=== PATIENT | male | born 1945 | race Caucasian/White ===

== ENCOUNTER 2016-04-01 17:05 | Emergency (ER) | payer OTHER ==
[~2016-04-01] VITALS: Ht 162.6 cm; Wt 109.0 kg
[~2016-04-01 17:05] MED LIST: ALBUAER2 INH; AMIO200T4 PO; CEPH500C2 PO; FRRS300 PO; FURO20TA PO; GLIP10TA9 PO; LPR25 PO; LSN25 PO; PRT40 PO; TAMS0.4C38 PO; WARF3TAB PO
[2016-04-01 17:25] VITALS: TEMP 36.8; Ht 162.6 cm; Wt 109.0 kg
--- NOTE | 2016-04-01 17:29 | EMERGENCY ROOM VISIT NOTE ---
History Report prepared by Suzanne: Chelsea Hackett Under the Supervision of: Dr. Prasanth Montenegro D.O. First contact with patient: 17:19 Stated Complaint: SOB/LOWER HALF OF BODY -EDEMA /FR SCI ULICES History of Present Illness The patient is a 70 year old male who presents to the Emergency Room with complaints of worsening shortness of breath starting [employer]. The patient states that he has also had an occasional cough along with occasional chest pain. The patient states that he has COPD, heart failure, atrial fibrillation, and diabetes.The patient state states that he has not been regularly taking his medication. The patient also states he does not urinate very often but states he also suffers from prostate enlargement. The patient states he had a pacemaker placed 1 year ago. 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 A total of 10 systems reviewed and were otherwise negative. Past Medical & Surgical Medical Problems: (1) Heart disease Surgical Problems: (1) Aortic valve replaced Family History Patient reports no known family medical history. Social History Smoking Status: Unknown if Ever Smoked Marital Status: single Housing Status: other Occupation Status: unemployed Current/Historical Medications Scheduled Aspirin (Aspirin Chewable), 81 MG PO DAILY Ferrous Sulfate (Ferrous Sulfate), 325 MG PO BID Furosemide (Lasix), 80 MG PO BID Glipizide (Glucotrol), 10 MG PO DAILY Lisinopril (Prinivil), 5 MG PO DAILY Metformin Hcl (Glucophage), 1,000 MG PO BID Metoprolol Tartrate (Lopressor), 12.5 MG PO BID Pantoprazole (Protonix), 40 MG PO QAM Pravastatin (Pravachol ), 20 MG PO HS Tamsulosin Hcl (Flomax), 0.4 MG PO DAILY Warfarin Sod (Jantoven), 2 MG PO HS Scheduled PRN Albuterol (Ventolin), 2 PUFFS INH QID PRN for Shortness of Breath Allergies Coded Allergies: No Known Allergies (Unverified , 04/01/16) Physical Exam Vital Signs Date Time Temp Pulse Resp B/P Pulse Ox O2 Delivery O2 Flow Rate FiO2 04/01/16 20:29 74 28 130/83 98 Room Air 04/01/16 19:00 90 20 114/84 98 Room Air 04/01/16 17:34 98 Room Air 04/01/16 17:25 36.8 98 12 120/87 97 Room Air 04/01/16 17:24 108 Physical Exam GENERAL: Patient is awake, alert, and in no acute distress. Patient is resting comfortably and showing no signs of anxiety EYES: The conjunctivae are clear. The pupils are round and reactive. EARS, NOSE, MOUTH AND THROAT: The nose is without any evidence of any deformity. Mucous membranes are moist tongue is midline NECK: The neck is nontender and supple. RESPIRATORY: Lung sounds diminished throughout with rales at both bases. CARDIOVASCULAR: Distant sounds and difficult to auscultate. Regular rate and rhythm. No definite murmur was noted. GASTROINTESTINAL: The abdomen is soft. Bowel sounds are present in all quadrants. Abdomen is nontender MUSCULOSKELETAL/EXTREMITIES: There is no evidence of gross deformity full range of motion is noted in the hips and shoulders SKIN: There is no obvious evidence of any rash. There are no petechiae, pallor or cyanosis noted. Pedal edema was noted in both lower extremities extending into the abdominal wall. NEUROLOGIC: Patient is awake alert and oriented x3 strength is symmetric patellar reflexes are 2+ bilaterally Medical Decision & Procedures ER Provider Diagnostic Interpretation: X-ray results as stated below per interpretation by me and the radiologist. SINGLE VIEW CHEST CLINICAL HISTORY: Dyspnea. FINDINGS: An AP, portable, upright chest radiograph is compared to study dated 10/10/2014. The examination is degraded by portable technique, apical lordotic positioning, large body habitus, and patient rotation. A cardiac AICD partially obscures the left upper chest. The patient is status post midline sternotomy. The heart is enlarged and there is atherosclerotic calcification of the thoracic aorta. There is mild congestion of the pulmonary vasculature. There are low lung volumes and bibasilar atelectasis. No focal airspace consolidation or large pleural effusion is identified. No pneumothorax is seen. The skeletal structures are osteopenic. The bony thorax is grossly intact. IMPRESSION: 1. Cardiomegaly and AICD. There is mild pulmonary vascular congestion. 2. Low lung volumes. No focal airspace consolidation or large pleural effusion is identified. Electronically signed by: Dom Morgan M.D. 04/01/2016 6:03 PM Dictated Date/Time: 04/01/2016 6:01 PM Laboratory Results 04/01/16 17:40 Red Blood Count 3.79, Mean Corpuscular Volume 82.8, Mean Corpuscular Hemoglobin 30.9, Mean Corpuscular Hemoglobin Concent 37.3, Mean Platelet Volume 11.6, Neutrophils (%) (Auto) 70.3, Lymphocytes (%) (Auto) 13.4, Monocytes (%) (Auto) 7.8, Eosinophils (%) (Auto) 7.6, Basophils (%) (Auto) 0.9, Neutrophils # (Auto) 3.26, Lymphocytes # (Auto) 0.62, Monocytes # (Auto) 0.36, Eosinophils # (Auto) 0.35, Basophils # (Auto) 0.04 04/01/16 17:40 Test 04/01/16 17:40 04/01/16 18:06 White Blood Count 4.63 K/uL (4.8-10.8) Red Blood Count 3.79 M/uL (4.7-6.1) Hemoglobin 11.7 g/dL (14.0-18.0) Hematocrit 31.4 % (42-52) Mean Corpuscular Volume 82.8 fL (80-100) Mean Corpuscular Hemoglobin 30.9 pg (25-34) Mean Corpuscular Hemoglobin Concent 37.3 g/dl (32-36) Platelet Count 119 K/uL (130-400) Mean Platelet Volume 11.6 fL (7.4-10.4) Neutrophils (%) (Auto) 70.3 % Lymphocytes (%) (Auto) 13.4 % Monocytes (%) (Auto) 7.8 % Eosinophils (%) (Auto) 7.6 % Basophils (%) (Auto) 0.9 % Neutrophils # (Auto) 3.26 K/uL (1.4-6.5) Lymphocytes # (Auto) 0.62 K/uL (1.2-3.4) Monocytes # (Auto) 0.36 K/uL (0.11-0.59) Eosinophils # (Auto) 0.35 K/uL (0-0.5) Basophils # (Auto) 0.04 K/uL (0-0.2) RDW Standard Deviation 49.7 fL (36.4-46.3) RDW Coefficient of Variation 16.4 % (11.5-14.5) Immature Granulocyte % (Auto) 0.0 % Immature Granulocyte # (Auto) 0.00 K/uL (0.00-0.02) Target Cells 1+ Prothrombin Time 14.0 SECONDS (9.0-12.0) Prothromb Time International Ratio 1.3 (0.9-1.1) Activated Partial Thromboplast Time 26.7 SECONDS (21.0-31.0) Partial Thromboplastin Ratio 1.0 Anion Gap 10.0 mmol/L (3-11) Est Creatinine Clear Calc Drug Dose 57.5 ml/min Estimated GFR () 63.2 Estimated GFR (Non- 54.5 BUN/Creatinine Ratio 18.2 (10-20) Calcium Level 9.4 mg/dl (8.5-10.1) Total Bilirubin 1.3 mg/dl (0.2-1) Aspartate Amino Transf (AST/SGOT) 36 U/L (15-37) Alanine Aminotransferase (ALT/SGPT) 19 U/L (12-78) Alkaline Phosphatase 130 U/L (45-117) Total Creatine Kinase 130 U/L (39-308) Creatine Kinase MB 2.9 ng/ml (0.5-3.6) Creatine Kinase MB Ratio 2.2 (0-3.0) Troponin I 0.045 ng/ml (0-0.045) Pro-B-Type Natriuretic Peptide 9007 pg/ml (0-900) Total Protein 8.8 gm/dl (6.4-8.2) Albumin 3.4 gm/dl (3.4-5.0) Globulin 5.4 gm/dl (2.5-4.0) Albumin/Globulin Ratio 0.6 (0.9-2) Thyroid Stimulating Hormone (TSH) 1.440 uIu/ml (0.300-4.500) Free Thyroxine 1.60 ng/dl (0.80-1.60) Urine Color YELLOW Urine Appearance CLEAR (CLEAR) Urine pH 5.0 (4.5-7.5) Urine Specific Sledge 1.003 (1.000-1.030) Urine Protein TRACE (NEG) Urine Glucose (UA) NEG (NEG) Urine Ketones NEG (NEG) Urine Occult Blood NEG (NEG) Urine Nitrite NEG (NEG) Urine Bilirubin NEG (NEG) Urine Urobilinogen NEG (NEG) Urine Leukocyte Esterase MODERATE (NEG) Urine WBC (Auto) 5-10 /hpf (0-5) Urine RBC (Auto) 0-4 /hpf (0-4) Urine Hyaline Casts (Auto) 0 /lpf (0-5) Urine Epithelial Cells (Auto) 0-5 /lpf (0-5) Urine Bacteria (Auto) NEG (NEG) Laboratory results per my review. Medications Administered Medications (Trade) Dose Ordered Sig/Jenny Route Start Time Stop Time Status Last Admin Dose Admin Furosemide (Lasix Inj) 80 mg NOW STAT IV 04/01/16 18:56 04/01/16 18:57 DC 04/01/16 19:41 80 MG ECG Indication: SOB/dyspnea Rate (beats per minute): 96 Rhythm: atrial fibrillation Findings: PVC, other (Low voltage noted, Poor R wave progression. ) Comparison ECG Date: October 10, 2014 Change: Atrial Fibrillation has replaced ventricular paced rhythm. ED Course 1718: The patient was evaluated in room B8. A complete history and physical examination were performed. 1855: Ordered Lasix Inj 80 mg IV. 2014: I called [facility] and discussed the patient returning and returning to receive his normal medications. 2020: Upon reevaluation, the patient is hemodynamically stable. I discussed the results and treatment plan with him. he verbalized agreement of the treatment plan. The patient was discharged to be released back to the [facility]. Medical Decision Differential diagnosis: Etiologies such as infections, reactive airway disease, pneumonia, pneumothorax , COPD, CHF, cardiac ischemia, pulmonary embolism, musculoskeletal, gastrointestinal, as well as others were entertained. Nursing notes reviewed. The patient is a 70-year-old male who presented to the emergency department for evaluation of shortness of breath. The patient has a history of coronary artery disease and has had CHF in the past. He's been noncompliant with his medications and in fact has not taken many of his cardiac medications since the beginning of the year. The patient was treated with Lasix in the emergency department. He does have very significant edema all the way to the abdominal wall but he does not appear to be hypoxic at this time. He was encouraged to continue all medications as prescribed. He was also encouraged to follow-up with the [facility] physician and discuss possible referral to a finance lead if symptoms do not improve on his outpatient medications. His also encouraged return the emergency Department immediately symptoms change worsen or need arises. Impression Primary Impression: CHF (congestive heart failure) Additional Impression: Noncompliance with medications Scribe Attestation The scribe's documentation has been prepared under my direction and personally reviewed by me in its entirety. I confirm that the note above accurately reflects all work, treatment, procedures, and medical decision making performed by me. Departure Information Dispostion Other (Release back to Jail) Referrals Ulices ARREDONDO (PCP) Forms HOME CARE DOCUMENTATION FORM, IMPORTANT VISIT INFORMATION, WORK / SCHOOL INSTRUCTIONS Patient Instructions My [facility] Additional Instructions continue all medications as prescribed. Have a follow up with a finance lead and possible echocardiogram to evaluate your cardiac output. Problem Qualifiers
[2016-04-01 17:34] VITALS: O2SAT 98
[2016-04-01] MEDS ORDERED: WARF2TAB8 PO (17:59)
[2016-04-01] MEDS ORDERED: METF-384 PO (17:59)
[2016-04-01] MEDS ORDERED: FRS/40 PO (17:59)
--- NOTE | 2016-04-01 18:04 | DIAGNOSTIC IMAGING REPORT ---
SINGLE VIEW CHEST CLINICAL HISTORY: Dyspnea. FINDINGS: An AP, portable, upright chest radiograph is compared to study dated 10/10/2014. The examination is degraded by portable technique, apical lordotic positioning, large body habitus, and patient rotation. A cardiac AICD partially obscures the left upper chest. The patient is status post midline sternotomy. The heart is enlarged and there is atherosclerotic calcification of the thoracic aorta. There is mild congestion of the pulmonary vasculature. There are low lung volumes and bibasilar atelectasis. No focal airspace consolidation or large pleural effusion is identified. No pneumothorax is seen. The skeletal structures are osteopenic. The bony thorax is grossly intact. IMPRESSION: 1. Cardiomegaly and AICD. There is mild pulmonary vascular congestion. 2. Low lung volumes. No focal airspace consolidation or large pleural effusion is identified. Electronically signed by: Dom Morgan M.D. 04/01/2016 6:03 PM Dictated Date/Time: 04/01/2016 6:01 PM
[2016-04-01 18:11] LABS: INR 1.3 (0.9-1.1)
[2016-04-01 18:17] LABS: BUN/CREATININE RATIO 18.2 (10-20); CALCIUM 9.4 mg/dl (8.5-10.1); CREATININE 1.3 mg/dl (0.60-1.40); POTASSIUM 4.8 mmol/L (3.5-5.1)
[2016-04-01 18:28] LABS: ALB/GLOB RATIO 0.6 (0.9-2); CKMB/CK RATIO 2.2 (0-3.0); THYROID STIMULATING HORMONE 1.44 uIu/ml (0.300-4.500)
[2016-04-01 18:49] LABS: URINE APPEARANCE CLEAR (CLEAR); URINE BILIRUBIN NEG (NEG); URINE COLOR YELLOW; URINE EPITHELIAL CELL AUTO 0-5 /lpf (0-5); URINE NITRITE NEG (NEG); URINE SPECIFIC GRAVITY 1.003 (1.000-1.030); UROBILINOGEN NEG (NEG)
[2016-04-01 18:51] LABS: MANUAL MICROSCOPIC REQUIRED? NO; REVIEW REQ? NO
[2016-04-01] MEDS ORDERED: FUROSEMIDE 40 MG/4 ML VIAL IV STA (18:56)
[2016-04-01 19:35] LABS: HEMATOCRIT 31.4 % (42-52); MEAN CELL VOLUME 82.8 fL (80-100); MEAN CORPUSCULAR HEMOGLOBIN 30.9 pg (25-34); MEAN CORPUSCULAR HGB CONC 37.3 g/dl (32-36); MEAN PLATELET VOLUME 11.6 fL (7.4-10.4); PLATELET COUNT 119 K/uL (130-400); RED BLOOD COUNT 3.79 M/uL (4.7-6.1); WHITE BLOOD COUNT 4.63 K/uL (4.8-10.8)
[2016-04-01 19:43] LABS: BASO % 0.9 %; BASO ABS # 0.04 K/uL (0-0.2); COMPLETE YES; EOS % 7.6 %; LYMPH % 13.4 %; LYMPH ABS # 0.62 K/uL (1.2-3.4); MONO % 7.8 %; NEUT % 70.3 %; TARGET CELLS 1+
[2016-04-01 20:29] VITALS: BP 130/83; PULSE 74; O2SAT 98
[2016-04-06] MEDS ORDERED: ASPCH81X PO (13:47)
[2016-04-06] MEDS ORDERED: PRAV20TA PO (13:47)
[2016-04-19] MEDS ORDERED: DLCS PR (10:24)
[2016-04-19] MEDS ORDERED: PRS5 PO (10:24)
[2016-04-19] MEDS ORDERED: CRG3125 PO (10:24)
[2016-04-19] MEDS ORDERED: SPRN100 PO (10:24)
[2016-04-19] MEDS ORDERED: NUTRMIS PO (10:24)
[2016-04-19] MEDS ORDERED: LSX40 PO (10:24)
[2016-04-19] MEDS ORDERED: AMR2 PO (10:24)
== END 2016-04-01 20:47 ==
LOC: EDBD 17:05 → C.EDB 17:07
DX: I50.9 Heart failure, unspecified (principal); Z91.14 Patient's other noncompliance with medication regimen; Z79.82 Long term (current) use of aspirin; Z79.899 Other long term (current) drug therapy; Z79.01 Long term (current) use of anticoagulants

== ENCOUNTER → 2016-04-02 | Outpatient (CLI) | payer OTHER ==
[~2016-04-02] MED LIST changes: +ACET-749 PO; +ACET325T30 PO; -AMIO200T4 PO; +AMR2 PO; +ASPCH81X PO; +CAPS0.022 TOP; -CEPH500C2 PO; +CRG3125 PO; +DLCS PR; +EMOL-31 TOP; +FERR325T PO; +FRS/40 PO; -FURO20TA PO; +LISI-729 PO; -LSN25 PO; +LSX40 PO; +METF-384 PO; +NUTRMIS PO; +ONDA4TAB46 PO; +PANT40TA PO; +POTA10CA28 PO; +PRAV20TA PO; +PRS5 PO; -PRT40 PO; +PRVHFAIN INH; +SPRN100 PO; +WARF2TAB8 PO; -WARF3TAB PO; +WARF4TAB43 PO; +[UNRECOGNIZED DRUG - CODE] IV
[2016-04-02 10:31] LABS: BLOOD UREA NITROGEN 23 mg/dl (7-18); BUN/CREATININE RATIO 17.8 (10-20); CALCIUM 9.1 mg/dl (8.5-10.1); CARBON DIOXIDE 25 mmol/L (21-32); CHLORIDE 105 mmol/L (98-107); GLUCOSE 128 mg/dl (70-99); POTASSIUM 4.2 mmol/L (3.5-5.1); SODIUM 141 mmol/L (136-145)
== END ==
LOC: C.LABSPEC 10:25
PROVIDERS: ATTEND Family Medicine
DX: I50.9 Heart failure, unspecified (principal)

== ENCOUNTER → 2016-04-05 | Outpatient (CLI) | payer OTHER ==
[2016-04-05 13:14] LABS: BLOOD UREA NITROGEN 29 mg/dl (7-18); BUN/CREATININE RATIO 18.2 (10-20); CALCIUM 9.1 mg/dl (8.5-10.1); CARBON DIOXIDE 26 mmol/L (21-32); CHLORIDE 105 mmol/L (98-107); GLUCOSE 56 mg/dl (70-99); POTASSIUM 4.4 mmol/L (3.5-5.1); SODIUM 142 mmol/L (136-145)
== END ==
LOC: C.LABSPEC 12:37
DX: I50.9 Heart failure, unspecified (principal)

== ENCOUNTER 2016-04-06 15:38 | Inpatient (IN) | payer OTHER ==
[~2016-04-06] VITALS: Ht 162.6 cm; Wt 84.1 kg
[~2016-04-06 15:38] MED LIST changes: -ACET-749 PO; -ACET325T30 PO; -AMR2 PO; -CAPS0.022 TOP; -CRG3125 PO; -DLCS PR; -EMOL-31 TOP; -FERR325T PO; -LISI-729 PO; -LSX40 PO; -NUTRMIS PO; -ONDA4TAB46 PO; -PANT40TA PO; -POTA10CA28 PO; -PRS5 PO; -PRVHFAIN INH; -SPRN100 PO; -WARF4TAB43 PO; -[UNRECOGNIZED DRUG - CODE] IV
[2016-04-06] MEDS ORDERED: FERR325T PO (15:55)
[2016-04-06] MEDS ORDERED: [UNRECOGNIZED DRUG - CODE] IV (15:59)
[2016-04-06] MEDS ORDERED: WARF4TAB43 PO (16:03)
[2016-04-06] MEDS ORDERED: CAPS0.022 TOP (16:03)
[2016-04-06] MEDS ORDERED: EMOL-31 TOP (16:03)
[2016-04-06] MEDS ORDERED: DEXTROSE 50% 50 ML SYR ONE (16:08)
--- NOTE | 2016-04-06 16:09 | EMERGENCY ROOM VISIT NOTE ---
History Report prepared by Suzanne: Rocio Amato Under the Supervision of: Dr. Ryan Crouch M.D. First contact with patient: 15:44 Chief Complaint: HYPOGLYCEMIA Stated Complaint: HYPOGLYCEMIA History of Present Illness The patient is a 70 year old male prisoner who presents to the Emergency Room via ambulance with complaints of persistent hypoglycemia throughout the afternoon. The patient has a history of diabetes and his blood sugar was 36 at the correction earlier today. He was given apple juice which brought his sugar up to 57, but it has declined since then. En route, his blood sugar was 35. He was not been given any D10 or oral glucose en route. Currently, he states that he feels "like a piece of junk." His current abdominal and leg swelling as well as leg pain is at baseline. Past medical history includes CHF, heart disease, and COPD. He was in the hospital last week for CHF due to medical noncompliance. Over the past few days, he has been given additional doses of Lasix due to failure. He receives 80 mg IV Lasix BID. The patient is on 3L oxygen at all times. He denies any bleeding or blood in the stool. The patient is in Glipizide and Metformin for diabetes but stopped both medications today due to hypoglycemia. Source of History: patient Onset: today Position: other (Global) Symptom Intensity: BSG as low as 35 Quality: other (hypoglycemia) Timing: other (persistent) Review of Systems See HPI for pertinent positives & negatives. A total of 10 systems reviewed and were otherwise negative. Past Medical & Surgical Medical Problems: (1) Heart disease (2) Hypoglycemia Surgical Problems: (1) Aortic valve replaced Family History Patient reports no known family medical history. Social History Smoking Status: Never Smoker Marital Status: single Housing Status: other Occupation Status: unemployed Current/Historical Medications Scheduled Aspirin (Aspirin Chewable), 81 MG PO QAM Capsaicin (Capsaicin), 1 APPLN TOP BID Emollient (Lubriskin), 1 APPLN TOP BID Ferrous Sulfate (Ferrous Sulfate), 325 MG PO BID Furosemide (Furosemide), 80 MG IV BID Lisinopril (Prinivil), 5 MG PO DAILY Metoprolol Tartrate (Lopressor), 12.5 MG PO BID Pantoprazole (Protonix), 40 MG PO QAM Potassium Chloride (Micro-K Ext Rel), 20 MEQ PO BID Pravastatin (Pravachol ), 20 MG PO HS Tamsulosin Hcl (Flomax), 0.4 MG PO QAM Warfarin Sodium (Warfarin Sodium), 2 MG PO HS Scheduled PRN Acetaminophen (Acetaminophen), 325 MG PO TID PRN for Pain Acetaminophen/Codeine (Tylenol W/Codeine #3), 2 TABS PO QID PRN for Pain Albuterol (Ventolin Hfa), 2 PUFFS INH QID PRN for Shortness of Breath Ondansetron Hcl (Zofran), 4 MG PO QID PRN for Nausea Allergies Coded Allergies: No Known Allergies (Unverified , 04/01/16) Physical Exam Vital Signs Date Time Temp Pulse Resp B/P Pulse Ox O2 Delivery O2 Flow Rate FiO2 04/06/16 17:43 63 20 104/71 96 Nasal Cannula 3.0 04/06/16 16:39 63 22 125/79 Nasal Cannula 3.0 04/06/16 16:04 63 04/06/16 15:43 36.5 72 20 127/92 97 Nasal Cannula Physical Exam GENERAL: Patient is chronically unwell appearing and in mild distress. HEENT: No acute trauma, normocephalic atraumatic, mucous membranes moist, no nasal congestion, no scleral icterus. NECK: No stridor, no adenopathy, no meningismus, trachea is midline. LUNGS: Mildly dyspneic. Diffuse crackles to auscultation to auscultation and equal bilaterally. No wheeze, no rhonchi. HEART: Regular rate and rhythm. Mild systolic murmur. No rubs, gallops appreciated. CHEST: Defibrillator in left upper chest. ABDOMEN: Soft, nontender, bowel sounds positive, no masses appreciated, no peritonitis. BACK: No midline tenderness, no CVA tenderness EXTREMITIES: Normal motion all extremities, no cyanosis, 4+ edema in the legs extending to low back and mid-abdomen. NEUROLOGIC: Alert and oriented, no acute motor or sensory deficits, no focal weakness, cranial nerves grossly intact. SKIN: No rash, no jaundice, no diaphoresis. Medical Decision & Procedures ER Provider Diagnostic Interpretation: X ray results are stated below per my interpretation and the radiologist's interpretation. SINGLE VIEW CHEST CLINICAL HISTORY: Hypoglycemia. FINDINGS: An AP, portable, upright chest radiograph is compared to study dated 04/01/2016. The examination is degraded by portable technique, apical lordotic positioning, large body habitus, and motion artifact. A cardiac AICD is unchanged in position. The patient is status post midline sternotomy. The heart is enlarged and there is atherosclerotic calcification of the thoracic aorta. There is mild congestion of the pulmonary vasculature. There are low lung volumes and bibasilar atelectasis. No focal airspace consolidation or large pleural effusion is identified. No pneumothorax is seen. The skeletal structures are osteopenic. The bony thorax is grossly intact. IMPRESSION: 1. Cardiomegaly and AICD. There is mild pulmonary vascular congestion. This is similar in appearance to the 04/01/2016 examination. 2. Low lung volumes. No focal airspace consolidation or large pleural effusion is identified. Electronically signed by: Dom Morgan M.D. 04/06/2016 4:43 PM Dictated Date/Time: 04/06/2016 4:42 PM Laboratory Results 04/06/16 16:00 Red Blood Count 3.73, Mean Corpuscular Volume 83.9, Mean Corpuscular Hemoglobin 31.4, Mean Corpuscular Hemoglobin Concent 37.4, Mean Platelet Volume 11.6, Neutrophils (%) (Auto) 67.5, Lymphocytes (%) (Auto) 7.5, Monocytes (%) (Auto) 11.4, Eosinophils (%) (Auto) 13.2, Basophils (%) (Auto) 0.4, Neutrophils # (Auto ) 3.77, Lymphocytes # (Auto) 0.42, Monocytes # (Auto) 0.64, Eosinophils # (Auto ) 0.74, Basophils # (Auto) 0.02 04/06/16 16:00 Test 04/06/16 16:00 White Blood Count 5.59 K/uL (4.8-10.8) Red Blood Count 3.73 M/uL (4.7-6.1) Hemoglobin 11.7 g/dL (14.0-18.0) Hematocrit 31.3 % (42-52) Mean Corpuscular Volume 83.9 fL (80-100) Mean Corpuscular Hemoglobin 31.4 pg (25-34) Mean Corpuscular Hemoglobin Concent 37.4 g/dl (32-36) Platelet Count 130 K/uL (130-400) Mean Platelet Volume 11.6 fL (7.4-10.4) Neutrophils (%) (Auto) 67.5 % Lymphocytes (%) (Auto) 7.5 % Monocytes (%) (Auto) 11.4 % Eosinophils (%) (Auto) 13.2 % Basophils (%) (Auto) 0.4 % Neutrophils # (Auto) 3.77 K/uL (1.4-6.5) Lymphocytes # (Auto) 0.42 K/uL (1.2-3.4) Monocytes # (Auto) 0.64 K/uL (0.11-0.59) Eosinophils # (Auto) 0.74 K/uL (0-0.5) Basophils # (Auto) 0.02 K/uL (0-0.2) RDW Standard Deviation 50.6 fL (36.4-46.3) RDW Coefficient of Variation 16.6 % (11.5-14.5) Immature Granulocyte % (Auto) 0.0 % Immature Granulocyte # (Auto) 0.00 K/uL (0.00-0.02) Prothrombin Time 14.5 SECONDS (9.0-12.0) Prothromb Time International Ratio 1.3 (0.9-1.1) Activated Partial Thromboplast Time 33.6 SECONDS (21.0-31.0) Partial Thromboplastin Ratio 1.3 Anion Gap 8.0 mmol/L (3-11) Est Creatinine Clear Calc Drug Dose 46.8 ml/min Estimated GFR () 49.2 Estimated GFR (Non- 42.4 BUN/Creatinine Ratio 20.0 (10-20) Calcium Level 8.9 mg/dl (8.5-10.1) Total Bilirubin 1.1 mg/dl (0.2-1) Direct Bilirubin 0.7 mg/dl (0-0.2) Aspartate Amino Transf (AST/SGOT) 30 U/L (15-37) Alanine Aminotransferase (ALT/SGPT) 18 U/L (12-78) Alkaline Phosphatase 130 U/L (45-117) Total Creatine Kinase 77 U/L (39-308) Troponin I 0.024 ng/ml (0-0.045) Pro-B-Type Natriuretic Peptide 6126 pg/ml (0-900) Total Protein 8.7 gm/dl (6.4-8.2) Albumin 3.2 gm/dl (3.4-5.0) Lipase 122 U/L (73-393) Laboratory results as reviewed by me. Medications Administered Medications (Trade) Dose Ordered Sig/Jenny Route Start Time Stop Time Status Last Admin Dose Admin Dextrose (Dextrose 50% 50ML Syringe) 50 ml STK-MED ONCE .ROUTE 04/06/16 16:08 04/06/16 16:09 DC 04/06/16 16:17 50 ML Albuterol/ Ipratropium (Duoneb) 3 ml STK-MED ONCE .ROUTE 04/06/16 16:32 04/06/16 16:33 DC 04/06/16 16:37 3 ML Dextrose (Dextrose 50% 50ML Syringe) 50 ml NOW STAT IV 04/06/16 17:22 04/06/16 17:23 DC 04/06/16 17:41 50 ML ECG Indication: other (hypoglycemia) Rate (beats per minute): 82 Rhythm: sinus rhythm Findings: 1st degree AV block, no acute ischemic change, no ectopy ED Course 1558: The patient was evaluated in room A9. A complete history and physical exam was performed. 1710: Upon reevaluation, the patient is feeling slightly better following the breathing treatment. Discussed results and treatment plan with the patient. He verbalized understanding and agreement with the treatment plan. The patient will be evaluated for further management. 1732: I discussed the case with Dr. Carol BLANCO Hospitalist. The patient will be evaluated for further management. Medical Decision Differential: Sepsis, Infectious (UTI/Pneumonia/Meningitis/etc), Metabolic/ Electrolyte Abnormality, Cardiac, Hepatic, Endocrine, Toxicologic, Neurologic, amongst other pathologies entertained. 70 yr old medically non-compliant prisoner arrives for evaluation of hypoglycemia. He has been on high dose lasix over the last week for CHF exacerbation (80mg BID IV) without much improvement in his UOP nor CHF. By exam he is clearly fluid overloaded. I suspect his minor renal insufficiency lead to Glipizide becoming a bit more intense. Given multiple round glucose prior to arrival apparently with glucose continuing to drop. Given D50 here with just minimal improvement thus given second dose D50. Doesn't seem to be significantly confused. He has clearly failed extensive attempt as outpatient in correction to get CHF under control. Stable throughout ED stay. Consults Time Called: 1720 Consulting Physician: Dr. Carol BLANCO Hospitalist Returned Call: 1732 I discussed the case with him. The patient will be evaluated for further management. Impression Primary Impression: Failure of outpatient treatment Additional Impressions: CHF (congestive heart failure) Hypoglycemia Scribe Attestation The scribe's documentation has been prepared under my direction and personally reviewed by me in its entirety. I confirm that the note above accurately reflects all work, treatment, procedures, and medical decision making performed by me. Departure Information Dispostion Being Evaluated By Hospitalist Referrals Lorena ARREDONDO (PCP) Patient Instructions My [facility] Problem Qualifiers Additional Impressions: CHF (congestive heart failure) Congestive heart failure type: combined Congestive heart failure chronicity: acute on chronic Qualified Codes: I50.43 - Acute on chronic combined systolic (congestive) and diastolic (congestive) heart failure
[2016-04-06] MEDS ORDERED: PRVHFAIN INH (16:10)
[2016-04-06] MEDS ORDERED: LPR25 PO (16:10)
[2016-04-06] MEDS ORDERED: POTA10CA28 PO (16:12)
[2016-04-06] MEDS ORDERED: TAMS0.4C38 PO (16:14)
[2016-04-06] MEDS ORDERED: ONDA4TAB46 PO (16:16)
[2016-04-06] MEDS ORDERED: ACET325T30 PO (16:17)
[2016-04-06] MEDS ORDERED: ACET-749 PO (16:17)
[2016-04-06 16:21] LABS: BASO % 0.4 %; BASO ABS # 0.02 K/uL (0-0.2); COMPLETE YES; EOS % 13.2 %; HEMATOCRIT 31.3 % (42-52); LYMPH % 7.5 %; LYMPH ABS # 0.42 K/uL (1.2-3.4); MEAN CELL VOLUME 83.9 fL (80-100); MEAN CORPUSCULAR HEMOGLOBIN 31.4 pg (25-34); MEAN CORPUSCULAR HGB CONC 37.4 g/dl (32-36); MEAN PLATELET VOLUME 11.6 fL (7.4-10.4); MONO % 11.4 %; NEUT % 67.5 %; PLATELET COUNT 130 K/uL (130-400); RED BLOOD COUNT 3.73 M/uL (4.7-6.1); WHITE BLOOD COUNT 5.59 K/uL (4.8-10.8)
[2016-04-06] MEDS ORDERED: ALBUT/IPRATROP 3MG/0.5MG NEB 3 ML VIAL ONE (16:32)
--- NOTE | 2016-04-06 16:45 | DIAGNOSTIC IMAGING REPORT ---
SINGLE VIEW CHEST CLINICAL HISTORY: Hypoglycemia. FINDINGS: An AP, portable, upright chest radiograph is compared to study dated 04/01/2016. The examination is degraded by portable technique, apical lordotic positioning, large body habitus, and motion artifact. A cardiac AICD is unchanged in position. The patient is status post midline sternotomy. The heart is enlarged and there is atherosclerotic calcification of the thoracic aorta. There is mild congestion of the pulmonary vasculature. There are low lung volumes and bibasilar atelectasis. No focal airspace consolidation or large pleural effusion is identified. No pneumothorax is seen. The skeletal structures are osteopenic. The bony thorax is grossly intact. IMPRESSION: 1. Cardiomegaly and AICD. There is mild pulmonary vascular congestion. This is similar in appearance to the 04/01/2016 examination. 2. Low lung volumes. No focal airspace consolidation or large pleural effusion is identified. Electronically signed by: Dom Morgan M.D. 04/06/2016 4:43 PM Dictated Date/Time: 04/06/2016 4:42 PM
[2016-04-06 16:55] LABS: CALCIUM 8.9 mg/dl (8.5-10.1); CREATININE 1.6 mg/dl (0.60-1.40); POTASSIUM 4.9 mmol/L (3.5-5.1)
[2016-04-06 17:16] LABS: INR 1.3 (0.9-1.1); PARTIAL THROMBOPLASTIN RATIO 1.3; PROTHROMBIN TIME (PATIENT) 14.5 SECONDS (9.0-12.0)
[2016-04-06] MEDS ORDERED: DEXTROSE 50% 50 ML SYR IV STA (17:22)
[2016-04-06] MEDS ORDERED: LISI-729 PO (17:59)
[2016-04-06] MEDS ORDERED: PANT40TA PO (18:01)
[2016-04-06] MEDS ORDERED: ALUMINUM/MAGNESIUM/SIMETH (MAALOX MAX) 30 ML UDC PO PRN (18:15)
[2016-04-06] MEDS ORDERED: ACETAMINOPHEN 325 MG TAB PO PRN (18:15)
[2016-04-06] MEDS ORDERED: ALBUMIN 5% 250 ML with FUROSEMIDE INJ 40 MG IV SCH ×2 (18:15)
[2016-04-06] MEDS ORDERED: ONDANSETRON INJ 2 MG/ML 2 ML VIAL IV PRN (18:15)
[2016-04-06] MEDS ORDERED: POLYETHYLENE (MIRALAX) 17 GM PACK PO PRN (18:15)
--- NOTE | 2016-04-06 19:04 | History and Physical ---
History & Physical Date & Time of Service: Apr 06, 2016 at 18:47 Chief Complaint: Hypoglycemia Primary Care Physician: Lorena ARREDONDO History of Present Illness Source: patient, clinic records, hospital records This patient is a 70-year-old inmate at [facility] that was transferred to the emergency department today with reported hypoglycemia and fluid retention. Patient has a history of type 2 diabetes. He was found to have a blood sugar in the 30s. He was given orange juice. The ambulance was called. His blood sugar sal to the 50s. The patient takes glipizide 10 mg daily and metformin 1000 mg BID. The patient currently is complaining of some mild lightheadedness. He denies any chest pain or difficulty breathing. He does require 3 L of oxygen at all times for history of chronic COPD. He denies any recent changes in his medications. The patient is complaining of some scrotal pain and possible swelling. The patient has a history of coronary artery disease, A. fib and diastolic heart failure. He is reportedly on Lasix 80 mg IV BID at [facility]. Upon arrival in the ED, the patient's IV site was infiltrated. Past Medical/Surgical History Medical Problems: COPD Type 2 diabetes mellitus Coronary artery disease status post CABG and AVR (bioprosthetic) in 2007 Status post AICD placement Anemia Status post GI bleed On chronic anticoagulation Family History Patient reports no known family medical history. Social History Smoking Status: Never Smoker Marital Status: single Housing status: other (incarcerated at [facility]) Occupational Status: unemployed Allergies Coded Allergies: No Known Allergies (Unverified , 04/01/16) Home Medications Scheduled Aspirin (Aspirin Chewable), 81 MG PO QAM Capsaicin (Capsaicin), 1 APPLN TOP BID Emollient (Lubriskin), 1 APPLN TOP BID Ferrous Sulfate (Ferrous Sulfate), 325 MG PO BID Furosemide (Furosemide), 80 MG IV BID Lisinopril (Prinivil), 5 MG PO DAILY Metoprolol Tartrate (Lopressor), 12.5 MG PO BID Pantoprazole (Protonix), 40 MG PO QAM Potassium Chloride (Micro-K Ext Rel), 20 MEQ PO BID Pravastatin (Pravachol ), 20 MG PO HS Tamsulosin Hcl (Flomax), 0.4 MG PO QAM Warfarin Sodium (Warfarin Sodium), 2 MG PO HS Scheduled PRN Acetaminophen (Acetaminophen), 325 MG PO TID PRN for Pain Acetaminophen/Codeine (Tylenol W/Codeine #3), 2 TABS PO QID PRN for Pain Albuterol (Ventolin Hfa), 2 PUFFS INH QID PRN for Shortness of Breath Ondansetron Hcl (Zofran), 4 MG PO QID PRN for Nausea Review of Systems 10 system review performed and negative unless noted in HPI or below Physical Exam Vital Signs Date Time Temp Pulse Resp B/P Pulse Ox O2 Delivery O2 Flow Rate FiO2 04/06/16 17:43 63 20 104/71 96 Nasal Cannula 3.0 04/06/16 16:39 63 22 125/79 Nasal Cannula 3.0 04/06/16 16:04 63 04/06/16 15:43 36.5 72 20 127/92 97 Nasal Cannula General Appearance: + mild distress Head: normocephalic Eyes: EOMI Neck: + JVD (mild jvd noted) Respiratory/Chest: + pertinent finding (few crackles at the left base) Cardiovascular: regular rate, rhythm Abdomen/GI: + pertinent finding (fairly firm. nontender. distended. + Tympanitic ) Genitourinary - Male: + pertinent finding (scrotal edema) Extremities/Musculoskelatal: + pertinent finding (+ 1 pitting edema in BLE) Neurologic/Psych: no motor/sensory deficits, alert Skin: warm/dry Diagnostics Laboratory Results Results Past 24 Hours Test 04/06/16 16:00 Range/Units White Blood Count 5.59 4.8-10.8 K/uL Red Blood Count 3.73 4.7-6.1 M/uL Hemoglobin 11.7 14.0-18.0 g/dL Hematocrit 31.3 42-52 % Mean Corpuscular Volume 83.9 80-100 fL Mean Corpuscular Hemoglobin 31.4 25-34 pg Mean Corpuscular Hemoglobin Concent 37.4 32-36 g/dl Platelet Count 130 130-400 K/uL Mean Platelet Volume 11.6 7.4-10.4 fL Neutrophils (%) (Auto) 67.5 % Lymphocytes (%) (Auto) 7.5 % Monocytes (%) (Auto) 11.4 % Eosinophils (%) (Auto) 13.2 % Basophils (%) (Auto) 0.4 % Neutrophils # (Auto) 3.77 1.4-6.5 K/uL Lymphocytes # (Auto) 0.42 1.2-3.4 K/uL Monocytes # (Auto) 0.64 0.11-0.59 K/uL Eosinophils # (Auto) 0.74 0-0.5 K/uL Basophils # (Auto) 0.02 0-0.2 K/uL RDW Standard Deviation 50.6 36.4-46.3 fL RDW Coefficient of Variation 16.6 11.5-14.5 % Immature Granulocyte % (Auto) 0.0 % Immature Granulocyte # (Auto) 0.00 0.00-0.02 K/uL Prothrombin Time 14.5 9.0-12.0 SECONDS Prothromb Time International Ratio 1.3 0.9-1.1 Activated Partial Thromboplast Time 33.6 21.0-31.0 SECONDS Partial Thromboplastin Ratio 1.3 Sodium Level 138 136-145 mmol/L Potassium Level 4.9 3.5-5.1 mmol/L Chloride Level 103 98-107 mmol/L Carbon Dioxide Level 27 21-32 mmol/L Anion Gap 8.0 3-11 mmol/L Blood Urea Nitrogen 32 7-18 mg/dl Creatinine 1.60 0.60-1.40 mg/dl Est Creatinine Clear Calc Drug Dose 46.8 ml/min Estimated GFR () 49.2 Estimated GFR (Non- 42.4 BUN/Creatinine Ratio 20.0 10-20 Random Glucose 32 70-99 mg/dl Calcium Level 8.9 8.5-10.1 mg/dl Total Bilirubin 1.1 0.2-1 mg/dl Direct Bilirubin 0.7 0-0.2 mg/dl Aspartate Amino Transf (AST/SGOT) 30 15-37 U/L Alanine Aminotransferase (ALT/SGPT) 18 12-78 U/L Alkaline Phosphatase 130 45-117 U/L Total Creatine Kinase 77 39-308 U/L Troponin I 0.024 0-0.045 ng/ml Pro-B-Type Natriuretic Peptide 6126 0-900 pg/ml Total Protein 8.7 6.4-8.2 gm/dl Albumin 3.2 3.4-5.0 gm/dl Lipase 122 73-393 U/L Diagnostic Radiology CLINICAL HISTORY: Fever. Nausea. FINDINGS: An AP, portable, upright chest radiograph is compared to study dated 01/20/2016 and correlated with chest CT dated 12/01/2008. The examination is degraded by portable technique and patient rotation. The heart is top normal for projection. The mitral annulus is densely calcified. There is atherosclerotic calcification with uncoiling of the thoracic aorta. Chronic interstitial thickening is similar to previous. No airspace consolidation or large pleural effusion is identified. No pneumothorax is seen. The skeletal structures are osteopenic. Degenerative change and scoliosis is noted in the thoracic spine. Arthritic change is seen in the shoulders. IMPRESSION: No acute cardiopulmonary abnormality. Chronic changes as above. EKG Normal sinus rhythm First-degree AV block Q waves noted in V1 through V3 Impression Assessment and Plan 70-year-old male with a history of type 2 diabetes and chronic diastolic heart failure and transferred to the ED with an episode of persistent hypoglycemia Currently BSG's stable in the 70s Hypoglycemia -Admit to telemetry -Accu-Cheks every 2 hours for the first 12 hours -Hold metformin 1000 mg BID -Hold glipizide 10 mg daily -ISS Chronic diastolic heart failure -Patient was reportedly getting Lasix 80 mg IV BID-->IV was infiltrated upon arrival. He also did not get any Lasix today -Lasix/albumin x 1 -Restart Lasix 40 mg po BID tomorrow -Strict I's and O's -Adjust Lasix prn History of coronary artery disease status post CABG-asymptomatic -Continue medical management with Lopressor 12.5 mg BID, pravastatin 20 mg HS -Hold Hiren secondary to renal function (lisinopril 5 mg daily) COPD with chronic respiratory failure-Baseline -Duo nebs every 6 hours we'll be available History of bioprosthetic AVR -Continue warfarin 2 mg HS-this may need to be adjusted as the INR was subtherapeutic at 1.3 Acute on chronic renal insufficiency-creatinine is slightly elevated from 1.6 to baseline at approximately 1.3. ? secondary to diuresis -Hold Hiren as noted above -Follow PRP History of GI bleed-stable. No signs of active bleeding DVT prophylaxis -Coumadin -TEDS, SCDs CODE STATUS -LEVEL I FULL CODE Level of Care Telemetry Resuscitation Status FULL RESUSCITATION VTE Prophylaxis VTE Risk Assessment Done? Y/N: Yes Risk Level: Low Given or contraindicated: Warfarin (Coumadin), T.E.D. Stockings, SCD's Assessment and Plan Attending addendum: I have seen and examined this patient, have directed their medical care, and agree with the H&P as noted above.
[2016-04-06] MEDS ORDERED: GLUCAGON FOR INJ 1 MG VIAL SQ PRN (19:45)
[2016-04-06] MEDS ORDERED: GLUCOSE 40% GEL 15 GM TUBE PO PRN (19:45)
[2016-04-06 20:00] VITALS: BP 114/73; PULSE 67; TEMP 36.7; O2SAT 99; BMI 40.1
[2016-04-06] MEDS ORDERED: ALBUMIN 25% 50 ML with FUROSEMIDE INJ 40 MG IV ONE ×2 (20:00)
[2016-04-06] MEDS: INSULIN ASPART 100 UNITS/ML 3 ML PEN SC SCH (20:31)
[2016-04-06] MEDS: DEXTROSE 5% 1000ML 1,000 ML IV SCH (20:56)
[2016-04-06] MEDS: METOPROLOL TARTRATE 25 MG TAB PO SCH (21:22)
[2016-04-06] MEDS: FERROUS SULFATE 325 MG TAB PO SCH (21:22)
[2016-04-06] MEDS: WARFARIN SOD 2 MG TAB PO SCH (21:22)
[2016-04-06] MEDS: ENOXAPARIN 30 MG/0.3 ML SYR SC SCH (21:23)
[2016-04-06] MEDS: PRAVASTATIN SOD 20 MG TAB PO SCH (21:23)
[2016-04-06] MEDS: GLUCOSE 10 TABS/TUBE PO PRN (22:42)
[2016-04-06 23:21] VITALS: BP 100/66; PULSE 89; TEMP 36.8; O2SAT 99
[2016-04-07] MEDS: GLUCOSE 10 TABS/TUBE PO PRN (00:15)
[2016-04-07 01:46] LABS: BUN/CREATININE RATIO 18.3 (10-20); CALCIUM 8.8 mg/dl (8.5-10.1); CREATININE 1.8 mg/dl (0.60-1.40)
[2016-04-07] MEDS: DEXTROSE 50% 50 ML SYR IV PRN (02:24)
[2016-04-07 03:06] VITALS: BP 110/72; PULSE 60; TEMP 36.4; O2SAT 98
[2016-04-07] MEDS: DEXTROSE 5% 1000ML 1,000 ML IV SCH ×2 (06:15→18:30)
[2016-04-07 06:49] LABS: ESTIMATED AVERAGE GLUCOSE 148 mg/dl
[2016-04-07] MEDS: INSULIN ASPART 100 UNITS/ML 3 ML PEN SC SCH ×4 (07:00→20:28)
[2016-04-07 07:01] LABS: INR 1.4 (0.9-1.1); PROTHROMBIN TIME (PATIENT) 14.7 SECONDS (9.0-12.0)
[2016-04-07 07:04] LABS: HA1C FLAG Peak Unknown (Normal)
[2016-04-07 07:30] LABS: BUN/CREATININE RATIO 16.2 (10-20); CALCIUM 8.9 mg/dl (8.5-10.1); MAGNESIUM 1.5 mg/dl (1.8-2.4); POTASSIUM 5.3 mmol/L (3.5-5.1)
[2016-04-07 07:31] VITALS: BP 103/70; PULSE 60; TEMP 36.6; O2SAT 97
[2016-04-07 07:38] LABS: HEMATOCRIT 30.7 % (42-52); MEAN CELL VOLUME 83.7 fL (80-100); MEAN CORPUSCULAR HEMOGLOBIN 30.8 pg (25-34); MEAN CORPUSCULAR HGB CONC 36.8 g/dl (32-36); MEAN PLATELET VOLUME 11.1 fL (7.4-10.4); PLATELET COUNT 123 K/uL (130-400); RED BLOOD COUNT 3.67 M/uL (4.7-6.1); WHITE BLOOD COUNT 4.79 K/uL (4.8-10.8)
[2016-04-07 07:39] LABS: BASO % 0.2 %; BASO ABS # 0.01 K/uL (0-0.2); COMPLETE YES; EOS % 11.3 %; IG% 0.2 %; LARGE PLATELETS 1+; LYMPH % 11.3 %; LYMPH ABS # 0.54 K/uL (1.2-3.4); MONO % 10.2 %; NEUT % 66.8 %; PLT ESTIMATE DECREASED; TARGET CELLS 2+
[2016-04-07] MEDS: TAMSULOSIN HCL 0.4 MG CAP PO SCH (08:39)
[2016-04-07] MEDS: ACETAMINOPHEN 325 MG TAB PO PRN (08:39)
[2016-04-07] MEDS: PANTOprazole SOD 40 MG TAB PO SCH (08:39)
[2016-04-07] MEDS: FERROUS SULFATE 325 MG TAB PO SCH ×2 (08:40→21:14)
[2016-04-07] MEDS: METOPROLOL TARTRATE 25 MG TAB PO SCH ×2 (08:40→20:26)
[2016-04-07] MEDS: ASPIRIN 81 MG ECTAB PO SCH (08:41)
--- NOTE | 2016-04-07 09:55 | Hospitalist Progress Note ---
Hospitalist Progress Note Date of Service Apr 07, 2016. Subjective Pt evaluation today including: conversation w/ patient, physical exam, chart review, lab review, review of studies, review of inpatient medication list Pain: Scrotal pain PO Intake: Poor Voiding: chowdary catheter in place Pt was seen and examined this morning. He is complaining of severe scrotal pain and swelling. Pt has difficulty moving around in the bed due to swelling. He also complains of shortness of breath which is chronic, wears 2L O2 at baseline. During my exam o2 is not on. Overnight glucose has stayed in high 40s-50s even while on D5W at 100 cc/hr, and after recieving a half amp of dextrose, and glucose tabs. He denies lightheadedness, dizziness overnight. He reports a very poor appetite, nausea, denies vomiting. He denies abdominal pain but reports pressure. Constitutional: No chills, No fever, No sweats Eyes: No worsening of vision ENT: No nasal symptoms, No sore throat, No tinnitus Respiratory: + dyspnea on exertion, + shortness of breath, No cough, No dyspnea at rest, No sputum Cardiovascular: + orthopnea, No chest pain, No palpitations Abdomen: + nausea, No constipation, No diarrhea, No pain, No vomiting Musculoskeletal: + swelling, No calf pain, No muscle pain Male : + problem reported (scrotal edema, + about the size of a cantalope. ) Neurologic: + problem reported (wheelchair bound), + weakness, No numbness/ tingling Endo: No fatigue Skin: No itch, No rash Objective Vital Signs Date Time Temp Pulse Resp B/P Pulse Ox O2 Delivery O2 Flow Rate FiO2 04/07/16 04:00 Nasal Cannula 3.0 04/07/16 03:06 36.4 60 19 110/72 98 Nasal Cannula 2.0 04/07/16 00:00 Nasal Cannula 3.0 04/06/16 23:21 36.8 89 20 100/66 99 Nasal Cannula 2.0 04/06/16 20:00 36.7 67 20 114/73 99 Nasal Cannula 3.0 04/06/16 19:37 63 20 117/80 96 Nasal Cannula 3.0 04/06/16 17:43 63 20 104/71 96 Nasal Cannula 3.0 04/06/16 16:39 63 22 125/79 Nasal Cannula 3.0 04/06/16 16:04 63 04/06/16 15:43 36.5 72 20 127/92 97 Nasal Cannula Physical Exam General Appearance: WD/WN, + mild distress, + pertinent finding ( male , obese) Eyes: PERRL, EOMI ENT: hearing grossly normal, pharynx normal Neck: no JVD Respiratory/Chest: no respiratory distress, no accessory muscle use, + pertinent finding (diminished breath sounds at bases bilaterally.) Cardiovascular: regular rate, rhythm, no JVD, no murmur Abdomen: + pertinent finding (+ ascites, + dullness to percussion. + tenderness to palpation in the epigastric region. + guarding. No rebound. ) Extremities: non-tender, no calf tenderness, + pedal edema (1+ pitting up to mid tibial region) Neurologic/Psychiatric: alert, oriented x 3 Skin: normal color, warm/dry Laboratory Results Last 24 Hours Test 04/06/16 16:00 04/07/16 01:15 04/07/16 06:39 White Blood Count 5.59 K/uL Red Blood Count 3.73 M/uL Hemoglobin 11.7 g/dL Hematocrit 31.3 % Mean Corpuscular Volume 83.9 fL Mean Corpuscular Hemoglobin 31.4 pg Mean Corpuscular Hemoglobin Concent 37.4 g/dl Platelet Count 130 K/uL Mean Platelet Volume 11.6 fL Neutrophils (%) (Auto) 67.5 % Lymphocytes (%) (Auto) 7.5 % Monocytes (%) (Auto) 11.4 % Eosinophils (%) (Auto) 13.2 % Basophils (%) (Auto) 0.4 % Neutrophils # (Auto) 3.77 K/uL Lymphocytes # (Auto) 0.42 K/uL Monocytes # (Auto) 0.64 K/uL Eosinophils # (Auto) 0.74 K/uL Basophils # (Auto) 0.02 K/uL RDW Standard Deviation 50.6 fL RDW Coefficient of Variation 16.6 % Immature Granulocyte % (Auto) 0.0 % Immature Granulocyte # (Auto) 0.00 K/uL Prothrombin Time 14.5 SECONDS 14.7 SECONDS Prothromb Time International Ratio 1.3 1.4 Activated Partial Thromboplast Time 33.6 SECONDS Partial Thromboplastin Ratio 1.3 Sodium Level 138 mmol/L 139 mmol/L Potassium Level 4.9 mmol/L 5.0 mmol/L Chloride Level 103 mmol/L 103 mmol/L Carbon Dioxide Level 27 mmol/L 28 mmol/L Anion Gap 8.0 mmol/L 8.0 mmol/L Blood Urea Nitrogen 32 mg/dl 33 mg/dl Creatinine 1.60 mg/dl 1.80 mg/dl Est Creatinine Clear Calc Drug Dose 46.8 ml/min 40.3 ml/min Estimated GFR () 49.2 42.3 Estimated GFR (Non- 42.4 36.5 BUN/Creatinine Ratio 20.0 18.3 Random Glucose 32 mg/dl 49 mg/dl Estimated Average Glucose 148 mg/dl Hemoglobin A1c 6.8 % Calcium Level 8.9 mg/dl 8.8 mg/dl Total Bilirubin 1.1 mg/dl Direct Bilirubin 0.7 mg/dl Aspartate Amino Transf (AST/SGOT) 30 U/L Alanine Aminotransferase (ALT/SGPT) 18 U/L Alkaline Phosphatase 130 U/L Total Creatine Kinase 77 U/L Troponin I 0.024 ng/ml Pro-B-Type Natriuretic Peptide 6126 pg/ml Total Protein 8.7 gm/dl Albumin 3.2 gm/dl Lipase 122 U/L Assessment and Plan 70-year-old male with a history of type 2 diabetes and chronic diastolic heart failure and transferred to the ED with an episode of persistent hypoglycemia Currently BSG's stable in the 70s Hypoglycemia - Overnight glucose checks are running very low in 40s and 50s- pt required 1/2 amp of dextrose and multiple glucose chews. - D5W @ 100mL/hr - Will order U/S RUQ to evaluate the pancrease with consistent hypoglycemia. Pt does have large ascites, if unable to obtain adequate imaging from ultrasound due to fluid will order a CT with IV contrast. Ideally would like to have oral contrast but pt remains nauseated so it's unlikely that this will be tolerated. - Accu-Cheks achs - Hold metformin 1000 mg BID - Hold glipizide 10 mg daily - ISS Chronic diastolic heart failure -Patient was reportedly getting Lasix 80 mg IV BID however IV was infiltrated upon arrival. He also did not get any Lasix yesterday -Lasix/albumin x 1 -Restart Lasix 40 mg po BID tomorrow -Strict I/Os: was out 550mL overnight -Adjust Lasix prn - Scrotal edema present - towel placed underneath ligament to alleviate pressure , improve swelling. - Albumin 3.2. Hypomagnesemia - Mag is 1.5 - will order 2grams now and ask nursing to hold D5W infusion while this runs in not to fluid overload him. History of coronary artery disease status post CABG-asymptomatic -Continue medical management with Lopressor 12.5 mg BID, pravastatin 20 mg HS -Hold Hiren secondary to renal function (lisinopril 5 mg daily) COPD with chronic respiratory failure-Baseline -Duo nebs every 6 hours we'll be available - Continue chronic O2= 2 L History of bioprosthetic AVR -Continue warfarin 2 mg HS-this may need to be adjusted as the INR was subtherapeutic at 1.3 Acute on chronic renal insufficiency-creatinine is slightly elevated from 1.6 to baseline at approximately 1.3. ? secondary to diuresis -Hold Hiren as noted above -Follow PRP History of GI bleed-stable. No signs of active bleeding DVT prophylaxis -Coumadin -TEDS, SCDs CODE STATUS- FULL CODE Disposition: From [facility], return when medically stable. Release date from [facility] = 05/17
[2016-04-07] MEDS: MAGNESIUM SULFATE 1GM / D5W 1 GM in PREMIXED IN D5W 100 ML IV SCH ×2 (10:30→12:20)
--- NOTE | 2016-04-07 11:08 | DIAGNOSTIC IMAGING REPORT ---
ULTRASOUND RIGHT UPPER QUADRANT ABDOMEN CLINICAL HISTORY: Right upper quadrant and epigastric abdominal pain. COMPARISON STUDY: No priors. TECHNIQUE: Real-time, grayscale, and color flow sonography of the right upper quadrant of the abdomen was performed. Images are reviewed in the transverse and longitudinal planes. FINDINGS: Liver: The liver appears cirrhotic in morphology and is heterogeneous in echotexture. There is nodularity of the hepatic surface contour. There is no intrahepatic biliary ductal dilatation. The main portal vein is patent. Gallbladder: The gallbladder appears contracted. There are shadowing calcified gallstones identified. There is no gallbladder wall thickening or pericholecystic fluid. A sonographic Hua's sign is reportedly absent. The common bile duct measures up to 0.5 cm in diameter. Pancreas: Visualized portions of the pancreatic head and body are normal in appearance. The splenic vein is patent. Right kidney: Survey images of the right kidney demonstrate normal size and echotexture. There is no hydronephrosis. Ascites: There is a small volume of free fluid in the right upper quadrant. IMPRESSION: 1. Cholelithiasis without sonographic evidence of acute cholecystitis. 2. The liver appears cirrhotic in morphology. A small volume of ascites is seen in the right upper quadrant. Electronically signed by: Dom Morgan M.D. 04/07/2016 11:06 AM Dictated Date/Time: 04/07/2016 11:04 AM
[2016-04-07 11:58] VITALS: PULSE 58; TEMP 36.7; O2SAT 98
[2016-04-07 14:41] VITALS: Ht 162.6 cm; Wt 84.1 kg
[2016-04-07 15:46] VITALS: BP 93/58; PULSE 59; TEMP 36.3; O2SAT 97
[2016-04-07] MEDS: WARFARIN SOD 2 MG TAB PO SCH (16:06)
[2016-04-07 16:15] VITALS: PULSE 60
[2016-04-07 19:16] VITALS: BP 98/53; PULSE 63; TEMP 36.8; O2SAT 98
--- NOTE | 2016-04-07 19:27 | ECHOCARDIOGRAM REPORT ---
*NOTICE TO RECEIVING REPUBLICAN AGENCY This information is strictly Confidential and protected under [place] law. [place] law prohibits you from making any further disclosure of this information unless further disclosure is expressly permitted by the written consent of the person to whom it pertains or is authorized by law. A general authorization for the release of medical or other information is not sufficient for this purpose. Hospital accepts no responsibility if the information is made available to any other person, INCLUDING THE PATIENT. Interpretation Summary * Name: YADIRA MILLER [id number] Study Date: 04/07/2016 03:22 PM BP: 103/70 mmHg * Patient Location: .2T\S\E219\S\1 HR: 79 * : 1945 (M/d/yyyy) Gender: Male Height: 64 in * Age: 71 yrs Ethnicity: [place] Weight: 233 lb * Ordering Physician: Cristina Earl * Referring Physician: Lorena ARREDONDO * Performed By: Aury Alonso RCS * * Reason For Study: ANASARCA / DECREASED BLOOD PRESSURE * BSA: 2.1 m2 * -- Conclusions -- * 1. Mildly dilated LV with mild concentric LVH. * 2. Moderate global LV dysfunction. EF 35-40%. Paradoxical septal motion consistent with post-operative state. * 3. Dilated RV with moderate to severe RV dysfunction. * 4. Severe biatrial enlargement. * 5. Bioprosthetic aortic valve well seated with normal expected transvalvular gradients. * 6. Grade II diastolic dysfunction. * 7. Mild-moderate mitral regurgitation * 8. Moderate tricuspid regurgitation. * 9. Dilated IVC suggestive of elevated RA pressure (15 mmHg). Mild pulmonary hypertension (PASP 35-40 mmHg.) * 10. Compared with prior study on 10/11/2014: LV dysfunction is now moderate. Procedure Details * A complete two-dimensional transthoracic echocardiogram was performed (2D, M-mode, Doppler and color flow Doppler). Left Ventricle * The left ventricle is mildly dilated. * There is mild concentric left ventricular hypertrophy. * Ejection Fraction = 35-40%. * Flattened septum is consistent with RV volume overload. * Septal motion is consistent with post-operative state. * There is moderate global hypokinesis of the left ventricle. Right Ventricle * There is a pacemaker lead in the right ventricle. * The right ventricular systolic function is moderately reduced. Atria * The left atrium is severely dilated. * The right atrium is severely dilated. * No ASD detected; PFO is not assessed. Mitral Valve * There is moderate mitral annular calcification. * There is no mitral valve stenosis. * There is mild to moderate mitral regurgitation. Tricuspid Valve * The tricuspid valve is not well visualized, but is grossly normal. * There is no tricuspid stenosis. * There is moderate tricuspid regurgitation. Aortic Valve * There is no significant aortic regurgitation. * The prosthetic aortic valve is well-seated. * Bioprosthetic leaflets are not well visualized. * There is a bioprosthetic aortic valve. * Normal expected transvalvular gradients Pulmonic Valve * The pulmonic valve is not well seen, but is grossly normal. * There is no pulmonic valvular stenosis. * Mild pulmonic valvular regurgitation. Great Vessels * The aortic root and proximal ascending aorta are normal sized. Pericardium/Pleural * There is no pericardial effusion. * Moderate size left pleural effusion. Great Vessels * Dilated inferior vena cava with reduced collapsability with sniff indicates an elevated right atrial pressure of 15 mmHg Left Ventricular Diastolic Function * Diastolic dysfunction, Grade II, consistent with elevated left atrial pressure. MMode 2D Measurements and Calculations IVSd 1.2 cm IVSs 1.4 cm LVIDd 5.5 cm LVIDs 4.2 cm LVPWd 1.3 cm LVPWs 1.6 cm IVS/LVPW 0.92 FS 23.5 % EDV(Teich) 150.0 ml ESV(Teich) 80.4 ml EF(Teich) 46.4 % EDV(cubed) 170.2 ml ESV(cubed) 76.3 ml EF(cubed) 55.2 % % IVS thick 12.0 % % LVPW thick 22.2 % LV mass(C)d 301.2 grams LV mass(C)dI 144.3 grams/m\S\2 LV mass(C)s 253.3 grams LV mass(C)sI 121.4 grams/m\S\2 SV(Teich) 69.6 ml SI(Teich) 33.3 ml/m\S\2 SV(cubed) 93.9 ml SI(cubed) 45.0 ml/m\S\2 Ao root diam 3.0 cm Ao root area 7.0 cm\S\2 LVOT diam 1.9 cm LVOT area 2.8 cm\S\2 LVAd ap2 40.2 cm\S\2 LVLd ap2 9.1 cm EDV(MOD-sp2) 145.2 ml EDV(sp2-el) 150.5 ml LVAs ap2 29.9 cm\S\2 LVLs ap2 8.7 cm ESV(MOD-sp2) 80.9 ml ESV(sp2-el) 86.9 ml EF(MOD-sp2) 44.3 % EF(sp2-el) 42.2 % SV(MOD-sp2) 64.3 ml SI(MOD-sp2) 30.8 ml/m\S\2 SV(sp2-el) 63.5 ml SI(sp2-el) 30.4 ml/m\S\2 Doppler Measurements and Calculations MV E max hoang 126.7 cm/sec MV P1/2t max hoang 135.4 cm/sec MV P1/2t 66.2 msec MVA(P1/2t) 3.3 cm\S\2 MV dec slope 598.5 cm/sec\S\2 MV dec time 0.25 sec Ao V2 max 218.9 cm/sec Ao max PG 19.2 mmHg Ao max PG (full) 18.0 mmHg Ao V2 mean 152.4 cm/sec Ao mean PG 10.5 mmHg Ao mean PG (full) 9.8 mmHg Ao V2 VTI 45.1 cm TREVA(I,A) 0.72 cm\S\2 TREVA(I,D) 0.72 cm\S\2 TREVA(V,A) 0.69 cm\S\2 TREVA(V,D) 0.69 cm\S\2 LV V1 max PG 1.1 mmHg LV V1 mean PG 0.71 mmHg LV V1 max 53.3 cm/sec LV V1 mean 40.4 cm/sec LV V1 VTI 11.4 cm MR max hoang 368.4 cm/sec MR max PG 54.3 mmHg SV(Ao) 314.2 ml SI(Ao) 150.5 ml/m\S\2 SV(LVOT) 32.4 ml SI(LVOT) 15.5 ml/m\S\2 PA V2 max 71.8 cm/sec PA max PG 2.1 mmHg PI max hoang 191.9 cm/sec PI max PG 14.7 mmHg PI dec slope 279.9 cm/sec\S\2 PI P1/2t 200.8 msec TR max hoang 234.2 cm/sec
[2016-04-07] MEDS: PRAVASTATIN SOD 20 MG TAB PO SCH (21:14)
[2016-04-07] MEDS: ENOXAPARIN 30 MG/0.3 ML SYR SC SCH (21:15)
[2016-04-08] VITALS (9 sets, daily range): BP systolic 92–114; BP diastolic 54–70; PULSE 60–104; TEMP 36.5–36.8; O2SAT 91–98
[2016-04-08] MEDS: DEXTROSE 5% 1000ML 1,000 ML IV SCH (04:41)
[2016-04-08 08:00] LABS: BASO % 0.8 %; BASO ABS # 0.04 K/uL (0-0.2); COMPLETE YES; EOS % 8.3 %; IG% 0.2 %; LYMPH ABS # 0.74 K/uL (1.2-3.4); MEAN CELL VOLUME 84.1 fL (80-100); MEAN CORPUSCULAR HEMOGLOBIN 30.4 pg (25-34); MEAN CORPUSCULAR HGB CONC 36.2 g/dl (32-36); MEAN PLATELET VOLUME 11.9 fL (7.4-10.4); MONO % 9.5 %; NEUT % 66.2 %; PLATELET COUNT 126 K/uL (130-400); RED BLOOD COUNT 3.45 M/uL (4.7-6.1); WHITE BLOOD COUNT 4.93 K/uL (4.8-10.8)
[2016-04-08 08:25] LABS: BUN/CREATININE RATIO 13.3 (10-20); CALCIUM 8.7 mg/dl (8.5-10.1); CREATININE 2.9 mg/dl (0.60-1.40)
[2016-04-08] MEDS: FERROUS SULFATE 325 MG TAB PO SCH ×2 (08:33→20:59)
[2016-04-08] MEDS: ASPIRIN 81 MG ECTAB PO SCH (08:33)
[2016-04-08] MEDS: PANTOprazole SOD 40 MG TAB PO SCH (08:34)
[2016-04-08] MEDS: METOPROLOL TARTRATE 25 MG TAB PO SCH ×2 (08:34→22:04)
[2016-04-08] MEDS: INSULIN ASPART 100 UNITS/ML 3 ML PEN SC SCH ×4 (08:37→22:05)
[2016-04-08] MEDS: TAMSULOSIN HCL 0.4 MG CAP PO SCH (08:38)
[2016-04-08 08:39] LABS: INR 1.3 (0.9-1.1)
[2016-04-08] MEDS ORDERED: FUROSEMIDE INJ 40 MG in SYRINGE 0 ML IV ONE (10:00)
--- NOTE | 2016-04-08 10:10 | Hospitalist Progress Note ---
Hospitalist Progress Note Date of Service Apr 08, 2016. Subjective Pt evaluation today including: conversation w/ patient, physical exam, chart review, lab review, review of studies, review of inpatient medication list Pain: None PO Intake: Minimal, fair Voiding: chowdary catheter in place The patient was seen and examined this morning. Pt reports his nausea, discomfort and scrotal pain is somewhat better. He denies that his pressure in the abdomen is any different. Pt denies lightheadedness, dizziness or feeling of low blood sugar. Overnight glucose dropped as low 61 and he was administered a half amp of dextrose, and had multiple glucose tablets. His sugars overall are a little better. He denies difficulty breathing or shortness of breath. He reports being able to walk but that has not for some time now due to scrotal edema, at [facility] primarily uses a wheelchair for this reason. Pt was educated on walking to help alleviate the pain and swelling. All Other Systems: Reviewed and Negative Objective Vital Signs Date Time Temp Pulse Resp B/P Pulse Ox O2 Delivery O2 Flow Rate FiO2 04/08/16 04:20 36.5 60 18 113/70 97 Nasal Cannula 2.0 04/08/16 04:00 Nasal Cannula 2.0 04/08/16 00:09 36.7 60 18 114/59 95 Nasal Cannula 2.0 04/08/16 00:00 Nasal Cannula 2.0 04/07/16 20:00 Nasal Cannula 2.0 04/07/16 19:16 36.8 63 18 98/53 98 Nasal Cannula 2.0 04/07/16 16:15 Nasal Cannula 2.0 04/07/16 16:15 60 18 04/07/16 15:46 36.3 59 18 93/58 97 Room Air 04/07/16 12:00 Room Air 04/07/16 11:58 36.7 58 16 98 04/07/16 08:00 Room Air 04/07/16 07:31 36.6 60 18 103/70 97 Nasal Cannula 2.0 Physical Exam General Appearance: + obese, + pertinent finding ( male, appears fatigued, falls asleep easily during exam. ) Eyes: PERRL, EOMI ENT: hearing grossly normal, pharynx normal Neck: supple, + JVD (mild) Respiratory/Chest: no respiratory distress, no accessory muscle use, + pertinent finding (wearing 2L O2 via nc, + crackles at bases bilaterally) Cardiovascular: regular rate, rhythm Abdomen: normal bowel sounds, soft, + distended, + tenderness (mild. No rebound or guarding. ), + pertinent finding (chronic indwelling chowdary in place. + scrotal edema- ~ the size of a small cantalope.) Extremities: no calf tenderness, + pedal edema (2+ pitting) Neurologic/Psychiatric: alert, oriented x 3 Skin: normal color, warm/dry Laboratory Results Last 24 Hours Test 04/07/16 07:45 04/07/16 11:07 04/07/16 12:20 04/07/16 13:41 Bedside Glucose 78 mg/dl 72 mg/dl 81 mg/dl Test 04/07/16 15:22 04/07/16 16:10 04/07/16 19:51 04/08/16 04:44 Pro-B-Type Natriuretic Peptide 9069 pg/ml Bedside Glucose 80 mg/dl 92 mg/dl Test 04/08/16 06:59 Bedside Glucose 103 mg/dl Assessment and Plan 70-year-old male with a history of type 2 diabetes and chronic diastolic heart failure and transferred to the ED with an episode of persistent hypoglycemia Currently BSG's stable in the 70s Hypoglycemia - likely the long half life of glipizide and combination with liver cirrhosis and age of the patient are causing hypoglycemia. Will make sure the patient does resume this medication once discharged back o [facility] - will need explicit discharge instructions! - Overnight glucose checks slightly improved with readings around 80s-90s, lowest was = 61 - pt required 1/2 amp of dextrose and multiple glucose chews around midnight again. - D5W @ 100mL/hr, continue for now. - Accu-Cheks achs - Hold metformin 1000 mg BID - STOP glipizide 10 mg daily- do not resume at time of discharge - ISS - U/S RUQ: - pancreas was unremarkable, evidence of cholelithiasis without evidence of acute cholecystitis. The liver appears cirrhotic in morphology. A small volume of ascites is seen in the right upper quadrant. Chronic diastolic heart failure -Patient was reportedly getting Lasix 80 mg IV BID however IV was infiltrated upon arrival. He also did not get any Lasix yesterday - Echo completed: * -- Conclusions -- * 1. Mildly dilated LV with mild concentric LVH. * 2. Moderate global LV dysfunction. EF 35-40%. Paradoxical septal motion consistent with post-operative state. * 3. Dilated RV with moderate to severe RV dysfunction. * 4. Severe biatrial enlargement. * 5. Bioprosthetic aortic valve well seated with normal expected transvalvular gradients. * 6. Grade II diastolic dysfunction. * 7. Mild-moderate mitral regurgitation * 8. Moderate tricuspid regurgitation. * 9. Dilated IVC suggestive of elevated RA pressure (15 mmHg). Mild pulmonary hypertension (PASP 35-40 mmHg.) * 10. Compared with prior study on 10/11/2014: LV dysfunction is now moderate. - Pulmonary hypertension is likely contributing to ascities and peripheral edema - Pro-BNP elevated >9000 - will order Lasix 60 mg IV now; pt did not receive lasix yesterday amongst borderline BPs - Urine outs were minimal overnight- 50mL. Reassess outs today and will likely need another IV dose this evening. - Cont Lasix 40 mg po BID tomorrow - Strict I/Os: was out 550mL overnight - Adjust Lasix prn - Scrotal edema present - towel placed underneath ligament to alleviate pressure , improve swelling- appears to be reducing the amount of swelling - Albumin 3.2. - PT/OT Hypomagnesemia - Mag was 1.5 - received 2grams yesterday - recheck am labs History of coronary artery disease status post CABG-asymptomatic -Continue medical management with Lopressor 12.5 mg BID, pravastatin 20 mg HS -Hold Hiren secondary to renal function (lisinopril 5 mg daily) COPD with chronic respiratory failure-Baseline -Duo nebs every 6 hours we'll be available - Continue chronic O2= 2 L History of bioprosthetic AVR -Continue warfarin 2 mg HS Acute on chronic renal insufficiency-creatinine is slightly elevated from 1.6 to baseline at approximately 1.3. ? secondary to diuresis -Hold Hiren as noted above -Follow PRP History of GI bleed-stable. No signs of active bleeding DVT prophylaxis -Coumadin -TEDS, SCDs CODE STATUS- FULL CODE Disposition: From [facility], return when medically stable. Release date from [facility] = 05/17
--- NOTE | 2016-04-08 10:11 | Medical Student: [facility] ---
Med Student Progress Note Date of Service Apr 08, 2016. Subjective Pt evaluation today including: conversation w/ patient, physical exam, chart review, lab review, review of studies This patient is a 70-year-old male with a history of Type 2 DM on glipizide 10 mg daily and metformin 1000 mg bid, CHF on Lasix 80 mg bid at [facility] , COPD on 3 L O2 24/7, CAD s/p CABG and AVR on warfarin, s/p AICD placement, and cirrhosis that is admitted for hypoglycemia and fluid retention. His only complaint today is pain secondary to scrotal swelling. In addition, he has abdominal swelling and leg swelling. He has been somnolent. He denies chest pain or dyspnea. No abdominal pain, nausea, vomiting, diarrhea, or constipation. Review of Systems Constitutional: No fever Respiratory: No shortness of breath Cardiac: + edema, No chest pain, No palpitations Abdomen: No constipation, No diarrhea, No nausea, No pain, No vomiting Musculoskeletal: + swelling, No calf pain Neurologic: + numbness/tingling (chronic decreased sensation in both feet) All Other Systems: Reviewed and Negative Objective Vital Signs Date Time Temp Pulse Resp B/P Pulse Ox O2 Delivery O2 Flow Rate FiO2 04/08/16 08:00 Room Air 04/08/16 07:24 36.5 60 20 92/54 98 Room Air 04/08/16 04:20 36.5 60 18 113/70 97 Nasal Cannula 2.0 04/08/16 04:00 Nasal Cannula 2.0 04/08/16 00:09 36.7 60 18 114/59 95 Nasal Cannula 2.0 04/08/16 00:00 Nasal Cannula 2.0 04/07/16 20:00 Nasal Cannula 2.0 04/07/16 19:16 36.8 63 18 98/53 98 Nasal Cannula 2.0 04/07/16 16:15 Nasal Cannula 2.0 04/07/16 16:15 60 18 04/07/16 15:46 36.3 59 18 93/58 97 Room Air 04/07/16 12:00 Room Air 04/07/16 11:58 36.7 58 16 98 Physical Exam General Appearance: + pertinent finding (Pt is somnolent, but arouses easily to voice. ) Eyes: bilateral eyes EOMI, bilateral eyes normal inspection ENT: hearing grossly normal, + pertinent finding (NC in place on 2 L ) Neck: + pertinent finding (Mild JVD) Respiratory/Chest: no respiratory distress, no accessory muscle use, + pertinent finding (Crackles in bilateral lower and middle lung jauregui. ) Cardiovascular: regular rate, rhythm, no gallop, no murmur, + pertinent finding (Distant heart sounds. ) Abdomen: normal bowel sounds, non tender, + distended (Fluid wave present), + pertinent finding (Marked scrotal edema, scrotum is roughly the size of a small cantoloupe. Hines catheter in place. ) Extremities: no calf tenderness, + pertinent finding (2+ pitting edema bilaterally. 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, alert Laboratory Results Last 24 Hours Test 04/07/16 11:07 04/07/16 12:20 04/07/16 13:41 04/07/16 15:22 Bedside Glucose 72 mg/dl 81 mg/dl Pro-B-Type Natriuretic Peptide 9069 pg/ml Test 04/07/16 16:10 04/07/16 19:51 04/08/16 06:59 04/08/16 07:45 Bedside Glucose 80 mg/dl 92 mg/dl 103 mg/dl White Blood Count 4.93 K/uL Red Blood Count 3.45 M/uL Hemoglobin 10.5 g/dL Hematocrit 29.0 % Mean Corpuscular Volume 84.1 fL Mean Corpuscular Hemoglobin 30.4 pg Mean Corpuscular Hemoglobin Concent 36.2 g/dl Platelet Count 126 K/uL Mean Platelet Volume 11.9 fL Neutrophils (%) (Auto) 66.2 % Lymphocytes (%) (Auto) 15.0 % Monocytes (%) (Auto) 9.5 % Eosinophils (%) (Auto) 8.3 % Basophils (%) (Auto) 0.8 % Neutrophils # (Auto) 3.26 K/uL Lymphocytes # (Auto) 0.74 K/uL Monocytes # (Auto) 0.47 K/uL Eosinophils # (Auto) 0.41 K/uL Basophils # (Auto) 0.04 K/uL RDW Standard Deviation 50.1 fL RDW Coefficient of Variation 16.3 % Immature Granulocyte % (Auto) 0.2 % Immature Granulocyte # (Auto) 0.01 K/uL Prothrombin Time 14.0 SECONDS Prothromb Time International Ratio 1.3 Sodium Level 131 mmol/L Potassium Level 6.0 mmol/L Chloride Level 97 mmol/L Carbon Dioxide Level 25 mmol/L Anion Gap 9.0 mmol/L Blood Urea Nitrogen 39 mg/dl Creatinine 2.90 mg/dl Est Creatinine Clear Calc Drug Dose 25.4 ml/min Estimated GFR () 23.8 Estimated GFR (Non- 20.5 BUN/Creatinine Ratio 13.3 Random Glucose 95 mg/dl Calcium Level 8.7 mg/dl CXR from 04/06 showed: 1. Cardiomegaly and AICD. There is mild pulmonary vascular congestion. This is similar in appearance to the 04/01/2016 examination. 2. Low lung volumes. No focal airspace consolidation or large pleural effusion is identified. Abdominal US from 04/07 showed: IMPRESSION: 1. Cholelithiasis without sonographic evidence of acute cholecystitis. 2. The liver appears cirrhotic in morphology. A small volume of ascites is seen in the right upper quadrant. Echocardiogram from 04/07 showed: -- Conclusions -- * 1. Mildly dilated LV with mild concentric LVH. * 2. Moderate global LV dysfunction. EF 35-40%. Paradoxical septal motion consistent with post-operative state. * 3. Dilated RV with moderate to severe RV dysfunction. * 4. Severe biatrial enlargement. * 5. Bioprosthetic aortic valve well seated with normal expected transvalvular gradients. * 6. Grade II diastolic dysfunction. * 7. Mild-moderate mitral regurgitation * 8. Moderate tricuspid regurgitation. * 9. Dilated IVC suggestive of elevated RA pressure (15 mmHg). Mild pulmonary hypertension (PASP 35-40 mmHg.) * 10. Compared with prior study on 10/11/2014: LV dysfunction is now moderate. EKG from 04/07 at 1502 showed: Ventricular paced rhythm at 60 bpm. Medications Medications Administered Medications (Trade) Dose Ordered Sig/Jenny Route Start Time Stop Time Status Last Admin Dose Admin Dextrose (Dextrose 50% 50ML Syringe) 50 ml STK-MED ONCE .ROUTE 04/06/16 16:08 04/06/16 16:09 DC 04/06/16 16:17 50 ML Albuterol/ Ipratropium (Duoneb) 3 ml STK-MED ONCE .ROUTE 04/06/16 16:32 04/06/16 16:33 DC 04/06/16 16:37 3 ML Dextrose 50 ml 50 ml NOW STAT IV 04/06/16 17:22 04/06/16 17:23 DC 04/06/16 17:41 50 ML Dextrose (D5W 1000ml) 1,000 ml @ 100 mls/hr Q10H IV 04/06/16 18:15 04/08/16 07:14 DC 04/08/16 04:41 100 MLS/HR Enoxaparin Sodium (Lovenox Inj) 30 mg QPM SC 04/06/16 21:00 05/06/16 20:59 04/07/16 21:15 30 MG Acetaminophen (Tylenol Tab) 650 mg Q4H PRN PO 04/06/16 18:15 05/06/16 18:14 04/07/16 08:39 650 MG Ondansetron HCl (Zofran Inj) 4 mg Q6H PRN IV 04/06/16 18:15 05/06/16 18:14 04/07/16 11:16 4 MG Aspirin (Ecotrin Tab) 81 mg QAM PO 04/07/16 09:00 05/07/16 08:59 04/08/16 08:33 81 MG Metoprolol Tartrate (Lopressor Tab) 12.5 mg BID PO 04/06/16 21:00 05/06/16 20:59 04/07/16 08:40 12.5 MG Pantoprazole Sodium (Protonix Tab) 40 mg QAM PO 04/07/16 09:00 05/07/16 08:59 04/08/16 08:34 40 MG Pravastatin Sodium (Pravachol Tab) 20 mg HS PO 04/06/16 21:00 05/06/16 20:59 04/07/16 21:14 20 MG Tamsulosin HCl (Flomax Cap) 0.4 mg QAM PO 04/07/16 09:00 05/07/16 08:59 04/08/16 08:38 0.4 MG Warfarin Sodium (Coumadin Tab) 2 mg DAILY@1600 PO 04/06/16 21:00 05/06/16 20:59 04/07/16 16:06 2 MG Ferrous Sulfate 325 mg 325 mg BID PO 04/06/16 21:00 05/06/16 20:59 04/08/16 08:33 325 MG Furosemide/ Albumin Human (Lasix Inj/ Albumin 25%) 54 ml @ 54 mls/hr ONE ONCE IV 04/06/16 20:00 04/06/16 20:59 DC 04/06/16 20:55 54 MLS/HR Glucose (Glucose Chew Tab) 4-8 Tablets 4 Tabl... UD PRN PO 04/06/16 19:45 05/06/16 19:44 04/07/16 00:15 4 TABS Dextrose 25-50ML OF 50% DW IV FOR... UD PRN IV 04/06/16 19:45 05/06/16 19:44 04/07/16 02:24 25 ML Magnesium Sulfate/ Prmx (Magnesium Sulfate/Premixed D5W) 100 ml @ 100 mls/hr Q1H IV 04/07/16 10:00 04/07/16 11:59 DC 04/07/16 12:20 100 MLS/HR Assessment and Plan Assessment and Plan: Pt is a 71 year old male with a history of Type 2 DM on glipizide and metformin , COPD, CHF, and cirrhosis who is admitted for hypoglycemia and fluid retention. Hypoglycemia - Blood sugar has improved to the 70-100s, and D5 was stopped last night. Hypoglycemia is most likely a result of decreased hepatic metabolism of glipizide resulting in prolonged half life. - Will hold glipizide at this time. Given cirrhosis, glipizide will need to be discontinued. - Will continue with Diabetic diet. - Monitor blood sugar q3-4 hours as well as before meals. CHF exacerbation - Physical exam with lung crackles, pedal edema, as well as the marked scrotal edema. I/O was net +[phone] yesterday and +[phone] so far today. He did not receive Lasix yesterday due to borderline hypotension. Pro BNP is elevated at 9069. Echocardiogram from yesterday shows worsening heart failure with reduced EF of 35-40%, severe RV dysfunction, biatrial enlargement, Grade II diastolic dysfunction, mild-moderate MR and moderate tricuspid regurgitation, dilated IVC suggestive of elevated RA pressure, and mild pulmonary HTN. - Will start Lasix 40 mg and reassess with plan for possible additional IV dose. - Will restart Lasix 40 mg PO bid that he was on previously. ERA - Creatinine today is 2.90 with BUN of 39, BUN/Creat ratio of 13.3, suggesting renal azotemia. This is likely reflects renal congestion given the marked hypervolemia. - Will give Lasix as above and continue to monitor daily BMP. - Continue to hold his CHEMA inhibitor. Hyperkalemia with K of 6.0 - Secondary to ERA. - Will obtain stat EKG. If EKG changes of peaked T waves, will treat with calcium gluconate. - Pt is being treated with Lasix. - Will obtain ABG to assess for acidosis and need for bicarbonate. - Consider adding albuterol and Kayexalate. - Will not give insulin due to hypoglycemia. Hyponatremia with Na of 130 - This reflects hypervolemic hyponatremia in the setting of CHF, cirrhosis, and ERA. - Obtain urine sodium, FeNa, plasma osmolarity, and urine osmolarity for further evaluation. Cirrhosis - US showed cirrhosis with a small volume of ascites in the RUQ. CHF and pulmonary HTN are also likely contributing to the ascites. Albumin is slightly low at 3.2, further contributing to edema. Hypomagnesemia - improved with Mg of 1.7 after replacement compared to 1.5 prior. - Will plan to give additional replacement of 1 g IV. History of CAD s/p CABG - Pt has had no chest pain. - Continue usual Lopressor 12.5 mg bid and pravastatin 20 mg daily. - Hold CHEMA inhibitor as above. COPD - At baseline. Continue usual O2 NC of 2-3 L. History of bioprosthetic aortic valve replacement - Last INR was 1.3, subtherapeutic. Continue warafin 2 mg daily and monitor INR. DVT prophylaxis - Continue warfarin and TEDS/SCDs.
[2016-04-08 10:15] LABS: MAGNESIUM 1.7 mg/dl (1.8-2.4)
[2016-04-08] MEDS ORDERED: FUROSEMIDE INJ 20 MG in SYRINGE 0 ML IV ONE (10:30)
[2016-04-08 13:23] LABS: BUN/CREATININE RATIO 13.5 (10-20)
[2016-04-08 13:24] LABS: CALCIUM 8.2 mg/dl (8.5-10.1)
[2016-04-08 15:54] LABS: URINE APPEARANCE TURBID (CLEAR); URINE BILIRUBIN NEG (NEG); URINE COLOR ORANGE; URINE EPITHELIAL CELL AUTO >30 /lpf (0-5); URINE NITRITE POS (NEG); URINE SPECIFIC GRAVITY 1.012 (1.000-1.030); UROBILINOGEN NEG (NEG); ZZURINE CULT IF INDIC CATH YES
[2016-04-08 15:57] LABS: MANUAL MICROSCOPIC REQUIRED? NO; REVIEW REQ? YES
[2016-04-08] MEDS: WARFARIN SOD 2 MG TAB PO SCH (15:59)
[2016-04-08] MEDS: ENOXAPARIN 30 MG/0.3 ML SYR SC SCH (21:02)
[2016-04-08] MEDS: ALBUMIN 25% 50 ML with FUROSEMIDE INJ 40 MG IV SCH ×2 (22:01)
[2016-04-08] MEDS: PRAVASTATIN SOD 20 MG TAB PO SCH (22:11)
--- NOTE | 2016-04-08 23:15 | DIAGNOSTIC IMAGING REPORT ---
[facility] CLINICAL HISTORY: Generalized abdominal pain. Clinical concern for bowel obstruction. FINDINGS: 5 AP, portable, supine abdominal radiographs are obtained. Correlation is made with abdominal ultrasound dated 04/07/2016. The examination is degraded by large body habitus. There is gaseous distention of the stomach. There are numerous mildly distended and gas-filled loops of small bowel which measure up to 3.6 cm diameter. This could represent a low-grade bowel obstruction as clinically queried. There is no evidence of complete obstruction as gas and stool are noted in the right colon. No evidence of intraperitoneal free air is seen on these supine views. Cholelithiasis is seen in the right upper quadrant. Numerous vascular and prostatic calcifications are present in the pelvis. The skeletal structures are osteopenic. There is lumbosacral spondylosis. Postoperative change is seen in the left hip. Atherosclerotic calcification is noted in the femoral arteries. The heart is enlarged and pacemaker leads are identified. Midline sternotomy wires are present. IMPRESSION: 1. There is gaseous distention of the stomach and several small bowel loops. This could represent a mild ileus or possibly a low-grade small bowel obstruction. Clinical correlation will be required. 2. Cholelithiasis. Electronically signed by: Dom Morgan M.D. 04/08/2016 11:13 PM Dictated Date/Time: 04/08/2016 11:10 PM
[2016-04-09] VITALS (13 sets, daily range): BP systolic 87–129; BP diastolic 46–77; PULSE 78–109; TEMP 36.4–36.9; O2SAT 94–100
[2016-04-09] MEDS ORDERED: LEVOFLOXACIN / D5W 750 MG in PREMIXED IN D5W 150 ML IV SCH
[2016-04-09] MEDS ORDERED: LEVOFLOXACIN CONSULT ACTIVE PRN (00:15)
[2016-04-09] MEDS: DEXTROSE 50% 50 ML SYR IV PRN (06:44)
[2016-04-09] MEDS: INSULIN ASPART 100 UNITS/ML 3 ML PEN SC SCH ×4 (07:00→20:22)
[2016-04-09 07:07] LABS: BASO % 0.2 %; BASO ABS # 0.01 K/uL (0-0.2); COMPLETE YES; HEMATOCRIT 29.2 % (42-52); IG% 0.2 %; LYMPH % 13.2 %; LYMPH ABS # 0.64 K/uL (1.2-3.4); MEAN CELL VOLUME 83.2 fL (80-100); MEAN CORPUSCULAR HEMOGLOBIN 30.5 pg (25-34); MEAN CORPUSCULAR HGB CONC 36.6 g/dl (32-36); MEAN PLATELET VOLUME 11.6 fL (7.4-10.4); MONO % 7.9 %; NEUT % 71.5 %; PLATELET COUNT 122 K/uL (130-400); RED BLOOD COUNT 3.51 M/uL (4.7-6.1); WHITE BLOOD COUNT 4.84 K/uL (4.8-10.8)
[2016-04-09 07:14] LABS: INR 1.4 (0.9-1.1); PROTHROMBIN TIME (PATIENT) 15.4 SECONDS (9.0-12.0)
[2016-04-09 07:35] LABS: BUN/CREATININE RATIO 17.6 (10-20); CALCIUM 8.6 mg/dl (8.5-10.1); CREATININE 2.6 mg/dl (0.60-1.40); MAGNESIUM 1.6 mg/dl (1.8-2.4); POTASSIUM 5.9 mmol/L (3.5-5.1)
[2016-04-09] MEDS ORDERED: FUROSEMIDE 40 MG TAB PO SCH (09:00)
[2016-04-09] MEDS: ALBUMIN 25% 50 ML with FUROSEMIDE INJ 40 MG IV SCH ×4 (09:22→21:17)
--- NOTE | 2016-04-09 09:24 | DIAGNOSTIC IMAGING REPORT ---
CT SCAN OF THE ABDOMEN AND PELVIS WITHOUT IV CONTRAST CLINICAL HISTORY: Generalized abdominal pain. Nausea. COMPARISON STUDY: Abdominal radiograph dated 04/08/2016. TECHNIQUE: CT scan of the abdomen and pelvis is performed from the lung bases to the proximal femora. Images are reviewed in the axial, sagittal, and coronal planes. IV contrast was not administered for this examination as per the referring clinician. Note that the examination was performed in significantly suboptimal fashion without IV contrast. Automated dose control exposure was utilized. CT DOSE: 2194.40 mGy.cm FINDINGS: Lung bases: The patient is status post midline sternotomy. The heart is enlarged and without pericardial effusion. Pacemaker leads are noted. The coronary arteries are calcified. Findings suggest previous aortic valve surgery. The mitral annulus is densely calcified. There is diminished attenuation of the cardiac blood pool as compared to myocardium suggesting anemia. There are small pleural effusions, left larger than right with associated bibasilar atelectasis. Liver: The unenhanced liver is cirrhotic in morphology and heterogeneous in attenuation. There is nodularity of the hepatic surface contour. There is no intrahepatic biliary ductal dilatation. Gallbladder: There are calcified gallstones. The gallbladder is otherwise normal as visualized. Spleen: Normal in size and attenuation. Pancreas: Atrophic and grossly unremarkable. Adrenal glands: Unremarkable. Kidneys: The unenhanced kidneys are atrophic. There is mild bilateral hydroureteronephrosis. The ureters are dilated to the level of the bladder. There is a nonobstructing left calculus seen on image #244. No right renal calculi are identified. There is no evidence of contour deforming renal mass. Abdominal vasculature: The abdominal aorta is normal in course and caliber noting moderate to advanced atherosclerotic calcification. Bowel: The small bowel and colon are normal in course and caliber. There is moderate diverticulosis of the left colon without CT evidence of acute diverticulitis. There is mild to moderate colonic fecal retention. The appendix is not visualized. Peritoneum: There is a small to moderate volume of abdominopelvic ascites. No intraperitoneal free air is seen. Lymphadenopathy: None. Pelvic viscera: The bladder is partially decompressed around a Hines catheter. The bladder wall appears thickened and irregular. The prostate gland is diminutive and contains coarse calcifications. There is marked scrotal edema. Hydroceles are not excluded. Skeletal structures: The skeletal structures are osteopenic. There is mild lumbosacral spondylosis and scoliosis. No lytic or blastic lesions are seen. Postoperative change and posttraumatic deformity are identified in the left hip. A 2 cm bone island is noted in the right proximal femur. Soft tissue: There is anasarca of the body wall. IMPRESSION: 1. Significantly suboptimal examination without IV contrast. 2. Cirrhotic liver morphology. 3. There is a small to moderate volume of abdominopelvic ascites. 4. Small pleural effusions with bibasilar atelectasis. 5. There is diffuse anasarca of the body wall. There is marked scrotal edema with possible hydroceles. 6. There is no bowel obstruction. 7. Moderate diverticulosis of the left colon without CT evidence of acute diverticulitis. 8. Although decompressed around a Hines catheter, the bladder wall appears significantly thickened. Correlation with clinical findings and urinalysis will be required. 9. There is mild bilateral hydroureteronephrosis, possibly related to bladder wall edema. The ureters are dilated to the level of the bladder. 10. There is a small nonobstructing left calculus. 11. Marked cardiomegaly. 12. Cholelithiasis. 13. Additional changes as above. Electronically signed by: Dom Morgan M.D. 04/09/2016 9:22 AM Dictated Date/Time: 04/09/2016 9:11 AM
[2016-04-09] MEDS: PANTOprazole SOD 40 MG TAB PO SCH (09:26)
[2016-04-09] MEDS: MAGNESIUM SULFATE 1GM / D5W 1 GM in PREMIXED IN D5W 100 ML IV SCH ×2 (09:26→10:37)
[2016-04-09] MEDS: METOPROLOL TARTRATE 25 MG TAB PO SCH ×2 (09:26→21:15)
[2016-04-09] MEDS: ASPIRIN 81 MG ECTAB PO SCH (09:26)
[2016-04-09] MEDS: TAMSULOSIN HCL 0.4 MG CAP PO SCH (09:27)
[2016-04-09] MEDS ORDERED: BISACODYL 10 MG SUPP PR STA (12:22)
--- NOTE | 2016-04-09 12:27 | Progress Note ---
Subjective Date of Service: Apr 09, 2016. Subjective Pt evaluation today including: conversation w/ patient, physical exam, chart review, lab review, review of studies, review of inpatient medication list Feeling much better in generally, no difficulty breathing, however report has for 5 days no bowel movement, was checked for bowel blockages by K[facility], abdominal CT was done, there was no bowel obstruction Problem List Medical Problems: (1) Cellulitis of leg, right Status: Acute (2) CHF (congestive heart failure) Status: Acute (3) CHF (congestive heart failure) Status: Acute (4) Failure of outpatient treatment Status: Acute (5) Noncompliance with medications Status: Acute Review of Systems Constitutional: + fatigue, + weakness, No chills, No fever, No problem reported , No sweats, No weight loss Eyes: No diplopia, No discharge, No eye pain, No redness, No worsening of vision ENT: No dental problems, No hearing loss, No nasal symptoms, No sore throat, No tinnitus, No trouble swallowing, No unusual epistaxis Respiratory: No cough, No dyspnea at rest, No dyspnea on exertion, No hemoptysis, No shortness of breath, No sputum, No wheezing Cardiac: No PND, No chest pain, No claudication, No edema, No orthopnea, No palpitations Abdomen: + constipation, No diarrhea, No nausea, No pain, No vomiting Musculoskeletal: No calf pain, No joint pain, No muscle pain, No swelling Male : No dysuria, No hematuria, No incontinence, No nocturia more than once/ night, No slowing stream, No urinary frequency Neurologic: No balance problems, No memory loss, No numbness/tingling, No paralysis, No vertigo, No weakness Psychiatric: No anhedonism, No anxiety, No depression symptoms, No insomnia, No substance abuse Heme: No abnormal bleeding/bruising, No clotting problems, No night sweats, No swollen lymph nodes Endo: No excessive thirst, No excessive urination, No fatigue Skin: No bleeding, No color change, No itch, No new/changing skin lesions, No rash Objective Vital Signs Date Time Temp Pulse Resp B/P Pulse Ox O2 Delivery O2 Flow Rate FiO2 04/09/16 12:00 95 Nasal Cannula 3.0 04/09/16 11:15 36.7 82 20 87/46 95 Room Air 87/55 04/09/16 08:00 99 Nasal Cannula 3.0 04/09/16 07:31 36.4 78 20 111/74 99 Nasal Cannula 3.0 04/09/16 04:00 97 Nasal Cannula 3.0 04/09/16 03:33 36.9 78 19 98/77 97 Nasal Cannula 4.0 04/09/16 00:04 36.9 109 19 100/65 94 Nasal Cannula 4.0 04/08/16 23:59 96 Nasal Cannula 3.0 04/08/16 21:56 102 102/69 96 Nasal Cannula 3.0 04/08/16 20:19 36.8 82 18 103/68 93 Room Air 04/08/16 20:00 Nasal Cannula 2.0 04/08/16 16:00 91 Nasal Cannula 04/08/16 15:13 36.6 104 20 110/70 91 Nasal Cannula 2.0 Physical Exam General Appearance: WD/WN, no apparent distress, + obese Eyes: normal inspection, PERRL, EOMI, sclerae normal ENT: normal ENT inspection, hearing grossly normal, pharynx normal Neck: supple, no adenopathy, thyroid normal, no JVD, no carotid bruits, trachea midline Respiratory/Chest: chest non-tender, no respiratory distress, no accessory muscle use, + decreased breath sounds, + crackles Cardiovascular: regular rate, rhythm, no gallop, no JVD, no murmur Abdomen: normal bowel sounds, non tender, soft, no organomegaly, no pulsatile mass Extremities: normal range of motion, non-tender, normal inspection, no pedal edema, no calf tenderness, normal capillary refill, pelvis stable, + swelling (2 +) Neurologic/Psychiatric: 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, no motor/sensory deficits, alert, normal mood/affect, oriented x 3 Skin: normal color, warm/dry, no rash Lymphatic: no adenopathy Laboratory Results Last 24 Hours Test 04/08/16 15:40 04/08/16 16:22 04/08/16 20:13 04/09/16 06:25 Urine Color ORANGE Urine Appearance TURBID Urine pH 6.0 Urine Specific [place] 1.012 Urine Protein 2+ Urine Glucose (UA) NEG Urine Ketones NEG Urine Occult Blood 3+ Urine Nitrite POS Urine Bilirubin NEG Urine Urobilinogen NEG Urine Leukocyte Esterase LARGE Urine WBC (Auto) >30 /hpf Urine RBC (Auto) >30 /hpf Urine Hyaline Casts (Auto) 5-10 /lpf Urine Epithelial Cells (Auto) >30 /lpf Urine Bacteria (Auto) 4+ Urine Pathogenic Casts /lpf Urine Yeast (Auto) PRESENT Bedside Glucose 127 mg/dl 118 mg/dl White Blood Count 4.84 K/uL Red Blood Count 3.51 M/uL Hemoglobin 10.7 g/dL Hematocrit 29.2 % Mean Corpuscular Volume 83.2 fL Mean Corpuscular Hemoglobin 30.5 pg Mean Corpuscular Hemoglobin Concent 36.6 g/dl Platelet Count 122 K/uL Mean Platelet Volume 11.6 fL Neutrophils (%) (Auto) 71.5 % Lymphocytes (%) (Auto) 13.2 % Monocytes (%) (Auto) 7.9 % Eosinophils (%) (Auto) 7.0 % Basophils (%) (Auto) 0.2 % Neutrophils # (Auto) 3.46 K/uL Lymphocytes # (Auto) 0.64 K/uL Monocytes # (Auto) 0.38 K/uL Eosinophils # (Auto) 0.34 K/uL Basophils # (Auto) 0.01 K/uL RDW Standard Deviation 49.0 fL RDW Coefficient of Variation 16.1 % Immature Granulocyte % (Auto) 0.2 % Immature Granulocyte # (Auto) 0.01 K/uL Prothrombin Time 15.4 SECONDS Prothromb Time International Ratio 1.4 Sodium Level 132 mmol/L Potassium Level 5.9 mmol/L Chloride Level 99 mmol/L Carbon Dioxide Level 23 mmol/L Anion Gap 10.0 mmol/L Blood Urea Nitrogen 46 mg/dl Creatinine 2.60 mg/dl Est Creatinine Clear Calc Drug Dose 28.4 ml/min Estimated GFR () 27.1 Estimated GFR (Non- 23.4 BUN/Creatinine Ratio 17.6 Random Glucose 59 mg/dl Calcium Level 8.6 mg/dl Magnesium Level 1.6 mg/dl Prostate Specific Antigen 0.160 ng/ml Test 04/09/16 07:05 04/09/16 11:16 Bedside Glucose 86 mg/dl 80 mg/dl Assessment and Plan 70-year-old male with a history of type 2 diabetes and chronic diastolic heart failure and transferred to the ED with an episode of persistent hypoglycemia Currently BSG's stable in the 70s Hypoglycemia - likely the long half life of glipizide and combination with liver cirrhosis and age of the patient are causing hypoglycemia. Will make sure the patient does resume this medication once discharged back o prision will need explicit discharge instructions! - Anemia to Hold metformin 1000 mg BID, continue to STOP glipizide 10 mg daily- do not resume at time of discharge Possible acute on Chronic systolic and diastolic heart failure which is evident by severe edema was, is on IV Lasix and albumin - Echo completed: * -- Conclusions -- * 1. Mildly dilated LV with mild concentric LVH. * 2. Moderate global LV dysfunction. EF 35-40%. Paradoxical septal motion consistent with post-operative state. * 3. Dilated RV with moderate to severe RV dysfunction. * 4. Severe biatrial enlargement. * 5. Bioprosthetic aortic valve well seated with normal expected transvalvular gradients. * 6. Grade II diastolic dysfunction. * 7. Mild-moderate mitral regurgitation * 8. Moderate tricuspid regurgitation. * 9. Dilated IVC suggestive of elevated RA pressure (15 mmHg). Mild pulmonary hypertension (PASP 35-40 mmHg.) * 10. Compared with prior study on 10/11/2014: LV dysfunction is now moderate. - Pulmonary hypertension is likely contributing to ascities and peripheral edema - Liver cirrhosis and ascites and hyponatremia and scrotal Combined the above CHF exacerbation and liver cirrhosis conditions with ascites , patient is hypervol hyponatremia, Will continue current care, with fluid restrictions 1.5 L a day, check in and out, 2 g sodium diet, and continue Lasix, consider add Aldactone Hypomagnesemia History of coronary artery disease status post CABG-asymptomatic -Continue medical management with Lopressor 12.5 mg BID, pravastatin 20 mg HS COPD with chronic respiratory failure-Baseline -Duo nebs every 6 hours we'll be available - Continue chronic O2= 2 L History of bioprosthetic AVR -Continue warfarin 2 mg HS, continue current dose and will follow-up PT/INR Acute on chronic renal insufficiency, likely from CHF exacerbation and kidney congestion, which is evident from renal function improved after diuretic History of GI bleed-stable. No signs of active bleeding Constipation, we'll give Dulcolax oral, and suppository, as needed DVT prophylaxis -Coumadin -TEDS, SCDs CODE STATUS- FULL CODE Disposition: From [facility], return when medically stable. Release date from [facility] = 05/17 Continued [place] stay due to: multiple IV medications needed Discharge planning: home
[2016-04-09] MEDS ORDERED: SOD PHOSPHATE/SOD BIPHOSPHATE ENEMA 132 ML BTL PR PRN (12:30)
[2016-04-09] MEDS ORDERED: BISACODYL 5 MG TABEC PO PRN (12:30)
[2016-04-09] MEDS ORDERED: BISACODYL 5 MG TABEC PO ONE (12:30)
[2016-04-09] MEDS ORDERED: BISACODYL 10 MG SUPP PR PRN (12:30)
[2016-04-09] MEDS ORDERED: CEPHALEXIN MONOHYDRATE 250 MG CAP PO ONE (12:45)
[2016-04-09] MEDS: CEPHALEXIN MONOHYDRATE 250 MG CAP PO SCH ×3 (14:53→21:15)
[2016-04-09] MEDS: WARFARIN SOD 2 MG TAB PO SCH (16:59)
[2016-04-09] MEDS: ENOXAPARIN 30 MG/0.3 ML SYR SC SCH (21:13)
[2016-04-09] MEDS: PRAVASTATIN SOD 20 MG TAB PO SCH (21:15)
[2016-04-10] VITALS (8 sets, daily range): BP systolic 86–135; BP diastolic 54–88; PULSE 85–98; TEMP 36.4–36.9; O2SAT 91–96
[2016-04-10 06:52] LABS: BASO % 0.6 %; BASO ABS # 0.03 K/uL (0-0.2); COMPLETE YES; EOS % 7.5 %; HEMATOCRIT 28.3 % (42-52); LYMPH % 7.9 %; LYMPH ABS # 0.38 K/uL (1.2-3.4); MEAN CELL VOLUME 80.9 fL (80-100); MEAN CORPUSCULAR HGB CONC 37.1 g/dl (32-36); MEAN PLATELET VOLUME 11.3 fL (7.4-10.4); MONO % 18.1 %; NEUT % 65.9 %; PLATELET COUNT 136 K/uL (130-400); WHITE BLOOD COUNT 4.81 K/uL (4.8-10.8)
[2016-04-10 07:17] LABS: BUN/CREATININE RATIO 20.4 (10-20); CALCIUM 8.5 mg/dl (8.5-10.1); CREATININE 2.4 mg/dl (0.60-1.40); POTASSIUM 5.8 mmol/L (3.5-5.1)
[2016-04-10] MEDS: INSULIN ASPART 100 UNITS/ML 3 ML PEN SC SCH ×4 (09:15→20:40)
[2016-04-10] MEDS: ASPIRIN 81 MG ECTAB PO SCH (09:20)
[2016-04-10] MEDS: TAMSULOSIN HCL 0.4 MG CAP PO SCH (09:20)
[2016-04-10] MEDS: CEPHALEXIN MONOHYDRATE 250 MG CAP PO SCH ×4 (09:20→19:43)
[2016-04-10] MEDS: METOPROLOL TARTRATE 25 MG TAB PO SCH ×2 (09:21→19:42)
[2016-04-10] MEDS: PANTOprazole SOD 40 MG TAB PO SCH (09:22)
[2016-04-10] MEDS: ALBUMIN 25% 50 ML with FUROSEMIDE INJ 40 MG IV SCH ×2 (09:27)
--- NOTE | 2016-04-10 11:44 | Progress Note ---
Subjective Date of Service: Apr 10, 2016. Subjective Pt evaluation today including: conversation w/ patient, physical exam, chart review, lab review, review of studies, conversation w/ individual pension consultant, review of inpatient medication list Report feeling a little better, but still has significant scrotal edema, difficult breathing on oxygen , blood pressure in the borderline low 80s, asymptomatic, no dizziness, eating poorly, reported no appetite, blood glucose at 60s Problem List Medical Problems: (1) Cellulitis of leg, right Status: Acute (2) CHF (congestive heart failure) Status: Acute (3) CHF (congestive heart failure) Status: Acute (4) Failure of outpatient treatment Status: Acute (5) Noncompliance with medications Status: Acute Review of Systems Constitutional: + fatigue, + weakness, No chills, No fever, No problem reported , No sweats, No weight loss Eyes: No diplopia, No discharge, No eye pain, No redness, No worsening of vision ENT: No dental problems, No hearing loss, No nasal symptoms, No sore throat, No tinnitus, No trouble swallowing, No unusual epistaxis Respiratory: + dyspnea on exertion, + shortness of breath, No cough, No dyspnea at rest, No hemoptysis, No sputum, No wheezing Cardiac: + edema, No PND, No chest pain, No claudication, No orthopnea, No palpitations Abdomen: No constipation, No diarrhea, No nausea, No pain, No vomiting Musculoskeletal: No calf pain, No joint pain, No muscle pain, No swelling Male : No dysuria, No hematuria, No incontinence, No nocturia more than once/ night, No slowing stream, No urinary frequency Neurologic: No balance problems, No memory loss, No numbness/tingling, No paralysis, No vertigo, No weakness Psychiatric: No anhedonism, No anxiety, No depression symptoms, No insomnia, No substance abuse Heme: No abnormal bleeding/bruising, No clotting problems, No night sweats, No swollen lymph nodes Endo: No excessive thirst, No excessive urination, No fatigue Skin: No bleeding, No color change, No itch, No new/changing skin lesions, No rash Objective Vital Signs Date Time Temp Pulse Resp B/P Pulse Ox O2 Delivery O2 Flow Rate FiO2 04/10/16 09:08 89 117/73 04/10/16 08:00 Nasal Cannula 3.0 04/10/16 07:32 36.4 87 16 86/62 91 Room Air 04/10/16 04:00 Nasal Cannula 3.0 04/10/16 03:33 36.4 85 20 93/65 93 Room Air 04/10/16 00:00 Nasal Cannula 2.0 04/09/16 23:16 36.6 83 18 101/55 96 Nasal Cannula 2.0 04/09/16 21:12 84 129/73 04/09/16 19:31 36.7 83 18 96/65 100 Nasal Cannula 2.0 04/09/16 19:30 Nasal Cannula 3.0 04/09/16 17:49 36.7 85 20 95 3.0 04/09/16 16:00 95 Nasal Cannula 3.0 04/09/16 14:19 85 110/66 04/09/16 12:00 95 Nasal Cannula 3.0 Physical Exam General Appearance: WD/WN, no apparent distress, + pertinent finding (chronic ill-looking, looks frail) Eyes: normal inspection, PERRL, EOMI, sclerae normal ENT: normal ENT inspection, hearing grossly normal, pharynx normal Neck: supple, no adenopathy, thyroid normal, no JVD, no carotid bruits, trachea midline Respiratory/Chest: chest non-tender, no respiratory distress, no accessory muscle use, + decreased breath sounds, + crackles Cardiovascular: regular rate, rhythm, no gallop, no JVD, no murmur, + pertinent finding (swelling) Abdomen: normal bowel sounds, non tender, soft, no organomegaly, no pulsatile mass, + pertinent finding (scrotal has significant edema although he said is not new) Extremities: normal range of motion, normal inspection, no calf tenderness, normal capillary refill, pelvis stable, + swelling 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, no motor/sensory deficits, alert, normal mood/affect, oriented x 3 Skin: normal color, warm/dry, no rash Lymphatic: no adenopathy Laboratory Results Last 24 Hours Test 04/09/16 16:12 04/09/16 16:37 04/09/16 16:57 04/09/16 17:19 Bedside Glucose 48 mg/dl 56 mg/dl 61 mg/dl 74 mg/dl Test 04/09/16 20:06 04/10/16 06:10 1/22/17 07:14 04/10/16 07:38 Bedside Glucose 89 mg/dl 59 mg/dl 75 mg/dl White Blood Count 4.81 K/uL Red Blood Count 3.50 M/uL Hemoglobin 10.5 g/dL Hematocrit 28.3 % Mean Corpuscular Volume 80.9 fL Mean Corpuscular Hemoglobin 30.0 pg Mean Corpuscular Hemoglobin Concent 37.1 g/dl Platelet Count 136 K/uL Mean Platelet Volume 11.3 fL Neutrophils (%) (Auto) 65.9 % Lymphocytes (%) (Auto) 7.9 % Monocytes (%) (Auto) 18.1 % Eosinophils (%) (Auto) 7.5 % Basophils (%) (Auto) 0.6 % Neutrophils # (Auto) 3.17 K/uL Lymphocytes # (Auto) 0.38 K/uL Monocytes # (Auto) 0.87 K/uL Eosinophils # (Auto) 0.36 K/uL Basophils # (Auto) 0.03 K/uL RDW Standard Deviation 46.1 fL RDW Coefficient of Variation 15.7 % Immature Granulocyte % (Auto) 0.0 % Immature Granulocyte # (Auto) 0.00 K/uL Sodium Level 131 mmol/L Potassium Level 5.8 mmol/L Chloride Level 97 mmol/L Carbon Dioxide Level 20 mmol/L Anion Gap 14.0 mmol/L Blood Urea Nitrogen 49 mg/dl Creatinine 2.40 mg/dl Est Creatinine Clear Calc Drug Dose 30.6 ml/min Estimated GFR () 29.9 Estimated GFR (Non- 25.8 BUN/Creatinine Ratio 20.4 Random Glucose 54 mg/dl Calcium Level 8.5 mg/dl Phosphorus Level 3.0 mg/dl Magnesium Level 2.0 mg/dl Assessment and Plan 70-year-old male with a history of type 2 diabetes and chronic diastolic heart failure and transferred to the ED with an episode of persistent hypoglycemia Currently BSG's stable in the 70s Hypoglycemia - likely the long half life of glipizide and combination with liver cirrhosis and age of the patient are causing hypoglycemia, plus poor oral intake glipizide has been discontinued, metformin also on hold Will make sure the patient does resume this medication once discharged back o prision will need explicit discharge instructions! Possible acute on Chronic systolic and diastolic heart failure which is evident by severe edema and scrotal edema, has been on on IV Lasix and albumin , today is #3 today Blood pressure at borderline low, has been catheterization of in and out, negative output only 1.1 L in 2 days - Echo completed: * -- Conclusions -- * 1. Mildly dilated LV with mild concentric LVH. * 2. Moderate global LV dysfunction. EF 35-40%. Paradoxical septal motion consistent with post-operative state. * 3. Dilated RV with moderate to severe RV dysfunction. * 4. Severe biatrial enlargement. * 5. Bioprosthetic aortic valve well seated with normal expected transvalvular gradients. * 6. Grade II diastolic dysfunction. * 7. Mild-moderate mitral regurgitation * 8. Moderate tricuspid regurgitation. * 9. Dilated IVC suggestive of elevated RA pressure (15 mmHg). Mild pulmonary hypertension (PASP 35-40 mmHg.) * 10. Compared with prior study on 10/11/2014: LV dysfunction is now moderate. - Pulmonary hypertension is likely contributing to ascities and peripheral edema - Liver cirrhosis and ascites and hyponatremia and scrotal edema Combined the above CHF exacerbation and liver cirrhosis conditions with ascites , patient is hypervol hyponatremia, Will continue current care, with fluid restrictions 1.5 L a day, check in and out, 2 g sodium diet, and continue Lasix with albumin in, we'll not add Aldactone for now because of hyperkalemia. Possible need to have Lasix drip with dopamine support, and therefore transferred to PCU only, and request cardiology and nephrology consult Hypomagnesemia History of coronary artery disease status post CABG-asymptomatic -Continue medical management with Lopressor 12.5 mg BID, pravastatin 20 mg HS COPD with chronic respiratory failure-Baseline -Duo nebs every 6 hours we'll be available - Continue chronic O2= 2 L History of bioprosthetic AVR -Helping on warfarin 2 mg HS, we'll increase to 3 mg by mouth daily , will follow-up PT/INR Acute on chronic renal insufficiency, likely from CHF exacerbation and kidney congestion, which is evident from renal function improved after diuretic History of GI bleed-stable. No signs of active bleeding Constipation, gave Dulcolax oral, and suppository, yesterday no help, we will order one fleet enema now DVT prophylaxis -Coumadin, if INR level was coming up we should stop Lovenox -TEDS, SCDs CODE STATUS- FULL CODE Disposition: From [facility], return when medically stable. Release date from [facility] = 05/17 Continued [facility] stay due to: multiple IV medications needed Discharge planning: home
[2016-04-10] MEDS: BOOST VANILLA PUDDING CUP PO SCH ×2 (12:36→16:43)
--- NOTE | 2016-04-10 15:33 | Nephrology Consultation ---
Nephrology Consultation Date & Providers Date of Consultation: Apr 10, 2016. Primary Care Provider: Lorena ARREDONDO Referring Provider: Reason for Consultation ERA/CKD History of Present Illness Mr. Lencho Snell is a 71-year old male who was seen and evaluated this afternoon for evaluation of acute kidney injury and chronic kidney disease. Consultation was requested more specifically to assist with management of renal insufficiency in the setting of decompensated chronic cardiac disease. There is evidence of baseline chronic kidney disease. Serum creatinine was 1.6 milligrams/deciliter on admission it increased to 3.0 milligrams/deciliter and over the past 48 hours has improved to 2.4 milligrams/deciliter. Unfortunately , overall diuresis has not been significant per documentation. Mr. Snell states that he voids his urine infrequently. He specifically stated that it is not unusual for him to go several days without making any urine. He denied significant urinary hesitancy and reports a normal urine stream. He denies any incontinence. He denies any gross hematuria. Mr. Snell was resting comfortably in bed during my assessment today. He did not endorse chest pain, palpitations, shortness of breath or orthopnea. He did tell me that he has been filling up with fluid for several weeks. He felt bloated and had lost his appetite. He noted scrotal pain and swelling which was new for him. He attributed as decreased appetite to the hypoglycemia that he presented with. The patient was admitted on April 06 with hypoglycemia as well as edema of the scrotum and lower extremities. Past medical history is notable for coronary artery disease, diastolic congestive heart failure, diabetes mellitus type 2, COPD and atrial fibrillation. There is also a history of reported GI bleed. Chest x-ray on admission showed cardiomegaly with mild pulmonary vascular congestion. Transthoracic echocardiogram documented concentric LVH with grade 2 diastolic dysfunction. The LV was mildly dilated. Left ventricular ejection fraction reported at 25-40 percent. The RV was dilated with moderate to severe RV dysfunction. Moderate mitral regurgitation and moderate tricuspid regurgitation were also appreciated as well as a dilated IVC. Pulmonary artery systolic pressure was estimated at 35-[address] scan showed a cirrhotic appearing liver and bilateral atrophic kidneys. There was mild bilateral hydronephrosis with edema of the ureters and bladder as well as diffuse anasarca. A small to moderate amount of ascites was appreciated Srinath is a small left-sided nonobstructing nephrolithiasis. Urinalysis showed clear urine that was positive for white blood cells and red blood cells on microscopy with multiple epithelial cells. Oral diabetic medications including glipizide and metformin have been held since admission. Furosemide 40 milligrams +12 0.5 grams of albumin has been dosed twice daily for diuresis. He is maintained on 1.5 liters daily fluid restriction and a 2 grams sodium restricted diet. Lisinopril 5 milligrams daily has been held since admission. Past Medical/Surgical History Medical: Coronary artery disease status post CABG and aortic valve replacement 2007, atrial fibrillation, diastolic congestive heart failure, COPD, diabetes mellitus type 2, history of GI bleed. Surgical: CABG, AVR, AICD Allergies Coded Allergies: No Known Allergies (Unverified , 04/01/16) Inpatient Medications Current Inpatient Medications Medications (Trade) Dose Ordered Sig/Jenny Route Start Time Stop Time Status Last Admin Dose Admin Insulin Aspart (novoLOG ASPART) SLIDING SCALE G... ACHS SC 04/06/16 21:00 05/06/16 20:59 Enoxaparin Sodium (Lovenox Inj) 30 mg QPM SC 04/06/16 21:00 05/06/16 20:59 04/09/16 21:13 30 MG Acetaminophen (Tylenol Tab) 650 mg Q4H PRN PO 04/06/16 18:15 05/06/16 18:14 04/07/16 08:39 650 MG Ondansetron HCl (Zofran Inj) 4 mg Q6H PRN IV 04/06/16 18:15 05/06/16 18:14 04/07/16 11:16 4 MG Polyethylene (Miralax Powder Packet) 17 gm DAILY PRN PO 04/06/16 18:15 05/06/16 18:14 Aspirin (Ecotrin Tab) 81 mg QAM PO 04/07/16 09:00 05/07/16 08:59 04/10/16 09:20 81 MG Metoprolol Tartrate (Lopressor Tab) 12.5 mg BID PO 04/06/16 21:00 05/06/16 20:59 04/10/16 09:21 12.5 MG Pantoprazole Sodium (Protonix Tab) 40 mg QAM PO 04/07/16 09:00 05/07/16 08:59 04/10/16 09:22 40 MG Pravastatin Sodium (Pravachol Tab) 20 mg HS PO 04/06/16 21:00 05/06/16 20:59 04/09/16 21:15 20 MG Tamsulosin HCl (Flomax Cap) 0.4 mg QAM PO 04/07/16 09:00 05/07/16 08:59 04/10/16 09:20 0.4 MG Glucose (Glucose 40% Gel) 15-30 GRAMS 15 GRAMS... UD PRN PO 04/06/16 19:45 05/06/16 19:44 Glucose (Glucose Chew Tab) 4-8 Tablets 4 Tabl... UD PRN PO 04/06/16 19:45 05/06/16 19:44 04/07/16 00:15 4 TABS Dextrose (Dextrose 50% 50ML Syringe) 25-50ML OF 50% DW IV FOR... UD PRN IV 04/06/16 19:45 05/06/16 19:44 04/09/16 06:44 25 ML Glucagon 1 mg 1 mg UD PRN SQ 04/06/16 19:45 05/06/16 19:44 Furosemide/ Albumin Human (Lasix Inj/ Albumin 25%) 54 ml @ 54 mls/hr BID IV 04/08/16 21:00 04/10/16 20:59 04/10/16 09:27 54 MLS/HR Miscellaneous Information (Pending Order) 1 ea DAILY@10 N/A 04/09/16 10:00 05/09/16 09:59 Bisacodyl (Dulcolax Supp) 10 mg DAILY PRN IL 04/09/16 12:30 05/09/16 12:29 Bisacodyl (Dulcolax Tab) 5 mg DAILY PRN PO 04/09/16 12:30 05/09/16 12:29 Cephalexin Monohydrate (Keflex Cap) 250 mg QID PO 04/09/16 15:00 04/14/16 14:59 04/10/16 12:43 250 MG Warfarin Sodium (Coumadin Tab) 3 mg DAILY@1600 PO 04/10/16 16:00 05/10/16 15:59 Enteral Nutritional Formula (Boost Pudding) 1 cup TIDM PO 04/10/16 12:00 05/10/16 11:59 Family History Patient reports no known family medical history. Social History Smoking Status: Never Smoker Marital Status: single Housing Status: other (incarcerated at [facility]) Occupation: unemployed Review of Systems A complete review of systems was performed. Pertinent positives are noted above. All other systems are negative. Physical Exam Date Time Temp Pulse Resp B/P Pulse Ox O2 Delivery O2 Flow Rate FiO2 04/10/16 13:06 98 19 98/58 93 Room Air 04/10/16 12:00 Nasal Cannula 3.0 04/10/16 11:41 36.9 94 20 135/88 94 04/10/16 09:08 89 117/73 04/10/16 08:00 Nasal Cannula 3.0 04/10/16 07:32 36.4 87 16 86/62 91 Room Air 04/10/16 04:00 Nasal Cannula 3.0 04/10/16 03:33 36.4 85 20 93/65 93 Room Air 04/10/16 00:00 Nasal Cannula 2.0 04/09/16 23:16 36.6 83 18 101/55 96 Nasal Cannula 2.0 04/09/16 21:12 84 129/73 04/09/16 19:31 36.7 83 18 96/65 100 Nasal Cannula 2.0 04/09/16 19:30 Nasal Cannula 3.0 04/09/16 17:49 36.7 85 20 95 3.0 04/09/16 16:00 95 Nasal Cannula 3.0 General Appearance: WD/WN, no apparent distress Head: normocephalic, atraumatic Eyes: normal inspection, sclerae normal ENT: normal ENT inspection, pharynx normal Neck: supple, + JVD Respiratory/Chest: lungs clear, no respiratory distress, no accessory muscle use Cardiovascular: regular rate, rhythm, no gallop, + systolic murmur Abdomen/GI: non tender, soft Back: normal inspection, no muscle spasm Extremities/Musculoskelatal: normal inspection, no pedal edema Neurologic/Psych: alert, normal mood/affect Skin: normal color Laboratory Results Last 24 Hours Test 04/09/16 16:12 04/09/16 16:37 04/09/16 16:57 04/09/16 17:19 Bedside Glucose 48 mg/dl 56 mg/dl 61 mg/dl 74 mg/dl Test 04/09/16 20:06 04/10/16 06:10 04/10/16 07:14 04/10/16 07:38 Bedside Glucose 89 mg/dl 59 mg/dl 75 mg/dl White Blood Count 4.81 K/uL Red Blood Count 3.50 M/uL Hemoglobin 10.5 g/dL Hematocrit 28.3 % Mean Corpuscular Volume 80.9 fL Mean Corpuscular Hemoglobin 30.0 pg Mean Corpuscular Hemoglobin Concent 37.1 g/dl Platelet Count 136 K/uL Mean Platelet Volume 11.3 fL Neutrophils (%) (Auto) 65.9 % Lymphocytes (%) (Auto) 7.9 % Monocytes (%) (Auto) 18.1 % Eosinophils (%) (Auto) 7.5 % Basophils (%) (Auto) 0.6 % Neutrophils # (Auto) 3.17 K/uL Lymphocytes # (Auto) 0.38 K/uL Monocytes # (Auto) 0.87 K/uL Eosinophils # (Auto) 0.36 K/uL Basophils # (Auto) 0.03 K/uL RDW Standard Deviation 46.1 fL RDW Coefficient of Variation 15.7 % Immature Granulocyte % (Auto) 0.0 % Immature Granulocyte # (Auto) 0.00 K/uL Sodium Level 131 mmol/L Potassium Level 5.8 mmol/L Chloride Level 97 mmol/L Carbon Dioxide Level 20 mmol/L Anion Gap 14.0 mmol/L Blood Urea Nitrogen 49 mg/dl Creatinine 2.40 mg/dl Est Creatinine Clear Calc Drug Dose 30.6 ml/min Estimated GFR () 29.9 Estimated GFR (Non- 25.8 BUN/Creatinine Ratio 20.4 Random Glucose 54 mg/dl Calcium Level 8.5 mg/dl Phosphorus Level 3.0 mg/dl Magnesium Level 2.0 mg/dl Test 04/10/16 11:09 Bedside Glucose 100 mg/dl Impression (1) ERA (acute kidney injury) (2) CKD (chronic kidney disease) (3) Hyponatremia (4) Hyperkalemia (5) Hypoglycemia (6) Acute on chronic combined systolic and diastolic CHF (congestive heart failure) (7) Chronic liver disease (8) Pulmonary hypertension Mr. Lencho Snell is a 71-year-old male with coronary artery disease, diabetes mellitus II, COPD, atrial fibrillation with systolic and diastolic CHF who presents with hypoglycemia, hyperkalemia, hyponatremia and renal failure. Evaluation notable for acute on chronic heart failure with evidence of predominately right sided CHF. Transthoracic echocardiogram documented elevated PA systolic pressures of 35-42 move as well as mitral and tricuspid valvular heart disease. Minimal diuresis has been accomplished with current diuretics. CT scan is concerning for cirrhosis. Acute kidney injury present on admission has been improving over the past 48 hours. Patient remains nonoliguric. Electrolyte abnormalities including hypokalemia and hyponatremia persists. He is hypervolemic. No history to suggest underlying etiology for adrenal insufficiency. The patient does not recall ever being checked for HIV in the past. I suspect the clinical presentation is consistent with chronic liver disease and chronic kidney disease complicated by a chronic ischemic heart disease and cardiac dysfunction. I would suggest escalating the use of diuretics to encourage a negative fluid balance next field added diuretic drip would be appropriate. The role of the continued use of colloid remains unclear. I would check a random morning cortisol tomorrow with a.m. labs. Maintained on 0.5 liter daily fluid restriction and 2 gram daily sodium restriction. A 2 gram daily potassium restriction has also been requested. Continue to hold glipizide, metformin and lisinopril. Urine analysis documented significant epithelial cells, pyuria and microscopic hematuria. Repeat UA/microscopy has been requested at this time along with a urine sodium. Recommendations -- Bumex gtt @ 1 mg/hr and titrate to encourage a net negative fluid balance > 1 liter/d -- Medications currently appropriately dosed for renal function -- 1.5 L daily fluid restriction, 2 gram daily sodium restriction, 2 gram daily potassium restriction -- Repeat UA/microscopy and check random urine sodium -- Document I/O's -- Repeat metabolic profile in AM with morning cortisol level
[2016-04-10] MEDS: WARFARIN SOD 3 MG TAB PO SCH (16:43)
[2016-04-10] MEDS: BUMETANIDE IV 10 MG in DEXTROSE 5% 50ML 10 ML IV SCH (16:46)
[2016-04-10 17:37] LABS: MANUAL MICROSCOPIC REQUIRED? YES; URINE APPEARANCE TURBID (CLEAR); URINE COLOR AMBER; URINE NITRITE NEG (NEG); URINE PH 6.5 (4.5-7.5); UROBILINOGEN POS (NEG)
[2016-04-10 17:40] LABS: REVIEW REQ? NO
[2016-04-10 17:44] LABS: URINE BILIRUBIN NEG (NEG)
[2016-04-10 17:46] LABS: URINE RBC >30 /hpf (0-4)
[2016-04-10 17:47] LABS: URINE AMORPHOUS SEDIMENT PRESENT (NONE PRSENT); URINE BACTERIA 2+ (NEG); URINE MUCUS PRESENT (NONE PRSENT); URINE WBC >30 /hpf (0-5)
[2016-04-10] MEDS: PRAVASTATIN SOD 20 MG TAB PO SCH (19:41)
[2016-04-10] MEDS: ENOXAPARIN 30 MG/0.3 ML SYR SC SCH (19:43)
[2016-04-11] VITALS (11 sets, daily range): BP systolic 90–110; BP diastolic 63–72; PULSE 79–102; TEMP 36.6–36.8; O2SAT 92–98
[2016-04-11] MEDS: BUMETANIDE IV 10 MG in DEXTROSE 5% 50ML 10 ML IV SCH ×3 (00:27→21:34)
[2016-04-11] MEDS: INSULIN ASPART 100 UNITS/ML 3 ML PEN SC SCH ×4 (07:00→21:34)
[2016-04-11 07:58] LABS: INR 1.8 (0.9-1.1); PROTHROMBIN TIME (PATIENT) 19.2 SECONDS (9.0-12.0)
[2016-04-11 08:28] LABS: BUN/CREATININE RATIO 21.4 (10-20); CREATININE 2.3 mg/dl (0.60-1.40); PHOSPHORUS 2.9 mg/dl (2.5-4.9); POTASSIUM 4.9 mmol/L (3.5-5.1)
[2016-04-11] MEDS: BOOST VANILLA PUDDING CUP PO SCH ×3 (08:57→16:45)
[2016-04-11] MEDS: TAMSULOSIN HCL 0.4 MG CAP PO SCH (08:58)
[2016-04-11] MEDS: ASPIRIN 81 MG ECTAB PO SCH (08:58)
[2016-04-11] MEDS: METOPROLOL TARTRATE 25 MG TAB PO SCH (08:58)
[2016-04-11] MEDS: PANTOprazole SOD 40 MG TAB PO SCH (08:58)
[2016-04-11] MEDS: CEPHALEXIN MONOHYDRATE 250 MG CAP PO SCH ×4 (08:59→21:33)
--- NOTE | 2016-04-11 12:42 | CARDIOLOGY CONSULTATION ---
DATE OF CONSULTATION: 04/11/2016 PRIMARY NET LEAD ARCHITECT: Dr. Sawyer. CONSULTING PHYSICIAN: Dr. Vu. REASON FOR CONSULTATION: CHF exacerbation. DATE: 04/11/2016. TIME: 11:31 a.m. HISTORY OF PRESENT ILLNESS: Mr. Snell is a pleasant 71-year-old gentleman who presented from [facility] on 04/06/2016 with hypoglycemia. He has a history significant for cardiomyopathy, endocarditis, status post bioprosthetic aortic valve replacement, atrial flutter, chronic kidney disease, chronic systolic CHF, COPD, and ICD placement. He also has hypertension and dyslipidemia. He states that for approximately 1.5 weeks he has had increased edema. He then later stated that he has been basically wheelchair bound at his correctional facility due to lower extremity swelling. He stated that his legs were heavy. He also describes orthopnea, but denies chest pain, syncope, near syncope, or palpitations. He reports having 2 shocks from his ICD. He states that one was prior to incarceration 2 or 3 years ago. He believes the other one was within the past 1 year while at [facility]. Throughout this hospitalization, he has been given intermittent doses of Lasix and then started on a Bumex drip yesterday by Nephrology. On 40 mg of IV Lasix twice daily, he was not producing much urine, but is diuresing much better now that he is on a Bumex drip. He also stated that he feels much better from a breathing standpoint since starting Bumex. He denies bleeding such as melena, hematochezia or hematuria. He denies fevers, chills, abdominal pain, nausea, vomiting or rash. REVIEW OF SYSTEMS: As above and otherwise negative. PAST MEDICAL HISTORY: 1. Reported endocarditis status post aortic valve replacement in 2007 in [place]. 2. ICD implantation 10/27/2010. 3. Atrial fibrillation/atrial flutter, on anticoagulation therapy. 4. Cardiomyopathy. 5. COPD. 6. Systolic congestive heart failure. 7. CKD. 8. Diabetes. 9. Hypertension. 10. Dyslipidemia. 11. Records indicate that he may have coronary artery disease, but he does not recall requiring bypass surgery. OUTPATIENT MEDICATIONS: Include: 1. Aspirin 81 mg daily. 2. Lasix 80 mg IV b.i.d. 3. Lisinopril 5 mg daily. 4. Metoprolol tartrate 12.5 mg b.i.d. 5. Potassium chloride 20 mEq b.i.d. 6. Pravastatin 20 mg at bedtime. 7. Coumadin 2 mg at bedtime. INPATIENT MEDICATIONS: Include aspirin 81 mg daily, Bumex drip, Lovenox 30 mg subQ daily, metoprolol tartrate 12.5 mg p.o. b.i.d., Protonix 40 mg daily, Coumadin 3 mg daily. ALLERGIES: No known drug allergies. SOCIAL HISTORY: Denies smoking. No recent alcohol consumption. No drugs. He is . He has 24 children. He currently resides at [facility]. FAMILY HISTORY: Father had myocardial infarction. PHYSICAL EXAMINATION: VITAL SIGNS: Temperature 36.7 degrees, heart rate 93 beats per minute, respiration rate 18, blood pressure 104/68 mmHg; however, he is intermittently hypotensive, oxygen saturation 98% on room air. I's and O's negative 1.4 liters yesterday. He is already negative 1.3 liters so far today. His weight is 105.1, down from 108.4 kilograms yesterday. For the hospitalization and his fluid balance is even. GENERAL: In no acute distress. He is alert. HEENT: Anicteric sclerae. NECK: Thick, but there is appreciable JVD to the mandible with his head approximately 30 degrees elevated. No bruits. Normal carotid upstrokes bilaterally. CARDIAC EXAMINATION: PMI was not palpable. There was no ventricular heave. Regular, normal S1, S2. A 2/6 early peaking systolic ejection murmur best heard at the right upper sternal border. No rubs or gallops. LUNGS: Clear to auscultation bilaterally without wheezes, rales or rhonchi. ABDOMEN: Obese, soft, nondistended, nontender. 1-2+ body wall edema throughout his entire abdomen nearly to his axilla. No bruits. EXTREMITIES: 2+ tense pitting edema bilateral lower extremities. No cyanosis. 2+ radial pulses bilaterally. 1+ dorsalis pedis pulse bilaterally. PSYCHIATRIC: Affect appears appropriate. LABORATORIES: White blood cell count is 4.8, hemoglobin 10.5, platelets 136. Sodium 133, potassium 4.9, BUN 49, creatinine 2.3, down from 2.4. It was as high as 3. AST 24, ALT 14. Pro-brain natriuretic peptide 9069. Initial troponin was 0.024. INR 1.8. Chest x-ray image personally reviewed. ICD noted. Radiology has also reported mild pulmonary vascular congestion similar to 04/01/2016. Low lung volumes. Abdominal/pelvic CT 04/08/2016. Report reviewed. Cirrhotic liver morphology. Small to moderate volume abdominopelvic ascites. ECGs personally reviewed. ECG on presentation demonstrated what appears to be sinus rhythm with first degree AV block. Heart rate was 82 beats per minute. Repeat ECG performed 04/10/2016 at 1710 demonstrates atrial fibrillation versus flutter. ECG done 04/10/2016 at 9:30 a.m. demonstrates atrial flutter with variable AV block at 97 beats per minute. Echocardiogram images personally reviewed. The echo report from 04/07/2016 reports a left ventricular EF of 35% to 40%. Septal motion consistent with postoperative state. Dilated right ventricle with reduced systolic function. Severe biatrial enlargement. Bioprosthetic aortic valve with appropriate gradients. Septal flattening during diastole suggests RV volume overload, mild to moderate MR. Moderate TR. LV systolic function does appear to have worsened compared to 10/11/2014 echo. Chart reviewed. ASSESSMENT AND PLAN: 1. Acute on chronic systolic congestive heart failure: He does have biventricular systolic failure. He is significantly hypervolemic. Agree with diuretics. He is responding well to Bumex drip. Continue current diuretics for now. Low sodium diet. Strict I's and O's. Daily weights. Does not appear to require inotropic support at this time. 2. Atrial flutter: He is in a rate controlled atrial flutter. Implantable cardioverter defibrillator interrogation pending. Continue anticoagulation for stroke risk reduction. Continue beta cyrus. 3. Cardiomyopathy: Would recommend metoprolol succinate in place of metoprolol tartrate. This change will be made. Titrate as able as blood pressure allows. Will start metoprolol succinate 25 mg once daily. 4. Aortic valve replacement: Appropriately functioning per recent echo. Subacute bacterial endocarditis prophylaxis is indicated for dental procedures. 5. Paroxysmal ventricular tachycardia: He did have up to an 8 beat run of ventricular tachycardia and several ventricular triplets throughout this hospitalization. Implantable cardioverter defibrillator interrogation pending. Continue beta cyrus. 6. Mitral regurgitation: Non-severe. Will monitor over time. 7. Disposition: Cardiology will continue to follow. Thanks for allowing me to participate in care of Mr. Snell.
--- NOTE | 2016-04-11 13:13 | Progress Note ---
Subjective Date of Service: Apr 11, 2016. Subjective Pt evaluation today including: conversation w/ patient, physical exam, chart review, lab review, review of studies, review of inpatient medication list Resting in bed comfortably Denies any fevers, chills, chest pain, shortness of breath No further concerns Problem List Medical Problems: (1) Cellulitis of leg, right Status: Acute (2) CHF (congestive heart failure) Status: Acute (3) CHF (congestive heart failure) Status: Acute (4) Failure of outpatient treatment Status: Acute (5) Noncompliance with medications Status: Acute Review of Systems Constitutional: No chills, No fever Respiratory: No cough, No dyspnea on exertion, No shortness of breath, No sputum, No wheezing Cardiac: No chest pain, No orthopnea Abdomen: No constipation, No diarrhea, No nausea, No pain, No vomiting Musculoskeletal: No joint pain, No muscle pain Male : No dysuria, No urinary frequency Objective Vital Signs Date Time Temp Pulse Resp B/P Pulse Ox O2 Delivery O2 Flow Rate FiO2 04/11/16 12:30 93 Room Air 04/11/16 11:56 36.8 88 20 94/70 93 04/11/16 10:57 93 98 04/11/16 08:26 36.7 93 18 104/68 98 04/11/16 08:00 Room Air 04/11/16 04:00 94 Room Air 04/11/16 03:19 36.8 98 18 90/72 94 Room Air 04/11/16 00:29 36.6 102 18 99/66 92 Room Air 04/11/16 00:00 93 Room Air 04/10/16 20:00 93 Room Air 04/10/16 19:33 36.8 98 18 118/72 92 Room Air 04/10/16 16:05 36.8 90 18 90/54 96 04/10/16 16:00 Room Air Physical Exam General Appearance: WD/WN, no apparent distress Neck: supple, no adenopathy Respiratory/Chest: lungs clear, + decreased breath sounds Cardiovascular: no gallop, no JVD Extremities: non-tender, normal inspection, + pedal edema Neurologic/Psychiatric: alert, normal mood/affect, oriented x 3 Laboratory Results Last 24 Hours Test 04/10/16 16:36 04/10/16 17:20 04/10/16 20:20 04/11/16 06:59 Bedside Glucose 157 mg/dl 142 mg/dl 97 mg/dl Urine Color ALBERT Urine Appearance TURBID Urine pH 6.5 Urine Specific Wells 1.020 Urine Protein 2+ Urine Glucose (UA) NEG Urine Ketones NEG Urine Occult Blood 3+ Urine Nitrite NEG Urine Bilirubin NEG Urine Urobilinogen POS Urine Leukocyte Esterase LARGE Urine RBC >30 /hpf Urine WBC >30 /hpf Urine Epithelial Cells >30 /lpf Urine Amorphous Sediment PRESENT Urine Bacteria 2+ Urine Mucus PRESENT Urine Random Sodium 44 mEq/L Test 04/11/16 07:34 04/11/16 10:46 Prothrombin Time 19.2 SECONDS Prothromb Time International Ratio 1.8 Sodium Level 133 mmol/L Potassium Level 4.9 mmol/L Chloride Level 98 mmol/L Carbon Dioxide Level 22 mmol/L Anion Gap 13.0 mmol/L Blood Urea Nitrogen 49 mg/dl Creatinine 2.30 mg/dl Est Creatinine Clear Calc Drug Dose 31.4 ml/min Estimated GFR () 31.5 Estimated GFR (Non- 27.2 BUN/Creatinine Ratio 21.4 Random Glucose 99 mg/dl Calcium Level 9.0 mg/dl Phosphorus Level 2.9 mg/dl Magnesium Level 2.0 mg/dl Total Bilirubin 1.3 mg/dl Direct Bilirubin 0.8 mg/dl Aspartate Amino Transf (AST/SGOT) 24 U/L Alanine Aminotransferase (ALT/SGPT) 14 U/L Alkaline Phosphatase 135 U/L Total Protein 8.1 gm/dl Albumin 3.2 gm/dl Cortisol AM Sample 19.55 mcg/dl Bedside Glucose 156 mg/dl Assessment and Plan 70-year-old male with a history of type 2 diabetes and chronic diastolic heart failure and transferred to the ED with an episode of persistent hypoglycemia Currently BSG's stable in the 70s Hypoglycemia - likely the long half life of glipizide and combination with liver cirrhosis and age of the patient are causing hypoglycemia, plus poor oral intake glipizide has been discontinued, metformin also on hold Will make sure the patient does resume this medication once discharged back to snf will need explicit discharge instructions! Possible acute on Chronic systolic and diastolic heart failure which is evident by severe edema and scrotal edema, has been on on IV Lasix and albumin for 3 days, Blood pressure at borderline low, has been catheterization of in and out - Echo completed: * -- Conclusions -- * 1. Mildly dilated LV with mild concentric LVH. * 2. Moderate global LV dysfunction. EF 35-40%. Paradoxical septal motion consistent with post-operative state. * 3. Dilated RV with moderate to severe RV dysfunction. * 4. Severe biatrial enlargement. * 5. Bioprosthetic aortic valve well seated with normal expected transvalvular gradients. * 6. Grade II diastolic dysfunction. * 7. Mild-moderate mitral regurgitation * 8. Moderate tricuspid regurgitation. * 9. Dilated IVC suggestive of elevated RA pressure (15 mmHg). Mild pulmonary hypertension (PASP 35-40 mmHg.) * 10. Compared with prior study on 10/11/2014: LV dysfunction is now moderate. - Pulmonary hypertension is likely contributing to ascities and peripheral edema - Liver cirrhosis and ascites and hyponatremia and scrotal edema Combined the above CHF exacerbation and liver cirrhosis conditions with ascites , patient is hypervol hyponatremia, Will continue current care, with fluid restrictions 1.5 L a day, check in and out, 2 g sodium diet, and continue Lasix with albumin in, we'll not add Aldactone for now because of hyperkalemia. Possible need to have Lasix drip with dopamine support, and therefore transferred to PCU only, and request cardiology and nephrology consult Hypomagnesemia History of coronary artery disease status post CABG-asymptomatic -Continue medical management with Lopressor 12.5 mg BID, pravastatin 20 mg HS COPD with chronic respiratory failure-Baseline -Duo nebs every 6 hours we'll be available - Continue chronic O2= 2 L History of bioprosthetic AVR -Helping on warfarin 2 mg HS, we'll increase to 3 mg by mouth daily , will follow-up PT/INR Acute on chronic renal insufficiency, likely from CHF exacerbation and kidney congestion, which is evident from renal function improved after diuretic History of GI bleed-stable. No signs of active bleeding Constipation, gave Dulcolax oral, and suppository, yesterday no help, we will order one fleet enema now DVT prophylaxis -Coumadin, if INR level was coming up we should stop Lovenox -TEDS, SCDs CODE STATUS- FULL CODE Continued [facility] stay due to: multiple IV medications needed Discharge planning: home
--- NOTE | 2016-04-11 15:54 | Nephrology Progress Note ---
Nephrology Progress Note Date of Service Apr 11, 2016. Chief Complaint Follow up evaluation of nonoliguric acute on chronic kidney injury Subjective Mr. Snell was seen & examined in the PCU this morning. He was admitted to the hospital following a hypoglycemic event. He is diabetic. Blood sugar has recovered following dextrose administration. The patient was found to have lower extremity and genital edema at the time of admission. Laboratory studies revealed acute on chronic kidney injury. Serum creatinine had risen from 1.6 to 3.0. Renal US revealed mild bilateral hydronephrosis and bladder wall thickening. Kidney function has improved following chowdary catheter insertion. Patient is responding well to IV bumetanide gtt. Mr. Snell's medical history is also significant for T2DM, cirrhosis, atrial fibrillation, COPD, pulmonary hypertension and diastolic CHF. He denies any history of alcohol abuse. The patient has been incarcerated for 3 years. He expects to be released next month. Review of Systems Constitutional: No fever Cardiovascular: No chest pain Respiratory: No dyspnea at rest Abdomen: No pain Genitourinary - Male: + problem reported (scrotal edema), + urinary hesitancy Extremities: + leg edema A complete review of systems was performed. Pertinent positives are noted above. All other systems are negative. Vital Signs Last 8 Hrs Date Time Temp Pulse Resp B/P Pulse Ox O2 Delivery O2 Flow Rate FiO2 04/11/16 12:30 93 Room Air 04/11/16 11:56 36.8 88 20 94/70 93 04/11/16 10:57 93 98 04/11/16 08:26 36.7 93 18 104/68 98 04/11/16 08:00 Room Air I & O 24-Hour Column 04/11/16 08:00 Intake Total 216 ml Output Total 2650 ml Balance -2434 ml Last Recorded Weight Weight (Kilograms): 105.100 Physical Exam General Appearance: no apparent distress Head: normocephalic, atraumatic Eyes: PERRL Neck: no adenopathy Respiratory/Chest: lungs clear, no respiratory distress Cardiovascular: regular rate, rhythm Abdomen/GI: normal bowel sounds, non tender, soft Genitourinary - Male: + pertinent finding (3+ scrotal edema) Extremities/Musculoskelatal: + swelling (2+ edema of the legs extending up to the hips bilaterally) Neurologic/Psych: alert, normal reflexes Family History Patient reports no known family medical history. Social History Marital Status: single Housing Status: other (incarcerated at [facility]) Occupation: unemployed Laboratory Results Past 24 Hours 04/11/16 07:34 Test 04/10/16 16:36 04/10/16 17:20 04/10/16 20:20 04/11/16 06:59 Bedside Glucose 157 mg/dl (70-99) 142 mg/dl (70-99) 97 mg/dl (70-99) Urine Color ALBERT Urine Appearance TURBID (CLEAR) Urine pH 6.5 (4.5-7.5) Urine Specific [place] 1.020 (1.000-1.030) Urine Protein 2+ (NEG) Urine Glucose (UA) NEG (NEG) Urine Ketones NEG (NEG) Urine Occult Blood 3+ (NEG) Urine Nitrite NEG (NEG) Urine Bilirubin NEG (NEG) Urine Urobilinogen POS (NEG) Urine Leukocyte Esterase LARGE (NEG) Urine RBC >30 /hpf (0-4) Urine WBC >30 /hpf (0-5) Urine Epithelial Cells >30 /lpf (0-5) Urine Amorphous Sediment PRESENT (NONE PRSENT) Urine Bacteria 2+ (NEG) Urine Mucus PRESENT (NONE PRSENT) Urine Random Sodium 44 mEq/L Test 04/11/16 07:34 04/11/16 10:46 Prothrombin Time 19.2 SECONDS (9.0-12.0) Prothromb Time International Ratio 1.8 (0.9-1.1) Anion Gap 13.0 mmol/L (3-11) Est Creatinine Clear Calc Drug Dose 31.4 ml/min Estimated GFR () 31.5 Estimated GFR (Non- 27.2 BUN/Creatinine Ratio 21.4 (10-20) Calcium Level 9.0 mg/dl (8.5-10.1) Phosphorus Level 2.9 mg/dl (2.5-4.9) Magnesium Level 2.0 mg/dl (1.8-2.4) Total Bilirubin 1.3 mg/dl (0.2-1) Direct Bilirubin 0.8 mg/dl (0-0.2) Aspartate Amino Transf (AST/SGOT) 24 U/L (15-37) Alanine Aminotransferase (ALT/SGPT) 14 U/L (12-78) Alkaline Phosphatase 135 U/L (45-117) Total Protein 8.1 gm/dl (6.4-8.2) Albumin 3.2 gm/dl (3.4-5.0) Cortisol AM Sample 19.55 mcg/dl (4.30-22.40) Bedside Glucose 156 mg/dl (70-99) Allergies Coded Allergies: No Known Allergies (Unverified , 04/01/16) Medications Current Inpatient Medications Medications (Trade) Dose Ordered Sig/Jenny Route Start Time Stop Time Status Last Admin Dose Admin Insulin Aspart (novoLOG ASPART) SLIDING SCALE G... ACHS SC 04/06/16 21:00 05/06/16 20:59 04/11/16 12:39 3 UNITS Enoxaparin Sodium (Lovenox Inj) 30 mg QPM SC 04/06/16 21:00 05/06/16 20:59 04/10/16 19:43 30 MG Acetaminophen (Tylenol Tab) 650 mg Q4H PRN PO 04/06/16 18:15 05/06/16 18:14 04/07/16 08:39 650 MG Ondansetron HCl (Zofran Inj) 4 mg Q6H PRN IV 04/06/16 18:15 05/06/16 18:14 04/07/16 11:16 4 MG Polyethylene (Miralax Powder Packet) 17 gm DAILY PRN PO 04/06/16 18:15 05/06/16 18:14 Aspirin (Ecotrin Tab) 81 mg QAM PO 04/07/16 09:00 05/07/16 08:59 04/11/16 08:58 81 MG Pantoprazole Sodium (Protonix Tab) 40 mg QAM PO 04/07/16 09:00 05/07/16 08:59 04/11/16 08:58 40 MG Pravastatin Sodium (Pravachol Tab) 20 mg HS PO 04/06/16 21:00 05/06/16 20:59 04/10/16 19:41 20 MG Tamsulosin HCl (Flomax Cap) 0.4 mg QAM PO 04/07/16 09:00 05/07/16 08:59 04/11/16 08:58 0.4 MG Glucose (Glucose 40% Gel) 15-30 GRAMS 15 GRAMS... UD PRN PO 04/06/16 19:45 05/06/16 19:44 Glucose (Glucose Chew Tab) 4-8 Tablets 4 Tabl... UD PRN PO 04/06/16 19:45 05/06/16 19:44 04/07/16 00:15 4 TABS Dextrose (Dextrose 50% 50ML Syringe) 25-50ML OF 50% DW IV FOR... UD PRN IV 04/06/16 19:45 05/06/16 19:44 04/09/16 06:44 25 ML Glucagon (Glucagon Inj) 1 mg UD PRN SQ 04/06/16 19:45 05/06/16 19:44 Miscellaneous Information (Pending Order) 1 ea DAILY@10 N/A 04/09/16 10:00 05/09/16 09:59 Bisacodyl (Dulcolax Supp) 10 mg DAILY PRN SC 04/09/16 12:30 05/09/16 12:29 Bisacodyl (Dulcolax Tab) 5 mg DAILY PRN PO 04/09/16 12:30 05/09/16 12:29 Cephalexin Monohydrate (Keflex Cap) 250 mg QID PO 04/09/16 15:00 04/14/16 14:59 04/11/16 12:36 250 MG Warfarin Sodium (Coumadin Tab) 3 mg DAILY@1600 PO 04/10/16 16:00 05/10/16 15:59 04/10/16 16:43 3 MG Enteral Nutritional Formula 1 cup 1 cup TIDM PO 04/10/16 12:00 05/10/16 11:59 04/11/16 08:57 1 CUP Bumetanide/ Dextrose (Bumex IV/D5 50ml) 50 ml @ 5 mls/hr Q10H IV 04/10/16 16:30 05/10/16 16:29 04/11/16 08:56 5 MLS/HR Metoprolol Succinate (Toprol Xl Tab) 12.5 mg BID PO 04/11/16 21:00 05/11/16 20:59 Impression (1) ERA (acute kidney injury) (2) CKD (chronic kidney disease) (3) Hyponatremia (4) Hyperkalemia (5) Hypoglycemia (6) Acute on chronic combined systolic and diastolic CHF (congestive heart failure) (7) Chronic liver disease (8) Pulmonary hypertension Mr. Snell is a 71-year-old male w/ ASCVD, T2DM, COPD, atrial fibrillation with systolic and diastolic CHF who presents with hypoglycemia, hyperkalemia, hyponatremia and renal failure. Evaluation notable for acute on chronic heart failure with evidence of predominately right sided CHF. Transthoracic echocardiogram documented elevated PA systolic pressures of 35 - 42 mmHG as well as mitral and tricuspid valvular heart disease. CT scan is concerning for cirrhosis. Renal US shows mild bilateral hydronephrosis with a dilated thickened bladder c/w NEWMAN. Recommendations ACUTE KIDNEY INJURY: -- Improved following chowdary catheter insertion -- Recommend consultation w/ urology to evaluate for BPH/NEWMAN -- Monitor I&O's, serial PRP CHRONIC KIDNEY DISEASE: -- Baseline creatinine has been 1.6 -- Will check urine sediment and UPCR once ERA resolves EDEMA: -- Patient has cor pulmonale. Echocardiogram results reviewed. He has PASP ~ 40 w/ TR -- Continue Bumetanide drip. Patient is responding well. Volume status has improved and creatinine is trending downward CIRRHOSIS: -- Suspect nutmeg liver related to cor pulmonale -- Recommend consultation w/ gastroenterology to assess cirrhosis and obtain management recommendations
[2016-04-11] MEDS: WARFARIN SOD 3 MG TAB PO SCH (15:56)
[2016-04-11 17:34] LABS: URINE APPEARANCE TURBID (CLEAR); URINE BILIRUBIN NEG (NEG); URINE COLOR ORANGE; URINE NITRITE NEG (NEG); URINE SPECIFIC GRAVITY 1.007 (1.000-1.030); UROBILINOGEN NEG (NEG)
[2016-04-11 17:40] LABS: MANUAL MICROSCOPIC REQUIRED? YES; REVIEW REQ? NO
[2016-04-11 18:07] LABS: URINE RBC >30 /hpf (0-4); URINE WBC >30 /hpf (0-5)
[2016-04-11 18:08] LABS: URINE BACTERIA 1+ (NEG)
[2016-04-11 18:13] LABS: URINE TOTAL PROTEIN 208.1 mg/dl (0-11.9)
[2016-04-11] MEDS: ENOXAPARIN 30 MG/0.3 ML SYR SC SCH (21:33)
[2016-04-11] MEDS: METOPROLOL SUCC 25MG EXT REL TAB PO SCH (21:33)
[2016-04-11] MEDS: PRAVASTATIN SOD 20 MG TAB PO SCH (21:33)
[2016-04-12 00:13] VITALS: BP 116/78; PULSE 94; TEMP 37.2; O2SAT 92
[2016-04-12 04:05] VITALS: BP 107/47; PULSE 76; TEMP 37.1; O2SAT 91
[2016-04-12 08:26] VITALS: BP 117/83; PULSE 95; TEMP 36.7; O2SAT 93
[2016-04-12] MEDS: BUMETANIDE IV 10 MG in DEXTROSE 5% 50ML 10 ML IV SCH ×2 (09:06→15:46)
[2016-04-12] MEDS: PANTOprazole SOD 40 MG TAB PO SCH (09:06)
[2016-04-12] MEDS: BOOST VANILLA PUDDING CUP PO SCH ×3 (09:06→16:45)
[2016-04-12] MEDS: TAMSULOSIN HCL 0.4 MG CAP PO SCH (09:06)
[2016-04-12] MEDS: CEPHALEXIN MONOHYDRATE 250 MG CAP PO SCH ×4 (09:07→20:53)
[2016-04-12] MEDS: ASPIRIN 81 MG ECTAB PO SCH (09:07)
[2016-04-12] MEDS: METOPROLOL SUCC 25MG EXT REL TAB PO SCH ×2 (09:07→20:48)
[2016-04-12] MEDS: INSULIN ASPART 100 UNITS/ML 3 ML PEN SC SCH ×4 (09:10→20:51)
[2016-04-12 09:48] LABS: HEMATOCRIT 29.2 % (42-52); MEAN CELL VOLUME 80.9 fL (80-100); MEAN CORPUSCULAR HEMOGLOBIN 30.2 pg (25-34); MEAN CORPUSCULAR HGB CONC 37.3 g/dl (32-36); MEAN PLATELET VOLUME 11.3 fL (7.4-10.4); PLATELET COUNT 154 K/uL (130-400); RED BLOOD COUNT 3.61 M/uL (4.7-6.1); WHITE BLOOD COUNT 4.11 K/uL (4.8-10.8)
[2016-04-12 09:51] LABS: BUN/CREATININE RATIO 27.5 (10-20); CALCIUM 9.1 mg/dl (8.5-10.1); CREATININE 1.9 mg/dl (0.60-1.40); POTASSIUM 4.1 mmol/L (3.5-5.1)
[2016-04-12 09:55] LABS: ALB/GLOB RATIO 0.6 (0.9-2)
--- NOTE | 2016-04-12 10:10 | CARDIOLOGY PROGRESS NOTE ---
DATE: 04/12/2016 DATE: 04/12/2016. TIME: 9:37 a.m. SUBJECTIVE: His only complaint today is scrotal pain. His scrotum has been significantly swollen. He denies angina. His breathing is stable. He denies syncope, near syncope, or palpitations. His ICD was interrogated yesterday and he has had 1 shock delivered on 03/19/2016. OBJECTIVE: VITAL SIGNS: Temperature 36.7 degrees, heart rate 95 beats per minute, respiration rate 16, blood pressure 117/83 mmHg. He has been intermittently hypotensive with systolic blood pressures in the 90s. Oxygen saturation 93% on room air. I's and O's negative 5.4 liters yesterday. Weight is 99.2 kg. GENERAL: In no acute distress. He is alert. NECK: Elevated JVD but thick neck. CARDIAC EXAMINATION: No ventricular heave. Regular. A 1/6 early peaking systolic ejection murmur best heard at the right upper sternal border. No rubs or gallops. LUNGS: Bibasilar rales. ABDOMEN: Soft, nontender, nondistended. 1+ pitting edema throughout the abdomen up into the chest. EXTREMITIES: 1-2+ bilateral lower extremity pitting edema to the hips. Significant scrotal edema also noted. No cyanosis. PSYCHIATRIC: Affect appears appropriate. MEDICATIONS: Include Bumex drip, aspirin 81 mg daily, Keflex 250 mg p.o. q.i.d., Lovenox 30 mg subQ daily, metoprolol succinate 12.5 mg p.o. b.i.d., Protonix 40 mg daily, pravastatin 20 mg at bedtime, Coumadin 3 mg. LABORATORY DATA: From this morning are pending. Telemetry personally reviewed. PVCs, ventricular couplets and triplets. No sustained ventricular arrhythmias. Chart reviewed. ASSESSMENT AND PLAN: 1. Acute on chronic systolic congestive heart failure: He has biventricular systolic failure. He continues to be significantly hypervolemic but is diuresing very well on Bumex. Monitor renal function and electrolytes closely. Today's labs are pending. Continue strict I's and O's, low sodium diet and daily weights. 2. Atrial flutter/fibrillation: He has been reasonably well rate controlled. Would increase metoprolol succinate at some point, but will hold off for now. Monitor blood pressure closely. Continue anticoagulation for stroke risk reduction. 3. Cardiomyopathy: Continue metoprolol succinate, which was started yesterday in place of metoprolol tartrate. No CHEMA inhibitor at this time secondary to renal function, although if his renal function returns to baseline, it would be indicated going forward. If Entresto is available at [facility] that would also be a good option in place of CHEMA inhibitor. With the fact that his LV systolic function has reduced, would could consider ischemic evaluation as well but not in the setting of acute kidney injury. Will continue to follow. 4. Aortic valve replacement: Appropriately functioning per echo. SBE prophylaxis for dental procedures. 5. Paroxysmal ventricular tachycardia: Continue beta-cyrus therapy and titrate up as tolerated. 6. Mitral regurgitation: Follow over time, nonsevere. 7. Implantable cardioverter-defibrillator: He did have a shock on 03/19/2016. ICD has been followed in the past by Dr. Sawyer. 8. Disposition: Cardiology will continue to follow. JACK
--- NOTE | 2016-04-12 10:46 | Urology Consultation ---
History General Date of Service: Apr 12, 2016. Primary Care Physician: Lorena ARREDONDO History of Present Illness 71 year old incarcerated male with urinary retention with guards at bedside. He was noted to have acute on chronic kidney injury- creatinine has improved since his volume status was replenished. CT scan showed mild bilateral hydroureteronephrosis with ureters dilated to bladder. Nonobstructing left renal calculi. No masses, bladder thickening. His urine culture is positive for staph aureus and he is being treated with Cephalexin. PSA was normal 0.160 Pt is poor historian. He thinks he may have had a catheter in the past.Possible prostate surgery. He is currently on flomax. Reports he had bothersome urinary symptoms prior to his hospitalization. He is afebrile, VSS. Imaging Imaging: CT Laboratory Labs were reviewed and are within normal limits unless listed below. Labs are available in the chart and at [facility] Problem List Medical Problems: (1) Cellulitis of leg, right Status: Acute (2) CHF (congestive heart failure) Status: Acute (3) CHF (congestive heart failure) Status: Acute (4) Failure of outpatient treatment Status: Acute (5) Noncompliance with medications Status: Acute Past History arrhythmia, BPH, COPD, coronary artery disease, diabetes, liver disease ( cirrhosis), lung disease, other (pulmonary HTN) Family History Patient reports no known family medical history. Social History Hx Tobacco Use In Past Year?: No Marital status: single Housing status: other (incarcerated at [facility]) Occupation status: unemployed Allergies Coded Allergies: No Known Allergies (Unverified , 04/01/16) Medications Home Medications: Home Meds and Scripts Medications Dose Route/Sig Max Daily Dose Days Date Category Dose Instructions Tylenol W/Codeine #3 (Acetaminophen/Codeine Phosphate) 300 Mg/30 Mg Tab 2 Tabs PO QID PRN 04/06/16 Reported Acetaminophen 325 Mg Tab 325 Mg PO TID PRN 04/06/16 Reported Zofran (Ondansetron HCl) 4 Mg Tab 4 Mg PO QID PRN 04/06/16 Reported Flomax (Tamsulosin Hcl) 0.4 Mg Cap 0.4 Mg PO QAM 04/06/16 Reported Micro-K Ext Rel (Potassium Chloride) 10 Meq Capcr 20 Meq PO BID 04/06/16 Reported Lopressor (Metoprolol Tartrate) 25 Mg Tab 12.5 Mg PO BID 04/06/16 Reported Ventolin Hfa (Albuterol) 60 Puffs/5400 Mcg Aers 2 Puffs INH QID PRN 04/06/16 Reported Lubriskin (Emollient) 1 Lot Lot 1 Appln TOP BID 04/06/16 Reported Capsaicin 0.025 % Cre 1 Appln TOP BID 04/06/16 Reported Warfarin Sodium 2 Mg Tab 2 Mg PO HS 04/06/16 Reported Furosemide 40 Mg/4 Ml Soln 80 Mg IV BID 04/06/16 Reported DISCONTINUE AFTER 0700 DOSE ON 04/07/2016 Ferrous Sulfate 325 Mg Tab 325 Mg PO BID 04/06/16 Reported Protonix (Pantoprazole Sodium) 40 Mg Tab 40 Mg PO QAM 04/01/16 Reported Prinivil (Lisinopril) 5 Mg Tab 5 Mg PO DAILY 04/01/16 Reported Aspirin Chewable (Aspirin) 81 Mg Chew 81 Mg PO QAM 10/10/14 Reported Pravachol (Pravastatin Sodium) 20 Mg Tab 20 Mg PO HS 10/10/14 Reported Inpatient Medications: Current Inpatient Medications Medications (Trade) Dose Ordered Sig/Jenny Route Start Time Stop Time Status Last Admin Dose Admin Insulin Aspart (novoLOG ASPART) SLIDING SCALE G... ACHS SC 04/06/16 21:00 05/06/16 20:59 04/12/16 09:10 4 UNITS Enoxaparin Sodium (Lovenox Inj) 30 mg QPM SC 04/06/16 21:00 05/06/16 20:59 04/11/16 21:33 30 MG Acetaminophen (Tylenol Tab) 650 mg Q4H PRN PO 04/06/16 18:15 05/06/16 18:14 04/07/16 08:39 650 MG Ondansetron HCl (Zofran Inj) 4 mg Q6H PRN IV 04/06/16 18:15 05/06/16 18:14 04/07/16 11:16 4 MG Polyethylene (Miralax Powder Packet) 17 gm DAILY PRN PO 04/06/16 18:15 05/06/16 18:14 Aspirin (Ecotrin Tab) 81 mg QAM PO 04/07/16 09:00 05/07/16 08:59 04/12/16 09:07 81 MG Pantoprazole Sodium (Protonix Tab) 40 mg QAM PO 04/07/16 09:00 05/07/16 08:59 04/12/16 09:06 40 MG Pravastatin Sodium (Pravachol Tab) 20 mg HS PO 04/06/16 21:00 05/06/16 20:59 04/11/16 21:33 20 MG Tamsulosin HCl (Flomax Cap) 0.4 mg QAM PO 04/07/16 09:00 05/07/16 08:59 04/12/16 09:06 0.4 MG Glucose (Glucose 40% Gel) 15-30 GRAMS 15 GRAMS... UD PRN PO 04/06/16 19:45 05/06/16 19:44 Glucose (Glucose Chew Tab) 4-8 Tablets 4 Tabl... UD PRN PO 04/06/16 19:45 05/06/16 19:44 04/07/16 00:15 4 TABS Dextrose (Dextrose 50% 50ML Syringe) 25-50ML OF 50% DW IV FOR... UD PRN IV 04/06/16 19:45 05/06/16 19:44 04/09/16 06:44 25 ML Glucagon (Glucagon Inj) 1 mg UD PRN SQ 04/06/16 19:45 05/06/16 19:44 Miscellaneous Information (Pending Order) 1 ea DAILY@10 N/A 04/09/16 10:00 05/09/16 09:59 04/11/16 20:39 1 EA Bisacodyl (Dulcolax Supp) 10 mg DAILY PRN AR 04/09/16 12:30 05/09/16 12:29 Bisacodyl (Dulcolax Tab) 5 mg DAILY PRN PO 04/09/16 12:30 05/09/16 12:29 Cephalexin Monohydrate (Keflex Cap) 250 mg QID PO 04/09/16 15:00 04/14/16 14:59 04/12/16 09:07 250 MG Warfarin Sodium (Coumadin Tab) 3 mg DAILY@1600 PO 04/10/16 16:00 05/10/16 15:59 04/11/16 15:56 3 MG Enteral Nutritional Formula 1 cup 1 cup TIDM PO 04/10/16 12:00 05/10/16 11:59 04/12/16 09:06 1 CUP Bumetanide/ Dextrose (Bumex IV/D5 50ml) 50 ml @ 5 mls/hr Q10H IV 04/10/16 16:30 05/10/16 16:29 04/12/16 09:06 5 MLS/HR Metoprolol Succinate (Toprol Xl Tab) 12.5 mg BID PO 04/11/16 21:00 05/11/16 20:59 04/12/16 09:07 12.5 MG Review of Systems Review of Systems Constitutional: No chills, No fever Eyes: No blurred vision Neurological: No dizzy Endocrine: No excessive thirst Gastrointestinal: No abdominal pain Cardiovascular: No chest pain Respiratory: No shortness of breath Blood / Lymphatic: No bleed easily Male : + see HPI Physical Exam Vital Signs: Vital Signs Past 12 Hours Date Time Temp Pulse Resp B/P Pulse Ox O2 Delivery O2 Flow Rate FiO2 04/12/16 08:26 36.7 95 16 117/83 93 Room Air 04/12/16 08:00 Room Air 04/12/16 04:18 Room Air 04/12/16 04:05 37.1 76 16 107/47 91 Room Air 04/12/16 00:39 Room Air 04/12/16 00:13 37.2 94 20 116/78 92 Room Air Physical Exam: General Appearance: WD/WN, no apparent distress ENT: hearing grossly normal Respiratory/Chest: no respiratory distress, no accessory muscle use Genitourinary - Male: Scrotum: pertinent finding (significant scrotal edema) Extremities: + pertinent finding (BLE edema) Neurologic/Psychiatric: alert, normal mood/affect Skin: normal color, warm/dry Assessment & Plan Assessment & Plan Imaging: CT Urinary Retention/UTI Possible NEWMAN/BPH- VICKY deferred - chowdary present Recommend leaving in chowdary for 7-10 days then TOV- if he has been d/c will schedule for follow up in our office. Will also need outpt cysto Started finasteride. Urine culture positive for staph aureus- recommend switching pt to 2 weeks of Bactrim DS Bilateral Mott His creatinine is normalizing and pt denies flank pain. AFVSS No need for stent/surgical intervention. Scrotal edema Not much to do for this. Not bothersome to pt. Ice and elevation of scrotum if becomes bothersome. Plan discussed with Dr. Braun. Thanks for the consult. Will follow along with primary service. ADDENDUM: pt reports peno-scrotal edema has progressed significantly in the past 10 days - I have placed a rolled aleksey under the scrotum to help elevated it. - as his overall fluid overload resolves, the edema should simultaneously resolve. Agree with ELECTRICAL INTEGRATOR note and recommended avoidance of stents right now - Cr is normalizing with chowdary - leave chowdary for now, uncertain how well he was voiding prior to admission - we will need to further evaluate him prior to voiding trial
--- NOTE | 2016-04-12 12:04 | Nephrology Progress Note ---
Nephrology Progress Note Date of Service Apr 12, 2016. Chief Complaint Follow up evaluation of nonoliguric acute on chronic kidney injury Subjective Mr. Snell was seen & examined in the PCU this morning. He was admitted to the hospital following a hypoglycemic event. He is diabetic. Blood sugar has recovered following dextrose administration. The patient was found to have lower extremity and genital edema at the time of admission. Laboratory studies revealed acute on chronic kidney injury. Serum creatinine had risen from 1.6 to 3.0. Renal US revealed mild bilateral hydronephrosis and bladder wall thickening. Kidney function has improved following chowdary catheter insertion. Patient is responding well to IV bumetanide gtt. Mr. Snell's medical history is also significant for T2DM, cirrhosis, atrial fibrillation, COPD, pulmonary hypertension and diastolic CHF. He denies any history of alcohol abuse. The patient has been incarcerated for 3 years. He expects to be released next month. The patient's primary concern today is painful penile swelling. Review of Systems Constitutional: No fever Cardiovascular: No chest pain Respiratory: No dyspnea at rest Abdomen: No nausea, No pain Genitourinary - Male: + problem reported (genital edema) Extremities: + leg edema A complete review of systems was performed. Pertinent positives are noted above. All other systems are negative. Vital Signs Last 8 Hrs Date Time Temp Pulse Resp B/P Pulse Ox O2 Delivery O2 Flow Rate FiO2 04/12/16 08:26 36.7 95 16 117/83 93 Room Air 04/12/16 08:00 Room Air 04/12/16 04:18 Room Air 04/12/16 04:05 37.1 76 16 107/47 91 Room Air I & O 24-Hour Column 04/12/16 08:00 Intake Total 238 ml Output Total 5850 ml Balance -5612 ml Last Recorded Weight Weight (Kilograms): 99.200 Physical Exam General Appearance: + mild distress (due to genital edema) Head: atraumatic Eyes: PERRL Neck: no adenopathy, no JVD Respiratory/Chest: lungs clear, no respiratory distress Cardiovascular: regular rate, rhythm Abdomen/GI: normal bowel sounds, non tender, soft Genitourinary - Male: + pertinent finding (3+ penile and scrotal edema) Extremities/Musculoskelatal: + pertinent finding (2+ pretibial edema) Neurologic/Psych: alert, oriented x 3 Family History Patient reports no known family medical history. Social History Marital Status: single Housing Status: other (incarcerated at [facility]) Occupation: unemployed Laboratory Results Past 24 Hours 04/12/16 09:08 04/12/16 09:08 Test 04/11/16 16:28 04/11/16 17:00 04/11/16 20:45 04/12/16 06:24 Bedside Glucose 203 mg/dl (70-99) 202 mg/dl (70-99) 145 mg/dl (70-99) Urine Color ORANGE Urine Appearance TURBID (CLEAR) Urine pH 6.0 (4.5-7.5) Urine Specific [place] 1.007 (1.000-1.030) Urine Protein 2+ (NEG) Urine Glucose (UA) NEG (NEG) Urine Ketones NEG (NEG) Urine Occult Blood 3+ (NEG) Urine Nitrite NEG (NEG) Urine Bilirubin NEG (NEG) Urine Urobilinogen NEG (NEG) Urine Leukocyte Esterase LARGE (NEG) Urine WBC (Auto) /hpf (0-5) Urine RBC (Auto) /hpf (0-4) Urine Hyaline Casts (Auto) /lpf (0-5) Urine Epithelial Cells (Auto) /lpf (0-5) Urine Bacteria (Auto) (NEG) Urine RBC >30 /hpf (0-4) Urine WBC >30 /hpf (0-5) Urine Epithelial Cells 0-5 /lpf (0-5) Urine Bacteria 1+ (NEG) Urine Yeast (Auto) (NONE PRSENT) Urine Random Creatinine 35.0 mg/dl Urine Random Total Protein 208.1 mg/dl (0-11.9) Urine Protein/Creatinine Ratio 6.0 (0-0.2) Test 04/12/16 09:08 04/12/16 10:46 Red Blood Count 3.61 M/uL (4.7-6.1) Mean Corpuscular Volume 80.9 fL (80-100) Mean Corpuscular Hemoglobin 30.2 pg (25-34) Mean Corpuscular Hemoglobin Concent 37.3 g/dl (32-36) RDW Standard Deviation 46.3 fL (36.4-46.3) RDW Coefficient of Variation 15.8 % (11.5-14.5) Mean Platelet Volume 11.3 fL (7.4-10.4) Anion Gap 14.0 mmol/L (3-11) Est Creatinine Clear Calc Drug Dose 36.8 ml/min Estimated GFR () 39.7 Estimated GFR (Non- 34.2 BUN/Creatinine Ratio 27.5 (10-20) Calcium Level 9.1 mg/dl (8.5-10.1) Total Bilirubin 1.3 mg/dl (0.2-1) Aspartate Amino Transf (AST/SGOT) 24 U/L (15-37) Alanine Aminotransferase (ALT/SGPT) 15 U/L (12-78) Alkaline Phosphatase 147 U/L (45-117) Total Protein 8.0 gm/dl (6.4-8.2) Albumin 3.0 gm/dl (3.4-5.0) Globulin 5.0 gm/dl (2.5-4.0) Albumin/Globulin Ratio 0.6 (0.9-2) Bedside Glucose 202 mg/dl (70-99) Allergies Coded Allergies: No Known Allergies (Unverified , 04/01/16) Medications Current Inpatient Medications Medications (Trade) Dose Ordered Sig/Jenny Route Start Time Stop Time Status Last Admin Dose Admin Insulin Aspart (novoLOG ASPART) SLIDING SCALE G... ACHS SC 04/06/16 21:00 05/06/16 20:59 04/12/16 09:10 4 UNITS Enoxaparin Sodium (Lovenox Inj) 30 mg QPM SC 04/06/16 21:00 05/06/16 20:59 04/11/16 21:33 30 MG Acetaminophen (Tylenol Tab) 650 mg Q4H PRN PO 04/06/16 18:15 05/06/16 18:14 04/07/16 08:39 650 MG Ondansetron HCl (Zofran Inj) 4 mg Q6H PRN IV 04/06/16 18:15 05/06/16 18:14 04/07/16 11:16 4 MG Polyethylene (Miralax Powder Packet) 17 gm DAILY PRN PO 04/06/16 18:15 05/06/16 18:14 Aspirin (Ecotrin Tab) 81 mg QAM PO 04/07/16 09:00 05/07/16 08:59 04/12/16 09:07 81 MG Pantoprazole Sodium (Protonix Tab) 40 mg QAM PO 04/07/16 09:00 05/07/16 08:59 04/12/16 09:06 40 MG Pravastatin Sodium (Pravachol Tab) 20 mg HS PO 04/06/16 21:00 05/06/16 20:59 04/11/16 21:33 20 MG Tamsulosin HCl (Flomax Cap) 0.4 mg QAM PO 04/07/16 09:00 05/07/16 08:59 04/12/16 09:06 0.4 MG Glucose (Glucose 40% Gel) 15-30 GRAMS 15 GRAMS... UD PRN PO 04/06/16 19:45 05/06/16 19:44 Glucose (Glucose Chew Tab) 4-8 Tablets 4 Tabl... UD PRN PO 04/06/16 19:45 05/06/16 19:44 04/07/16 00:15 4 TABS Dextrose (Dextrose 50% 50ML Syringe) 25-50ML OF 50% DW IV FOR... UD PRN IV 04/06/16 19:45 05/06/16 19:44 04/09/16 06:44 25 ML Glucagon (Glucagon Inj) 1 mg UD PRN SQ 04/06/16 19:45 05/06/16 19:44 Miscellaneous Information (Pending Order) 1 ea DAILY@10 N/A 04/09/16 10:00 05/09/16 09:59 04/11/16 20:39 1 EA Bisacodyl (Dulcolax Supp) 10 mg DAILY PRN DC 04/09/16 12:30 05/09/16 12:29 Bisacodyl (Dulcolax Tab) 5 mg DAILY PRN PO 04/09/16 12:30 05/09/16 12:29 Cephalexin Monohydrate (Keflex Cap) 250 mg QID PO 04/09/16 15:00 04/14/16 14:59 04/12/16 09:07 250 MG Warfarin Sodium (Coumadin Tab) 3 mg DAILY@1600 PO 04/10/16 16:00 05/10/16 15:59 04/11/16 15:56 3 MG Enteral Nutritional Formula 1 cup 1 cup TIDM PO 04/10/16 12:00 05/10/16 11:59 04/12/16 09:06 1 CUP Bumetanide/ Dextrose (Bumex IV/D5 50ml) 50 ml @ 5 mls/hr Q10H IV 04/10/16 16:30 05/10/16 16:29 04/12/16 09:06 5 MLS/HR Metoprolol Succinate (Toprol Xl Tab) 12.5 mg BID PO 04/11/16 21:00 05/11/16 20:59 04/12/16 09:07 12.5 MG Impression (1) ERA (acute kidney injury) (2) CKD (chronic kidney disease) (3) Hyponatremia (4) Hyperkalemia (5) Hypoglycemia (6) Acute on chronic combined systolic and diastolic CHF (congestive heart failure) (7) Chronic liver disease (8) Pulmonary hypertension Mr. Snell is a 71-year-old male w/ ASCVD, T2DM, COPD, atrial fibrillation with systolic and diastolic CHF who presents with hypoglycemia, hyperkalemia, hyponatremia and renal failure. Evaluation notable for acute on chronic heart failure with evidence of predominately right sided CHF. Transthoracic echocardiogram documented elevated PASP of 35 - 42 mmHG as well as mitral and tricuspid valvular heart disease. CT scan is concerning for cirrhosis. Renal US shows mild bilateral hydronephrosis with a dilated thickened bladder c/w [place]MAN. Patient has significant genital edema. Recommendations ACUTE KIDNEY INJURY: -- Improving. -- Patient has significant penile and scrotal edema. I have spoken w/ Dr. Braun. He will assess the patient today -- Continue IV Bumex gtt to alleviate peripheral and genital edema -- Monitor I&O's, serial PRP CHRONIC KIDNEY DISEASE: -- Baseline creatinine has been 1.6 -- Will check urine sediment and UPCR once ERA resolves EDEMA: -- Patient has cor pulmonale. Echocardiogram results reviewed. He has PASP ~ 40 w/ TR -- Continue Bumetanide drip. Patient is responding well. Volume status has improved and creatinine is trending downward CIRRHOSIS: -- Suspect nutmeg liver related to cor pulmonale -- Recommend consultation w/ gastroenterology to assess cirrhosis and obtain management recommendations
[2016-04-12 12:08] VITALS: O2SAT 93
--- NOTE | 2016-04-12 12:12 | Gastroenterology Progress Note ---
Progress Note Subjective Pt evaluation today including: conversation w/ patient, physical exam, chart review, lab review, review of studies, review of inpatient medication list Medications Current Inpatient Medications Medications (Trade) Dose Ordered Sig/Jenny Route Start Time Stop Time Status Last Admin Dose Admin Insulin Aspart (novoLOG ASPART) SLIDING SCALE G... ACHS SC 04/06/16 21:00 05/06/16 20:59 04/12/16 09:10 4 UNITS Enoxaparin Sodium (Lovenox Inj) 30 mg QPM SC 04/06/16 21:00 05/06/16 20:59 04/11/16 21:33 30 MG Acetaminophen (Tylenol Tab) 650 mg Q4H PRN PO 04/06/16 18:15 05/06/16 18:14 04/07/16 08:39 650 MG Ondansetron HCl (Zofran Inj) 4 mg Q6H PRN IV 04/06/16 18:15 05/06/16 18:14 04/07/16 11:16 4 MG Polyethylene (Miralax Powder Packet) 17 gm DAILY PRN PO 04/06/16 18:15 05/06/16 18:14 Aspirin (Ecotrin Tab) 81 mg QAM PO 04/07/16 09:00 05/07/16 08:59 04/12/16 09:07 81 MG Pantoprazole Sodium (Protonix Tab) 40 mg QAM PO 04/07/16 09:00 05/07/16 08:59 04/12/16 09:06 40 MG Pravastatin Sodium (Pravachol Tab) 20 mg HS PO 04/06/16 21:00 05/06/16 20:59 04/11/16 21:33 20 MG Tamsulosin HCl (Flomax Cap) 0.4 mg QAM PO 04/07/16 09:00 05/07/16 08:59 04/12/16 09:06 0.4 MG Glucose (Glucose 40% Gel) 15-30 GRAMS 15 GRAMS... UD PRN PO 04/06/16 19:45 05/06/16 19:44 Glucose (Glucose Chew Tab) 4-8 Tablets 4 Tabl... UD PRN PO 04/06/16 19:45 05/06/16 19:44 04/07/16 00:15 4 TABS Dextrose (Dextrose 50% 50ML Syringe) 25-50ML OF 50% DW IV FOR... UD PRN IV 04/06/16 19:45 05/06/16 19:44 04/09/16 06:44 25 ML Glucagon (Glucagon Inj) 1 mg UD PRN SQ 04/06/16 19:45 05/06/16 19:44 Miscellaneous Information (Pending Order) 1 ea DAILY@10 N/A 04/09/16 10:00 05/09/16 09:59 04/11/16 20:39 1 EA Bisacodyl (Dulcolax Supp) 10 mg DAILY PRN RI 04/09/16 12:30 05/09/16 12:29 Bisacodyl (Dulcolax Tab) 5 mg DAILY PRN PO 04/09/16 12:30 05/09/16 12:29 Cephalexin Monohydrate (Keflex Cap) 250 mg QID PO 04/09/16 15:00 04/14/16 14:59 04/12/16 09:07 250 MG Warfarin Sodium (Coumadin Tab) 3 mg DAILY@1600 PO 04/10/16 16:00 05/10/16 15:59 04/11/16 15:56 3 MG Enteral Nutritional Formula 1 cup 1 cup TIDM PO 04/10/16 12:00 05/10/16 11:59 04/12/16 09:06 1 CUP Bumetanide/ Dextrose (Bumex IV/D5 50ml) 50 ml @ 5 mls/hr Q10H IV 04/10/16 16:30 05/10/16 16:29 04/12/16 09:06 5 MLS/HR Metoprolol Succinate (Toprol Xl Tab) 12.5 mg BID PO 04/11/16 21:00 05/11/16 20:59 04/12/16 09:07 12.5 MG Objective Vital Signs Date Time Temp Pulse Resp B/P Pulse Ox O2 Delivery O2 Flow Rate FiO2 04/12/16 08:26 36.7 95 16 117/83 93 Room Air 04/12/16 08:00 Room Air 04/12/16 04:18 Room Air 04/12/16 04:05 37.1 76 16 107/47 91 Room Air 04/12/16 00:39 Room Air 04/12/16 00:13 37.2 94 20 116/78 92 Room Air 04/11/16 20:39 Room Air 04/11/16 20:24 36.8 89 18 110/66 93 04/11/16 16:01 36.8 79 18 91/63 94 Room Air 04/11/16 16:00 93 Room Air 3.0 04/11/16 12:30 93 Room Air 04/11/16 11:56 36.8 88 20 94/70 93 Laboratory Results Last 24 Hours Test 04/11/16 16:28 04/11/16 17:00 04/11/16 20:45 04/12/16 06:24 Bedside Glucose 203 mg/dl 202 mg/dl 145 mg/dl Urine Color ORANGE Urine Appearance TURBID Urine pH 6.0 Urine Specific [place] 1.007 Urine Protein 2+ Urine Glucose (UA) NEG Urine Ketones NEG Urine Occult Blood 3+ Urine Nitrite NEG Urine Bilirubin NEG Urine Urobilinogen NEG Urine Leukocyte Esterase LARGE Urine WBC (Auto) /hpf Urine RBC (Auto) /hpf Urine Hyaline Casts (Auto) /lpf Urine Epithelial Cells (Auto) /lpf Urine Bacteria (Auto) Urine RBC >30 /hpf Urine WBC >30 /hpf Urine Epithelial Cells 0-5 /lpf Urine Bacteria 1+ Urine Yeast (Auto) Urine Random Creatinine 35.0 mg/dl Urine Random Total Protein 208.1 mg/dl Urine Protein/Creatinine Ratio 6.0 Test 04/12/16 09:08 04/12/16 10:46 White Blood Count 4.11 K/uL Red Blood Count 3.61 M/uL Hemoglobin 10.9 g/dL Hematocrit 29.2 % Mean Corpuscular Volume 80.9 fL Mean Corpuscular Hemoglobin 30.2 pg Mean Corpuscular Hemoglobin Concent 37.3 g/dl RDW Standard Deviation 46.3 fL RDW Coefficient of Variation 15.8 % Platelet Count 154 K/uL Mean Platelet Volume 11.3 fL Sodium Level 137 mmol/L Potassium Level 4.1 mmol/L Chloride Level 98 mmol/L Carbon Dioxide Level 25 mmol/L Anion Gap 14.0 mmol/L Blood Urea Nitrogen 52 mg/dl Creatinine 1.90 mg/dl Est Creatinine Clear Calc Drug Dose 36.8 ml/min Estimated GFR () 39.7 Estimated GFR (Non- 34.2 BUN/Creatinine Ratio 27.5 Random Glucose 190 mg/dl Calcium Level 9.1 mg/dl Total Bilirubin 1.3 mg/dl Aspartate Amino Transf (AST/SGOT) 24 U/L Alanine Aminotransferase (ALT/SGPT) 15 U/L Alkaline Phosphatase 147 U/L Total Protein 8.0 gm/dl Albumin 3.0 gm/dl Globulin 5.0 gm/dl Albumin/Globulin Ratio 0.6 Bedside Glucose 202 mg/dl Assessment and Plan GI consult dictated Job [id number] Cirrhosis--etiology not clear, not a heavy drinker in the past per pt report, can be from congestion from right heart failure, SCALES is possible, viral etology. Not a liver transplant candidate given COPD and CHF. Had EGD 09/2014 negative for varices. Reasonable to do another EGD electiveley as outpt when stable from current CHF. check ferritin and hepatitis profile. Ascites--discussed with radiology and they could obtain fluid for diagnostic paracentesis--could do a cell count and differential for SBP although with this volume of fluid less likely, cytology for cancer and albumin to further assess for portal HTN. Pt would need to be off coumadin with more normalized PT INR anemia--Had anemia 09/2014 with EGD and colonoscopy then by DR Bateman showing antral ulcers path gastritis neg for H.pylori, normal esophagus, diverticulosis , multiple transverse colon polyps removed path tubular adenomas and one inflammtory.. check stool hemoccult, Fe sat, B12, folate, ferritin Discussed above with DR Andrews and told him if he wants to get paracentesis while intpt then coumadin would need held.
--- NOTE | 2016-04-12 13:38 | GASTROINTESTINAL CONSULTATION ---
DATE OF CONSULTATION: 04/12/2016 CONSULTATION: For cirrhosis. CHIEF COMPLAINT: The patient had leg swelling. HISTORY OF PRESENT ILLNESS: The patient admitted with increasing lower extremity edema over the last couple of weeks. The patient was noted to have a right upper quadrant ultrasound showing cirrhosis, gallstone, small volume ascites and subsequent abdomen and pelvic CT scan with a large heart, pleural effusions, diverticulosis, small to moderate ascites, fecal retention, hydroureter. KUB before the CT scan showed ileus versus low grade small-bowel obstruction ulcers gallstones. The patient has not noted any bloody stools or black stools. No abdominal pain unless on palpation. No change in bowels, no dysphagia, no change in weight. No fever, no nausea, vomiting, no GERD, no hiatal hernia. He is aware of this diagnosis of cirrhosis, maybe year or so ago. Reviewing old records, Dr. Rucker did an EGD and colonoscopy 10/06/2014 showed antral ulcers, normal esophagus. Colonoscopy showed some transverse colon polyps and some diverticulosis. The stomach biopsy showed some chronic active gastritis, negative for Helicobacter. The colon polyps were tubular adenoma and an inflammatory polyp. ALLERGIES: None. MEDICATIONS ON ADMISSION: Aspirin, Lasix, lisinopril, metoprolol, potassium, Coumadin. PROBLEMS AND SURGERY: CHF, COPD, ICD, hypertension, history of endocarditis, history of aortic valve replacement, AFib, diabetes. FAMILY HISTORY: [place] and no liver disease. SOCIAL HISTORY: Tobacco, negative ethanol. [facility]. No alcohol at the present time. He states he is not a heavy drinker in the past. REVIEW OF SYSTEMS: CONSTITUTIONAL: Negative. EYES: Some decreased vision overall. HEAD, NOSE, MOUTH AND THROAT: Dry mouth. CARDIOVASCULAR: Negative. RESPIRATORY: Shortness of breath off and on. GENITOURINARY: Negative. MUSCULOSKELETAL: Some arthritis. SKIN: Negative. NEUROLOGIC: Negative. PSYCHIATRIC: Negative. ENDOCRINE: Diabetes. PHYSICAL EXAMINATION: GENERAL: Male, appears stated age in no acute distress. VITAL SIGNS: Most recent vital signs in the chart, temp 36.7, pulse 95, respirations 16, BP 117/83, O2 saturation 93% on room air. EYES: Conjunctivae and lids normal. ENT: Oropharynx clear. NECK: Without obvious mass or thyroid enlargement. RESPIRATORY: Normal effort, clear to anterior auscultation. CARDIOVASCULAR: Without obvious murmur. EXTREMITIES: Extremities do have edema. ABDOMEN: Positive bowel sounds, soft. Some subjective left upper quadrant tenderness. No guarding or rebound. No obvious organomegaly or masses appreciated. RECTAL: Not done. LYMPH: No obvious neck or groin nodes. MUSCULOSKELETAL: Digits and nails normal. SKIN: Without obvious rash or induration anteriorly. NEUROLOGIC: Cranial nerves intact. Sensation intact. PSYCHIATRIC: Recent and remote memory good. Insight and judgment good. LABORATORY DATA: Hemoglobin was noted to be low at 11.7 on admission. PT/INR 1.3 on admission. BNP was markedly elevated at 6126. The CMP on admission total bilirubin 1.1, alkaline phosphatase 130 and elevated BUN and creatinine and low glucoses as well. IMPRESSION AND PLAN: 1. Cirrhosis, etiology is not clear. He is not a heavy drinker in the past per the patient reports. My number 1 choice probably would be congestion from heart failure, SCALES is possible, viral etiology is possible. He is not a liver transplant candidate given his chronic obstructive pulmonary disease and congestive heart failure. An EGD 10/06/2014 was negative for varices. It would be reasonable to do another EGD electively as an outpatient when he is stable from his current congestive heart failure. I am going to check ferritin and hepatitis profile as other possibly etiologies for the cirrhosis. 2. Ascites. I discussed with radiology and they could obtain fluid for diagnostic paracentesis. Could do a cell count with differential for SBP, although small amout of fluid is less likely be causing SBP. Also can check a cytology for cancer, albumin to further assess for portal HTN. The patient will need to be off Coumadin and with more normalized PT/INR if paracentesis to be done. 4. Anemia. He had anemia on 10/06/2014, EGD and colonoscopy at that time as above. Will check stool Hemoccult, iron sat, B12, folate and ferritin. MTDD
--- NOTE | 2016-04-12 15:05 | Progress Note ---
Subjective Date of Service: Apr 12, 2016. Subjective Pt evaluation today including: conversation w/ patient, physical exam, chart review, lab review, review of studies, review of inpatient medication list Pt resting comfortably in bed States scrotal discomfort where chowdary is inserted States improvement in edema Problem List Medical Problems: (1) Cellulitis of leg, right Status: Acute (2) CHF (congestive heart failure) Status: Acute (3) CHF (congestive heart failure) Status: Acute (4) Failure of outpatient treatment Status: Acute (5) Noncompliance with medications Status: Acute Review of Systems Constitutional: No chills, No fever Respiratory: No cough, No dyspnea on exertion, No shortness of breath, No sputum, No wheezing Cardiac: + edema, No chest pain, No orthopnea Abdomen: No diarrhea, No nausea, No pain, No vomiting Musculoskeletal: No joint pain, No muscle pain Male : No dysuria, No urinary frequency Psychiatric: No anhedonism, No anxiety, No depression symptoms Objective Vital Signs Date Time Temp Pulse Resp B/P Pulse Ox O2 Delivery O2 Flow Rate FiO2 04/12/16 12:08 93 Room Air 04/12/16 08:26 36.7 95 16 117/83 93 Room Air 04/12/16 08:00 Room Air 04/12/16 04:18 Room Air 04/12/16 04:05 37.1 76 16 107/47 91 Room Air 04/12/16 00:39 Room Air 04/12/16 00:13 37.2 94 20 116/78 92 Room Air 04/11/16 20:39 Room Air 04/11/16 20:24 36.8 89 18 110/66 93 04/11/16 16:01 36.8 79 18 91/63 94 Room Air 04/11/16 16:00 93 Room Air 3.0 Physical Exam General Appearance: WD/WN, + mild distress Neck: supple, no adenopathy Respiratory/Chest: lungs clear, normal breath sounds Cardiovascular: regular rate, rhythm, no gallop Abdomen: non tender, soft Neurologic/Psychiatric: alert, oriented x 3 Laboratory Results Last 24 Hours Test 04/11/16 16:28 04/11/16 17:00 04/11/16 20:45 04/12/16 06:24 Bedside Glucose 203 mg/dl 202 mg/dl 145 mg/dl Urine Color ORANGE Urine Appearance TURBID Urine pH 6.0 Urine Specific [place] 1.007 Urine Protein 2+ Urine Glucose (UA) NEG Urine Ketones NEG Urine Occult Blood 3+ Urine Nitrite NEG Urine Bilirubin NEG Urine Urobilinogen NEG Urine Leukocyte Esterase LARGE Urine WBC (Auto) /hpf Urine RBC (Auto) /hpf Urine Hyaline Casts (Auto) /lpf Urine Epithelial Cells (Auto) /lpf Urine Bacteria (Auto) Urine RBC >30 /hpf Urine WBC >30 /hpf Urine Epithelial Cells 0-5 /lpf Urine Bacteria 1+ Urine Yeast (Auto) Urine Random Creatinine 35.0 mg/dl Urine Random Total Protein 208.1 mg/dl Urine Protein/Creatinine Ratio 6.0 Test 04/12/16 09:08 04/12/16 10:46 White Blood Count 4.11 K/uL Red Blood Count 3.61 M/uL Hemoglobin 10.9 g/dL Hematocrit 29.2 % Mean Corpuscular Volume 80.9 fL Mean Corpuscular Hemoglobin 30.2 pg Mean Corpuscular Hemoglobin Concent 37.3 g/dl RDW Standard Deviation 46.3 fL RDW Coefficient of Variation 15.8 % Platelet Count 154 K/uL Mean Platelet Volume 11.3 fL Sodium Level 137 mmol/L Potassium Level 4.1 mmol/L Chloride Level 98 mmol/L Carbon Dioxide Level 25 mmol/L Anion Gap 14.0 mmol/L Blood Urea Nitrogen 52 mg/dl Creatinine 1.90 mg/dl Est Creatinine Clear Calc Drug Dose 36.8 ml/min Estimated GFR () 39.7 Estimated GFR (Non- 34.2 BUN/Creatinine Ratio 27.5 Random Glucose 190 mg/dl Calcium Level 9.1 mg/dl Total Bilirubin 1.3 mg/dl Aspartate Amino Transf (AST/SGOT) 24 U/L Alanine Aminotransferase (ALT/SGPT) 15 U/L Alkaline Phosphatase 147 U/L Total Protein 8.0 gm/dl Albumin 3.0 gm/dl Globulin 5.0 gm/dl Albumin/Globulin Ratio 0.6 Bedside Glucose 202 mg/dl Assessment and Plan 70-year-old male with a history of type 2 diabetes and chronic diastolic heart failure and transferred to the ED with an episode of persistent hypoglycemia Currently BSG's stable in the 70s Hypoglycemia - likely the long half life of glipizide and combination with liver cirrhosis and age of the patient are causing hypoglycemia, plus poor oral intake glipizide has been discontinued, metformin also on hold Will make sure the patient does resume this medication once discharged back to custodial will need explicit discharge instructions! Cirrhosis--?etiology, congestion from right heart failure vs SCALES vs viral etology. Not a liver transplant candidate given COPD and CHF. Had EGD 09/2014 negative for varices. Reasonable to do another EGD electively as outpt when stable from current CHF. Check ferritin and hepatitis profile. Ascites--discussed with radiology and they could obtain fluid for diagnostic paracentesis--could do a cell count and differential for SBP although with this volume of fluid less likely, cytology for cancer and albumin to further assess for portal HTN. Pt would need to be off coumadin with more normalized PT INR Acute on Chronic systolic and diastolic heart failure which is evident by severe edema and scrotal edema, has been on on IV Lasix and albumin for 3 days, Blood pressure at borderline low, has been catheterization of in and out - Echo completed: * -- Conclusions -- * 1. Mildly dilated LV with mild concentric LVH. * 2. Moderate global LV dysfunction. EF 35-40%. Paradoxical septal motion consistent with post-operative state. * 3. Dilated RV with moderate to severe RV dysfunction. * 4. Severe biatrial enlargement. * 5. Bioprosthetic aortic valve well seated with normal expected transvalvular gradients. * 6. Grade II diastolic dysfunction. * 7. Mild-moderate mitral regurgitation * 8. Moderate tricuspid regurgitation. * 9. Dilated IVC suggestive of elevated RA pressure (15 mmHg). Mild pulmonary hypertension (PASP 35-40 mmHg.) * 10. Compared with prior study on 10/11/2014: LV dysfunction is now moderate. - Liver cirrhosis and ascites and hyponatremia and scrotal edema Combined the above CHF exacerbation and liver cirrhosis conditions with ascites , patient is hypervol hyponatremia, Will continue current care, with fluid restrictions 1.5 L a day, check in and out, 2 g sodium diet, and continue Lasix with albumin in, we'll not add Aldactone for now because of hyperkalemia. -Continue bumex per nephrology recs History of coronary artery disease status post CABG-asymptomatic -Continue medical management with Lopressor 12.5 mg BID, pravastatin 20 mg HS COPD with chronic respiratory failure-Baseline -Duo nebs every 6 hours we'll be available - Continue chronic O2= 2 L History of bioprosthetic AVR -Helping on warfarin 2 mg HS, we'll increase to 3 mg by mouth daily , will follow-up PT/INR -Will need to hold for paracentesis Acute on chronic renal insufficiency, likely from CHF exacerbation and kidney congestion, which is evident from renal function improved after diuretic -?obstruction component, urology consulted, maintain chowdary at this time, will need cystoscopy as outpt History of GI bleed-stable. No signs of active bleeding Constipation, gave Dulcolax oral, and suppository, yesterday no help, we will order one fleet enema now DVT prophylaxis -Coumadin, if INR level was coming up we should stop Lovenox -TEDS, SCDs CODE STATUS- FULL CODE Continued [facility] stay due to: multiple IV medications needed Discharge planning: home
[2016-04-12 15:53] VITALS: O2SAT 93
[2016-04-12 20:31] VITALS: BP 99/59; PULSE 84; TEMP 36.9; O2SAT 90
[2016-04-12] MEDS: PRAVASTATIN SOD 20 MG TAB PO SCH (20:48)
[2016-04-12] MEDS: ENOXAPARIN 30 MG/0.3 ML SYR SC SCH (20:50)
--- NOTE | 2016-04-12 23:37 | Progress Note ---
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
[2016-04-12 23:52] LABS: BASO % 0.2 %; BASO ABS # 0.01 K/uL (0-0.2); EOS % 7.8 %; HEMATOCRIT 28.7 % (42-52); IG% 0.2 %; LYMPH % 15.4 %; LYMPH ABS # 0.73 K/uL (1.2-3.4); MEAN CELL VOLUME 80.2 fL (80-100); MEAN CORPUSCULAR HEMOGLOBIN 30.2 pg (25-34); MEAN PLATELET VOLUME 10.2 fL (7.4-10.4); MONO % 8.2 %; NEUT % 68.2 %; PLATELET COUNT 151 K/uL (130-400); RED BLOOD COUNT 3.58 M/uL (4.7-6.1); WHITE BLOOD COUNT 4.73 K/uL (4.8-10.8)
[2016-04-12 23:58] LABS: COMPLETE YES; MEAN CORPUSCULAR HGB CONC 37.6 g/dl (32-36)
[2016-04-13] VITALS (9 sets, daily range): BP systolic 84–111; BP diastolic 53–76; PULSE 79–92; TEMP 36.8–37.5; O2SAT 91–94
[2016-04-13 00:21] LABS: ALB/GLOB RATIO 0.6 (0.9-2); BUN/CREATININE RATIO 25.3 (10-20); CALCIUM 8.6 mg/dl (8.5-10.1); MAGNESIUM 1.4 mg/dl (1.8-2.4)
[2016-04-13] MEDS: BUMETANIDE IV 10 MG in DEXTROSE 5% 50ML 10 ML IV SCH ×3 (01:00→23:29)
[2016-04-13] MEDS ORDERED: MAGNESIUM SULFATE 1GM / D5W 1 GM in PREMIXED IN D5W 100 ML IV STA (01:22)
[2016-04-13 06:15] LABS: BASO % 0.6 %; BASO ABS # 0.03 K/uL (0-0.2); COMPLETE YES; EOS % 8.1 %; HEMATOCRIT 28.5 % (42-52); IG% 0.2 %; LYMPH % 7.5 %; LYMPH ABS # 0.38 K/uL (1.2-3.4); MEAN CELL VOLUME 81.7 fL (80-100); MEAN CORPUSCULAR HEMOGLOBIN 30.9 pg (25-34); MEAN CORPUSCULAR HGB CONC 37.9 g/dl (32-36); MEAN PLATELET VOLUME 11.4 fL (7.4-10.4); MONO % 17.9 %; NEUT % 65.7 %; PLATELET COUNT 159 K/uL (130-400); RED BLOOD COUNT 3.49 M/uL (4.7-6.1); WHITE BLOOD COUNT 5.04 K/uL (4.8-10.8)
[2016-04-13 06:45] LABS: BUN/CREATININE RATIO 27.1 (10-20); CALCIUM 8.7 mg/dl (8.5-10.1); CREATININE 1.8 mg/dl (0.60-1.40); POTASSIUM 3.6 mmol/L (3.5-5.1)
[2016-04-13 06:53] LABS: FERRITIN 152.3 ng/ml (8.0-388.0)
[2016-04-13] MEDS: BOOST VANILLA PUDDING CUP PO SCH ×3 (07:56→17:09)
[2016-04-13 08:16] LABS: INR 1.5 (0.9-1.1); PROTHROMBIN TIME (PATIENT) 16.8 SECONDS (9.0-12.0)
[2016-04-13] MEDS: INSULIN ASPART 100 UNITS/ML 3 ML PEN SC SCH ×4 (08:33→20:57)
--- NOTE | 2016-04-13 09:13 | Progress Note ---
Subjective Date of Service: Apr 13, 2016. Subjective Pt evaluation today including: conversation w/ patient, chart review, lab review Voiding: chowdary catheter in place (patent, draining clear, yellow urine) 71 yo male with NEWMAN, UTI, bilateral hydro, and ERA. Cr stable at 1.8 this morning. Chowdary remains in place. He is currently on tamsulosin. Finasteride not yet started. Currently on Bactrim DS for UC&S growing staph as well. Pending paracentesis this morning. Peno-scrotal edema persists. Problem List Medical Problems: (1) Cellulitis of leg, right Status: Acute (2) CHF (congestive heart failure) Status: Acute (3) CHF (congestive heart failure) Status: Acute (4) Failure of outpatient treatment Status: Acute (5) Noncompliance with medications Status: Acute Review of Systems Constitutional: No chills, No fever Respiratory: No shortness of breath Cardiac: No chest pain Abdomen: No nausea, No pain, No vomiting Male : No hematuria Heme: No abnormal bleeding/bruising Objective Vital Signs Date Time Temp Pulse Resp B/P Pulse Ox O2 Delivery O2 Flow Rate FiO2 04/13/16 07:47 37.0 87 14 104/64 91 04/13/16 04:15 36.8 79 20 100/76 91 Room Air 04/13/16 04:02 Room Air 04/13/16 00:06 37.3 82 20 99/61 94 Room Air 04/13/16 00:02 Room Air 04/12/16 20:31 36.9 84 20 99/59 90 Room Air 04/12/16 20:04 Room Air 04/12/16 15:53 93 Room Air 04/12/16 12:08 93 Room Air Physical Exam General Appearance: no apparent distress, + obese Eyes: normal inspection ENT: hearing grossly normal Neck: no JVD Respiratory/Chest: no respiratory distress, no accessory muscle use Cardiovascular: no JVD Extremities: normal inspection Neurologic/Psychiatric: alert, normal mood/affect, oriented x 3 Skin: normal color Comments: peno-scrotal edema persists Laboratory Results Last 24 Hours Test 04/12/16 09:08 04/12/16 10:46 04/12/16 15:47 04/12/16 20:43 White Blood Count 4.11 K/uL Red Blood Count 3.61 M/uL Hemoglobin 10.9 g/dL Hematocrit 29.2 % Mean Corpuscular Volume 80.9 fL Mean Corpuscular Hemoglobin 30.2 pg Mean Corpuscular Hemoglobin Concent 37.3 g/dl RDW Standard Deviation 46.3 fL RDW Coefficient of Variation 15.8 % Platelet Count 154 K/uL Mean Platelet Volume 11.3 fL Sodium Level 137 mmol/L Potassium Level 4.1 mmol/L Chloride Level 98 mmol/L Carbon Dioxide Level 25 mmol/L Anion Gap 14.0 mmol/L Blood Urea Nitrogen 52 mg/dl Creatinine 1.90 mg/dl Est Creatinine Clear Calc Drug Dose 36.8 ml/min Estimated GFR () 39.7 Estimated GFR (Non- 34.2 BUN/Creatinine Ratio 27.5 Random Glucose 190 mg/dl Calcium Level 9.1 mg/dl Total Bilirubin 1.3 mg/dl Aspartate Amino Transf (AST/SGOT) 24 U/L Alanine Aminotransferase (ALT/SGPT) 15 U/L Alkaline Phosphatase 147 U/L Total Protein 8.0 gm/dl Albumin 3.0 gm/dl Globulin 5.0 gm/dl Albumin/Globulin Ratio 0.6 Bedside Glucose 202 mg/dl 146 mg/dl 261 mg/dl Test 04/12/16 23:46 04/13/16 05:33 04/13/16 06:37 04/13/16 07:56 White Blood Count 4.73 K/uL 5.04 K/uL Red Blood Count 3.58 M/uL 3.49 M/uL Hemoglobin 10.8 g/dL 10.8 g/dL Hematocrit 28.7 % 28.5 % Mean Corpuscular Volume 80.2 fL 81.7 fL Mean Corpuscular Hemoglobin 30.2 pg 30.9 pg Mean Corpuscular Hemoglobin Concent 37.6 g/dl 37.9 g/dl Platelet Count 151 K/uL 159 K/uL Mean Platelet Volume 10.2 fL 11.4 fL Neutrophils (%) (Auto) 68.2 % 65.7 % Lymphocytes (%) (Auto) 15.4 % 7.5 % Monocytes (%) (Auto) 8.2 % 17.9 % Eosinophils (%) (Auto) 7.8 % 8.1 % Basophils (%) (Auto) 0.2 % 0.6 % Neutrophils # (Auto) 3.22 K/uL 3.31 K/uL Lymphocytes # (Auto) 0.73 K/uL 0.38 K/uL Monocytes # (Auto) 0.39 K/uL 0.90 K/uL Eosinophils # (Auto) 0.37 K/uL 0.41 K/uL Basophils # (Auto) 0.01 K/uL 0.03 K/uL RDW Standard Deviation 45.9 fL 47.3 fL RDW Coefficient of Variation 15.6 % 16.0 % Immature Granulocyte % (Auto) 0.2 % 0.2 % Immature Granulocyte # (Auto) 0.01 K/uL 0.01 K/uL Sodium Level 137 mmol/L 137 mmol/L Potassium Level 4.0 mmol/L 3.6 mmol/L Chloride Level 97 mmol/L 97 mmol/L Carbon Dioxide Level 28 mmol/L 29 mmol/L Anion Gap 12.0 mmol/L 11.0 mmol/L Blood Urea Nitrogen 51 mg/dl 49 mg/dl Creatinine 2.00 mg/dl 1.80 mg/dl Est Creatinine Clear Calc Drug Dose 35.0 ml/min 38.8 ml/min Estimated GFR () 37.3 42.3 Estimated GFR (Non- 32.2 36.5 BUN/Creatinine Ratio 25.3 27.1 Random Glucose 205 mg/dl 148 mg/dl Calcium Level 8.6 mg/dl 8.7 mg/dl Magnesium Level 1.4 mg/dl Total Bilirubin 1.0 mg/dl Aspartate Amino Transf (AST/SGOT) 27 U/L Alanine Aminotransferase (ALT/SGPT) 17 U/L Alkaline Phosphatase 155 U/L Total Protein 7.7 gm/dl Albumin 2.9 gm/dl Globulin 4.8 gm/dl Albumin/Globulin Ratio 0.6 Iron Level 40 mcg/dl Total Iron Binding Capacity 223 mcg/dl Transferrin 166 mg/dl Transferrin % Saturation 17 % Ferritin 152.3 ng/ml Vitamin B12 Level 782 pg/mL Folate 9.70 ng/mL Hepatitis B Surface Antigen NEG Bedside Glucose 143 mg/dl Prothrombin Time 16.8 SECONDS Prothromb Time International Ratio 1.5 Assessment and Plan A/P: NEWMAN, bilateral hydro, UTI, peno-scrotal edema AFVSS. Urinary Retention/UTI Possible NEWMAN/BPH- VICKY deferred - chowdary present Recommend leaving in chowdary for 7-10 days then TOV- if he has been d/c will schedule for follow up in our office. Will also need outpt cysto Started finasteride. Continue tamsulosin. Urine culture positive for staph aureus- Continue Bactrim DS for 14 days of therapy. Bilateral [place] likely secondary to NEWMAN. Cr is stable. Will repeat a renal u/s today to ensure improvement since chowdary placement. Scrotal edema Continue supportive management with scrotal support and elevation. Will continue to follow along with primary service at this time. Continued [facility] stay due to: multiple IV medications needed Discharge planning: other ([facility])
--- NOTE | 2016-04-13 09:54 | DIAGNOSTIC IMAGING REPORT ---
RENAL ULTRASOUND CLINICAL HISTORY: Bilateral hydronephrosis. COMPARISON STUDY: CT of the abdomen and pelvis April 09, 2016. TECHNIQUE: Sonography of the kidneys and the urinary bladder was performed. FINDINGS: Note is made of a small amount of ascites. The right kidney measures 9 x 6.1 x 5.4 cm and the left measures 12 x 6.1 x 6 cm. There is no right hydronephrosis. There is mild left collecting system dilatation which is likely improved since exam of April 09, 2016. A Hines catheter is present within the bladder which is decompressed. IMPRESSION: Mild left collecting system dilatation, improved since CT of August or 2016. No right hydronephrosis. Electronically signed by: Edwin Lobato M.D. 04/13/2016 9:52 AM Dictated Date/Time: 04/13/2016 9:50 AM
--- NOTE | 2016-04-13 09:56 | DIAGNOSTIC IMAGING REPORT ---
PARACENTESIS UNDER ULTRASOUND GUIDANCE CLINICAL HISTORY: ascites COMPARISON STUDY: No previous studies for comparison. FINDINGS: The risks, benefits, and alternatives to the procedure were discussed with the patient. Written informed consent was obtained. Following real-time ultrasound localization, the skin was prepped and draped. Following local anesthesia with Xylocaine, the sheath paracentesis needle was inserted and approximately 2.75 liters of straw-colored fluid was removed by vacuum suction. A right lower quadrant approach was utilized. 1 L of fluid was sent to the laboratory for analysis. The patient tolerated the procedure well and left the department in satisfactory condition. IMPRESSION: Successful ultrasound-guided paracentesis with removal of approximately 2.75 liters of ascitic fluid. Electronically signed by: Jian Cowan M.D. 04/13/2016 9:54 AM Dictated Date/Time: 04/13/2016 9:54 AM
[2016-04-13] MEDS: CEPHALEXIN MONOHYDRATE 250 MG CAP PO SCH ×4 (10:09→20:54)
[2016-04-13] MEDS: PANTOprazole SOD 40 MG TAB PO SCH (10:09)
[2016-04-13] MEDS: TAMSULOSIN HCL 0.4 MG CAP PO SCH (10:09)
[2016-04-13] MEDS: METOPROLOL SUCC 25MG EXT REL TAB PO SCH ×2 (10:10→20:52)
[2016-04-13] MEDS: ASPIRIN 81 MG ECTAB PO SCH (10:10)
--- NOTE | 2016-04-13 10:53 | Nephrology Progress Note ---
Nephrology Progress Note Date of Service Apr 13, 2016. Chief Complaint Follow up evaluation of nonoliguric acute on chronic kidney injury Subjective Mr. Snell was seen & examined in the PCU this morning. He was admitted to the hospital following a hypoglycemic event. He is diabetic. Blood sugar has recovered following dextrose administration. The patient was found to have lower extremity and genital edema at the time of admission. Laboratory studies revealed acute on chronic kidney injury. Serum creatinine had risen from 1.6 to 3.0. Renal US revealed mild bilateral hydronephrosis and bladder wall thickening. Kidney function has improved following chowdary catheter insertion. Patient is responding well to IV bumetanide gtt. Mr. Snell's medical history is also significant for T2DM, cirrhosis, atrial fibrillation, COPD, pulmonary hypertension and diastolic CHF. He denies any history of alcohol abuse. The patient has been incarcerated for 3 years. He expects to be released next month. The patient's primary concern today is persistent genital swelling. Review of Systems Constitutional: No fever Cardiovascular: No chest pain Respiratory: No dyspnea at rest Abdomen: No pain, No vomiting Genitourinary - Male: + problem reported (+ genital swelling) Extremities: + leg edema A complete review of systems was performed. Pertinent positives are noted above. All other systems are negative. Vital Signs Last 8 Hrs Date Time Temp Pulse Resp B/P Pulse Ox O2 Delivery O2 Flow Rate FiO2 04/13/16 08:00 93 Room Air 3.0 04/13/16 08:00 91 Room Air 04/13/16 08:00 91 Room Air 04/13/16 07:47 37.0 87 14 104/64 91 04/13/16 04:15 36.8 79 20 100/76 91 Room Air 04/13/16 04:02 Room Air I & O 24-Hour Column 04/13/16 08:00 Intake Total 1908 ml Output Total 5550 ml Balance -3642 ml Last Recorded Weight Weight (Kilograms): 98.700 Physical Exam General Appearance: no apparent distress Head: atraumatic Eyes: PERRL, EOMI Neck: no adenopathy Respiratory/Chest: lungs clear, no respiratory distress Cardiovascular: regular rate, rhythm Abdomen/GI: non tender, + distended Genitourinary - Male: + pertinent finding (3+ genital swelling) Extremities/Musculoskelatal: + swelling (1+ edema extending from ankles to the thighs bilaterally) Neurologic/Psych: alert, oriented x 3 Family History Patient reports no known family medical history. Social History Marital Status: single Housing Status: other (incarcerated at [facility]) Occupation: unemployed Laboratory Results Past 24 Hours 04/12/16 23:46 Red Blood Count 3.58, Mean Corpuscular Volume 80.2, Mean Corpuscular Hemoglobin 30.2, Mean Corpuscular Hemoglobin Concent 37.6, Mean Platelet Volume 10.2, Neutrophils (%) (Auto) 68.2, Lymphocytes (%) (Auto) 15.4, Monocytes (%) (Auto) 8.2, Eosinophils (%) (Auto) 7.8, Basophils (%) (Auto) 0.2, Neutrophils # (Auto) 3.22, Lymphocytes # (Auto) 0.73, Monocytes # (Auto) 0.39, Eosinophils # (Auto) 0.37, Basophils # (Auto) 0.01 04/13/16 05:33 Red Blood Count 3.49, Mean Corpuscular Volume 81.7, Mean Corpuscular Hemoglobin 30.9, Mean Corpuscular Hemoglobin Concent 37.9, Mean Platelet Volume 11.4, Neutrophils (%) (Auto) 65.7, Lymphocytes (%) (Auto) 7.5, Monocytes (%) (Auto) 17.9, Eosinophils (%) (Auto) 8.1, Basophils (%) (Auto) 0.6, Neutrophils # (Auto ) 3.31, Lymphocytes # (Auto) 0.38, Monocytes # (Auto) 0.90, Eosinophils # (Auto ) 0.41, Basophils # (Auto) 0.03 04/12/16 23:46 04/13/16 05:33 Test 04/12/16 10:46 04/12/16 15:47 04/12/16 20:43 04/12/16 23:46 Bedside Glucose 202 mg/dl (70-99) 146 mg/dl (70-99) 261 mg/dl (70-99) White Blood Count 4.73 K/uL (4.8-10.8) Red Blood Count 3.58 M/uL (4.7-6.1) Hemoglobin 10.8 g/dL (14.0-18.0) Hematocrit 28.7 % (42-52) Mean Corpuscular Volume 80.2 fL (80-100) Mean Corpuscular Hemoglobin 30.2 pg (25-34) Mean Corpuscular Hemoglobin Concent 37.6 g/dl (32-36) Platelet Count 151 K/uL (130-400) Mean Platelet Volume 10.2 fL (7.4-10.4) Neutrophils (%) (Auto) 68.2 % Lymphocytes (%) (Auto) 15.4 % Monocytes (%) (Auto) 8.2 % Eosinophils (%) (Auto) 7.8 % Basophils (%) (Auto) 0.2 % Neutrophils # (Auto) 3.22 K/uL (1.4-6.5) Lymphocytes # (Auto) 0.73 K/uL (1.2-3.4) Monocytes # (Auto) 0.39 K/uL (0.11-0.59) Eosinophils # (Auto) 0.37 K/uL (0-0.5) Basophils # (Auto) 0.01 K/uL (0-0.2) RDW Standard Deviation 45.9 fL (36.4-46.3) RDW Coefficient of Variation 15.6 % (11.5-14.5) Immature Granulocyte % (Auto) 0.2 % Immature Granulocyte # (Auto) 0.01 K/uL (0.00-0.02) Anion Gap 12.0 mmol/L (3-11) Est Creatinine Clear Calc Drug Dose 35.0 ml/min Estimated GFR () 37.3 Estimated GFR (Non- 32.2 BUN/Creatinine Ratio 25.3 (10-20) Calcium Level 8.6 mg/dl (8.5-10.1) Magnesium Level 1.4 mg/dl (1.8-2.4) Total Bilirubin 1.0 mg/dl (0.2-1) Aspartate Amino Transf (AST/SGOT) 27 U/L (15-37) Alanine Aminotransferase (ALT/SGPT) 17 U/L (12-78) Alkaline Phosphatase 155 U/L (45-117) Total Protein 7.7 gm/dl (6.4-8.2) Albumin 2.9 gm/dl (3.4-5.0) Globulin 4.8 gm/dl (2.5-4.0) Albumin/Globulin Ratio 0.6 (0.9-2) Test 04/13/16 05:33 04/13/16 06:37 04/13/16 07:56 04/13/16 09:43 White Blood Count 5.04 K/uL (4.8-10.8) Red Blood Count 3.49 M/uL (4.7-6.1) Hemoglobin 10.8 g/dL (14.0-18.0) Hematocrit 28.5 % (42-52) Mean Corpuscular Volume 81.7 fL (80-100) Mean Corpuscular Hemoglobin 30.9 pg (25-34) Mean Corpuscular Hemoglobin Concent 37.9 g/dl (32-36) Platelet Count 159 K/uL (130-400) Mean Platelet Volume 11.4 fL (7.4-10.4) Neutrophils (%) (Auto) 65.7 % Lymphocytes (%) (Auto) 7.5 % Monocytes (%) (Auto) 17.9 % Eosinophils (%) (Auto) 8.1 % Basophils (%) (Auto) 0.6 % Neutrophils # (Auto) 3.31 K/uL (1.4-6.5) Lymphocytes # (Auto) 0.38 K/uL (1.2-3.4) Monocytes # (Auto) 0.90 K/uL (0.11-0.59) Eosinophils # (Auto) 0.41 K/uL (0-0.5) Basophils # (Auto) 0.03 K/uL (0-0.2) RDW Standard Deviation 47.3 fL (36.4-46.3) RDW Coefficient of Variation 16.0 % (11.5-14.5) Immature Granulocyte % (Auto) 0.2 % Immature Granulocyte # (Auto) 0.01 K/uL (0.00-0.02) Anion Gap 11.0 mmol/L (3-11) Est Creatinine Clear Calc Drug Dose 38.8 ml/min Estimated GFR () 42.3 Estimated GFR (Non- 36.5 BUN/Creatinine Ratio 27.1 (10-20) Calcium Level 8.7 mg/dl (8.5-10.1) Iron Level 40 mcg/dl (35-175) Total Iron Binding Capacity 223 mcg/dl (250-450) Transferrin 166 mg/dl (200-360) Transferrin % Saturation 17 % (20-50) Ferritin 152.3 ng/ml (8.0-388.0) Vitamin B12 Level 782 pg/mL (211-911) Folate 9.70 ng/mL (>5.38) Hepatitis B Surface Antigen NEG (NEG) Hepatitis C Antibody NEG (NEG) Bedside Glucose 143 mg/dl (70-99) Prothrombin Time 16.8 SECONDS (9.0-12.0) Prothromb Time International Ratio 1.5 (0.9-1.1) Peritoneal Fluid Total Protein 3.7 g/dl Peritoneal Fluid Albumin 1.7 g/dl Peritoneal Fluid LDH 81 IU Peritoneal Fluid Glucose 162 mg/dl Peritoneal Fluid Amylase 32 U/L Peritoneal Fluid Lipase 107 U/L Peritoneal Fluid Triglycerides 68 mg/dl Allergies Coded Allergies: No Known Allergies (Unverified , 04/01/16) Medications Current Inpatient Medications Medications (Trade) Dose Ordered Sig/Jenny Route Start Time Stop Time Status Last Admin Dose Admin Insulin Aspart (novoLOG ASPART) SLIDING SCALE G... ACHS SC 04/06/16 21:00 05/06/16 20:59 04/13/16 08:33 1 UNITS Enoxaparin Sodium (Lovenox Inj) 30 mg QPM SC 04/06/16 21:00 05/06/16 20:59 04/12/16 20:50 30 MG Acetaminophen (Tylenol Tab) 650 mg Q4H PRN PO 04/06/16 18:15 05/06/16 18:14 04/07/16 08:39 650 MG Ondansetron HCl (Zofran Inj) 4 mg Q6H PRN IV 04/06/16 18:15 05/06/16 18:14 04/07/16 11:16 4 MG Polyethylene (Miralax Powder Packet) 17 gm DAILY PRN PO 04/06/16 18:15 05/06/16 18:14 Aspirin (Ecotrin Tab) 81 mg QAM PO 04/07/16 09:00 05/07/16 08:59 04/13/16 10:10 81 MG Pantoprazole Sodium (Protonix Tab) 40 mg QAM PO 04/07/16 09:00 05/07/16 08:59 04/13/16 10:09 40 MG Pravastatin Sodium (Pravachol Tab) 20 mg HS PO 04/06/16 21:00 05/06/16 20:59 04/12/16 20:48 20 MG Tamsulosin HCl (Flomax Cap) 0.4 mg QAM PO 04/07/16 09:00 05/07/16 08:59 04/13/16 10:09 0.4 MG Glucose (Glucose 40% Gel) 15-30 GRAMS 15 GRAMS... UD PRN PO 04/06/16 19:45 05/06/16 19:44 Glucose (Glucose Chew Tab) 4-8 Tablets 4 Tabl... UD PRN PO 04/06/16 19:45 05/06/16 19:44 04/07/16 00:15 4 TABS Dextrose (Dextrose 50% 50ML Syringe) 25-50ML OF 50% DW IV FOR... UD PRN IV 04/06/16 19:45 05/06/16 19:44 04/09/16 06:44 25 ML Glucagon (Glucagon Inj) 1 mg UD PRN SQ 04/06/16 19:45 05/06/16 19:44 Miscellaneous Information (Pending Order) 1 ea DAILY@10 N/A 04/09/16 10:00 05/09/16 09:59 04/11/16 20:39 1 EA Bisacodyl (Dulcolax Supp) 10 mg DAILY PRN IN 04/09/16 12:30 05/09/16 12:29 Bisacodyl (Dulcolax Tab) 5 mg DAILY PRN PO 04/09/16 12:30 05/09/16 12:29 Cephalexin Monohydrate (Keflex Cap) 250 mg QID PO 04/09/16 15:00 04/14/16 14:59 04/13/16 10:09 250 MG Enteral Nutritional Formula 1 cup 1 cup TIDM PO 04/10/16 12:00 05/10/16 11:59 04/13/16 07:56 1 CUP Bumetanide/ Dextrose (Bumex IV/D5 50ml) 50 ml @ 5 mls/hr Q10H IV 04/10/16 16:30 05/10/16 16:29 04/13/16 01:00 5 MLS/HR Metoprolol Succinate (Toprol Xl Tab) 12.5 mg BID PO 04/11/16 21:00 2/22/17 20:59 04/13/16 10:10 12.5 MG Trimethoprim/ Sulfamethoxazole (Septra Ds 800/ 160MG Tab) 1 tab Q12 PO 04/13/16 09:00 04/18/16 08:59 Finasteride (Proscar Tab) 5 mg QAM PO 04/14/16 09:00 05/14/16 08:59 Impression (1) ERA (acute kidney injury) (2) CKD (chronic kidney disease) (3) Hyponatremia (4) Hyperkalemia (5) Hypoglycemia (6) Acute on chronic combined systolic and diastolic CHF (congestive heart failure) (7) Chronic liver disease (8) Pulmonary hypertension Mr. Snell is a 71-year-old male w/ ASCVD, T2DM, COPD, atrial fibrillation with systolic and diastolic CHF who presents with hypoglycemia, hyperkalemia, hyponatremia and renal failure. Evaluation notable for acute on chronic heart failure with evidence of predominately right sided CHF. Transthoracic echocardiogram documented elevated PASP of 35 - 42 mmHG as well as mitral and tricuspid valvular heart disease. CT scan is concerning for cirrhosis. Renal US shows mild bilateral hydronephrosis with a dilated thickened bladder c/w NEWMAN. Patient has significant genital edema. Recommendations ACUTE KIDNEY INJURY: -- Improving. Baseline creatinine has been 1.6. -- Patient has significant genital edema. This is mildly improved w/ diuretic therapy. Patient has diuresed ~ 7 kg since admission. -- Continue IV Bumex gtt to alleviate peripheral and genital edema -- Monitor I&O's, serial PRP. Will check Mg w/ next lab draw. CHRONIC KIDNEY DISEASE: -- Baseline creatinine has been 1.6 -- Will check urine sediment and UPCR once ERA resolves EDEMA: -- Patient has cor pulmonale. Echocardiogram results reviewed. He has PASP ~ 40 w/ TR -- Continue Bumetanide drip. Patient is responding well. Volume status has improved and creatinine is trending downward CIRRHOSIS: -- Suspect nutmeg liver related to cor pulmonale -- GI recommendations reviewed today. Ferritin & hepatitis serologies ordered by GI. Patient may require paracentesis. He will need EGD as outpatient
[2016-04-13 10:54] LABS: PERIT FL WBC 495 /uL (0-300); PERITONEAL FLUID RBC 6000 /uL
[2016-04-13] MEDS: SULFAMETHOXAZOLE/TRIMETHOPRIM DS 800/160MG TAB PO SCH ×2 (10:56→20:54)
--- NOTE | 2016-04-13 13:21 | Progress Note ---
Subjective Date of Service: Apr 13, 2016. Subjective Pt evaluation today including: conversation w/ patient, physical exam, chart review, lab review, review of studies, review of inpatient medication list Problem List Medical Problems: (1) Cellulitis of leg, right Status: Acute (2) CHF (congestive heart failure) Status: Acute (3) CHF (congestive heart failure) Status: Acute (4) Failure of outpatient treatment Status: Acute (5) Noncompliance with medications Status: Acute Review of Systems Constitutional: No chills, No fever Respiratory: No cough, No dyspnea on exertion, No shortness of breath, No sputum, No wheezing Cardiac: No chest pain, No orthopnea Abdomen: No constipation, No diarrhea, No nausea, No pain, No vomiting Musculoskeletal: No joint pain, No muscle pain Male : No dysuria, No urinary frequency Neurologic: No paralysis, No weakness Objective Vital Signs Date Time Temp Pulse Resp B/P Pulse Ox O2 Delivery O2 Flow Rate FiO2 04/13/16 12:00 93 Room Air 04/13/16 10:58 37.1 88 15 90/65 91 Room Air 04/13/16 08:00 93 Room Air 3.0 04/13/16 08:00 91 Room Air 04/13/16 08:00 91 Room Air 04/13/16 07:47 37.0 87 14 104/64 91 04/13/16 04:15 36.8 79 20 100/76 91 Room Air 04/13/16 04:02 Room Air 04/13/16 00:06 37.3 82 20 99/61 94 Room Air 04/13/16 00:02 Room Air 04/12/16 20:31 36.9 84 20 99/59 90 Room Air 04/12/16 20:04 Room Air 04/12/16 15:53 93 Room Air Physical Exam General Appearance: WD/WN, no apparent distress Neck: supple, no adenopathy Respiratory/Chest: chest non-tender, lungs clear, normal breath sounds Cardiovascular: no edema, no gallop Abdomen: non tender, soft Neurologic/Psychiatric: alert, oriented x 3 Laboratory Results Last 24 Hours Test 04/12/16 15:47 04/12/16 20:43 04/12/16 23:46 04/13/16 05:33 Bedside Glucose 146 mg/dl 261 mg/dl White Blood Count 4.73 K/uL 5.04 K/uL Red Blood Count 3.58 M/uL 3.49 M/uL Hemoglobin 10.8 g/dL 10.8 g/dL Hematocrit 28.7 % 28.5 % Mean Corpuscular Volume 80.2 fL 81.7 fL Mean Corpuscular Hemoglobin 30.2 pg 30.9 pg Mean Corpuscular Hemoglobin Concent 37.6 g/dl 37.9 g/dl Platelet Count 151 K/uL 159 K/uL Mean Platelet Volume 10.2 fL 11.4 fL Neutrophils (%) (Auto) 68.2 % 65.7 % Lymphocytes (%) (Auto) 15.4 % 7.5 % Monocytes (%) (Auto) 8.2 % 17.9 % Eosinophils (%) (Auto) 7.8 % 8.1 % Basophils (%) (Auto) 0.2 % 0.6 % Neutrophils # (Auto) 3.22 K/uL 3.31 K/uL Lymphocytes # (Auto) 0.73 K/uL 0.38 K/uL Monocytes # (Auto) 0.39 K/uL 0.90 K/uL Eosinophils # (Auto) 0.37 K/uL 0.41 K/uL Basophils # (Auto) 0.01 K/uL 0.03 K/uL RDW Standard Deviation 45.9 fL 47.3 fL RDW Coefficient of Variation 15.6 % 16.0 % Immature Granulocyte % (Auto) 0.2 % 0.2 % Immature Granulocyte # (Auto) 0.01 K/uL 0.01 K/uL Sodium Level 137 mmol/L 137 mmol/L Potassium Level 4.0 mmol/L 3.6 mmol/L Chloride Level 97 mmol/L 97 mmol/L Carbon Dioxide Level 28 mmol/L 29 mmol/L Anion Gap 12.0 mmol/L 11.0 mmol/L Blood Urea Nitrogen 51 mg/dl 49 mg/dl Creatinine 2.00 mg/dl 1.80 mg/dl Est Creatinine Clear Calc Drug Dose 35.0 ml/min 38.8 ml/min Estimated GFR () 37.3 42.3 Estimated GFR (Non- 32.2 36.5 BUN/Creatinine Ratio 25.3 27.1 Random Glucose 205 mg/dl 148 mg/dl Calcium Level 8.6 mg/dl 8.7 mg/dl Magnesium Level 1.4 mg/dl Total Bilirubin 1.0 mg/dl Aspartate Amino Transf (AST/SGOT) 27 U/L Alanine Aminotransferase (ALT/SGPT) 17 U/L Alkaline Phosphatase 155 U/L Total Protein 7.7 gm/dl Albumin 2.9 gm/dl Globulin 4.8 gm/dl Albumin/Globulin Ratio 0.6 Iron Level 40 mcg/dl Total Iron Binding Capacity 223 mcg/dl Transferrin 166 mg/dl Transferrin % Saturation 17 % Ferritin 152.3 ng/ml Vitamin B12 Level 782 pg/mL Folate 9.70 ng/mL Hepatitis B Surface Antigen NEG Hepatitis C Antibody NEG Test 04/13/16 06:37 04/13/16 07:56 04/13/16 09:43 04/13/16 10:47 Bedside Glucose 143 mg/dl 226 mg/dl Prothrombin Time 16.8 SECONDS Prothromb Time International Ratio 1.5 Peritoneal Fluid Color YELLOW Peritoneal Fluid Appearance HAZY Peritoneal Fluid WBC 495 /uL Peritoneal Fluid RBC 6000 /uL Peritoneal Fld Mononuclear WBCs (%) 75.9 % Peritoneal Fld Polynuclear WBCs (%) 24.1 % Peritoneal Fluid Total Protein 3.7 g/dl Peritoneal Fluid Albumin 1.7 g/dl Peritoneal Fluid LDH 81 IU Peritoneal Fluid Glucose 162 mg/dl Peritoneal Fluid Amylase 32 U/L Peritoneal Fluid Lipase 107 U/L Peritoneal Fluid Triglycerides 68 mg/dl Assessment and Plan 70-year-old male with a history of type 2 diabetes and chronic diastolic heart failure and transferred to the ED with an episode of persistent hypoglycemia Hypoglycemia - likely the long half life of glipizide and combination with liver cirrhosis and age of the patient are causing hypoglycemia, plus poor oral intake glipizide has been discontinued, metformin also on hold Will make sure the patient does resume this medication once discharged back to retirement Will need explicit discharge instructions! Cirrhosis--?etiology, congestion from right heart failure vs SCALES vs viral etology. Not a liver transplant candidate given COPD and CHF. Had EGD 09/2014 negative for varices. Reasonable to do another EGD electively as outpt when stable from current CHF. Check ferritin and hepatitis profile. Ascites--discussed with radiology and they could obtain fluid for diagnostic paracentesis--could do a cell count and differential for SBP although with this volume of fluid less likely, cytology for cancer and albumin to further assess for portal HTN. Pt would need to be off coumadin with more normalized PT INR Acute on Chronic systolic and diastolic heart failure which is evident by severe edema and scrotal edema, has been on on IV Lasix and albumin for 3 days, Blood pressure at borderline low, has been catheterization of in and out - Echo completed: * -- Conclusions -- * 1. Mildly dilated LV with mild concentric LVH. * 2. Moderate global LV dysfunction. EF 35-40%. Paradoxical septal motion consistent with post-operative state. * 3. Dilated RV with moderate to severe RV dysfunction. * 4. Severe biatrial enlargement. * 5. Bioprosthetic aortic valve well seated with normal expected transvalvular gradients. * 6. Grade II diastolic dysfunction. * 7. Mild-moderate mitral regurgitation * 8. Moderate tricuspid regurgitation. * 9. Dilated IVC suggestive of elevated RA pressure (15 mmHg). Mild pulmonary hypertension (PASP 35-40 mmHg.) * 10. Compared with prior study on 10/11/2014: LV dysfunction is now moderate. - Liver cirrhosis and ascites and hyponatremia and scrotal edema Combined the above CHF exacerbation and liver cirrhosis conditions with ascites , patient is hypervol hyponatremia, Will continue current care, with fluid restrictions 1.5 L a day, check in and out, 2 g sodium diet, and continue Lasix with albumin in, we'll not add Aldactone for now because of hyperkalemia. -Continue bumex per nephrology recs History of coronary artery disease status post CABG-asymptomatic -Continue medical management with Lopressor 12.5 mg BID, pravastatin 20 mg HS COPD with chronic respiratory failure-Baseline -Duo nebs every 6 hours we'll be available - Continue chronic O2= 2 L History of bioprosthetic AVR -Helping on warfarin 2 mg HS, we'll increase to 3 mg by mouth daily , will follow-up PT/INR -Will need to hold for paracentesis Acute on chronic renal insufficiency, likely from CHF exacerbation and kidney congestion, which is evident from renal function improved after diuretic -?obstruction component, urology consulted, maintain chowdary at this time, will need cystoscopy as outpt History of GI bleed-stable. No signs of active bleeding Constipation, gave Dulcolax oral, and suppository, yesterday no help, we will order one fleet enema now DVT prophylaxis -Coumadin, if INR level was coming up we should stop Lovenox -TEDS, SCDs CODE STATUS- FULL CODE Continued [facility] stay due to: multiple IV medications needed Discharge planning: other ([facility])
--- NOTE | 2016-04-13 14:50 | PROGRESS NOTE ---
DATE: 04/13/2016 HISTORY OF PRESENT ILLNESS: The patient underwent paracentesis today. His INR was 1.5, which was within the acceptable range. The fluid was hazy yellow and was consistent with a noninfected transudate. The cytology is pending at this time. His CT scan shows a nodular heterogeneous texture to his liver consistent with cirrhosis. IMPRESSION AND PLAN: The patient has cirrhosis, probably on the basis of metabolic syndrome and fatty liver with steatohepatitis. His hepatitis A, B and C serologies are negative and his iron studies are not consistent with hemochromatosis. He has metabolic syndrome and 90% of patients metabolic syndrome have fatty liver and he probably developed steatohepatitis with cirrhosis on that basis. This is probably also exacerbated by his congestive heart failure. He had a negative EGD for varices in 2014 and probably does not need a subsequent EGD. I would recommend that the patient may be maintained on diuretics for his ascites and if the beta cyrus is used it is probably better to use a nonselective beta cyrus to prevent the development of the site. He is currently on metoprolol and I would consider changing this to propranolol, carvedilol, or nadolol. For diuretic, I would recommend Aldactone 50 mg a day for his ascites and if need be, we can add a small dose of Lasix. His salt restriction should be 2 grams total per day and patient should be on a multiple vitamin once a day. There are no obvious masses in his liver to suggest the hepatoma and I plan on getting an alpha fetoprotein to complete his hepatoma screening. We will continue to follow the patient during his hospital stay.
[2016-04-13] MEDS: OXYCODONE/ACETAMINOPHEN 5-325 TAB PO PRN (17:08)
[2016-04-13] MEDS: PRAVASTATIN SOD 20 MG TAB PO SCH (20:54)
[2016-04-13] MEDS: ENOXAPARIN 30 MG/0.3 ML SYR SC SCH (20:55)
[2016-04-14] VITALS (9 sets, daily range): BP systolic 92–117; BP diastolic 54–71; PULSE 68–110; TEMP 36.9–37.3; O2SAT 91–98
[2016-04-14] MEDS: ACETAMINOPHEN 325 MG TAB PO PRN (04:06)
[2016-04-14] MEDS: BOOST VANILLA PUDDING CUP PO SCH ×3 (07:30→17:18)
--- NOTE | 2016-04-14 07:41 | Progress Note ---
Subjective Date of Service: Apr 14, 2016. Subjective Pt evaluation today including: conversation w/ patient, chart review, lab review Voiding: chowdary catheter in place (patent, draining clear, yellow urine) 71 yo male with NEWMAN, UTI, bilateral hydro, and pen-scrotal swelling. Pt denies pain this morning. S/p paracentesis. Chowdary remains in place draining clear, yellow urine. He remains on finasteride and tamsulosin. Remains on Bactrim DS for staph UTI. Cr pending this AM. Renal u/s from yesterday demonstrates improvement in bilateral hydro since chowdary placement. Problem List Medical Problems: (1) Cellulitis of leg, right Status: Acute (2) CHF (congestive heart failure) Status: Acute (3) CHF (congestive heart failure) Status: Acute (4) Failure of outpatient treatment Status: Acute (5) Noncompliance with medications Status: Acute Review of Systems Constitutional: No chills, No fever Respiratory: No shortness of breath Cardiac: No chest pain Abdomen: No nausea, No pain, No vomiting Male : No hematuria Heme: No abnormal bleeding/bruising Objective Vital Signs Date Time Temp Pulse Resp B/P Pulse Ox O2 Delivery O2 Flow Rate FiO2 04/14/16 04:34 37.3 92 20 117/70 92 Room Air 04/14/16 04:05 Room Air 04/14/16 00:25 36.9 90 20 95/63 95 Room Air 04/14/16 00:02 Room Air 04/13/16 20:04 Room Air 04/13/16 19:56 37.2 86 20 84/53 92 Room Air 04/13/16 16:00 91 Room Air 04/13/16 15:47 37.5 92 20 111/62 94 Room Air 04/13/16 12:00 93 Room Air 04/13/16 10:58 37.1 88 15 90/65 91 Room Air 04/13/16 08:00 93 Room Air 3.0 04/13/16 08:00 91 Room Air 04/13/16 08:00 91 Room Air 04/13/16 07:47 37.0 87 14 104/64 91 Physical Exam General Appearance: no apparent distress, + obese Eyes: normal inspection ENT: hearing grossly normal Neck: no JVD Respiratory/Chest: no respiratory distress, no accessory muscle use Cardiovascular: no JVD Extremities: normal inspection Neurologic/Psychiatric: alert, normal mood/affect, oriented x 3 Skin: normal color Comments: Peno-scrotal swelling persists. Laboratory Results Last 24 Hours Test 04/13/16 07:56 04/13/16 09:43 04/13/16 10:47 04/13/16 14:50 Prothrombin Time 16.8 SECONDS Prothromb Time International Ratio 1.5 Peritoneal Fluid Color YELLOW Peritoneal Fluid Appearance HAZY Peritoneal Fluid WBC 495 /uL Peritoneal Fluid RBC 6000 /uL Peritoneal Fld Mononuclear WBCs (%) 75.9 % Peritoneal Fld Polynuclear WBCs (%) 24.1 % Peritoneal Fluid Total Protein 3.7 g/dl Peritoneal Fluid Albumin 1.7 g/dl Peritoneal Fluid LDH 81 IU Peritoneal Fluid Glucose 162 mg/dl Peritoneal Fluid Amylase 32 U/L Peritoneal Fluid Lipase 107 U/L Peritoneal Fluid Triglycerides 68 mg/dl Bedside Glucose 226 mg/dl Test 04/13/16 16:21 04/13/16 20:20 04/14/16 06:32 04/14/16 07:01 Bedside Glucose 212 mg/dl 191 mg/dl 161 mg/dl Assessment and Plan A/P: NEWMAN, bilateral hydro, UTI, peno-scrotal edema AFVSS. Urinary Retention/UTI Possible NEWMAN/BPH- VICKY deferred - chowdary present Recommend leaving in chowdary for 7-10 days then TOV- if he has been d/c will schedule for follow up in our office. Will also need outpt cysto. Will arrange. Continue tamsulosin and finasteride. Urine culture positive for staph aureus- Continue Bactrim DS for 14 days of therapy. Bilateral [place] likely secondary to NEWMAN. Cr pending this AM. [place] improved on renal u/s. Scrotal edema Continue supportive management with scrotal support, elevation, and skin care. No further management at this time. Will arrange for outpatient f/u. Recall PRN issues. Thanks for allowing us to participate in this pt's care. Continued [facility] stay due to: multiple IV medications needed Discharge planning: other ([facility])
[2016-04-14 08:03] LABS: BUN/CREATININE RATIO 25.1 (10-20); CALCIUM 8.7 mg/dl (8.5-10.1); CREATININE 1.6 mg/dl (0.60-1.40); MAGNESIUM 1.5 mg/dl (1.8-2.4); POTASSIUM 3.2 mmol/L (3.5-5.1)
[2016-04-14] MEDS: OXYCODONE/ACETAMINOPHEN 5-325 TAB PO PRN (08:26)
[2016-04-14] MEDS: SULFAMETHOXAZOLE/TRIMETHOPRIM DS 800/160MG TAB PO SCH ×2 (08:26→20:38)
[2016-04-14] MEDS: PANTOprazole SOD 40 MG TAB PO SCH (08:27)
[2016-04-14] MEDS: ASPIRIN 81 MG ECTAB PO SCH (08:27)
[2016-04-14] MEDS: TAMSULOSIN HCL 0.4 MG CAP PO SCH (08:27)
[2016-04-14] MEDS: METOPROLOL SUCC 25MG EXT REL TAB PO SCH (08:27)
[2016-04-14] MEDS: CEPHALEXIN MONOHYDRATE 250 MG CAP PO SCH ×2 (08:28→13:38)
[2016-04-14] MEDS: FINASTERIDE 5 MG TAB PO SCH (08:28)
[2016-04-14] MEDS ORDERED: MAGNESIUM SULFATE 1GM / D5W 1 GM in PREMIXED IN D5W 100 ML IV ONE (08:30)
[2016-04-14] MEDS ORDERED: POTASSIUM CHLORIDE 20 MEQ TABCR PO ONE (08:45)
--- NOTE | 2016-04-14 09:13 | Nephrology Progress Note ---
Nephrology Progress Note Date of Service Apr 14, 2016. Chief Complaint Follow up evaluation of nonoliguric acute on chronic kidney injury Subjective Mr. Snell was seen & examined in the PCU this morning. He was admitted to the hospital following a hypoglycemic event. He is diabetic. Blood sugar has recovered following dextrose administration. The patient was found to have lower extremity and genital edema at the time of admission. Laboratory studies revealed acute on chronic kidney injury. Serum creatinine had risen from 1.6 to 3.0. Renal US revealed mild bilateral hydronephrosis and bladder wall thickening. Kidney function has improved following chowdary catheter insertion. Patient is responding well to IV bumetanide gtt. Mr. Snell's medical history is also significant for T2DM, cirrhosis, atrial fibrillation, COPD, pulmonary hypertension and diastolic CHF. He denies any history of alcohol abuse. The patient has been incarcerated for 3 years. He expects to be released next month. The patient's primary concern today is persistent genital swelling. His weight is down 18 kg in response to bumetanide gtt. Review of Systems Constitutional: No fever Cardiovascular: No chest pain Respiratory: No dyspnea at rest Abdomen: No nausea, No pain Genitourinary - Male: + problem reported (genital edema) Extremities: + leg edema A complete review of systems was performed. Pertinent positives are noted above. All other systems are negative. Vital Signs Last 8 Hrs Date Time Temp Pulse Resp B/P Pulse Ox O2 Delivery O2 Flow Rate FiO2 04/14/16 07:57 37.1 97 24 92/66 91 Room Air 04/14/16 04:34 37.3 92 20 117/70 92 Room Air 04/14/16 04:05 Room Air I & O 24-Hour Column 04/14/16 07:59 Intake Total 531 ml Output Total 5625 ml Balance -5094 ml Last Recorded Weight Weight (Kilograms): 90.800 Physical Exam General Appearance: no apparent distress Head: normocephalic, atraumatic Eyes: PERRL, EOMI Neck: no adenopathy Respiratory/Chest: lungs clear Cardiovascular: regular rate, rhythm Abdomen/GI: + distended (+ fluid wave) Genitourinary - Male: + pertinent finding (3+ genital edema) Extremities/Musculoskelatal: + pertinent finding (1+ edema of the legs extending from the ankles to the thighs bilaterally) Neurologic/Psych: alert, oriented x 3 Family History Patient reports no known family medical history. Social History Marital Status: single Housing Status: other (incarcerated at [facility]) Occupation: unemployed Laboratory Results Past 24 Hours 04/14/16 06:32 Test 04/13/16 09:43 04/13/16 10:47 04/13/16 14:50 04/13/16 16:21 Peritoneal Fluid Color YELLOW Peritoneal Fluid Appearance HAZY Peritoneal Fluid WBC 495 /uL (0-300) Peritoneal Fluid RBC 6000 /uL Peritoneal Fld Mononuclear WBCs (%) 75.9 % Peritoneal Fld Polynuclear WBCs (%) 24.1 % Peritoneal Fluid Total Protein 3.7 g/dl Peritoneal Fluid Albumin 1.7 g/dl Peritoneal Fluid LDH 81 IU Peritoneal Fluid Glucose 162 mg/dl Peritoneal Fluid Amylase 32 U/L Peritoneal Fluid Lipase 107 U/L Peritoneal Fluid Triglycerides 68 mg/dl Bedside Glucose 226 mg/dl (70-99) 212 mg/dl (70-99) Test 04/13/16 20:20 04/14/16 06:32 04/14/16 07:01 04/14/16 08:16 Bedside Glucose 191 mg/dl (70-99) 161 mg/dl (70-99) Anion Gap 12.0 mmol/L (3-11) Est Creatinine Clear Calc Drug Dose 41.8 ml/min Estimated GFR () 48.8 Estimated GFR (Non- 42.1 BUN/Creatinine Ratio 25.1 (10-20) Calcium Level 8.7 mg/dl (8.5-10.1) Magnesium Level 1.5 mg/dl (1.8-2.4) Allergies Coded Allergies: No Known Allergies (Unverified , 04/01/16) Medications Current Inpatient Medications Medications (Trade) Dose Ordered Sig/Jenny Route Start Time Stop Time Status Last Admin Dose Admin Insulin Aspart (novoLOG ASPART) SLIDING SCALE G... ACHS SC 04/06/16 21:00 05/06/16 20:59 04/13/16 20:57 2 UNITS Enoxaparin Sodium (Lovenox Inj) 30 mg QPM SC 04/06/16 21:00 05/06/16 20:59 04/13/16 20:55 30 MG Acetaminophen (Tylenol Tab) 650 mg Q4H PRN PO 04/06/16 18:15 05/06/16 18:14 04/14/16 04:06 650 MG Ondansetron HCl (Zofran Inj) 4 mg Q6H PRN IV 04/06/16 18:15 05/06/16 18:14 04/07/16 11:16 4 MG Polyethylene (Miralax Powder Packet) 17 gm DAILY PRN PO 04/06/16 18:15 05/06/16 18:14 Aspirin (Ecotrin Tab) 81 mg QAM PO 04/07/16 09:00 05/07/16 08:59 04/13/16 10:10 81 MG Pantoprazole Sodium (Protonix Tab) 40 mg QAM PO 04/07/16 09:00 05/07/16 08:59 04/13/16 10:09 40 MG Pravastatin Sodium (Pravachol Tab) 20 mg HS PO 04/06/16 21:00 05/06/16 20:59 04/13/16 20:54 20 MG Tamsulosin HCl (Flomax Cap) 0.4 mg QAM PO 04/07/16 09:00 05/07/16 08:59 04/13/16 10:09 0.4 MG Glucose (Glucose 40% Gel) 15-30 GRAMS 15 GRAMS... UD PRN PO 04/06/16 19:45 05/06/16 19:44 Glucose (Glucose Chew Tab) 4-8 Tablets 4 Tabl... UD PRN PO 04/06/16 19:45 05/06/16 19:44 04/07/16 00:15 4 TABS Dextrose (Dextrose 50% 50ML Syringe) 25-50ML OF 50% DW IV FOR... UD PRN IV 04/06/16 19:45 05/06/16 19:44 04/09/16 06:44 25 ML Glucagon (Glucagon Inj) 1 mg UD PRN SQ 04/06/16 19:45 05/06/16 19:44 Miscellaneous Information (Pending Order) 1 ea DAILY@10 N/A 04/09/16 10:00 05/09/16 09:59 04/11/16 20:39 1 EA Bisacodyl (Dulcolax Supp) [address] 04/09/16 12:30 2/20/17 12:29 Bisacodyl (Dulcolax Tab) 5 mg DAILY PRN PO 04/09/16 12:30 05/09/16 12:29 Cephalexin Monohydrate (Keflex Cap) 250 mg QID PO 04/09/16 15:00 04/14/16 14:59 04/13/16 20:54 250 MG Enteral Nutritional Formula 1 cup 1 cup TIDM PO 04/10/16 12:00 05/10/16 11:59 04/13/16 17:09 1 CUP Bumetanide/ Dextrose (Bumex IV/D5 50ml) 50 ml @ 5 mls/hr Q10H IV 04/10/16 16:30 05/10/16 16:29 04/13/16 23:29 5 MLS/HR Metoprolol Succinate (Toprol Xl Tab) 12.5 mg BID PO 04/11/16 21:00 05/11/16 20:59 04/13/16 10:10 12.5 MG Trimethoprim/ Sulfamethoxazole (Septra Ds 800/ 160MG Tab) 1 tab Q12 PO 04/13/16 09:00 04/18/16 08:59 04/13/16 20:54 1 TAB Finasteride (Proscar Tab) 5 mg QAM PO 04/14/16 09:00 05/14/16 08:59 Oxycodone/ Acetaminophen 1 tab 1 tab Q4H PRN PO 04/13/16 16:00 04/27/16 15:59 04/13/16 17:08 1 TAB Magnesium Sulfate/ Prmx (Magnesium Sulfate/Premixed D5W) 100 ml @ 100 mls/hr TODAY@0830 ONCE IV 04/14/16 08:30 04/14/16 09:29 Warfarin Sodium (Coumadin Tab) 5 mg DAILY@16 PO 04/14/16 16:00 05/14/16 15:59 Impression (1) ERA (acute kidney injury) (2) CKD (chronic kidney disease) (3) Hyponatremia (4) Hyperkalemia (5) Hypoglycemia (6) Acute on chronic combined systolic and diastolic CHF (congestive heart failure) (7) Chronic liver disease (8) Pulmonary hypertension Mr. Snell is a 71-year-old male w/ ASCVD, T2DM, COPD, atrial fibrillation with systolic and diastolic CHF who presents with hypoglycemia, hyperkalemia, hyponatremia and renal failure. Evaluation notable for cor pulmonale. Transthoracic echocardiogram documented elevated PASP of 35 - 42 mmHG as well as mitral and tricuspid valvular heart disease. CT scan is concerning for cirrhosis. Renal US shows mild bilateral hydronephrosis with a dilated thickened bladder c/w NEWMAN. Patient has significant genital edema. Recommendations ACUTE KIDNEY INJURY: -- Resolved. Baseline creatinine has been 1.6. -- Patient has significant genital edema. This is mildly improved w/ diuretic therapy. Patient has diuresed ~ 18 kg since admission. -- Continue IV Bumex gtt to alleviate peripheral and genital edema -- Supplement Mg and K -- Monitor I&O's, serial PRP and Mg CHRONIC KIDNEY DISEASE: -- Baseline creatinine has been 1.6 -- Will check urine sediment and UPCR once ERA resolves EDEMA: -- Patient has cor pulmonale. Echocardiogram results reviewed. He has PASP ~ 40 w/ TR -- Continue Bumetanide drip. Patient is responding well. Volume status has improved and creatinine is trending downward CIRRHOSIS: -- GI recommendations reviewed today. Patient likely has cirrhosis on the basis of SCALES exacerbated by cor pulmonale/CHF -- Hepatitis serologies were negative -- Iron studies were not c/w hemochromatosis -- alpha fetoprotein has been ordered -- Will add aldactone to diuretic regimen when patient is switched to oral diuretics
[2016-04-14] MEDS: INSULIN ASPART 100 UNITS/ML 3 ML PEN SC SCH ×4 (09:26→20:50)
[2016-04-14 09:41] LABS: INR 1.5 (0.9-1.1); PROTHROMBIN TIME (PATIENT) 16.1 SECONDS (9.0-12.0)
[2016-04-14] MEDS: BUMETANIDE IV 10 MG in DEXTROSE 5% 50ML 10 ML IV SCH ×2 (11:04→20:35)
--- NOTE | 2016-04-14 11:25 | CARDIOLOGY PROGRESS NOTE ---
DATE: 04/14/2016 DATE: 04/14/2016. TIME: 10:47 a.m. SUBJECTIVE: Mr. Trivedi states that his breathing continues to improve but is not yet back to baseline. He does have orthopnea. His scrotal discomfort is also improving. He denies chest pain, syncope, near syncope, or palpitations. OBJECTIVE: VITAL SIGNS: Temperature 37.1 degrees, heart rate 97 beats per minute, respiration rate 24, blood pressure 92/66 mmHg, oxygen saturation 91% on room air. I's and O's negative 4.4 liters yesterday, weight is 90.8 kilograms, however it is documented that the weight may not be exact. GENERAL: No acute distress. He is alert. NECK: Elevated JVD nearly to the mandible with head of the bed elevated to approximately 45 degrees. CARDIAC EXAMINATION: No ventricular heave, irregularly irregular, normal S1, S2. 1/6 early peaking systolic ejection murmur best heard at the right upper sternal border. No rubs or gallops. LUNGS: Appear to be relatively clear on anterior auscultation. ABDOMEN: Soft, nontender, nondistended. Normoactive bowel sounds. EXTREMITIES: 1+ bilateral lower extremity edema to the hips. No cyanosis. Significant scrotal edema is still present. PSYCHIATRIC: Affect appears appropriate. MEDICATIONS: Include aspirin 81 mg daily, Bumex drip 1 mg per hour, Lovenox 30 mg subQ daily, Keflex 250 mg p.o. q.i.d., metoprolol succinate 12.5 mg p.o. b.i.d., Protonix 40 mg daily, pravastatin 20 mg daily, Coumadin 5 mg daily, Bactrim 1 tab q. 12 hours. LABORATORY DATA: Sodium 137, potassium 3.2, BUN 40, creatinine 1.6, magnesium 1.5, INR 1.5. Telemetry personally reviewed. ECG performed on 04/12/2016 at 2339 demonstrate atrial flutter with variable AV block. Anterior infarct. Nonspecific T-wave abnormality. Chart reviewed. ASSESSMENT AND PLAN: 1. Acute on chronic systolic congestive heart failure: He does have left heart and right heart failure. He still appears hypervolemic. Continue diuretic therapy. Monitor electrolytes carefully and replete as appropriate. Electrolyte replacement has been ordered today by primary service. 2. Atrial flutter/fibrillation: He is relatively well rate controlled. He is on low dose metoprolol succinate. GI has recommended propranolol, carvedilol or nadolol due to his cirrhosis. Given his heart failure and cardiomyopathy, would recommend carvedilol out of those options. Will replace metoprolol succinate would low dose carvedilol. He is on anticoagulation for stroke risk reduction. Goal INR is 2-3. His Coumadin has been adjusted by the primary service. 3. Cardiomyopathy: Continue beta cyrus therapy but will change to carvedilol as noted above. If blood pressure can tolerate in the future, would recommend CHEMA inhibitor now that renal function has improved or Entresto if this is available at his correctional facility. Spironolactone is also being considered by nephrology given heart failure and cirrhosis. Could consider ischemic evaluation in the future when he is able to have more comfortably lay flat now that his renal function has returned back to baseline as it appears as though his LV systolic function has reduced compared to prior imaging. 4. Aortic valve replacement: Appropriately functioning aortic valve per recent echo. SBE prophylaxis for dental procedures. 5. Paroxysmal ventricular tachycardia: Continue beta-cyrus with changes as above. 6. Mitral regurgitation: Nonsevere. Continue to follow. 7. ICD: Followed by Dr. Sawyer. 8. Disposition: Cardiology will continue to follow.
--- NOTE | 2016-04-14 14:32 | Gastroenterology Progress Note ---
Progress Note Date of Service: Apr 14, 2016 Subjective Pt evaluation today including: conversation w/ patient, physical exam, chart review, lab review, review of studies, review of inpatient medication list CC f/u cirrhosis HPI Pt denies abd pain. No BMS today. Tolerating diet Review of Systems Respiratory: No shortness of breath Cardiac: No chest pain Medications Current Inpatient Medications Medications (Trade) Dose Ordered Sig/Jenny Route Start Time Stop Time Status Last Admin Dose Admin Insulin Aspart (novoLOG ASPART) SLIDING SCALE G... ACHS SC 04/06/16 21:00 05/06/16 20:59 04/14/16 13:12 6 UNITS Enoxaparin Sodium (Lovenox Inj) 30 mg QPM SC 04/06/16 21:00 05/06/16 20:59 04/13/16 20:55 30 MG Acetaminophen (Tylenol Tab) 650 mg Q4H PRN PO 04/06/16 18:15 05/06/16 18:14 04/14/16 04:06 650 MG Ondansetron HCl (Zofran Inj) 4 mg Q6H PRN IV 04/06/16 18:15 05/06/16 18:14 04/07/16 11:16 4 MG Polyethylene (Miralax Powder Packet) 17 gm DAILY PRN PO 04/06/16 18:15 05/06/16 18:14 Aspirin (Ecotrin Tab) 81 mg QAM PO 04/07/16 09:00 05/07/16 08:59 04/14/16 08:27 81 MG Pantoprazole Sodium (Protonix Tab) 40 mg QAM PO 04/07/16 09:00 05/07/16 08:59 04/14/16 08:27 40 MG Pravastatin Sodium (Pravachol Tab) 20 mg HS PO 04/06/16 21:00 05/06/16 20:59 04/13/16 20:54 20 MG Tamsulosin HCl (Flomax Cap) 0.4 mg QAM PO 04/07/16 09:00 05/07/16 08:59 04/14/16 08:27 0.4 MG Glucose (Glucose 40% Gel) 15-30 GRAMS 15 GRAMS... UD PRN PO 04/06/16 19:45 05/06/16 19:44 Glucose (Glucose Chew Tab) 4-8 Tablets 4 Tabl... UD PRN PO 04/06/16 19:45 05/06/16 19:44 04/07/16 00:15 4 TABS Dextrose (Dextrose 50% 50ML Syringe) 25-50ML OF 50% DW IV FOR... UD PRN IV 04/06/16 19:45 05/06/16 19:44 04/09/16 06:44 25 ML Glucagon (Glucagon Inj) 1 mg UD PRN SQ 04/06/16 19:45 05/06/16 19:44 Miscellaneous Information (Pending Order) 1 ea DAILY@10 N/A 04/09/16 10:00 05/09/16 09:59 04/14/16 10:33 1 EA Bisacodyl (Dulcolax Supp) 10 mg DAILY PRN OR 04/09/16 12:30 05/09/16 12:29 Bisacodyl (Dulcolax Tab) 5 mg DAILY PRN PO 04/09/16 12:30 05/09/16 12:29 Cephalexin Monohydrate (Keflex Cap) 250 mg QID PO 04/09/16 15:00 04/14/16 14:59 04/14/16 13:38 250 MG Enteral Nutritional Formula 1 cup 1 cup TIDM PO 04/10/16 12:00 05/10/16 11:59 04/13/16 17:09 1 CUP Bumetanide/ Dextrose (Bumex IV/D5 50ml) 50 ml @ 5 mls/hr Q10H IV 04/10/16 16:30 05/10/16 16:29 04/14/16 11:04 5 MLS/HR Trimethoprim/ Sulfamethoxazole (Septra Ds 800/ 160MG Tab) 1 tab Q12 PO 04/13/16 09:00 04/18/16 08:59 04/14/16 08:26 1 TAB Finasteride (Proscar Tab) 5 mg QAM PO 04/14/16 09:00 05/14/16 08:59 04/14/16 08:28 5 MG Oxycodone/ Acetaminophen (Percocet 5-325mg Tab) 1 tab Q4H PRN PO 04/13/16 16:00 04/27/16 15:59 04/14/16 08:26 1 TAB Warfarin Sodium (Coumadin Tab) 5 mg DAILY@16 PO 04/14/16 16:00 05/14/16 15:59 Carvedilol (Coreg Tab) 3.125 mg BID PO 04/14/16 21:00 05/14/16 20:59 Objective Vital Signs Date Time Temp Pulse Resp B/P Pulse Ox O2 Delivery O2 Flow Rate FiO2 04/14/16 12:30 94 04/14/16 11:41 37.2 75 20 100/71 91 Room Air 04/14/16 08:00 Room Air 04/14/16 07:57 37.1 97 24 92/66 91 Room Air 04/14/16 04:34 37.3 92 20 117/70 92 Room Air 04/14/16 04:05 Room Air 04/14/16 00:25 36.9 90 20 95/63 95 Room Air 04/14/16 00:02 Room Air 04/13/16 20:04 Room Air 04/13/16 19:56 37.2 86 20 84/53 92 Room Air 04/13/16 16:00 91 Room Air 04/13/16 15:47 37.5 92 20 111/62 94 Room Air Physical Exam General Appearance: WD/WN, no apparent distress Respiratory/Chest: lungs clear, no respiratory distress Cardiovascular: regular rate, rhythm Abdomen: normal bowel sounds, non tender, soft, no organomegaly, no pulsatile mass Laboratory Results Last 24 Hours Test 04/13/16 14:50 04/13/16 16:21 04/13/16 20:20 04/14/16 06:32 Bedside Glucose 212 mg/dl 191 mg/dl Sodium Level 137 mmol/L Potassium Level 3.2 mmol/L Chloride Level 95 mmol/L Carbon Dioxide Level 30 mmol/L Anion Gap 12.0 mmol/L Blood Urea Nitrogen 40 mg/dl Creatinine 1.60 mg/dl Est Creatinine Clear Calc Drug Dose 41.8 ml/min Estimated GFR () 48.8 Estimated GFR (Non- 42.1 BUN/Creatinine Ratio 25.1 Random Glucose 150 mg/dl Calcium Level 8.7 mg/dl Magnesium Level 1.5 mg/dl Test 04/14/16 07:01 04/14/16 09:20 04/14/16 11:28 Bedside Glucose 161 mg/dl 217 mg/dl Prothrombin Time 16.1 SECONDS Prothromb Time International Ratio 1.5 Assessment and Plan Cirrhosis--most likely from SCALES and CHF. Fe studies negative for hemochromatosis and acute hep panel negative--Pt has been switched to Carvedilol for portal HTN and reduction in GI bleeding risk. AFP is pending. Ascites--cytology negative, cell count neg for SBP, serum ascites gradient 1.2 consistent with portal HTN, Cultures negative so far. Recommend 2 gm Na diet and aldactone if ok per nerphrology. Iron deficiency anemia--Had anemia 09/2014 with EGD and colonoscopy then by DR Bateman showing antral ulcers path gastritis neg for H.pylori, normal esophagus, diverticulosis, multiple transverse colon polyps removed path tubular adenomas and one inflammtory.. stool hemoccult ordered and pending, Fe sat low, B12, folate and ferritin normal. Start oral Fe constipation---ordered miralax to be schedule especially in light of starting Fe which can be constipating. .
--- NOTE | 2016-04-14 15:39 | Progress Note ---
Subjective Date of Service: Apr 14, 2016. Subjective Pt evaluation today including: conversation w/ patient, physical exam, chart review, lab review, review of studies, review of inpatient medication list Problem List Medical Problems: (1) Cellulitis of leg, right Status: Acute (2) CHF (congestive heart failure) Status: Acute (3) CHF (congestive heart failure) Status: Acute (4) Failure of outpatient treatment Status: Acute (5) Noncompliance with medications Status: Acute Review of Systems Constitutional: No chills, No fever Respiratory: No cough, No dyspnea on exertion, No shortness of breath, No sputum, No wheezing Cardiac: No chest pain, No orthopnea Abdomen: No diarrhea, No nausea, No pain Musculoskeletal: No joint pain, No muscle pain Male : No dysuria, No urinary frequency Objective Vital Signs Date Time Temp Pulse Resp B/P Pulse Ox O2 Delivery O2 Flow Rate FiO2 04/14/16 12:30 94 04/14/16 11:41 37.2 75 20 100/71 91 Room Air 04/14/16 08:00 Room Air 04/14/16 07:57 37.1 97 24 92/66 91 Room Air 04/14/16 04:34 37.3 92 20 117/70 92 Room Air 04/14/16 04:05 Room Air 04/14/16 00:25 36.9 90 20 95/63 95 Room Air 04/14/16 00:02 Room Air 04/13/16 20:04 Room Air 04/13/16 19:56 37.2 86 20 84/53 92 Room Air 04/13/16 16:00 91 Room Air 04/13/16 15:47 37.5 92 20 111/62 94 Room Air Physical Exam General Appearance: WD/WN, no apparent distress Neck: supple, no adenopathy Respiratory/Chest: lungs clear, normal breath sounds Cardiovascular: no edema, no gallop Abdomen: non tender, soft Neurologic/Psychiatric: alert, oriented x 3 Laboratory Results Last 24 Hours Test 04/13/16 16:21 04/13/16 20:20 04/14/16 06:32 04/14/16 07:01 Bedside Glucose 212 mg/dl 191 mg/dl 161 mg/dl Sodium Level 137 mmol/L Potassium Level 3.2 mmol/L Chloride Level 95 mmol/L Carbon Dioxide Level 30 mmol/L Anion Gap 12.0 mmol/L Blood Urea Nitrogen 40 mg/dl Creatinine 1.60 mg/dl Est Creatinine Clear Calc Drug Dose 41.8 ml/min Estimated GFR () 48.8 Estimated GFR (Non- 42.1 BUN/Creatinine Ratio 25.1 Random Glucose 150 mg/dl Calcium Level 8.7 mg/dl Magnesium Level 1.5 mg/dl Test 04/14/16 09:20 04/14/16 11:28 Prothrombin Time 16.1 SECONDS Prothromb Time International Ratio 1.5 Bedside Glucose 217 mg/dl Assessment and Plan 70-year-old male with a history of type 2 diabetes and chronic diastolic heart failure and transferred to the ED with an episode of persistent hypoglycemia Hypoglycemia - likely the long half life of glipizide and combination with liver cirrhosis and age of the patient are causing hypoglycemia, plus poor oral intake glipizide has been discontinued, metformin also on hold Will make sure the patient does resume this medication once discharged back to halfway Will need explicit discharge instructions! Cirrhosis--?etiology, congestion from right heart failure vs SCALES vs viral etology. Not a liver transplant candidate given COPD and CHF. Had EGD 09/2014 negative for varices. Reasonable to do another EGD electively as outpt when stable from current CHF. ferritin and hepatitis profile unremarkable. Ascites--diagnostic paracentesis--could do a cell count and differential for SBP although with this volume of fluid less likely, cytology for cancer and albumin to further assess for portal HTN. Pt would need to be off coumadin with more normalized PT INR Acute on Chronic systolic and diastolic heart failure which is evident by severe edema and scrotal edema, has been on on IV Lasix and albumin for 3 days, Blood pressure at borderline low, has been catheterization of in and out - Echo completed: * -- Conclusions -- * 1. Mildly dilated LV with mild concentric LVH. * 2. Moderate global LV dysfunction. EF 35-40%. Paradoxical septal motion consistent with post-operative state. * 3. Dilated RV with moderate to severe RV dysfunction. * 4. Severe biatrial enlargement. * 5. Bioprosthetic aortic valve well seated with normal expected transvalvular gradients. * 6. Grade II diastolic dysfunction. * 7. Mild-moderate mitral regurgitation * 8. Moderate tricuspid regurgitation. * 9. Dilated IVC suggestive of elevated RA pressure (15 mmHg). Mild pulmonary hypertension (PASP 35-40 mmHg.) * 10. Compared with prior study on 10/11/2014: LV dysfunction is now moderate. - Liver cirrhosis and ascites and hyponatremia and scrotal edema Combined the above CHF exacerbation and liver cirrhosis conditions with ascites , patient is hypervol hyponatremia, Will continue current care, with fluid restrictions 1.5 L a day, check in and out, 2 g sodium diet, and continue Lasix with albumin in, we'll not add Aldactone for now because of hyperkalemia. -Continue bumex per nephrology recs History of coronary artery disease status post CABG-asymptomatic -Continue medical management with Lopressor 12.5 mg BID, pravastatin 20 mg HS COPD with chronic respiratory failure-Baseline -Duo nebs every 6 hours we'll be available - Continue chronic O2= 2 L History of bioprosthetic AVR -Helping on warfarin 2 mg HS, we'll increase to 5 mg by mouth daily , will follow-up PT/INR -Will need to hold for paracentesis Acute on chronic renal insufficiency, likely from CHF exacerbation and kidney congestion, which is evident from renal function improved after diuretic -?obstruction component, urology consulted, maintain chowdary at this time, will need cystoscopy as outpt History of GI bleed-stable. No signs of active bleeding Constipation, gave Dulcolax oral, and suppository, yesterday no help, we will order one fleet enema now DVT prophylaxis -Coumadin, if INR level was coming up we should stop Lovenox -TEDAva, SCDs CODE STATUS- FULL CODE Continued [facility] stay due to: multiple IV medications needed Discharge planning: other ([facility])
[2016-04-14] MEDS: WARFARIN SOD 5 MG TAB PO SCH (15:53)
[2016-04-14] MEDS: PRAVASTATIN SOD 20 MG TAB PO SCH (20:38)
[2016-04-14] MEDS: CARVEDILOL 3.125 MG TAB PO SCH (20:39)
[2016-04-14] MEDS: ENOXAPARIN 30 MG/0.3 ML SYR SC SCH (20:40)
[2016-04-14] MEDS: MAGNESIUM SULFATE 1GM / D5W 1 GM in PREMIXED IN D5W 100 ML IV SCH ×2 (21:26→22:07)
[2016-04-15] VITALS (7 sets, daily range): BP systolic 96–105; BP diastolic 60–66; PULSE 92–105; TEMP 37–37.3; O2SAT 95–98
[2016-04-15] MEDS: BUMETANIDE IV 10 MG in DEXTROSE 5% 50ML 10 ML IV SCH (06:17)
[2016-04-15 07:04] LABS: INR 1.4 (0.9-1.1); PROTHROMBIN TIME (PATIENT) 15.5 SECONDS (9.0-12.0)
[2016-04-15 07:36] LABS: BUN/CREATININE RATIO 25.6 (10-20); CALCIUM 8.6 mg/dl (8.5-10.1); CREATININE 1.4 mg/dl (0.60-1.40); MAGNESIUM 2.1 mg/dl (1.8-2.4); POTASSIUM 3.5 mmol/L (3.5-5.1)
[2016-04-15] MEDS: BOOST VANILLA PUDDING CUP PO SCH ×4 (08:04→17:29)
[2016-04-15] MEDS: INSULIN ASPART 100 UNITS/ML 3 ML PEN SC SCH ×4 (08:07→20:34)
[2016-04-15] MEDS: FERROUS SULFATE 325 MG TAB PO SCH (08:10)
[2016-04-15] MEDS: PANTOprazole SOD 40 MG TAB PO SCH (08:10)
[2016-04-15] MEDS: SULFAMETHOXAZOLE/TRIMETHOPRIM DS 800/160MG TAB PO SCH ×2 (08:10→20:01)
[2016-04-15] MEDS: ASPIRIN 81 MG ECTAB PO SCH (08:10)
[2016-04-15] MEDS: CARVEDILOL 3.125 MG TAB PO SCH ×2 (08:10→20:01)
[2016-04-15] MEDS: FINASTERIDE 5 MG TAB PO SCH (08:10)
[2016-04-15] MEDS: TAMSULOSIN HCL 0.4 MG CAP PO SCH (08:11)
--- NOTE | 2016-04-15 08:20 | Gastroenterology Progress Note ---
Progress Note Date of Service: Apr 15, 2016 Subjective Pt evaluation today including: conversation w/ patient, physical exam, chart review, lab review, review of studies, review of inpatient medication list cc f/u cirrhosis, ascites HPI NO bms yet. Denies abd pain. Review of Systems Respiratory: No shortness of breath Cardiac: No chest pain Medications Current Inpatient Medications Medications (Trade) Dose Ordered Sig/Jenny Route Start Time Stop Time Status Last Admin Dose Admin Insulin Aspart (novoLOG ASPART) SLIDING SCALE G... ACHS SC 04/06/16 21:00 05/06/16 20:59 04/15/16 08:07 3 UNITS Enoxaparin Sodium (Lovenox Inj) 30 mg QPM SC 04/06/16 21:00 05/06/16 20:59 04/14/16 20:40 30 MG Acetaminophen (Tylenol Tab) 650 mg Q4H PRN PO 04/06/16 18:15 05/06/16 18:14 04/14/16 04:06 650 MG Ondansetron HCl (Zofran Inj) 4 mg Q6H PRN IV 04/06/16 18:15 05/06/16 18:14 04/07/16 11:16 4 MG Aspirin (Ecotrin Tab) 81 mg QAM PO 04/07/16 09:00 05/07/16 08:59 04/14/16 08:27 81 MG Pantoprazole Sodium (Protonix Tab) 40 mg QAM PO 04/07/16 09:00 05/07/16 08:59 04/14/16 08:27 40 MG Pravastatin Sodium (Pravachol Tab) 20 mg HS PO 04/06/16 21:00 05/06/16 20:59 04/14/16 20:38 20 MG Tamsulosin HCl (Flomax Cap) 0.4 mg QAM PO 04/07/16 09:00 05/07/16 08:59 04/14/16 08:27 0.4 MG Glucose (Glucose 40% Gel) 15-30 GRAMS 15 GRAMS... UD PRN PO 04/06/16 19:45 05/06/16 19:44 Glucose (Glucose Chew Tab) 4-8 Tablets 4 Tabl... UD PRN PO 04/06/16 19:45 05/06/16 19:44 04/07/16 00:15 4 TABS Dextrose (Dextrose 50% 50ML Syringe) 25-50ML OF 50% DW IV FOR... UD PRN IV 04/06/16 19:45 05/06/16 19:44 04/09/16 06:44 25 ML Glucagon (Glucagon Inj) 1 mg UD PRN SQ 04/06/16 19:45 05/06/16 19:44 Miscellaneous Information (Pending Order) 1 ea DAILY@10 N/A 04/09/16 10:00 05/09/16 09:59 04/14/16 10:33 1 EA Bisacodyl (Dulcolax Supp) 10 mg DAILY PRN CA 04/09/16 12:30 05/09/16 12:29 Bisacodyl (Dulcolax Tab) 5 mg DAILY PRN PO 04/09/16 12:30 05/09/16 12:29 Enteral Nutritional Formula 1 cup 1 cup TIDM PO 04/10/16 12:00 05/10/16 11:59 04/15/16 08:04 1 CUP Bumetanide/ Dextrose (Bumex IV/D5 50ml) 50 ml @ 5 mls/hr Q10H IV 04/10/16 16:30 05/10/16 16:29 04/15/16 06:17 5 MLS/HR Trimethoprim/ Sulfamethoxazole (Septra Ds 800/ 160MG Tab) 1 tab Q12 PO 04/13/16 09:00 04/18/16 08:59 04/14/16 20:38 1 TAB Finasteride (Proscar Tab) 5 mg QAM PO 04/14/16 09:00 05/14/16 08:59 04/14/16 08:28 5 MG Oxycodone/ Acetaminophen (Percocet 5-325mg Tab) 1 tab Q4H PRN PO 04/13/16 16:00 04/27/16 15:59 04/14/16 08:26 1 TAB Warfarin Sodium (Coumadin Tab) 5 mg DAILY@16 PO 04/14/16 16:00 05/14/16 15:59 04/14/16 15:53 5 MG Carvedilol (Coreg Tab) 3.125 mg BID PO 04/14/16 21:00 05/14/16 20:59 04/14/16 20:39 3.125 MG Polyethylene (Miralax Powder Packet) 17 gm DAILY PO 04/15/16 09:00 05/15/16 08:59 Ferrous Sulfate (Feosol Tab) 325 mg QAM PO 04/15/16 09:00 05/15/16 08:59 Objective Vital Signs Date Time Temp Pulse Resp B/P Pulse Ox O2 Delivery O2 Flow Rate FiO2 04/15/16 04:13 37.0 105 18 99/66 98 Nasal Cannula 3.0 04/15/16 04:00 98 Room Air 3.0 04/15/16 00:01 98 Room Air 3.0 04/14/16 23:10 37.1 68 18 106/65 98 Nasal Cannula 2.0 04/14/16 20:00 95 Room Air 3.0 04/14/16 16:30 37.0 110 18 110/54 95 04/14/16 16:00 95 Room Air 04/14/16 12:30 94 04/14/16 11:41 37.2 75 20 100/71 91 Room Air Physical Exam General Appearance: WD/WN, no apparent distress Respiratory/Chest: lungs clear, no respiratory distress Cardiovascular: regular rate, rhythm Abdomen: normal bowel sounds, non tender, soft, no organomegaly Laboratory Results Last 24 Hours Test 04/14/16 09:20 04/14/16 11:28 04/14/16 16:14 04/14/16 20:44 Prothrombin Time 16.1 SECONDS Prothromb Time International Ratio 1.5 Bedside Glucose 217 mg/dl 129 mg/dl 144 mg/dl Test 04/15/16 06:41 04/15/16 06:52 Prothrombin Time 15.5 SECONDS Prothromb Time International Ratio 1.4 Sodium Level 138 mmol/L Potassium Level 3.5 mmol/L Chloride Level 96 mmol/L Carbon Dioxide Level 36 mmol/L Anion Gap 6.0 mmol/L Blood Urea Nitrogen 36 mg/dl Creatinine 1.40 mg/dl Est Creatinine Clear Calc Drug Dose 46.8 ml/min Estimated GFR () 57.4 Estimated GFR (Non- 49.5 BUN/Creatinine Ratio 25.6 Random Glucose 125 mg/dl Calcium Level 8.6 mg/dl Magnesium Level 2.1 mg/dl Bedside Glucose 124 mg/dl Assessment and Plan Cirrhosis--most likely from SCALES and CHF. Fe studies negative for hemochromatosis and acute hep panel negative--Pt has been switched to Carvedilol for portal HTN and reduction in GI bleeding risk. AFP is pending. Ascites--cytology negative, cell count neg for SBP, serum ascites gradient 1.2 consistent with portal HTN, Cultures negative so far. Recommend 2 gm Na diet and aldactone if ok per nerphrology. Iron deficiency anemia--Had anemia 09/2014 with EGD and colonoscopy then by DR Bateman showing antral ulcers path gastritis neg for H.pylori, normal esophagus, diverticulosis, multiple transverse colon polyps removed path tubular adenomas and one inflammtory.. stool hemoccult ordered and pending, Fe sat low, B12, folate and ferritin normal. Start oral Fe constipation---ordered miralax to be schedule especially in light of starting Fe which can be constipating. Will give miralax bid .
[2016-04-15] MEDS ORDERED: POLYETHYLENE (MIRALAX) 17 GM PACK PO SCH (09:00)
[2016-04-15] MEDS ORDERED: ACETAZOLAMIDE IV PUSH 250 MG in SYRINGE 0 ML IV ONE (09:30)
--- NOTE | 2016-04-15 11:05 | Nephrology Progress Note ---
Nephrology Progress Note Date of Service Apr 15, 2016. Chief Complaint Follow up evaluation of nonoliguric acute on chronic kidney injury Subjective Mr. Snell was seen & examined in the PCU this morning. He was admitted to the hospital following a hypoglycemic event. He is diabetic. Blood sugar has recovered following dextrose administration. The patient was found to have lower extremity and genital edema at the time of admission. Laboratory studies revealed acute on chronic kidney injury. Serum creatinine had risen from 1.6 to 3.0. Renal US revealed mild bilateral hydronephrosis and bladder wall thickening. Kidney function has improved following chowdary catheter insertion. Patient is responding well to IV bumetanide gtt. Mr. Snell's medical history is also significant for T2DM, cirrhosis, atrial fibrillation, COPD, pulmonary hypertension and diastolic CHF. He denies any history of alcohol abuse. The patient has been incarcerated for 3 years. He expects to be released next month. The patient's primary concern today is persistent genital swelling. His weight is down 22 kg in response to bumetanide gtt. Review of Systems Constitutional: No fever Cardiovascular: No chest pain Respiratory: No dyspnea at rest Abdomen: No nausea, No pain Genitourinary - Male: + problem reported (scrotal edema) Extremities: No leg edema A complete review of systems was performed. Pertinent positives are noted above. All other systems are negative. Vital Signs Last 8 Hrs Date Time Temp Pulse Resp B/P Pulse Ox O2 Delivery O2 Flow Rate FiO2 04/15/16 08:00 Room Air 04/15/16 07:51 37.1 96 20 105/66 98 04/15/16 04:13 37.0 105 18 99/66 98 Nasal Cannula 3.0 04/15/16 04:00 98 Room Air 3.0 I & O 24-Hour Column 04/15/16 08:00 Intake Total 955 ml Output Total 3950 ml Balance -2995 ml Last Recorded Weight Weight (Kilograms): 87.400 Physical Exam General Appearance: no apparent distress Head: normocephalic, atraumatic Eyes: PERRL, EOMI Neck: no adenopathy Respiratory/Chest: lungs clear Cardiovascular: + tachycardia Abdomen/GI: + distended Genitourinary - Male: + pertinent finding (genital edema unchanged) Extremities/Musculoskelatal: no calf tenderness, no pedal edema Neurologic/Psych: alert, oriented x 3 Family History Patient reports no known family medical history. Social History Marital Status: single Housing Status: other (incarcerated at [facility]) Occupation: unemployed Laboratory Results Past 24 Hours 04/15/16 06:41 Test 04/14/16 11:28 04/14/16 16:14 04/14/16 20:44 04/15/16 06:41 Bedside Glucose 217 mg/dl (70-99) 129 mg/dl (70-99) 144 mg/dl (70-99) Prothrombin Time 15.5 SECONDS (9.0-12.0) Prothromb Time International Ratio 1.4 (0.9-1.1) Anion Gap 6.0 mmol/L (3-11) Est Creatinine Clear Calc Drug Dose 46.8 ml/min Estimated GFR () 57.4 Estimated GFR (Non- 49.5 BUN/Creatinine Ratio 25.6 (10-20) Calcium Level 8.6 mg/dl (8.5-10.1) Magnesium Level 2.1 mg/dl (1.8-2.4) Test 04/15/16 06:52 Bedside Glucose 124 mg/dl (70-99) Allergies Coded Allergies: No Known Allergies (Unverified , 04/01/16) Medications Current Inpatient Medications Medications (Trade) Dose Ordered Sig/Jenny Route Start Time Stop Time Status Last Admin Dose Admin Insulin Aspart (novoLOG ASPART) SLIDING SCALE G... ACHS SC 04/06/16 21:00 05/06/16 20:59 04/15/16 08:07 3 UNITS Enoxaparin Sodium (Lovenox Inj) 30 mg QPM SC 04/06/16 21:00 05/06/16 20:59 04/14/16 20:40 30 MG Acetaminophen (Tylenol Tab) 650 mg Q4H PRN PO 04/06/16 18:15 05/06/16 18:14 04/14/16 04:06 650 MG Ondansetron HCl (Zofran Inj) 4 mg Q6H PRN IV 04/06/16 18:15 05/06/16 18:14 04/07/16 11:16 4 MG Aspirin (Ecotrin Tab) 81 mg QAM PO 04/07/16 09:00 05/07/16 08:59 04/15/16 08:10 81 MG Pantoprazole Sodium (Protonix Tab) 40 mg QAM PO 04/07/16 09:00 05/07/16 08:59 04/15/16 08:10 40 MG Pravastatin Sodium (Pravachol Tab) 20 mg HS PO 04/06/16 21:00 05/06/16 20:59 04/14/16 20:38 20 MG Tamsulosin HCl (Flomax Cap) 0.4 mg QAM PO 04/07/16 09:00 05/07/16 08:59 04/15/16 08:11 0.4 MG Glucose (Glucose 40% Gel) 15-30 GRAMS 15 GRAMS... UD PRN PO 04/06/16 19:45 05/06/16 19:44 Glucose (Glucose Chew Tab) 4-8 Tablets 4 Tabl... UD PRN PO 04/06/16 19:45 05/06/16 19:44 04/07/16 00:15 4 TABS Dextrose (Dextrose 50% 50ML Syringe) 25-50ML OF 50% DW IV FOR... UD PRN IV 04/06/16 19:45 05/06/16 19:44 04/09/16 06:44 25 ML Glucagon (Glucagon Inj) 1 mg UD PRN SQ 04/06/16 19:45 05/06/16 19:44 Miscellaneous Information (Pending Order) 1 ea DAILY@10 N/A 04/09/16 10:00 05/09/16 09:59 04/14/16 10:33 1 EA Bisacodyl (Dulcolax Supp) 10 mg DAILY PRN NM 04/09/16 12:30 05/09/16 12:29 Bisacodyl (Dulcolax Tab) 5 mg DAILY PRN PO 04/09/16 12:30 05/09/16 12:29 Enteral Nutritional Formula (Boost Pudding) 1 cup TIDM PO 04/10/16 12:00 05/10/16 11:59 04/15/16 08:04 1 CUP Trimethoprim/ Sulfamethoxazole (Septra Ds 800/ 160MG Tab) 1 tab Q12 PO 04/13/16 09:00 04/18/16 08:59 04/15/16 08:10 1 TAB Finasteride (Proscar Tab) 5 mg QAM PO 04/14/16 09:00 05/14/16 08:59 04/15/16 08:10 5 MG Oxycodone/ Acetaminophen (Percocet 5-325mg Tab) 1 tab Q4H PRN PO 04/13/16 16:00 04/27/16 15:59 04/14/16 08:26 1 TAB Warfarin Sodium (Coumadin Tab) 5 mg DAILY@16 PO 04/14/16 16:00 05/14/16 15:59 04/14/16 15:53 5 MG Carvedilol (Coreg Tab) 3.125 mg BID PO 04/14/16 21:00 05/14/16 20:59 04/15/16 08:10 3.125 MG Ferrous Sulfate (Feosol Tab) 325 mg QAM PO 04/15/16 09:00 05/15/16 08:59 04/15/16 08:10 325 MG Polyethylene (Miralax Powder Packet) 17 gm BID PO 04/15/16 21:00 05/15/16 20:59 Impression (1) ERA (acute kidney injury) (2) CKD (chronic kidney disease) (3) Hyponatremia (4) Hyperkalemia (5) Hypoglycemia (6) Acute on chronic combined systolic and diastolic CHF (congestive heart failure) (7) Chronic liver disease (8) Pulmonary hypertension Mr. Snell is a 71-year-old male w/ ASCVD, T2DM, COPD, atrial fibrillation with systolic and diastolic CHF who presents with hypoglycemia, hyperkalemia, hyponatremia and renal failure. Evaluation notable for cor pulmonale. Transthoracic echocardiogram documented elevated PASP of 35 - 42 mmHG as well as mitral and tricuspid valvular heart disease. CT scan is concerning for cirrhosis. Renal US shows mild bilateral hydronephrosis with a dilated thickened bladder c/w NEWMAN. Patient has significant genital edema. Recommendations ACUTE KIDNEY INJURY: -- Resolved. Baseline creatinine has been 1.6. -- Patient has persitent genital edema. This is only mildly improved w/ diuretic therapy. Patient has diuresed ~ 22 kg since admission. -- Stop bumex gtt due to progressive metabolic alkalosis. Will provide one dose of IV acetazolamide -- Monitor I&O's, serial PRP and Mg CHRONIC KIDNEY DISEASE: -- Baseline creatinine has been 1.6 -- Will check urine sediment and UPCR once ERA resolves EDEMA: -- Patient has cor pulmonale. Echocardiogram results reviewed. He has PASP ~ 40 w/ TR -- Continue Bumetanide drip. Patient is responding well. Volume status has improved and creatinine is trending downward CIRRHOSIS: -- GI recommendations reviewed today. Patient likely has cirrhosis on the basis of SCALES exacerbated by cor pulmonale/CHF -- Hepatitis serologies were negative -- Iron studies were not c/w hemochromatosis -- alpha fetoprotein has been ordered -- Will add Aldactone to diuretic regimen when patient is switched to oral diuretics
[2016-04-15 12:06] LABS: AFP TUMOR MARKER SERUM 0.9 NG/ML (<6.1)
--- NOTE | 2016-04-15 13:29 | Progress Note ---
Subjective Date of Service: Apr 15, 2016. Subjective Pt evaluation today including: conversation w/ patient, physical exam, chart review, lab review, review of studies, review of inpatient medication list Pt seen and examined Diuresing well with bumex No chest pain or shortness of breath Resting comfortably in bed Problem List Medical Problems: (1) Cellulitis of leg, right Status: Acute (2) CHF (congestive heart failure) Status: Acute (3) CHF (congestive heart failure) Status: Acute (4) Failure of outpatient treatment Status: Acute (5) Noncompliance with medications Status: Acute Review of Systems Constitutional: No chills, No fever Respiratory: No cough, No dyspnea on exertion, No shortness of breath, No sputum, No wheezing Cardiac: No chest pain, No orthopnea Abdomen: No constipation, No diarrhea, No nausea, No pain, No vomiting Musculoskeletal: No joint pain, No muscle pain Male : No dysuria, No urinary frequency Objective Vital Signs Date Time Temp Pulse Resp B/P Pulse Ox O2 Delivery O2 Flow Rate FiO2 04/15/16 12:00 Room Air 04/15/16 11:18 37.3 95 20 99/62 95 Nasal Cannula 2.0 04/15/16 08:00 Room Air 04/15/16 07:51 37.1 96 20 105/66 98 04/15/16 04:13 37.0 105 18 99/66 98 Nasal Cannula 3.0 04/15/16 04:00 98 Room Air 3.0 04/15/16 00:01 98 Room Air 3.0 04/14/16 23:10 37.1 68 18 106/65 98 Nasal Cannula 2.0 04/14/16 20:00 95 Room Air 3.0 04/14/16 16:30 37.0 110 18 110/54 95 04/14/16 16:00 95 Room Air Physical Exam General Appearance: WD/WN, no apparent distress Neck: supple, no adenopathy Respiratory/Chest: lungs clear, normal breath sounds Cardiovascular: no edema, no gallop Abdomen: non tender, soft Neurologic/Psychiatric: alert, oriented x 3 Laboratory Results Last 24 Hours Test 04/14/16 16:14 04/14/16 20:44 04/15/16 06:41 04/15/16 06:52 Bedside Glucose 129 mg/dl 144 mg/dl 124 mg/dl Prothrombin Time 15.5 SECONDS Prothromb Time International Ratio 1.4 Sodium Level 138 mmol/L Potassium Level 3.5 mmol/L Chloride Level 96 mmol/L Carbon Dioxide Level 36 mmol/L Anion Gap 6.0 mmol/L Blood Urea Nitrogen 36 mg/dl Creatinine 1.40 mg/dl Est Creatinine Clear Calc Drug Dose 46.8 ml/min Estimated GFR () 57.4 Estimated GFR (Non- 49.5 BUN/Creatinine Ratio 25.6 Random Glucose 125 mg/dl Calcium Level 8.6 mg/dl Magnesium Level 2.1 mg/dl Test 04/15/16 11:16 04/15/16 12:01 Magnesium Level 2.0 mg/dl Chemistry Specimen Hemolysis Bedside Glucose 271 mg/dl Assessment and Plan 70-year-old male with a history of type 2 diabetes and chronic diastolic heart failure and transferred to the ED with an episode of persistent hypoglycemia Hypoglycemia - likely the long half life of glipizide and combination with liver cirrhosis and age of the patient are causing hypoglycemia, plus poor oral intake glipizide has been discontinued, metformin also on hold Will make sure the patient does resume this medication once discharged back to [place] [facility] Will need explicit discharge instructions! Cirrhosis--?etiology, congestion from right heart failure vs SCALES vs viral etology. Not a liver transplant candidate given COPD and CHF. Had EGD 09/2014 negative for varices. Reasonable to do another EGD electively as outpt when stable from current CHF. ferritin and hepatitis profile unremarkable. Ascites--diagnostic paracentesis--could do a cell count and differential for SBP although with this volume of fluid less likely, cytology for cancer and albumin to further assess for portal HTN. Pt would need to be off coumadin with more normalized PT INR Acute on Chronic systolic and diastolic heart failure which is evident by severe edema and scrotal edema, has been on on IV Lasix and albumin for 3 days, Blood pressure at borderline low, has been catheterization of in and out - Echo completed: * -- Conclusions -- * 1. Mildly dilated LV with mild concentric LVH. * 2. Moderate global LV dysfunction. EF 35-40%. Paradoxical septal motion consistent with post-operative state. * 3. Dilated RV with moderate to severe RV dysfunction. * 4. Severe biatrial enlargement. * 5. Bioprosthetic aortic valve well seated with normal expected transvalvular gradients. * 6. Grade II diastolic dysfunction. * 7. Mild-moderate mitral regurgitation * 8. Moderate tricuspid regurgitation. * 9. Dilated IVC suggestive of elevated RA pressure (15 mmHg). Mild pulmonary hypertension (PASP 35-40 mmHg.) * 10. Compared with prior study on 10/11/2014: LV dysfunction is now moderate. - Liver cirrhosis and ascites and hyponatremia and scrotal edema Combined the above CHF exacerbation and liver cirrhosis conditions with ascites , patient is hypervol hyponatremia, Will continue current care, with fluid restrictions 1.5 L a day, check in and out, 2 g sodium diet, -Diurese well with IV bumex but dced due to elev bicarb, will give one dose of acetazolamide History of coronary artery disease status post CABG-asymptomatic -Continue medical management with Lopressor 12.5 mg BID, pravastatin 20 mg HS COPD with chronic respiratory failure-Baseline -Duo nebs every 6 hours we'll be available - Continue chronic O2= 2 L History of bioprosthetic AVR -Helping on warfarin 2 mg HS, we'll increase to 5 mg by mouth daily , will follow-up PT/INR -Will need to hold for paracentesis Acute on chronic renal insufficiency, likely from CHF exacerbation and kidney congestion, which is evident from renal function improved after diuretic -?obstruction component, urology consulted, maintain chowdary at this time, will need cystoscopy as outpt History of GI bleed-stable. No signs of active bleeding Constipation, gave Dulcolax oral, and suppository, yesterday no help, we will order one fleet enema now DVT prophylaxis -Coumadin, if INR level was coming up we should stop Lovenox -TEDS, SCDs CODE STATUS- FULL CODE Continued [facility] stay due to: multiple IV medications needed Discharge planning: other ([facility])
[2016-04-15] MEDS: WARFARIN SOD 5 MG TAB PO SCH (16:37)
[2016-04-15] MEDS: POLYETHYLENE (MIRALAX) 17 GM PACK PO SCH (20:00)
[2016-04-15] MEDS: PRAVASTATIN SOD 20 MG TAB PO SCH (20:01)
[2016-04-15 20:23] LABS: PARTIAL THROMBOPLASTIN RATIO 1.5
--- NOTE | 2016-04-15 20:25 | CARDIOLOGY PROGRESS NOTE ---
DATE: 04/15/2016 TIME: 1929 p.m. SUBJECTIVE: Feeling much better on a daily basis. Still has some shortness of breath. No chest pain, syncope, near syncope, or palpitations. He believes that his swelling is improving daily as well. OBJECTIVE: VITAL SIGNS: Temperature 37.2 degrees, heart rate 92 beats per minute, respiration rate 18, blood pressure 96/60 mmHg, oxygen saturation 96% on room air. I's and O's negative 4 liters yesterday. Weight is 87.4 kg. Cumulative fluid balance for this hospitalization is negative 19.1 liters. GENERAL: In no acute distress. He is alert. NECK: Elevated JVD. CARDIAC EXAM: No ventricular heave, irregularly irregular, normal S1, S2. 2/6 early peaking systolic ejection murmur best heard at the right upper sternal border. No rubs or gallops. ABDOMEN: Soft, nontender, nondistended. Normoactive bowel sounds. EXTREMITIES: Edema has significantly improved. There is 1+ pitting edema in the dependent areas. No cyanosis. PSYCHIATRIC: Affect appears appropriate. MEDICATIONS: Include aspirin 81 mg daily, carvedilol 3.125 mg p.o. b.i.d., Bumex drip was discontinued earlier today by nephrology, Lovenox 40 mg subQ daily, Coumadin 5 mg daily, Protonix 40 mg daily, pravastatin 20 mg daily. DATA: INR is 1.4. Sodium 138, potassium 3.5, BUN 36, creatinine 1.4, magnesium 2.1. Telemetry personally reviewed. Had a 5-beat run of ventricular tachycardia. ASSESSMENT AND PLAN: 1. Acute on chronic systolic congestive heart failure: Volume status is improving on a daily basis. He still is hypervolemic. Bumex drip was discontinued earlier today. Upon reassessment tomorrow, would recommend further diuretic therapy with a goal of net negative fluid balance pending laboratory data. Continue low sodium diet, daily weights and strict I's and O's. 2. Atrial flutter/fibrillation: Continue anticoagulation for stroke risk reduction. Coumadin was just recently increased to 5 mg with his first dose last night. His INR is not therapeutic and likely will require a few days to become therapeutic. Therefore we will start heparin drip, given the fact that he does have a bioprosthetic aortic valve and in the setting of atrial fibrillation/flutter. 3. Cardiomyopathy: He is tolerating carvedilol 3.125 mg twice daily well. This can be up titrated slowly over time. If blood pressure will allow, can also start CHEMA inhibitor or Entresto in the future. Would first like to titrate beta cyrus however, given ventricular tachycardia and atrial fibrillation/flutter. We will consider increasing this tomorrow if continues to do well. We once again discussed ischemic evaluation. He is not interested in cardiac catheterization at this time. Risks and benefits were discussed with him. He prefers medical management only at this time. 4. Mitral regurgitation: Non-severe. Continue to follow. 5. Paroxysmal ventricular tachycardia. He does have an ICD in place. Continue beta cyrus with titration in the near future if tolerated. 6. Aortic valve replacement: Bioprosthetic aortic valve. SBE prophylaxis for dental procedure. 7. ICD: Followed by Dr. Sawyer. 8. Disposition: Cardiology will continue to follow.
[2016-04-15] MEDS: HEPARIN 25,000 UNIT/500ML D5W 500 ML IV PRN (20:35)
[2016-04-15] MEDS ORDERED: ENOXAPARIN 40 MG/0.4 ML SYR SC SCH (21:00)
[2016-04-16] VITALS (11 sets, daily range): BP systolic 86–131; BP diastolic 55–79; PULSE 59–97; TEMP 36.6–37.1; O2SAT 90–100
[2016-04-16 03:53] LABS: PARTIAL THROMBOPLASTIN RATIO 2.3
[2016-04-16 07:08] LABS: INR 1.5 (0.9-1.1); PROTHROMBIN TIME (PATIENT) 15.8 SECONDS (9.0-12.0)
[2016-04-16 07:26] LABS: BUN/CREATININE RATIO 23.1 (10-20); CALCIUM 8.5 mg/dl (8.5-10.1); CREATININE 1.7 mg/dl (0.60-1.40); POTASSIUM 3.8 mmol/L (3.5-5.1)
[2016-04-16] MEDS: SULFAMETHOXAZOLE/TRIMETHOPRIM DS 800/160MG TAB PO SCH ×2 (08:26→20:45)
[2016-04-16] MEDS: BOOST VANILLA PUDDING CUP PO SCH ×2 (08:26→20:45)
[2016-04-16] MEDS: POLYETHYLENE (MIRALAX) 17 GM PACK PO SCH ×2 (08:26→20:46)
[2016-04-16] MEDS: CARVEDILOL 3.125 MG TAB PO SCH ×2 (08:27→20:45)
[2016-04-16] MEDS: FERROUS SULFATE 325 MG TAB PO SCH (08:28)
[2016-04-16] MEDS: FINASTERIDE 5 MG TAB PO SCH (08:28)
[2016-04-16] MEDS: ASPIRIN 81 MG ECTAB PO SCH (08:28)
[2016-04-16 08:29] LABS: BASO % 0.5 %; BASO ABS # 0.04 K/uL (0-0.2); COMPLETE YES; EOS % 7.9 %; HEMATOCRIT 29.7 % (42-52); IG% 0.3 %; LYMPH % 6.7 %; LYMPH ABS # 0.51 K/uL (1.2-3.4); MEAN CELL VOLUME 81.6 fL (80-100); MEAN CORPUSCULAR HEMOGLOBIN 30.8 pg (25-34); MEAN CORPUSCULAR HGB CONC 37.7 g/dl (32-36); MEAN PLATELET VOLUME 11.7 fL (7.4-10.4); MONO % 13.2 %; NEUT % 71.4 %; PLATELET COUNT 172 K/uL (130-400); RED BLOOD COUNT 3.64 M/uL (4.7-6.1); WHITE BLOOD COUNT 7.57 K/uL (4.8-10.8)
[2016-04-16] MEDS: PANTOprazole SOD 40 MG TAB PO SCH (08:29)
[2016-04-16] MEDS: TAMSULOSIN HCL 0.4 MG CAP PO SCH (08:29)
[2016-04-16] MEDS: INSULIN ASPART 100 UNITS/ML 3 ML PEN SC SCH ×4 (08:45→20:52)
--- NOTE | 2016-04-16 11:12 | Nephrology Progress Note ---
Nephrology Progress Note Date of Service Apr 16, 2016. Chief Complaint Follow up evaluation of nonoliguric acute on chronic kidney injury Subjective Mr. Snell was seen & examined in the PCU this morning. He was admitted to the hospital following a hypoglycemic event. He is diabetic. Blood sugar has recovered following dextrose administration. The patient was found to have lower extremity and genital edema at the time of admission. Laboratory studies revealed acute on chronic kidney injury. Serum creatinine had risen from 1.6 to 3.0. Renal US revealed mild bilateral hydronephrosis and bladder wall thickening. Kidney function has improved following chowdary catheter insertion. IV bumetanide gtt stopped yesterday due to progressive alkalosis. Patient continues to diurese on his own. Mr. Snell's medical history is also significant for T2DM, cirrhosis, atrial fibrillation, COPD, pulmonary hypertension and diastolic CHF. He denies any history of alcohol abuse. The patient has been incarcerated for 3 years. He expects to be released next month. The patient's primary concern today is persistent genital swelling. His weight is down 31 kg in response to diuretic therapy. Review of Systems Constitutional: No fever Cardiovascular: No chest pain Respiratory: No dyspnea at rest Abdomen: No pain Extremities: No leg edema A complete review of systems was performed. Pertinent positives are noted above. All other systems are negative. Vital Signs Last 8 Hrs Date Time Temp Pulse Resp B/P Pulse Ox O2 Delivery O2 Flow Rate FiO2 04/16/16 08:00 Room Air 04/16/16 07:53 36.7 73 16 86/56 90 Nasal Cannula 2.0 04/16/16 04:00 96 Room Air 04/16/16 03:17 36.8 72 18 93/55 95 Nasal Cannula 2.0 I & O 24-Hour Column 04/16/16 07:59 Intake Total 725 ml Output Total 4225 ml Balance -3500 ml Last Recorded Weight Weight (Kilograms): 78.100 Physical Exam General Appearance: no apparent distress Head: normocephalic, atraumatic Eyes: PERRL Neck: no adenopathy Respiratory/Chest: lungs clear, no respiratory distress Cardiovascular: regular rate, rhythm Abdomen/GI: normal bowel sounds, non tender, soft Genitourinary - Male: + pertinent finding (3+ genital edema) Extremities/Musculoskelatal: + swelling (1+ pretibial pitting edema) Neurologic/Psych: alert, oriented x 3 Family History Patient reports no known family medical history. Social History Marital Status: single Housing Status: other (incarcerated at [facility]) Occupation: unemployed Laboratory Results Past 24 Hours 04/16/16 06:20 Red Blood Count 3.64, Mean Corpuscular Volume 81.6, Mean Corpuscular Hemoglobin 30.8, Mean Corpuscular Hemoglobin Concent 37.7, Mean Platelet Volume 11.7, Neutrophils (%) (Auto) 71.4, Lymphocytes (%) (Auto) 6.7, Monocytes (%) (Auto) 13.2, Eosinophils (%) (Auto) 7.9, Basophils (%) (Auto) 0.5, Neutrophils # (Auto ) 5.40, Lymphocytes # (Auto) 0.51, Monocytes # (Auto) 1.00, Eosinophils # (Auto ) 0.60, Basophils # (Auto) 0.04 04/16/16 06:20 Test 04/15/16 11:16 04/15/16 12:01 04/15/16 16:33 04/15/16 20:05 Magnesium Level 2.0 mg/dl (1.8-2.4) Chemistry Specimen Hemolysis Bedside Glucose 271 mg/dl (70-99) 213 mg/dl (70-99) 218 mg/dl (70-99) Activated Partial Thromboplast Time 39.7 SECONDS (21.0-31.0) Partial Thromboplastin Ratio 1.5 Test 04/16/16 03:11 04/16/16 06:20 04/16/16 07:02 Activated Partial Thromboplast Time 59.1 SECONDS (21.0-31.0) Partial Thromboplastin Ratio 2.3 White Blood Count 7.57 K/uL (4.8-10.8) Red Blood Count 3.64 M/uL (4.7-6.1) Hemoglobin 11.2 g/dL (14.0-18.0) Hematocrit 29.7 % (42-52) Mean Corpuscular Volume 81.6 fL (80-100) Mean Corpuscular Hemoglobin 30.8 pg (25-34) Mean Corpuscular Hemoglobin Concent 37.7 g/dl (32-36) Platelet Count 172 K/uL (130-400) Mean Platelet Volume 11.7 fL (7.4-10.4) Neutrophils (%) (Auto) 71.4 % Lymphocytes (%) (Auto) 6.7 % Monocytes (%) (Auto) 13.2 % Eosinophils (%) (Auto) 7.9 % Basophils (%) (Auto) 0.5 % Neutrophils # (Auto) 5.40 K/uL (1.4-6.5) Lymphocytes # (Auto) 0.51 K/uL (1.2-3.4) Monocytes # (Auto) 1.00 K/uL (0.11-0.59) Eosinophils # (Auto) 0.60 K/uL (0-0.5) Basophils # (Auto) 0.04 K/uL (0-0.2) RDW Standard Deviation 44.8 fL (36.4-46.3) RDW Coefficient of Variation 15.2 % (11.5-14.5) Immature Granulocyte % (Auto) 0.3 % Immature Granulocyte # (Auto) 0.02 K/uL (0.00-0.02) Prothrombin Time 15.8 SECONDS (9.0-12.0) Prothromb Time International Ratio 1.5 (0.9-1.1) Anion Gap 8.0 mmol/L (3-11) Est Creatinine Clear Calc Drug Dose 36.5 ml/min Estimated GFR () 45.4 Estimated GFR (Non- 39.1 BUN/Creatinine Ratio 23.1 (10-20) Calcium Level 8.5 mg/dl (8.5-10.1) Magnesium Level 1.9 mg/dl (1.8-2.4) Bedside Glucose 164 mg/dl (70-99) Allergies Coded Allergies: No Known Allergies (Unverified , 04/01/16) Medications Current Inpatient Medications Medications (Trade) Dose Ordered Sig/Jenny Route Start Time Stop Time Status Last Admin Dose Admin Insulin Aspart (novoLOG ASPART) SLIDING SCALE G... ACHS SC 04/06/16 21:00 05/06/16 20:59 04/16/16 08:45 5 UNITS Acetaminophen (Tylenol Tab) 650 mg Q4H PRN PO 04/06/16 18:15 05/06/16 18:14 04/14/16 04:06 650 MG Ondansetron HCl (Zofran Inj) 4 mg Q6H PRN IV 04/06/16 18:15 05/06/16 18:14 04/07/16 11:16 4 MG Aspirin (Ecotrin Tab) 81 mg QAM PO 04/07/16 09:00 05/07/16 08:59 04/16/16 08:28 81 MG Pantoprazole Sodium (Protonix Tab) 40 mg QAM PO 04/07/16 09:00 05/07/16 08:59 04/16/16 08:29 40 MG Pravastatin Sodium (Pravachol Tab) 20 mg HS PO 04/06/16 21:00 05/06/16 20:59 04/15/16 20:01 20 MG Tamsulosin HCl (Flomax Cap) 0.4 mg QAM PO 04/07/16 09:00 05/07/16 08:59 04/16/16 08:29 0.4 MG Glucose (Glucose 40% Gel) 15-30 GRAMS 15 GRAMS... UD PRN PO 04/06/16 19:45 05/06/16 19:44 Glucose (Glucose Chew Tab) 4-8 Tablets 4 Tabl... UD PRN PO 04/06/16 19:45 05/06/16 19:44 04/07/16 00:15 4 TABS Dextrose (Dextrose 50% 50ML Syringe) 25-50ML OF 50% DW IV FOR... UD PRN IV 04/06/16 19:45 05/06/16 19:44 04/09/16 06:44 25 ML Glucagon (Glucagon Inj) 1 mg UD PRN SQ 04/06/16 19:45 05/06/16 19:44 Bisacodyl (Dulcolax Supp) 10 mg DAILY PRN OH 04/09/16 12:30 05/09/16 12:29 Bisacodyl (Dulcolax Tab) 5 mg DAILY PRN PO 04/09/16 12:30 05/09/16 12:29 Trimethoprim/ Sulfamethoxazole (Septra Ds 800/ 160MG Tab) 1 tab Q12 PO 04/13/16 09:00 04/18/16 08:59 04/16/16 08:26 1 TAB Finasteride (Proscar Tab) 5 mg QAM PO 04/14/16 09:00 05/14/16 08:59 04/16/16 08:28 5 MG Oxycodone/ Acetaminophen (Percocet 5-325mg Tab) 1 tab Q4H PRN PO 04/13/16 16:00 04/27/16 15:59 04/14/16 08:26 1 TAB Warfarin Sodium (Coumadin Tab) 5 mg DAILY@16 PO 04/14/16 16:00 05/14/16 15:59 04/15/16 16:37 5 MG Carvedilol (Coreg Tab) 3.125 mg BID PO 04/14/16 21:00 05/14/16 20:59 04/15/16 20:01 3.125 MG Ferrous Sulfate (Feosol Tab) 325 mg QAM PO 04/15/16 09:00 05/15/16 08:59 04/16/16 08:28 325 MG Polyethylene (Miralax Powder Packet) 17 gm BID PO 04/15/16 21:00 05/15/16 20:59 04/16/16 08:26 17 GM Enteral Nutritional Formula 1 cup 1 cup BIDM PO 04/15/16 16:45 05/15/16 16:44 04/16/16 08:26 1 CUP Heparin Sodium/ Dextrose (Heparin 25,000 Unit/500ml D5W) 500 ml @ 25 mls/hr Q20H PRN IV 04/15/16 20:00 05/15/16 19:59 04/15/16 20:35 25 MLS/HR Impression (1) ERA (acute kidney injury) (2) CKD (chronic kidney disease) (3) Hyponatremia (4) Hyperkalemia (5) Hypoglycemia (6) Acute on chronic combined systolic and diastolic CHF (congestive heart failure) (7) Chronic liver disease (8) Pulmonary hypertension Mr. Snell is a 71-year-old male w/ ASCVD, T2DM, COPD, atrial fibrillation with systolic and diastolic CHF who presents with hypoglycemia, hyperkalemia, hyponatremia and renal failure. Evaluation notable for cor pulmonale. Transthoracic echocardiogram documented elevated PASP of 35 - 42 mmHG as well as mitral and tricuspid valvular heart disease. CT scan is concerning for cirrhosis. Renal US shows mild bilateral hydronephrosis with a dilated thickened bladder c/w [place]MAN. Patient has significant genital edema. Recommendations ACUTE KIDNEY INJURY: -- Resolved. Baseline creatinine has been 1.6. -- Patient has persitent genital edema. This is mildly improved w/ diuretic therapy. Patient has diuresed ~ 31 kg since admission. -- Hold Bumex gtt due to progressive metabolic alkalosis. Will redose IV acetazolamide today. -- Monitor I&O's, serial PRP and Mg CHRONIC KIDNEY DISEASE: -- Baseline creatinine has been 1.6 -- Will check urine sediment and UPCR once ERA resolves EDEMA: -- Patient has cor pulmonale. Echocardiogram results reviewed. He has PASP ~ 40 w/ TR -- Hold Bumex gtt due to progressive metabolic alkalosis. CIRRHOSIS: -- GI recommendations reviewed today. Patient likely has cirrhosis on the basis of SCALES exacerbated by cor pulmonale/CHF -- Hepatitis serologies were negative -- Iron studies were not c/w hemochromatosis -- alpha fetoprotein has been ordered -- Will add Aldactone to diuretic regimen when patient is switched to oral diuretics
[2016-04-16] MEDS ORDERED: ACETAZOLAMIDE IV PUSH 250 MG in SYRINGE 0 ML IV ONE (11:30)
--- NOTE | 2016-04-16 11:43 | CARDIOLOGY PROGRESS NOTE ---
DATE: 04/16/2016 TIME: 11:21 a.m. SUBJECTIVE: Mr. Snell states that his breathing is back to baseline. He denies orthopnea, syncope, near syncope, or chest pain. He denies lightheadedness or dizziness. He believes that his scrotal pain is much improved. OBJECTIVE: VITAL SIGNS: Temperature 36.7 degrees, heart rate 73 beats per minute, respiratory rate 16, blood pressure 86/56 mmHg, and oxygen saturation 90% on 2 liters per nasal cannula. I's and O's negative 4.2 liters yesterday. Weight today is 78.1 kilograms. Cumulative net fluid balance this hospitalization is negative 20.8 liters. GENERAL: In no acute distress. He is alert. NECK: Mildly elevated JVD. CARDIAC EXAM: No ventricular heave. Irregularly irregular. Normal S1 and S2. 1/6 early peaking systolic ejection murmur best heard at the right upper sternal border. No rubs or gallops. LUNGS: Clear upon anterior auscultation. ABDOMEN: Soft, nontender, and nondistended. Normoactive bowel sounds. No bruits. EXTREMITIES: Trace to 1+ bilateral lower extremity edema in the dependent areas, which is mostly in the proximal lower extremities as his feet are more elevated. No cyanosis. PSYCHIATRIC: Affect appears appropriate. MEDICATIONS: Include aspirin 81 mg daily. Carvedilol 3.125 mg p.o. b.i.d.; however, this morning's dose was held due to hypotension. Heparin drip per protocol, Coumadin 5 mg daily, and pravastatin 20 mg at bedtime. LABORATORY DATA: White blood cell count 7.57, hemoglobin 11.2, and platelets 172. INR 1.5 and PTT 59. Sodium 135, potassium 3.8, BUN 39, creatinine 1.7, and magnesium 1.9. Telemetry personally reviewed. Continues to have PVCs and ventricular couplets. No significant ventricular tachycardia in the last 24 hours. ASSESSMENT AND PLAN: 1. Acute on chronic systolic congestive heart failure: He has biventricular systolic dysfunction. Will hold off on any further diuretics today. He is being given acetazolamide by nephrology. His renal function did worsen today compared to yesterday. He continues to have net negative fluid balance despite holding Bumex since yesterday. Continue low sodium diet, daily weights and strict I's and O's. 2. Atrial fibrillation/flutter: Continue heparin drip while INR is subtherapeutic. He is adequately rate controlled. 3. Cardiomyopathy: Carvedilol was held this morning due to hypotension. Therefore, it will not be increased as discussed yesterday. Holding off on CHEMA inhibitor or Entresto for hypotension as well as the change in renal function throughout his hospital stay; however, it may be an option in the future if his blood pressure allows. 4. Mitral regurgitation: Nonsevere. Continue to follow. It may actually appear improved due to improvement in volume status. 5. Paroxysmal ventricular tachycardia: He has an ICD in place with shock in February. Continue beta cyrus and titrated if possible as noted above. 6. ICD: Followed by Dr. Sawyer. 7. Aortic valve replacement: He has a bioprosthetic aortic valve. SBE prophylaxis for dental procedures. Appropriate function noted on echo. 8. Hypotension: He is asymptomatic. May be due to the brisk diuresis that he has had over several hospital days. Continue to monitor for now. 9. Disposition: Cardiology will continue to follow.
--- NOTE | 2016-04-16 15:18 | Progress Note ---
Subjective Date of Service: Apr 16, 2016. Subjective Pt evaluation today including: conversation w/ patient, physical exam, chart review, lab review, review of studies, review of inpatient medication list Problem List Medical Problems: (1) Cellulitis of leg, right Status: Acute (2) CHF (congestive heart failure) Status: Acute (3) CHF (congestive heart failure) Status: Acute (4) Failure of outpatient treatment Status: Acute (5) Noncompliance with medications Status: Acute Review of Systems Constitutional: No chills, No fever Respiratory: No cough, No dyspnea on exertion, No shortness of breath, No sputum, No wheezing Cardiac: No chest pain, No orthopnea Abdomen: No constipation, No diarrhea, No nausea, No pain, No vomiting Musculoskeletal: No joint pain, No muscle pain Male : No dysuria, No urinary frequency Objective Vital Signs Date Time Temp Pulse Resp B/P Pulse Ox O2 Delivery O2 Flow Rate FiO2 04/16/16 14:40 36.8 66 18 99/64 98 Nasal Cannula 2.0 04/16/16 12:03 36.6 70 16 91/55 93 04/16/16 12:00 Room Air 04/16/16 08:00 Room Air 04/16/16 07:53 36.7 73 16 86/56 90 Nasal Cannula 2.0 04/16/16 04:00 96 Room Air 04/16/16 03:17 36.8 72 18 93/55 95 Nasal Cannula 2.0 04/16/16 00:00 96 Room Air 04/16/16 00:00 37.1 80 24 92/58 96 Room Air 04/15/16 20:00 Room Air 04/15/16 19:28 37.2 92 18 96/60 96 04/15/16 16:00 Room Air 04/15/16 15:52 37.1 93 20 100/60 97 2.0 Physical Exam General Appearance: WD/WN, no apparent distress Neck: supple, no adenopathy Respiratory/Chest: chest non-tender, lungs clear, normal breath sounds Cardiovascular: no edema, no gallop Abdomen: non tender, soft Neurologic/Psychiatric: alert, normal mood/affect Laboratory Results Last 24 Hours Test 04/15/16 16:33 04/15/16 20:05 04/16/16 03:11 04/16/16 06:20 Bedside Glucose 213 mg/dl 218 mg/dl Activated Partial Thromboplast Time 39.7 SECONDS 59.1 SECONDS Partial Thromboplastin Ratio 1.5 2.3 White Blood Count 7.57 K/uL Red Blood Count 3.64 M/uL Hemoglobin 11.2 g/dL Hematocrit 29.7 % Mean Corpuscular Volume 81.6 fL Mean Corpuscular Hemoglobin 30.8 pg Mean Corpuscular Hemoglobin Concent 37.7 g/dl Platelet Count 172 K/uL Mean Platelet Volume 11.7 fL Neutrophils (%) (Auto) 71.4 % Lymphocytes (%) (Auto) 6.7 % Monocytes (%) (Auto) 13.2 % Eosinophils (%) (Auto) 7.9 % Basophils (%) (Auto) 0.5 % Neutrophils # (Auto) 5.40 K/uL Lymphocytes # (Auto) 0.51 K/uL Monocytes # (Auto) 1.00 K/uL Eosinophils # (Auto) 0.60 K/uL Basophils # (Auto) 0.04 K/uL RDW Standard Deviation 44.8 fL RDW Coefficient of Variation 15.2 % Immature Granulocyte % (Auto) 0.3 % Immature Granulocyte # (Auto) 0.02 K/uL Prothrombin Time 15.8 SECONDS Prothromb Time International Ratio 1.5 Sodium Level 135 mmol/L Potassium Level 3.8 mmol/L Chloride Level 94 mmol/L Carbon Dioxide Level 33 mmol/L Anion Gap 8.0 mmol/L Blood Urea Nitrogen 39 mg/dl Creatinine 1.70 mg/dl Est Creatinine Clear Calc Drug Dose 36.5 ml/min Estimated GFR () 45.4 Estimated GFR (Non- 39.1 BUN/Creatinine Ratio 23.1 Random Glucose 157 mg/dl Calcium Level 8.5 mg/dl Magnesium Level 1.9 mg/dl Test 04/16/16 07:02 04/16/16 11:16 Bedside Glucose 164 mg/dl 302 mg/dl Assessment and Plan 70-year-old male with a history of type 2 diabetes and chronic diastolic heart failure and transferred to the ED with an episode of persistent hypoglycemia Hypoglycemia - likely the long half life of glipizide and combination with liver cirrhosis and age of the patient are causing hypoglycemia, plus poor oral intake glipizide has been discontinued, metformin also on hold Will make sure the patient does resume this medication once discharged back to intermediate Will need explicit discharge instructions! Cirrhosis--?etiology, congestion from right heart failure vs SCALES vs viral etology. Not a liver transplant candidate given COPD and CHF. Had EGD 09/2014 negative for varices. Reasonable to do another EGD electively as outpt when stable from current CHF. ferritin and hepatitis profile unremarkable. Ascites--diagnostic paracentesis--could do a cell count and differential for SBP although with this volume of fluid less likely, cytology for cancer and albumin to further assess for portal HTN. Pt would need to be off coumadin with more normalized PT INR Acute on Chronic systolic and diastolic heart failure which is evident by severe edema and scrotal edema, has been on on IV Lasix and albumin for 3 days, Blood pressure at borderline low, has been catheterization of in and out - Echo completed: * -- Conclusions -- * 1. Mildly dilated LV with mild concentric LVH. * 2. Moderate global LV dysfunction. EF 35-40%. Paradoxical septal motion consistent with post-operative state. * 3. Dilated RV with moderate to severe RV dysfunction. * 4. Severe biatrial enlargement. * 5. Bioprosthetic aortic valve well seated with normal expected transvalvular gradients. * 6. Grade II diastolic dysfunction. * 7. Mild-moderate mitral regurgitation * 8. Moderate tricuspid regurgitation. * 9. Dilated IVC suggestive of elevated RA pressure (15 mmHg). Mild pulmonary hypertension (PASP 35-40 mmHg.) * 10. Compared with prior study on 10/11/2014: LV dysfunction is now moderate. - Liver cirrhosis and ascites and hyponatremia and scrotal edema Combined the above CHF exacerbation and liver cirrhosis conditions with ascites , patient is hypervol hyponatremia, Will continue current care, with fluid restrictions 1.5 L a day, check in and out, 2 g sodium diet, -Diurese well with IV bumex but dced due to elev bicarb History of coronary artery disease status post CABG-asymptomatic -Continue medical management with Lopressor 12.5 mg BID, pravastatin 20 mg HS COPD with chronic respiratory failure-Baseline -Duo nebs every 6 hours we'll be available - Continue chronic O2= 2 L History of bioprosthetic AVR -Helping on warfarin 2 mg HS, we'll increase to 5 mg by mouth daily , will follow-up PT/INR -Will need to hold for paracentesis Acute on chronic renal insufficiency, likely from CHF exacerbation and kidney congestion, which is evident from renal function improved after diuretic -?obstruction component, urology consulted, maintain chowdary at this time, will need cystoscopy as outpt History of GI bleed-stable. No signs of active bleeding Constipation, gave Dulcolax oral, and suppository, yesterday no help, we will order one fleet enema now DVT prophylaxis -Coumadin, if INR level was coming up we should stop Lovenox -TEDS, SCDs CODE STATUS- FULL CODE Continued [facility] stay due to: multiple IV medications needed Discharge planning: other ([facility])
--- NOTE | 2016-04-16 16:20 | Gastroenterology Progress Note ---
Progress Note Date of Service: Apr 16, 2016 Subjective Pt evaluation today including: conversation w/ patient, physical exam, chart review, lab review, review of studies, review of inpatient medication list cc f/u cirrhosis, ascites, constipation HPI Pt states no bowel movements yet. No abd pain Review of Systems Respiratory: No shortness of breath Cardiac: No chest pain Medications Current Inpatient Medications Medications (Trade) Dose Ordered Sig/Jenny Route Start Time Stop Time Status Last Admin Dose Admin Insulin Aspart (novoLOG ASPART) SLIDING SCALE G... ACHS SC 04/06/16 21:00 05/06/16 20:59 04/16/16 12:39 11 UNITS Acetaminophen (Tylenol Tab) 650 mg Q4H PRN PO 04/06/16 18:15 05/06/16 18:14 04/14/16 04:06 650 MG Ondansetron HCl (Zofran Inj) 4 mg Q6H PRN IV 04/06/16 18:15 05/06/16 18:14 04/07/16 11:16 4 MG Aspirin (Ecotrin Tab) 81 mg QAM PO 04/07/16 09:00 05/07/16 08:59 04/16/16 08:28 81 MG Pantoprazole Sodium (Protonix Tab) 40 mg QAM PO 04/07/16 09:00 05/07/16 08:59 04/16/16 08:29 40 MG Pravastatin Sodium (Pravachol Tab) 20 mg HS PO 04/06/16 21:00 05/06/16 20:59 04/15/16 20:01 20 MG Tamsulosin HCl (Flomax Cap) 0.4 mg QAM PO 04/07/16 09:00 05/07/16 08:59 04/16/16 08:29 0.4 MG Glucose (Glucose 40% Gel) 15-30 GRAMS 15 GRAMS... UD PRN PO 04/06/16 19:45 05/06/16 19:44 Glucose (Glucose Chew Tab) 4-8 Tablets 4 Tabl... UD PRN PO 04/06/16 19:45 05/06/16 19:44 04/07/16 00:15 4 TABS Dextrose (Dextrose 50% 50ML Syringe) 25-50ML OF 50% DW IV FOR... UD PRN IV 04/06/16 19:45 05/06/16 19:44 04/09/16 06:44 25 ML Glucagon (Glucagon Inj) 1 mg UD PRN SQ 04/06/16 19:45 05/06/16 19:44 Bisacodyl (Dulcolax Supp) 10 mg DAILY PRN [place] 04/09/16 12:30 05/09/16 12:29 Bisacodyl (Dulcolax Tab) 5 mg DAILY PRN PO 04/09/16 12:30 05/09/16 12:29 Trimethoprim/ Sulfamethoxazole (Septra Ds 800/ 160MG Tab) 1 tab Q12 PO 04/13/16 09:00 04/18/16 08:59 04/16/16 08:26 1 TAB Finasteride (Proscar Tab) 5 mg QAM PO 04/14/16 09:00 05/14/16 08:59 04/16/16 08:28 5 MG Oxycodone/ Acetaminophen (Percocet 5-325mg Tab) 1 tab Q4H PRN PO 04/13/16 16:00 04/27/16 15:59 04/14/16 08:26 1 TAB Warfarin Sodium (Coumadin Tab) 5 mg DAILY@16 PO 04/14/16 16:00 05/14/16 15:59 04/15/16 16:37 5 MG Carvedilol (Coreg Tab) 3.125 mg BID PO 04/14/16 21:00 05/14/16 20:59 04/15/16 20:01 3.125 MG Ferrous Sulfate (Feosol Tab) 325 mg QAM PO 04/15/16 09:00 05/15/16 08:59 04/16/16 08:28 325 MG Polyethylene (Miralax Powder Packet) 17 gm BID PO 04/15/16 21:00 05/15/16 20:59 04/16/16 08:26 17 GM Enteral Nutritional Formula 1 cup 1 cup BIDM PO 04/15/16 16:45 05/15/16 16:44 04/16/16 08:26 1 CUP Heparin Sodium/ Dextrose (Heparin 25,000 Unit/500ml D5W) 500 ml @ 25 mls/hr Q20H PRN IV 04/15/16 20:00 05/15/16 19:59 04/15/16 20:35 25 MLS/HR Objective Vital Signs Date Time Temp Pulse Resp B/P Pulse Ox O2 Delivery O2 Flow Rate FiO2 04/16/16 14:40 36.8 66 18 99/64 98 Nasal Cannula 2.0 04/16/16 12:03 36.6 70 16 91/55 93 04/16/16 12:00 Room Air 04/16/16 08:00 Room Air 04/16/16 07:53 36.7 73 16 86/56 90 Nasal Cannula 2.0 04/16/16 04:00 96 Room Air 04/16/16 03:17 36.8 72 18 93/55 95 Nasal Cannula 2.0 04/16/16 00:00 96 Room Air 04/16/16 00:00 37.1 80 24 92/58 96 Room Air 04/15/16 20:00 Room Air 04/15/16 19:28 37.2 92 18 96/60 96 Physical Exam General Appearance: WD/WN, no apparent distress Respiratory/Chest: normal breath sounds, no respiratory distress Cardiovascular: regular rate, rhythm Abdomen: normal bowel sounds, non tender, soft, no organomegaly Laboratory Results Last 24 Hours Test 04/15/16 16:33 04/15/16 20:05 04/16/16 03:11 04/16/16 06:20 Bedside Glucose 213 mg/dl 218 mg/dl Activated Partial Thromboplast Time 39.7 SECONDS 59.1 SECONDS Partial Thromboplastin Ratio 1.5 2.3 White Blood Count 7.57 K/uL Red Blood Count 3.64 M/uL Hemoglobin 11.2 g/dL Hematocrit 29.7 % Mean Corpuscular Volume 81.6 fL Mean Corpuscular Hemoglobin 30.8 pg Mean Corpuscular Hemoglobin Concent 37.7 g/dl Platelet Count 172 K/uL Mean Platelet Volume 11.7 fL Neutrophils (%) (Auto) 71.4 % Lymphocytes (%) (Auto) 6.7 % Monocytes (%) (Auto) 13.2 % Eosinophils (%) (Auto) 7.9 % Basophils (%) (Auto) 0.5 % Neutrophils # (Auto) 5.40 K/uL Lymphocytes # (Auto) 0.51 K/uL Monocytes # (Auto) 1.00 K/uL Eosinophils # (Auto) 0.60 K/uL Basophils # (Auto) 0.04 K/uL RDW Standard Deviation 44.8 fL RDW Coefficient of Variation 15.2 % Immature Granulocyte % (Auto) 0.3 % Immature Granulocyte # (Auto) 0.02 K/uL Prothrombin Time 15.8 SECONDS Prothromb Time International Ratio 1.5 Sodium Level 135 mmol/L Potassium Level 3.8 mmol/L Chloride Level 94 mmol/L Carbon Dioxide Level 33 mmol/L Anion Gap 8.0 mmol/L Blood Urea Nitrogen 39 mg/dl Creatinine 1.70 mg/dl Est Creatinine Clear Calc Drug Dose 36.5 ml/min Estimated GFR () 45.4 Estimated GFR (Non- 39.1 BUN/Creatinine Ratio 23.1 Random Glucose 157 mg/dl Calcium Level 8.5 mg/dl Magnesium Level 1.9 mg/dl Test 04/16/16 07:02 04/16/16 11:16 Bedside Glucose 164 mg/dl 302 mg/dl Assessment and Plan Cirrhosis--most likely from SCALES and CHF. Fe studies negative for hemochromatosis and acute hep panel negative--Pt has been switched to Carvedilol for portal HTN and reduction in GI bleeding risk. AFP normal. Ascites--cytology negative, cell count neg for SBP, serum ascites gradient 1.2 consistent with portal HTN, Cultures negative so far. Recommend 2 gm Na diet and aldactone if ok per nerphrology. Iron deficiency anemia--Had anemia 09/2014 with EGD and colonoscopy then by DR Bateman showing antral ulcers path gastritis neg for H.pylori, normal esophagus, diverticulosis, multiple transverse colon polyps removed path tubular adenomas and one inflammtory.. stool hemoccult ordered and pending, Fe sat low, B12, folate and ferritin normal. Start oral Fe constipation---ordered miralax to be schedule especially in light of starting Fe which can be constipating. Miralax not effective by itself. . Will order Fleet enema times one. If not effective will give Mag citrate or lactulose po. .
[2016-04-16] MEDS: WARFARIN SOD 5 MG TAB PO SCH (16:40)
[2016-04-16] MEDS: HEPARIN 25,000 UNIT/500ML D5W 500 ML IV PRN (16:43)
[2016-04-16] MEDS ORDERED: SOD PHOSPHATE/SOD BIPHOSPHATE ENEMA 132 ML BTL PR ONE (17:00)
[2016-04-16] MEDS: PRAVASTATIN SOD 20 MG TAB PO SCH (20:45)
[2016-04-17] VITALS (7 sets, daily range): BP systolic 89–101; BP diastolic 56–65; PULSE 61–92; TEMP 36.6–37; O2SAT 93–98
[2016-04-17 06:58] LABS: INR 1.6 (0.9-1.1); PARTIAL THROMBOPLASTIN RATIO 3.8; PROTHROMBIN TIME (PATIENT) 17.4 SECONDS (9.0-12.0)
[2016-04-17 07:12] LABS: BUN/CREATININE RATIO 23.4 (10-20); CALCIUM 8.7 mg/dl (8.5-10.1); CREATININE 1.9 mg/dl (0.60-1.40); POTASSIUM 3.8 mmol/L (3.5-5.1)
[2016-04-17] MEDS: TAMSULOSIN HCL 0.4 MG CAP PO SCH (07:33)
[2016-04-17] MEDS: FERROUS SULFATE 325 MG TAB PO SCH (07:33)
[2016-04-17] MEDS: ASPIRIN 81 MG ECTAB PO SCH (07:33)
[2016-04-17] MEDS: SULFAMETHOXAZOLE/TRIMETHOPRIM DS 800/160MG TAB PO SCH ×2 (07:33→21:03)
[2016-04-17] MEDS: PANTOprazole SOD 40 MG TAB PO SCH (07:33)
[2016-04-17] MEDS: CARVEDILOL 3.125 MG TAB PO SCH ×2 (07:34→21:02)
[2016-04-17] MEDS: FINASTERIDE 5 MG TAB PO SCH (07:34)
[2016-04-17] MEDS: POLYETHYLENE (MIRALAX) 17 GM PACK PO SCH ×2 (07:35→21:02)
[2016-04-17] MEDS: BOOST VANILLA PUDDING CUP PO SCH ×2 (07:35→16:14)
[2016-04-17] MEDS: INSULIN ASPART 100 UNITS/ML 3 ML PEN SC SCH ×4 (07:53→21:00)
[2016-04-17] MEDS: HEPARIN 25,000 UNIT/500ML D5W 500 ML IV PRN ×3 (07:57→16:49)
--- NOTE | 2016-04-17 08:32 | CARDIOLOGY PROGRESS NOTE ---
DATE: 04/17/2016 TIME: 08:04 a.m. SUBJECTIVE: He states that his breathing is back to baseline and feels well. He denies chest pain, syncope, near syncope, palpitations, or orthopnea. He denies any bleeding. OBJECTIVE: VITAL SIGNS: Temperature 36.9 degrees, heart rate 61 beats per minute, respiratory rate 18, blood pressure 101/65 mmHg; however, he was hypotensive mildly throughout most of yesterday. Oxygen saturation 95% on 2 liters nasal cannula. I's and O's negative 680 mL yesterday. Weight is 84.1 kg. GENERAL: No acute distress. He is alert. NECK: Does appear to have some JVD. CARDIAC EXAM: No ventricular heave, irregularly irregular, normal S1 and S2. 1/6 early peaking systolic ejection murmur best heard at the right upper sternal border. LUNGS: Faint rales at the bilateral bases, otherwise clear. ABDOMEN: Soft, nontender, and nondistended. Normoactive bowel sounds. EXTREMITIES: Trace bilateral lower extremity edema in the dependent areas. No cyanosis. PSYCHIATRIC: Affect appears appropriate. MEDICATIONS: Include aspirin 81 mg daily. He did receive his acetazolamide 250 mg IV once yesterday, carvedilol 3.125 mg p.o. b.i.d., heparin drip per protocol, Protonix 40 mg daily, pravastatin 20 mg at bedtime, and Coumadin 5 mg daily. LABORATORY DATA: INR is 1.6, trending up from 1.5. PTT is 98. Sodium 138, potassium 3.8, BUN 44 up from 39, and creatinine 1.9 up from 1.7. Chart reviewed. ASSESSMENT AND PLAN: 1. Acute on chronic systolic congestive heart failure: His volume status has improved significantly since presentation. He was diuresed aggressively and improved symptomatically. Would hold off on any further diuretics at this time given worsening BUN and creatinine levels. He will require some diuretic upon discharge, however. Nephrology evaluation today is pending. 2. Atrial fibrillation/flutter: Continue heparin drip while INR is subtherapeutic. INR is starting to trend upward after changing Coumadin to 5 mg just a few days ago. 3. Cardiomyopathy: Continue carvedilol as tolerated from a blood pressure standpoint. He is on not on an CHEMA inhibitor or Entresto due to renal function and also hypotension. He has an ICD in place. 4. Mitral regurgitation: Nonsevere. This may improve after congestive heart failure has been treated with aggressive diuresis. 5. Paroxysmal ventricular tachycardia: There is an ICD in place. If he has repetitive ICD shocks or arrhythmia burden, would consider antiarrhythmic therapy. Continue beta cyrus for now. 6. Aortic valve replacement: He has an appropriately functioning bioprosthetic aortic valve. SBE prophylaxis for dental procedures. 7. Hypertension: Blood pressure so far this morning is better than yesterday. He was asymptomatic yesterday. Hopefully, can continue beta cyrus therapy. 8. Disposition: Overall improved from a heart failure status, but unfortunately now his renal function has worsened in the last 2 days. Nephrology input today is pending.
--- NOTE | 2016-04-17 10:08 | Nephrology Progress Note ---
Nephrology Progress Note Date of Service Apr 17, 2016. Chief Complaint Follow up evaluation of nonoliguric acute on chronic kidney injury Subjective Mr. Snell was seen & examined in his hospital room this morning. He was admitted to the hospital following a hypoglycemic event. He is diabetic. Blood sugar has recovered following dextrose administration. The patient was found to have lower extremity and genital edema at the time of admission. Laboratory studies revealed acute on chronic kidney injury. Serum creatinine had risen from 1.6 to 3.0. Renal US revealed mild bilateral hydronephrosis and bladder wall thickening. Kidney function has improved following chowdary catheter insertion. Patient's weight is down ~ 30 kg with diuretic therapy. Bumex gtt was held due to progressive alkalosis. I&O's were relatively matched overnight. Mr. Snell's medical history is also significant for T2DM, cirrhosis, atrial fibrillation, COPD, pulmonary hypertension and diastolic CHF. He denies any history of alcohol abuse. The patient has been incarcerated for 3 years. He expects to be released next month. The patient's primary concern today is persistent genital swelling. Review of Systems Constitutional: No fever Cardiovascular: No chest pain Respiratory: No dyspnea at rest Abdomen: + problem reported (distention), No pain Extremities: No leg edema A complete review of systems was performed. Pertinent positives are noted above. All other systems are negative. Vital Signs Last 8 Hrs Date Time Temp Pulse Resp B/P Pulse Ox O2 Delivery O2 Flow Rate FiO2 04/17/16 08:00 Nasal Cannula 2.0 04/17/16 07:21 36.9 61 18 101/65 95 Nasal Cannula 2.0 04/17/16 04:15 36.7 63 16 97/64 98 Nasal Cannula 2.0 04/17/16 04:05 Nasal Cannula 2.0 04/17/16 02:47 Nasal Cannula 2.0 I & O 24-Hour Column 04/17/16 07:59 Intake Total 1034 ml Output Total 1625 ml Balance -591 ml Last Recorded Weight Weight (Kilograms): 84.100 Physical Exam General Appearance: no apparent distress Head: normocephalic, atraumatic Eyes: PERRL Neck: no adenopathy, + JVD Respiratory/Chest: lungs clear Cardiovascular: regular rate, rhythm Abdomen/GI: normal bowel sounds, non tender, soft, + distended Genitourinary - Male: + pertinent finding (3+ genital edema) Extremities/Musculoskelatal: no calf tenderness, no pedal edema Neurologic/Psych: alert, oriented x 3 Family History Patient reports no known family medical history. Social History Marital Status: single Housing Status: other (incarcerated at [facility]) Occupation: unemployed Laboratory Results Past 24 Hours 04/17/16 06:25 Test 04/16/16 11:16 04/16/16 16:34 04/16/16 20:21 04/17/16 06:25 Bedside Glucose 302 mg/dl (70-99) 291 mg/dl (70-99) 186 mg/dl (70-99) Prothrombin Time 17.4 SECONDS (9.0-12.0) Prothromb Time International Ratio 1.6 (0.9-1.1) Activated Partial Thromboplast Time 97.9 SECONDS (21.0-31.0) Partial Thromboplastin Ratio 3.8 Anion Gap 9.0 mmol/L (3-11) Est Creatinine Clear Calc Drug Dose 33.9 ml/min Estimated GFR () 39.7 Estimated GFR (Non- 34.2 BUN/Creatinine Ratio 23.4 (10-20) Calcium Level 8.7 mg/dl (8.5-10.1) Test 04/17/16 07:36 Bedside Glucose 147 mg/dl (70-99) Allergies Coded Allergies: No Known Allergies (Unverified , 04/01/16) Medications Current Inpatient Medications Medications (Trade) Dose Ordered Sig/Jenny Route Start Time Stop Time Status Last Admin Dose Admin Insulin Aspart (novoLOG ASPART) SLIDING SCALE G... ACHS SC 04/06/16 21:00 05/06/16 20:59 04/17/16 07:53 4 UNITS Acetaminophen (Tylenol Tab) 650 mg Q4H PRN PO 04/06/16 18:15 05/06/16 18:14 04/14/16 04:06 650 MG Ondansetron HCl (Zofran Inj) 4 mg Q6H PRN IV 04/06/16 18:15 05/06/16 18:14 04/07/16 11:16 4 MG Aspirin (Ecotrin Tab) 81 mg QAM PO 04/07/16 09:00 05/07/16 08:59 04/17/16 07:33 81 MG Pantoprazole Sodium (Protonix Tab) 40 mg QAM PO 04/07/16 09:00 05/07/16 08:59 04/17/16 07:33 40 MG Pravastatin Sodium (Pravachol Tab) 20 mg HS PO 04/06/16 21:00 05/06/16 20:59 04/16/16 20:45 20 MG Tamsulosin HCl (Flomax Cap) 0.4 mg QAM PO 04/07/16 09:00 05/07/16 08:59 04/17/16 07:33 0.4 MG Glucose (Glucose 40% Gel) 15-30 GRAMS 15 GRAMS... UD PRN PO 04/06/16 19:45 05/06/16 19:44 Glucose (Glucose Chew Tab) 4-8 Tablets 4 Tabl... UD PRN PO 04/06/16 19:45 05/06/16 19:44 04/07/16 00:15 4 TABS Dextrose (Dextrose 50% 50ML Syringe) 25-50ML OF 50% DW IV FOR... UD PRN IV 04/06/16 19:45 05/06/16 19:44 04/09/16 06:44 25 ML Glucagon (Glucagon Inj) 1 mg UD PRN SQ 04/06/16 19:45 05/06/16 19:44 Bisacodyl (Dulcolax Supp) 10 mg DAILY PRN [place] 04/09/16 12:30 05/09/16 12:29 Bisacodyl (Dulcolax Tab) 5 mg DAILY PRN PO 04/09/16 12:30 05/09/16 12:29 Trimethoprim/ Sulfamethoxazole (Septra Ds 800/ 160MG Tab) 1 tab Q12 PO 04/13/16 09:00 04/18/16 08:59 04/17/16 07:33 1 TAB Finasteride (Proscar Tab) 5 mg QAM PO 04/14/16 09:00 05/14/16 08:59 04/17/16 07:34 5 MG Oxycodone/ Acetaminophen (Percocet 5-325mg Tab) 1 tab Q4H PRN PO 04/13/16 16:00 04/27/16 15:59 04/14/16 08:26 1 TAB Warfarin Sodium (Coumadin Tab) 5 mg DAILY@16 PO 04/14/16 16:00 05/14/16 15:59 04/16/16 16:40 5 MG Carvedilol (Coreg Tab) 3.125 mg BID PO 04/14/16 21:00 05/14/16 20:59 04/17/16 07:34 3.125 MG Ferrous Sulfate (Feosol Tab) 325 mg QAM PO 04/15/16 09:00 05/15/16 08:59 04/17/16 07:33 325 MG Polyethylene (Miralax Powder Packet) 17 gm BID PO 04/15/16 21:00 05/15/16 20:59 04/17/16 07:35 17 GM Enteral Nutritional Formula 1 cup 1 cup BIDM PO 04/15/16 16:45 05/15/16 16:44 04/17/16 07:35 1 CUP Heparin Sodium/ Dextrose (Heparin 25,000 Unit/500ml D5W) 500 ml @ 22 mls/hr [id number] PRN IV 04/15/16 20:00 05/15/16 19:59 04/17/16 07:57 22 MLS/HR Impression (1) ERA (acute kidney injury) (2) CKD (chronic kidney disease) (3) Hyponatremia (4) Hyperkalemia (5) Hypoglycemia (6) Acute on chronic combined systolic and diastolic CHF (congestive heart failure) (7) Chronic liver disease (8) Pulmonary hypertension Mr. Snell is a 71-year-old male w/ ASCVD, T2DM, COPD, atrial fibrillation with systolic and diastolic CHF who presents with hypoglycemia, hyperkalemia, hyponatremia and renal failure. Evaluation notable for cor pulmonale. Transthoracic echocardiogram documented elevated PASP of 35 - 42 mmHG as well as mitral and tricuspid valvular heart disease. CT scan is c/w cirrhosis. Ascitic fluid was transudative c/w portal hypertension. Renal US shows mild bilateral hydronephrosis with a dilated thickened bladder c/w NEWMAN. Patient has significant genital edema. Recommendations ACUTE KIDNEY INJURY: -- Kidney function is fluctuating. Baseline creatinine has been 1.6. Patient likely has intravascular volume contraction -- Patient has persitent genital edema. This is mildly improved w/ diuretic therapy. Weight has dropped ~ 30 kg since admission. -- Will resume diuretic therapy w/ Lasix 40 mg IV daily and aldactone 100 mg po daily -- Monitor I&O's, serial PRP and Mg CHRONIC KIDNEY DISEASE: -- Baseline creatinine has been 1.6 -- Will check urine sediment and UPCR once ERA resolves EDEMA: -- Patient has cor pulmonale. Echocardiogram results reviewed. He has PASP ~ 40 w/ TR ANEMIA: -- Iron deficiency. Patient started on oral iron therapy by GI -- Awaiting FOBT results -- 2014 EGD & colonoscopy: antral ulcers CIRRHOSIS: -- GI recommendations reviewed today. Patient likely has cirrhosis on the basis of SCALES exacerbated by cor pulmonale/CHF -- Hepatitis serologies were negative -- Iron studies were not c/w hemochromatosis -- alpha fetoprotein has been ordered -- Ascitic fluid was transudative c/w portal hypertension
[2016-04-17] MEDS ORDERED: FUROSEMIDE INJ 40 MG in SYRINGE 0 ML IV ONE (11:00)
[2016-04-17] MEDS ORDERED: SPIRONOLACTONE 100 MG TAB PO ONE (11:00)
--- NOTE | 2016-04-17 12:25 | Progress Note ---
Subjective Date of Service: Apr 17, 2016. Subjective Pt evaluation today including: conversation w/ patient, physical exam, chart review, lab review, review of studies, review of inpatient medication list Problem List Medical Problems: (1) Cellulitis of leg, right Status: Acute (2) CHF (congestive heart failure) Status: Acute (3) CHF (congestive heart failure) Status: Acute (4) Failure of outpatient treatment Status: Acute (5) Noncompliance with medications Status: Acute Review of Systems Constitutional: No chills, No fever Respiratory: No cough, No shortness of breath, No sputum, No wheezing Cardiac: No chest pain, No orthopnea Abdomen: No constipation, No diarrhea, No nausea, No pain, No vomiting Musculoskeletal: No joint pain, No muscle pain Male : No dysuria, No urinary frequency Objective Vital Signs Date Time Temp Pulse Resp B/P Pulse Ox O2 Delivery O2 Flow Rate FiO2 04/17/16 12:03 Nasal Cannula 2.0 04/17/16 11:28 37.0 62 18 93/57 97 Nasal Cannula 2.0 04/17/16 08:00 Nasal Cannula 2.0 04/17/16 07:21 36.9 61 18 101/65 95 Nasal Cannula 2.0 04/17/16 04:15 36.7 63 16 97/64 98 Nasal Cannula 2.0 04/17/16 04:05 Nasal Cannula 2.0 04/17/16 02:47 Nasal Cannula 2.0 04/17/16 00:10 Room Air 04/16/16 23:48 36.8 59 17 95/59 97 Room Air 04/16/16 20:01 100 Room Air 04/16/16 19:21 36.7 87 18 93/58 100 Room Air 04/16/16 16:00 98 Nasal Cannula 2.0 04/16/16 14:40 36.8 66 18 99/64 98 Nasal Cannula 2.0 Physical Exam General Appearance: WD/WN, no apparent distress Neck: supple, no adenopathy Respiratory/Chest: lungs clear, normal breath sounds Cardiovascular: no edema, no gallop Abdomen: non tender, soft Neurologic/Psychiatric: alert, oriented x 3 Laboratory Results Last 24 Hours Test 04/16/16 16:34 04/16/16 20:21 04/17/16 06:25 04/17/16 07:36 Bedside Glucose 291 mg/dl 186 mg/dl 147 mg/dl Prothrombin Time 17.4 SECONDS Prothromb Time International Ratio 1.6 Activated Partial Thromboplast Time 97.9 SECONDS Partial Thromboplastin Ratio 3.8 Sodium Level 134 mmol/L Potassium Level 3.8 mmol/L Chloride Level 94 mmol/L Carbon Dioxide Level 31 mmol/L Anion Gap 9.0 mmol/L Blood Urea Nitrogen 44 mg/dl Creatinine 1.90 mg/dl Est Creatinine Clear Calc Drug Dose 33.9 ml/min Estimated GFR () 39.7 Estimated GFR (Non- 34.2 BUN/Creatinine Ratio 23.4 Random Glucose 156 mg/dl Calcium Level 8.7 mg/dl Test 04/17/16 11:49 Bedside Glucose 196 mg/dl Assessment and Plan 70-year-old male with a history of type 2 diabetes and chronic diastolic heart failure and transferred to the ED with an episode of persistent hypoglycemia Hypoglycemia - likely the long half life of glipizide and combination with liver cirrhosis and age of the patient are causing hypoglycemia, plus poor oral intake glipizide has been discontinued, metformin also on hold Will make sure the patient does resume this medication once discharged back to custodial Will need explicit discharge instructions! Cirrhosis--?etiology, congestion from right heart failure vs SCALES vs viral etology. Not a liver transplant candidate given COPD and CHF. Had EGD 09/2014 negative for varices. Reasonable to do another EGD electively as outpt when stable from current CHF. ferritin and hepatitis profile unremarkable. Ascites--diagnostic paracentesis--could do a cell count and differential for SBP although with this volume of fluid less likely, cytology for cancer and albumin to further assess for portal HTN. Pt would need to be off coumadin with more normalized PT INR Acute on Chronic systolic and diastolic heart failure which is evident by severe edema and scrotal edema, has been on on IV Lasix and albumin for 3 days, Blood pressure at borderline low, has been catheterization of in and out - Echo completed: * -- Conclusions -- * 1. Mildly dilated LV with mild concentric LVH. * 2. Moderate global LV dysfunction. EF 35-40%. Paradoxical septal motion consistent with post-operative state. * 3. Dilated RV with moderate to severe RV dysfunction. * 4. Severe biatrial enlargement. * 5. Bioprosthetic aortic valve well seated with normal expected transvalvular gradients. * 6. Grade II diastolic dysfunction. * 7. Mild-moderate mitral regurgitation * 8. Moderate tricuspid regurgitation. * 9. Dilated IVC suggestive of elevated RA pressure (15 mmHg). Mild pulmonary hypertension (PASP 35-40 mmHg.) * 10. Compared with prior study on 10/11/2014: LV dysfunction is now moderate. - Liver cirrhosis and ascites and hyponatremia and scrotal edema Combined the above CHF exacerbation and liver cirrhosis conditions with ascites , patient is hypervol hyponatremia, Will continue current care, with fluid restrictions 1.5 L a day, check in and out, 2 g sodium diet, -Diurese well with IV bumex but dced due to elev bicarb History of coronary artery disease status post CABG-asymptomatic -Continue medical management with Lopressor 12.5 mg BID, pravastatin 20 mg HS COPD with chronic respiratory failure-Baseline -Duo nebs every 6 hours we'll be available - Continue chronic O2= 2 L History of bioprosthetic AVR -Helping on warfarin 2 mg HS, we'll increase to 5 mg by mouth daily , will follow-up PT/INR -Will need to hold for paracentesis Acute on chronic renal insufficiency, likely from CHF exacerbation and kidney congestion, which is evident from renal function improved after diuretics -?obstruction component, urology consulted, maintain chowdary at this time, will need cystoscopy as outpt History of GI bleed-stable. No signs of active bleeding Constipation, gave Dulcolax oral, and suppository, yesterday no help, we will order one fleet enema now DVT prophylaxis -Coumadin, if INR level was coming up we should stop Lovenox -TEDS, SCDs CODE STATUS- FULL CODE Continued [facility] stay due to: multiple IV medications needed Discharge planning: other ([facility])
[2016-04-17 14:48] LABS: PARTIAL THROMBOPLASTIN RATIO 2.9
[2016-04-17] MEDS: WARFARIN SOD 5 MG TAB PO SCH (16:13)
--- NOTE | 2016-04-17 16:16 | Gastroenterology Progress Note ---
Progress Note Date of Service: Apr 17, 2016 Subjective Pt evaluation today including: conversation w/ patient, physical exam, chart review, lab review, review of studies, review of inpatient medication list CC f/u cirrhosis ascites, constipation HPI Per nursing had 2 BMs yesterday post enema. Pt thinks were good BMs. NO abd pain. Review of Systems Respiratory: No shortness of breath Cardiac: No chest pain Medications Current Inpatient Medications Medications (Trade) Dose Ordered Sig/Jenny Route Start Time Stop Time Status Last Admin Dose Admin Insulin Aspart (novoLOG ASPART) SLIDING SCALE G... ACHS SC 04/06/16 21:00 05/06/16 20:59 04/17/16 13:04 4 UNITS Acetaminophen (Tylenol Tab) 650 mg Q4H PRN PO 04/06/16 18:15 05/06/16 18:14 04/14/16 04:06 650 MG Ondansetron HCl (Zofran Inj) 4 mg Q6H PRN IV 04/06/16 18:15 05/06/16 18:14 04/07/16 11:16 4 MG Aspirin (Ecotrin Tab) 81 mg QAM PO 04/07/16 09:00 05/07/16 08:59 04/17/16 07:33 81 MG Pantoprazole Sodium (Protonix Tab) 40 mg QAM PO 04/07/16 09:00 05/07/16 08:59 04/17/16 07:33 40 MG Pravastatin Sodium (Pravachol Tab) 20 mg HS PO 04/06/16 21:00 05/06/16 20:59 04/16/16 20:45 20 MG Tamsulosin HCl (Flomax Cap) 0.4 mg QAM PO 04/07/16 09:00 05/07/16 08:59 04/17/16 07:33 0.4 MG Glucose (Glucose 40% Gel) 15-30 GRAMS 15 GRAMS... UD PRN PO 04/06/16 19:45 05/06/16 19:44 Glucose (Glucose Chew Tab) 4-8 Tablets 4 Tabl... UD PRN PO 04/06/16 19:45 05/06/16 19:44 04/07/16 00:15 4 TABS Dextrose (Dextrose 50% 50ML Syringe) 25-50ML OF 50% DW IV FOR... UD PRN IV 04/06/16 19:45 05/06/16 19:44 04/09/16 06:44 25 ML Glucagon (Glucagon Inj) 1 mg UD PRN SQ 04/06/16 19:45 05/06/16 19:44 Bisacodyl (Dulcolax Supp) 10 mg DAILY PRN [place] 04/09/16 12:30 05/09/16 12:29 Bisacodyl (Dulcolax Tab) 5 mg DAILY PRN PO 04/09/16 12:30 05/09/16 12:29 Trimethoprim/ Sulfamethoxazole (Septra Ds 800/ 160MG Tab) 1 tab Q12 PO 04/13/16 09:00 04/18/16 08:59 04/17/16 07:33 1 TAB Finasteride (Proscar Tab) 5 mg QAM PO 04/14/16 09:00 05/14/16 08:59 04/17/16 07:34 5 MG Oxycodone/ Acetaminophen (Percocet 5-325mg Tab) 1 tab Q4H PRN PO 04/13/16 16:00 04/27/16 15:59 04/14/16 08:26 1 TAB Warfarin Sodium (Coumadin Tab) 5 mg DAILY@16 PO 04/14/16 16:00 05/14/16 15:59 04/16/16 16:40 5 MG Carvedilol (Coreg Tab) 3.125 mg BID PO 04/14/16 21:00 05/14/16 20:59 04/17/16 07:34 3.125 MG Ferrous Sulfate (Feosol Tab) 325 mg QAM PO 04/15/16 09:00 05/15/16 08:59 04/17/16 07:33 325 MG Polyethylene (Miralax Powder Packet) 17 gm BID PO 04/15/16 21:00 05/15/16 20:59 04/17/16 07:35 17 GM Enteral Nutritional Formula 1 cup 1 cup BIDM PO 04/15/16 16:45 05/15/16 16:44 04/17/16 07:35 1 CUP Heparin Sodium/ Dextrose 500 ml @ 19 mls/hr Q24H PRN IV 04/15/16 20:00 05/15/16 19:59 04/17/16 15:00 19 MLS/HR Furosemide/Syringe (Lasix Inj/ Syringe) 4 ml @ 4 mls/min QAM IV 04/18/16 09:00 05/18/16 08:59 Spironolactone (Aldactone Tab) 100 mg QAM PO 04/18/16 09:00 05/18/16 08:59 Objective Vital Signs Date Time Temp Pulse Resp B/P Pulse Ox O2 Delivery O2 Flow Rate FiO2 04/17/16 15:24 36.6 76 18 94/56 93 Nasal Cannula 2.0 04/17/16 12:03 Nasal Cannula 2.0 04/17/16 11:28 37.0 62 18 93/57 97 Nasal Cannula 2.0 04/17/16 08:00 Nasal Cannula 2.0 04/17/16 07:21 36.9 61 18 101/65 95 Nasal Cannula 2.0 04/17/16 04:15 36.7 63 16 97/64 98 Nasal Cannula 2.0 04/17/16 04:05 Nasal Cannula 2.0 04/17/16 02:47 Nasal Cannula 2.0 04/17/16 00:10 Room Air 04/16/16 23:48 36.8 59 17 95/59 97 Room Air 04/16/16 20:01 100 Room Air 04/16/16 19:21 36.7 87 18 93/58 100 Room Air Physical Exam General Appearance: WD/WN, no apparent distress Respiratory/Chest: lungs clear, no respiratory distress Cardiovascular: regular rate, rhythm Abdomen: normal bowel sounds, non tender, soft, no organomegaly Laboratory Results Last 24 Hours Test 04/16/16 16:34 04/16/16 20:21 04/17/16 06:25 04/17/16 07:36 Bedside Glucose 291 mg/dl 186 mg/dl 147 mg/dl Prothrombin Time 17.4 SECONDS Prothromb Time International Ratio 1.6 Activated Partial Thromboplast Time 97.9 SECONDS Partial Thromboplastin Ratio 3.8 Sodium Level 134 mmol/L Potassium Level 3.8 mmol/L Chloride Level 94 mmol/L Carbon Dioxide Level 31 mmol/L Anion Gap 9.0 mmol/L Blood Urea Nitrogen 44 mg/dl Creatinine 1.90 mg/dl Est Creatinine Clear Calc Drug Dose 33.9 ml/min Estimated GFR () 39.7 Estimated GFR (Non- 34.2 BUN/Creatinine Ratio 23.4 Random Glucose 156 mg/dl Calcium Level 8.7 mg/dl Test 04/17/16 11:49 04/17/16 14:20 Bedside Glucose 196 mg/dl Activated Partial Thromboplast Time 76.3 SECONDS Partial Thromboplastin Ratio 2.9 Assessment and Plan Cirrhosis--most likely from SCALES and CHF. Fe studies negative for hemochromatosis and acute hep panel negative--Pt has been switched to Carvedilol for portal HTN and reduction in GI bleeding risk. AFP normal. Ascites--cytology negative, cell count neg for SBP, serum ascites gradient 1.2 consistent with portal HTN, Cultures negative so far. Recommend 2 gm Na diet and aldactone. Nephrology is ok with aldactone and is managing that. Iron deficiency anemia--Had anemia 09/2014 with EGD and colonoscopy then by DR Bateman showing antral ulcers path gastritis neg for H.pylori, normal esophagus, diverticulosis, multiple transverse colon polyps removed path tubular adenomas and one inflammtory.. stool hemoccult ordered and pending, Fe sat low, B12, folate and ferritin normal. Start oral Fe constipation---response to enema on 04/16/16. Continue miralax bid I am going off service tomorrow 04/18/[address] Domingo is on schedule to assume GI care then. .
[2016-04-17] MEDS: PRAVASTATIN SOD 20 MG TAB PO SCH (21:03)
[2016-04-17 21:33] LABS: PARTIAL THROMBOPLASTIN RATIO 2.4
[2016-04-18] VITALS (9 sets, daily range): BP systolic 94–100; BP diastolic 61–66; PULSE 89–92; TEMP 36.5–37.1; O2SAT 97–99
[2016-04-18 06:27] LABS: BUN/CREATININE RATIO 24.4 (10-20); CALCIUM 8.8 mg/dl (8.5-10.1); CREATININE 1.9 mg/dl (0.60-1.40); INR 2.1 (0.9-1.1); PARTIAL THROMBOPLASTIN RATIO 2.5; POTASSIUM 4.3 mmol/L (3.5-5.1)
[2016-04-18] MEDS: SPIRONOLACTONE 100 MG TAB PO SCH (08:28)
[2016-04-18] MEDS: BOOST VANILLA PUDDING CUP PO SCH ×2 (08:28→17:27)
[2016-04-18] MEDS: CARVEDILOL 3.125 MG TAB PO SCH ×2 (08:28→20:18)
[2016-04-18] MEDS: POLYETHYLENE (MIRALAX) 17 GM PACK PO SCH ×2 (08:29→20:19)
[2016-04-18] MEDS: TAMSULOSIN HCL 0.4 MG CAP PO SCH (08:29)
[2016-04-18] MEDS: PANTOprazole SOD 40 MG TAB PO SCH (08:31)
[2016-04-18] MEDS: ASPIRIN 81 MG ECTAB PO SCH (08:31)
[2016-04-18] MEDS: FINASTERIDE 5 MG TAB PO SCH (08:31)
[2016-04-18] MEDS: FERROUS SULFATE 325 MG TAB PO SCH (08:31)
[2016-04-18] MEDS: INSULIN ASPART 100 UNITS/ML 3 ML PEN SC SCH ×4 (08:51→20:21)
[2016-04-18] MEDS ORDERED: FUROSEMIDE INJ 40 MG in SYRINGE 0 ML IV SCH (09:00)
--- NOTE | 2016-04-18 11:11 | Nephrology Progress Note ---
Nephrology Progress Note Date of Service Apr 18, 2016. Chief Complaint Follow-up for acute kidney injury and volume overload. Subjective Jose De Jesus was seen and examined this morning. He has been otherwise feeling well, denies SOB or CP. Decent UO, net negative > 1 L. Edema seems to be improving. Cr stable 1.9 Review of Systems A complete review of systems was performed. Pertinent positives are noted above. All other systems are negative. Vital Signs Last 8 Hrs Date Time Temp Pulse Resp B/P Pulse Ox O2 Delivery O2 Flow Rate FiO2 04/18/16 09:35 92 20 100/63 98 Nasal Cannula 2.0 04/18/16 08:13 36.5 89 20 95/61 98 Nasal Cannula 2.0 04/18/16 08:00 Nasal Cannula 2.0 04/18/16 04:27 36.7 90 17 96/62 99 Room Air 04/18/16 04:00 97 Nasal Cannula 2.0 I & O 24-Hour Column 04/18/16 08:00 Intake Total 662 ml Output Total 2225 ml Balance -1563 ml Last Recorded Weight Weight (Kilograms): 83.800 Physical Exam GENERAL: elderly male, AAA x 3, pleasant, not in any distress. NECK: Supple, no JVD. RESPIRATORY: Normal breathing efforts, no accessory muscle use, clear to auscultation bilaterally, no wheezes or rales. CARDIOVASCULAR: S1, S2 normal, rate rhythm regular. EXTREMITY: Trace B/L lower extremity edema, scrotal edema. NEURO: speech fluent. PSYCHIATRY: Normal mood and judgment Family History Patient reports no known family medical history. Social History Marital Status: single Housing Status: other (incarcerated at [facility]) Occupation: unemployed Laboratory Results Past 24 Hours 04/18/16 05:48 Test 04/17/16 11:49 04/17/16 14:20 04/17/16 16:42 04/17/16 20:22 Bedside Glucose 196 mg/dl (70-99) 169 mg/dl (70-99) 209 mg/dl (70-99) Activated Partial Thromboplast Time 76.3 SECONDS (21.0-31.0) Partial Thromboplastin Ratio 2.9 Test 04/17/16 21:01 04/18/16 05:48 04/18/16 07:38 04/18/16 10:04 Activated Partial Thromboplast Time 62.6 SECONDS (21.0-31.0) 64.3 SECONDS (21.0-31.0) Partial Thromboplastin Ratio 2.4 2.5 Prothrombin Time 23.0 SECONDS (9.0-12.0) Prothromb Time International Ratio 2.1 (0.9-1.1) Anion Gap 8.0 mmol/L (3-11) Est Creatinine Clear Calc Drug Dose 33.9 ml/min Estimated GFR () 39.7 Estimated GFR (Non- 34.2 BUN/Creatinine Ratio 24.4 (10-20) Calcium Level 8.8 mg/dl (8.5-10.1) Bedside Glucose 135 mg/dl (70-99) Allergies Coded Allergies: No Known Allergies (Unverified , 04/01/16) Medications Current Inpatient Medications Medications (Trade) Dose Ordered Sig/Jenny Route Start Time Stop Time Status Last Admin Dose Admin Insulin Aspart (novoLOG ASPART) SLIDING SCALE G... ACHS SC 04/06/16 21:00 05/06/16 20:59 04/18/16 08:51 3 UNITS Acetaminophen (Tylenol Tab) 650 mg Q4H PRN PO 04/06/16 18:15 05/06/16 18:14 04/14/16 04:06 650 MG Ondansetron HCl (Zofran Inj) 4 mg Q6H PRN IV 04/06/16 18:15 05/06/16 18:14 04/07/16 11:16 4 MG Aspirin (Ecotrin Tab) 81 mg QAM PO 04/07/16 09:00 05/07/16 08:59 04/18/16 08:31 81 MG Pantoprazole Sodium (Protonix Tab) 40 mg QAM PO 04/07/16 09:00 05/07/16 08:59 04/18/16 08:31 40 MG Pravastatin Sodium (Pravachol Tab) 20 mg HS PO 04/06/16 21:00 05/06/16 20:59 04/17/16 21:03 20 MG Tamsulosin HCl (Flomax Cap) 0.4 mg QAM PO 04/07/16 09:00 05/07/16 08:59 04/18/16 08:29 0.4 MG Glucose (Glucose 40% Gel) 15-30 GRAMS 15 GRAMS... UD PRN PO 04/06/16 19:45 05/06/16 19:44 Glucose (Glucose Chew Tab) 4-8 Tablets 4 Tabl... UD PRN PO 04/06/16 19:45 05/06/16 19:44 04/07/16 00:15 4 TABS Dextrose (Dextrose 50% 50ML Syringe) 25-50ML OF 50% DW IV FOR... UD PRN IV 04/06/16 19:45 05/06/16 19:44 04/09/16 06:44 25 ML Glucagon (Glucagon Inj) 1 mg UD PRN SQ 04/06/16 19:45 05/06/16 19:44 Bisacodyl (Dulcolax Supp) 10 mg DAILY PRN [place] 04/09/16 12:30 05/09/16 12:29 Bisacodyl (Dulcolax Tab) 5 mg DAILY PRN PO 04/09/16 12:30 05/09/16 12:29 Finasteride (Proscar Tab) 5 mg QAM PO 04/14/16 09:00 05/14/16 08:59 04/18/16 08:31 5 MG Oxycodone/ Acetaminophen (Percocet 5-325mg Tab) 1 tab Q4H PRN PO 04/13/16 16:00 04/27/16 15:59 04/14/16 08:26 1 TAB Warfarin Sodium (Coumadin Tab) 5 mg DAILY@16 PO 04/14/16 16:00 05/14/16 15:59 04/17/16 16:13 5 MG Carvedilol (Coreg Tab) 3.125 mg BID PO 04/14/16 21:00 05/14/16 20:59 04/18/16 08:28 3.125 MG Ferrous Sulfate (Feosol Tab) 325 mg QAM PO 04/15/16 09:00 05/15/16 08:59 04/18/16 08:31 325 MG Polyethylene (Miralax Powder Packet) 17 gm BID PO 04/15/16 21:00 05/15/16 20:59 04/18/16 08:29 17 GM Enteral Nutritional Formula 1 cup 1 cup BIDM PO 04/15/16 16:45 05/15/16 16:44 04/18/16 08:28 1 CUP Furosemide/Syringe (Lasix Inj/ Syringe) 4 ml @ 4 mls/min QAM IV 04/18/16 09:00 3 08:59 04/18/16 08:32 4 MLS/MIN Spironolactone (Aldactone Tab) 100 mg QAM PO 04/18/16 09:00 3 08:59 04/18/16 08:28 100 MG Impression (1) ERA (acute kidney injury) (2) CKD (chronic kidney disease) (3) Hyponatremia (4) Hyperkalemia (5) Hypoglycemia (6) Acute on chronic combined systolic and diastolic CHF (congestive heart failure) (7) Chronic liver disease (8) Pulmonary hypertension Mr. Snell is a 71-year-old male w/ ASCVD, T2DM, COPD, atrial fibrillation with systolic and diastolic CHF who presents with hypoglycemia, hyperkalemia, hyponatremia and renal failure. Evaluation notable for cor pulmonale. Transthoracic echocardiogram documented elevated PASP of 35 - 42 mmHG as well as mitral and tricuspid valvular heart disease. CT scan is c/w cirrhosis. Ascitic fluid was transudative c/w portal hypertension. Renal US shows mild bilateral hydronephrosis with a dilated thickened bladder c/w [place]. Patient has significant genital edema. Recommendations ACUTE KIDNEY INJURY: -- Kidney function is fluctuating. Baseline creatinine has been 1.6, staying around 1.6-1.9 -- continue w/ Lasix 40 mg IV daily and aldactone 100 mg po daily, aim for net negative 0.5-1L/d --if continues to be negative will consider switching to oral lasix -- Monitor I&O's, serial PRP and Mg CHRONIC KIDNEY DISEASE: -- Baseline creatinine has been 1.6 EDEMA: -- Patient has cor pulmonale. Echocardiogram results reviewed. He has PASP ~ 40 w/ TR ANEMIA: -- Iron deficiency. Patient started on oral iron therapy by GI. Hb stable -- Awaiting FOBT results -- 2014 EGD & colonoscopy: antral ulcers CIRRHOSIS: -- Patient likely has cirrhosis on the basis of SCALES exacerbated by cor pulmonale/CHF.
--- NOTE | 2016-04-18 12:26 | Progress Note ---
Subjective Date of Service: Apr 18, 2016. Subjective Pt evaluation today including: conversation w/ patient, conversation w/ family , physical exam, chart review, lab review, review of studies, conversation w/ domestic travel consultant, review of inpatient medication list Voiding: chowdary catheter in place doing ok, has BM yesterday, osat 98% in RA, no other c/o, Problem List Medical Problems: (1) Cellulitis of leg, right Status: Acute (2) CHF (congestive heart failure) Status: Acute (3) CHF (congestive heart failure) Status: Acute (4) Failure of outpatient treatment Status: Acute (5) Noncompliance with medications Status: Acute Review of Systems Constitutional: + fatigue, + weakness, No chills, No fever, No problem reported , No sweats, No weight loss Eyes: No diplopia, No discharge, No eye pain, No redness, No worsening of vision ENT: No dental problems, No hearing loss, No nasal symptoms, No sore throat, No tinnitus, No trouble swallowing, No unusual epistaxis Respiratory: + shortness of breath (in baseline), No cough, No dyspnea at rest , No dyspnea on exertion, No hemoptysis, No sputum, No wheezing Cardiac: No PND, No chest pain, No claudication, No edema, No orthopnea, No palpitations Abdomen: No constipation, No diarrhea, No nausea, No pain, No vomiting Musculoskeletal: No calf pain, No joint pain, No muscle pain, No swelling Male : No dysuria, No hematuria, No incontinence, No nocturia more than once/ night, No slowing stream, No urinary frequency Neurologic: No balance problems, No memory loss, No numbness/tingling, No paralysis, No vertigo, No weakness Psychiatric: No anhedonism, No anxiety, No depression symptoms, No insomnia, No substance abuse Heme: No abnormal bleeding/bruising, No clotting problems, No night sweats, No swollen lymph nodes Endo: No excessive thirst, No excessive urination, No fatigue Skin: No bleeding, No color change, No itch, No new/changing skin lesions, No rash Objective Vital Signs Date Time Temp Pulse Resp B/P Pulse Ox O2 Delivery O2 Flow Rate FiO2 04/18/16 11:32 Nasal Cannula 2.0 04/18/16 11:23 37.1 89 20 97/63 98 Nasal Cannula 2.0 04/18/16 09:35 92 20 100/63 98 Nasal Cannula 2.0 04/18/16 08:13 36.5 89 20 95/61 98 Nasal Cannula 2.0 04/18/16 08:00 Nasal Cannula 2.0 04/18/16 04:27 36.7 90 17 96/62 99 Room Air 04/18/16 04:00 97 Nasal Cannula 2.0 04/18/16 00:58 94/65 04/18/16 00:00 97 Nasal Cannula 2.0 04/17/16 23:25 36.7 92 16 89/58 97 Room Air 04/17/16 20:00 98 Nasal Cannula 2.0 04/17/16 19:26 36.7 92 17 92/61 98 Nasal Cannula 2.0 04/17/16 16:16 Nasal Cannula 2.0 04/17/16 15:24 36.6 76 18 94/56 93 Nasal Cannula 2.0 Physical Exam General Appearance: WD/WN, no apparent distress Eyes: normal inspection, PERRL, EOMI, sclerae normal ENT: normal ENT inspection, hearing grossly normal, pharynx normal Neck: supple, no adenopathy, thyroid normal, no JVD, no carotid bruits, trachea midline Respiratory/Chest: chest non-tender, normal breath sounds, no respiratory distress, no accessory muscle use, + decreased breath sounds, + crackles (in miriam lower lungs) Cardiovascular: regular rate, rhythm, no edema, no gallop, no JVD, no murmur Abdomen: normal bowel sounds, non tender, soft, no organomegaly, no pulsatile mass, + pertinent finding (crutal swelling much better, at least 60% better compared to I saw him 1 week ago) Extremities: normal range of motion, non-tender, normal inspection, no pedal edema, no calf tenderness, normal capillary refill, pelvis stable Neurologic/Psychiatric: fast brim pouncer II-XII nml as tested, no motor/sensory deficits, alert, normal mood/affect, oriented x 3 Skin: normal color, warm/dry, no rash Lymphatic: no adenopathy Laboratory Results Last 24 Hours Test 04/17/16 14:20 04/17/16 16:42 04/17/16 20:22 04/17/16 21:01 Activated Partial Thromboplast Time 76.3 SECONDS 62.6 SECONDS Partial Thromboplastin Ratio 2.9 2.4 Bedside Glucose 169 mg/dl 209 mg/dl Test 04/18/16 05:48 04/18/16 07:38 04/18/16 10:04 04/18/16 11:41 Prothrombin Time 23.0 SECONDS Prothromb Time International Ratio 2.1 Activated Partial Thromboplast Time 64.3 SECONDS Partial Thromboplastin Ratio 2.5 Sodium Level 134 mmol/L Potassium Level 4.3 mmol/L Chloride Level 95 mmol/L Carbon Dioxide Level 31 mmol/L Anion Gap 8.0 mmol/L Blood Urea Nitrogen 46 mg/dl Creatinine 1.90 mg/dl Est Creatinine Clear Calc Drug Dose 33.9 ml/min Estimated GFR () 39.7 Estimated GFR (Non- 34.2 BUN/Creatinine Ratio 24.4 Random Glucose 132 mg/dl Calcium Level 8.8 mg/dl Bedside Glucose 135 mg/dl 268 mg/dl Magnesium Level 2.1 mg/dl Assessment and Plan 70-year-old male with a history of type 2 diabetes and chronic diastolic heart failure and transferred to the ED on 04/06/2016 with an episode of persistent hypoglycemia Hypoglycemia - likely the long half life of glipizide and combination with liver cirrhosis and age of the patient are causing hypoglycemia, plus poor oral intake glipizide has been discontinued, metformin also on hold BG >200, start Amaryl with renal dose a1c was 6.8 upon admission Possible Cirrhosis--etiology, congestion from right heart failure vs SCALES vs viral etology. Not a liver transplant candidate given COPD and CHF. Had EGD 09/2014 negative for varices. Reasonable to do another EGD electively as outpt when stable from current CHF. ferritin and hepatitis profile unremarkable. Ascites--diagnostic paracentesis, pt has no abd pain and no signs of infection, no believe has sbp, Acute on Chronic systolic and diastolic heart failure which is evident by severe edema and scrotal edema, was on IV Lasix and albumin for 3 days, Blood pressure at borderline low, has been catheterization of in and out has been on Diurese well with IV bumex drip, it was changed to lasix but dced due to elev bicarb, and bounce back of elevated cr, likely has approaching to dry weight - Echo completed: * -- Conclusions -- * 1. Mildly dilated LV with mild concentric LVH. * 2. Moderate global LV dysfunction. EF 35-40%. Paradoxical septal motion consistent with post-operative state. * 3. Dilated RV with moderate to severe RV dysfunction. * 4. Severe biatrial enlargement. * 5. Bioprosthetic aortic valve well seated with normal expected transvalvular gradients. * 6. Grade II diastolic dysfunction. * 7. Mild-moderate mitral regurgitation * 8. Moderate tricuspid regurgitation. * 9. Dilated IVC suggestive of elevated RA pressure (15 mmHg). Mild pulmonary hypertension (PASP 35-40 mmHg.) * 10. Compared with prior study on 10/11/2014: LV dysfunction is now moderate. - Liver cirrhosis and ascites and hyponatremia and scrotal edema Combined the above CHF exacerbation and liver cirrhosis conditions with ascites , patient is hypervol hyponatremia, Will continue current care, with fluid restrictions 1.5 L a day, check in and out, 2 g sodium diet, History of coronary artery disease status post CABG-asymptomatic, with NSTVT 4 beat this, has aicd, mag was normal, f/u -Continue medical management with Lopressor 12.5 mg BID, pravastatin 20 mg HS COPD with chronic respiratory failure-Baseline -Duo nebs every 6 hours we'll be available - Continue chronic O2= 2 L History of bioprosthetic AVR -Helping on warfarin 2 mg HS, we'll increase to 5 mg by mouth daily , inr 2 today, DC heparin drip Acute on chronic renal insufficiency, likely from CHF exacerbation and kidney congestion, which is evident from renal function improved after diuretics -?obstruction component, urology consulted, has been on chowdary sicne admission, dose not need chowdary before admit' will DC chowdary today and will need cystoscopy as outpt History of GI bleed-stable. No signs of active bleeding plan DC duane? DVT prophylaxis -Coumadin, -TEDS, SCDs CODE STATUS- FULL CODE Continued [facility] stay due to: home environment unsafe for pt Discharge planning: other ([facility])
[2016-04-18] MEDS ORDERED: GLIMEPIRIDE 2 MG TAB PO ONE (12:30)
[2016-04-18] MEDS: WARFARIN SOD 5 MG TAB PO SCH (16:34)
--- NOTE | 2016-04-18 16:35 | PROGRESS NOTE ---
DATE: 04/18/2016 SUBJECTIVE: The patient is stable in relation to his liver. He is on Lasix 40 and Aldactone 100 mg a day. His weight today is 83.8 kilograms which is 3/10th kilogram less than yesterday. OBJECTIVE: VITAL SIGNS: Blood pressure 99/66, pulse 91, temperature is 36.8. LABORATORY: Shows hemoglobin of 11.2, which is slightly elevated and where it has been over the last few days. His alpha fetoprotein was negative. There is no evidence of hepatoma. His ascites is improving and his ascites fluid turned out to be a noninfected transudate with negative cytology consistent with cirrhosis and congestive heart failure. His cirrhosis is probably on the basis of steatohepatitis from metabolic syndrome. PLAN: At this point, I would continue the patient on his current program.
[2016-04-18] MEDS: PRAVASTATIN SOD 20 MG TAB PO SCH (20:18)
[2016-04-19] VITALS: BP 99/67; PULSE 90; TEMP 36.7; O2SAT 91
[2016-04-19 04:00] VITALS: BP 99/65; PULSE 91; TEMP 36.7; O2SAT 98
[2016-04-19 06:44] LABS: INR 2.2 (0.9-1.1); PARTIAL THROMBOPLASTIN RATIO 1.8; PROTHROMBIN TIME (PATIENT) 24.3 SECONDS (9.0-12.0)
[2016-04-19 07:00] LABS: BUN/CREATININE RATIO 26.9 (10-20); CREATININE 1.9 mg/dl (0.60-1.40); MAGNESIUM 2.2 mg/dl (1.8-2.4); POTASSIUM 4.5 mmol/L (3.5-5.1)
[2016-04-19 07:28] VITALS: BP 106/70; PULSE 74; TEMP 36.4; O2SAT 99
[2016-04-19] MEDS: BOOST VANILLA PUDDING CUP PO SCH (08:57)
[2016-04-19] MEDS: POLYETHYLENE (MIRALAX) 17 GM PACK PO SCH (08:57)
[2016-04-19] MEDS: CARVEDILOL 3.125 MG TAB PO SCH (08:59)
[2016-04-19] MEDS: TAMSULOSIN HCL 0.4 MG CAP PO SCH (08:59)
[2016-04-19] MEDS: FERROUS SULFATE 325 MG TAB PO SCH (09:00)
[2016-04-19] MEDS: FINASTERIDE 5 MG TAB PO SCH (09:00)
[2016-04-19] MEDS ORDERED: GLIMEPIRIDE 2 MG TAB PO SCH (09:00)
[2016-04-19] MEDS ORDERED: FUROSEMIDE 40 MG TAB PO SCH ×2 (09:00)
[2016-04-19] MEDS: PANTOprazole SOD 40 MG TAB PO SCH (09:01)
[2016-04-19] MEDS: ASPIRIN 81 MG ECTAB PO SCH (09:01)
[2016-04-19] MEDS: SPIRONOLACTONE 100 MG TAB PO SCH (09:01)
[2016-04-19] MEDS: INSULIN ASPART 100 UNITS/ML 3 ML PEN SC SCH ×2 (09:08→12:50)
[2016-04-19] MEDS ORDERED: PRS5 PO (10:24)
[2016-04-19] MEDS ORDERED: NUTRMIS PO (10:24)
[2016-04-19] MEDS ORDERED: SPRN100 PO (10:24)
[2016-04-19] MEDS ORDERED: LSX40 PO (10:24)
[2016-04-19] MEDS ORDERED: AMR2 PO (10:24)
[2016-04-19] MEDS ORDERED: CRG3125 PO (10:24)
[2016-04-19] MEDS ORDERED: DLCS PR (10:24)
--- NOTE | 2016-04-19 10:25 | Discharge Instructions ---
Discharge Instructions Admission Reason for Admission: Hypoglycemia Discharge Discharge Diagnosis / Problem: chf exac Discharge Goals Goal(s): Decrease discomfort, Improve function, Increase independence, Improve disease control, Improve nutritional status, Learn about illness, Diagnostic testing, Therapeutic intervention, Prevent Disease Progression, Specific goals Activity Recommendations Activity Limitations: resume your previous activity Lifting Limitations: none Exercise/Sports Limitations: none May Resume Sexual Activity: when tolerated . Instructions / Follow-Up Instructions / Follow-Up you have Acute on Chronic systolic and diastolic heart failure , you have Liver cirrhosis and ascites and hyponatremia and scrotal edema you need to continue fluid restrictions 1.5 L a day, yous ahve COPD with chronic respiratory failure-Baseline, need continue NC o2 2 LPM you have History of bioprosthetic AVR, we result your home dose of coumadin, you need to have labs of INR check in 3 days you have acute on chronic kidney failure, you need to have labs of BMP, mag, checked in 3 days Call your Primary Care doctor if any of the following symptoms or problems start or get worse: * Shortness of breath or difficulty breathing * Wake up at night short of breath * Chest pain * Cough * Swelling of your hands, feet, or legs * More fatigued or tired with your normal activity * Palpitations - sudden fast heart beats WEIGHT * Weigh yourself every morning after using the bathroom. * Use the same scale. * Wear the same amount of clothing. * Write your weight down on a chart. * Call your Primary Care doctor if you gain more than 2-3 pounds in 1-2 days. MEDICATIONS * Use this discharge instruction sheet for medication instructions. * Take your medications at the time your doctor ordered. * Do not skip a dose of your medicines. * If you miss a dose of medicine, take it as soon as possible, but DO NOT DOUBLE A DOSE. * Read your medicine information when you get home. * Know all of the side effects of your medicine. If in doubt, ask your pharmacist * Call your Primary Care doctor's office if you have any side effects. * Be sure all of your doctors know what medicine and herbs you take (including cold, flu, and herbal medicine). Take the following with you to your follow-up doctor appointments: * Weight Chart * Medication List * List of questions Do not drink excessive alcohol, beer or wine. Current Hospital Diet Patient's current hospital diet: Diabetes Type 2 Diet, Renal Diet Discharge Diet Recommended Diet: Diabetes Type 2 Diet Fluid Restriction: 1500 ml (6 cups) Pending Studies Studies pending at discharge: no Laboratory Results Hemoglobin A1c Test 04/06/16 16:00 Range/Units Estimated Average Glucose 148 mg/dl Hemoglobin A1c 6.8 H 4.5-5.6 % Medical Emergencies . Who to Call and When: Call 911 or go to the Emergency Room if: * If at any time you feel your situation is an emergency * You have tightness or pain in your chest that does not go away with rest or Nitroglycerin * You are very short of breath even with rest . Non-Emergent Contact Non-Emergency issues call your: Primary Care Provider, Smokehouse Operator, Neurologist . . "Provider Documentation" section prepared by Ryan Vu. VTE Core Measure Inpt VTE Proph given/why not?: Warfarin (Coumadin), T.E.D. Stockings, SCD's
--- NOTE | 2016-04-19 10:50 | Discharge Summary ---
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 History of bioprosthetic AVR, acute on chronic kidney failure Procedures: No Consultations: GI, renal, cardiology Medication Reconciliation New Medications: Bisacodyl (Bisac-Evac) 10 Mg Supp 10 MG NM DAILY PRN for Constipation for 14 Days, SUPP Carvedilol (Carvedilol) 3.125 Mg Tab 3.125 MG PO BID for 30 Days, #60 TAB Finasteride (Finasteride) 5 Mg Tab 5 MG PO QAM for 30 Days, #30 TAB Furosemide (Furosemide) 40 Mg Tab 40 MG PO BID17 for 30 Days, TAB Glimepiride (Glimepiride) 2 Mg Tab 1 MG PO QAM for 30 Days, #15 TAB Nutritional Supplements (Boost Pudding) 1 Mis Mis 1 CUP PO BIDM for 30 Days Spironolactone (Spironolactone) 100 Mg Tab 100 MG PO QAM for 30 Days, #30 TAB Continued Medications: Acetaminophen (Acetaminophen) 325 Mg Tab 325 MG PO TID PRN for Pain Acetaminophen/Codeine (Tylenol W/Codeine #3) 300 Mg/30 Mg Tab 2 TABS PO QID PRN for Pain, TAB Albuterol (Ventolin Hfa) 60 Puffs/5400 Mcg Aers 2 PUFFS INH QID PRN for Shortness of Breath Aspirin (Aspirin Chewable) 81 Mg Chew 81 MG PO QAM, TAB Capsaicin (Capsaicin) 0.025 % Cre 1 APPLN TOP BID Emollient (Lubriskin) 1 Lot Lot 1 APPLN TOP BID Ferrous Sulfate (Ferrous Sulfate) 325 Mg Tab 325 MG PO BID Ondansetron Hcl (Zofran) 4 Mg Tab 4 MG PO QID PRN for Nausea, TAB Pantoprazole (Protonix) 40 Mg Tab 40 MG PO QAM, TAB Potassium Chloride (Micro-K Ext Rel) 10 Meq Capcr 20 MEQ PO BID, CAP Pravastatin (Pravachol ) 20 Mg Tab 20 MG PO HS, TAB Tamsulosin Hcl (Flomax) 0.4 Mg Cap 0.4 MG PO QAM, CAP Warfarin Sodium (Warfarin Sodium) 2 Mg Tab 2 MG PO HS, TAB Discontinued Medications: Furosemide (Furosemide) 40 Mg/4 Ml Soln 80 MG IV BID DISCONTINUE AFTER 0700 DOSE ON 04/07/2016 Lisinopril (Prinivil) 5 Mg Tab 5 MG PO DAILY, TAB Metoprolol Tartrate (Lopressor) 25 Mg Tab 12.5 MG PO BID, TAB Discharge Exam Continue doing fairly okay, eating drinking, able to void in after remove Chowdary catheter, has bowel movement, no other complaint Review of Systems: Constitutional: + fatigue, + weakness, No chills, No fever, No problem reported, No sweats, No weight loss Eyes: No diplopia, No discharge, No eye pain, No problem reported, No redness, No worsening of vision ENT: No dental problems, No hearing loss, No nasal symptoms, No problem reported, No sore throat, No tinnitus, No trouble swallowing, No unusual epistaxis Respiratory: + shortness of breath (is in baseline) Cardiovascular: + edema (significant better), No PND, No chest pain, No claudication, No orthopnea, No palpitations, No problem reported Abdomen: No GI bleeding, No constipation, No diarrhea, No nausea, No pain, No problem reported, No vomiting Musculoskeletal: + swelling, No calf pain, No joint pain, No muscle pain, No problem reported Genitourinary - Male: No dysuria, No hematuria, No impotence, No lesions, No penile discharge, No problem reported, No urinary frequency, No urinary hesitancy, No urinary incontinence, No urinary retention, No urinary urgency Neurologic: No balance problems, No memory loss, No numbness/tingling, No paralysis, No problem reported, No vertigo, No weakness Psychiatric: No anhedonism, No anxiety, No depression symptoms, No insomnia , No problem reported, No substance abuse Endocrine: + fatigue, No excessive thirst, No excessive urination, No problem reported Hematologic / Lymphatic: No abnormal bleeding/bruising, No clotting problems , No night sweats, No problem reported, No swollen lymph nodes Integumentary: No bleeding, No color change, No itch, No new/changing skin lesions, No problem reported, No rash Physical Exam: General Appearance: WD/WN, no apparent distress Eyes: normal inspection, PERRL ENT: normal ENT inspection, hearing grossly normal Neck: supple, no adenopathy Respiratory/Chest: chest non-tender, + decreased breath sounds, + crackles ( impenetrable lower lung, but is much improved) Cardiovascular: regular rate, rhythm, no gallop, no murmur, normal peripheral pulses, + pertinent finding (1+ edema) Abdomen / GI: normal bowel sounds, non tender, soft, + pertinent finding ( scrotal edema significant better) Extremities: normal inspection, no calf tenderness, normal capillary refill , no pedal edema Neurologic/Psychiatric: 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 II-XII nml as tested, no motor/sensory deficits , alert, normal mood/affect, normal reflexes Skin: normal color, warm/dry Hospital Course 70-year-old male with a history of type 2 diabetes and chronic diastolic heart failure and transferred to the ED on 04/06/2016 with an episode of persistent hypoglycemia Hypoglycemia - This is his initial reason coming to the hospital likely the long half life of glipizide and combination with liver cirrhosis and age of the patient are causing hypoglycemia, plus poor oral intake glipizide has been discontinued, metformin also on hold BG >200, start Amaryl with renal dose, patient seems tolerate well a1c was 6.8 upon admission Possible Cirrhosis--etiology, congestion from right heart failure vs SCALES vs viral etology. Not a liver transplant candidate given COPD and CHF. Had EGD 09/2014 negative for varices. Reasonable to do another EGD electively as outpt when stable from current CHF. ferritin and hepatitis profile unremarkable. Ascites--diagnostic paracentesis, pt has no abd pain and no signs of infection, no believe has sbp, Acute on Chronic systolic and diastolic heart failure which is evident by severe edema and scrotal edema, this is his major reason coming to the hospital and had prolonged hospital stay was on IV Lasix and albumin for 3 days, Blood pressure at borderline low, has been catheterization of in and out has been on Diurese well with IV bumex drip, it was changed to lasix but dced due to elev bicarb, and bounce back of elevated cr, totally has been -26 L negative, 24 kg weight lost, likely has approaching to dry weight - Echo completed: * -- Conclusions -- * 1. Mildly dilated LV with mild concentric LVH. * 2. Moderate global LV dysfunction. EF 35-40%. Paradoxical septal motion consistent with post-operative state. * 3. Dilated RV with moderate to severe RV dysfunction. * 4. Severe biatrial enlargement. * 5. Bioprosthetic aortic valve well seated with normal expected transvalvular gradients. * 6. Grade II diastolic dysfunction. * 7. Mild-moderate mitral regurgitation * 8. Moderate tricuspid regurgitation. * 9. Dilated IVC suggestive of elevated RA pressure (15 mmHg). Mild pulmonary hypertension (PASP 35-40 mmHg.) * 10. Compared with prior study on 10/11/2014: LV dysfunction is now moderate. - Liver cirrhosis and ascites and hyponatremia and scrotal edema Combined the above CHF exacerbation and liver cirrhosis conditions with ascites , patient is hypervol hyponatremia, Will continue current care, with fluid restrictions 1.5 L a day, check in and out, 2 g sodium diet, History of coronary artery disease status post CABG-asymptomatic, with NSTVT 4 beat this, has aicd, mag was normal, f/u -Continue medical management with Lopressor 12.5 mg BID, which was changed to Coreg because of CHF, pravastatin 20 mg HS, Is not on CHEMA inhibitor because of hypotensive and kidney failure COPD with chronic respiratory failure-Baseline -Duo nebs every 6 hours we'll be available - Continue chronic O2= 2 L History of bioprosthetic AVR -Helping on warfarin 2 mg HS, we'll increase to 5 mg by mouth daily , inr 2.2 today, has resume home dose of Coumadin at 2 mg by mouth daily Acute on chronic renal insufficiency, likely from CHF exacerbation and kidney congestion, which is evident from renal function improved after diuretics -?obstruction component, urology consulted, has been on chowdary [facility] admission, dose not need chowdary before admit' Has DC chowdary yesterday, he able to urination. Discussed with nephrology, will continue Lasix 40 mg by mouth twice a day and Aldactone 100 mg by mouth daily and will need cystoscopy as outpt Because on the patient's above condition need to have lab testing in 3 days include BMP, magnesium, and PT/INR History of GI bleed-stable. No signs of active bleeding Will discharge today with good condition, has emphasized to have free water restriction at 1.5 L daily DVT prophylaxis -Coumadin, -TEDS, SCDs CODE STATUS- FULL CODE Instructions / Follow-Up you have Acute on Chronic systolic and diastolic heart failure , you have Liver cirrhosis and ascites and hyponatremia and scrotal edema you need to continue fluid restrictions 1.5 L a day, yous ahve COPD with chronic respiratory failure-Baseline, need continue NC o2 2 LPM you have History of bioprosthetic AVR, we result your home dose of coumadin, you need to have labs of INR check in 3 days you have acute on chronic kidney failure, you need to have labs of BMP, mag, checked in 3 days Total Time Spent: Greater than 30 minutes This includes examination of the patient, discharge planning, medication reconciliation, and communication with other providers. Discharge Instructions Please refer to the electronic Patient Visit Report (Discharge Instructions) for additional information. Additional Copies To Ayaz Kam M.D.; Joshua Domingo M.D.; Luis Alfredo Kimball MD
[2016-04-19 11:07] VITALS: BP 100/67; PULSE 89; TEMP 36.7; O2SAT 99
--- NOTE | 2016-04-19 12:11 | Nephrology Progress Note ---
Nephrology Progress Note Date of Service Apr 19, 2016. Chief Complaint Follow-up for acute kidney injury and volume overload. Subjective Jose De Jesus was seen and examined this morning. He has been otherwise feeling well, denies SOB or CP. Decent UO, net negative. Edema seems to be improving. Cr stable 1.9 Review of Systems A complete review of systems was performed. Pertinent positives are noted above. All other systems are negative. Vital Signs Last 8 Hrs Date Time Temp Pulse Resp B/P Pulse Ox O2 Delivery O2 Flow Rate FiO2 04/19/16 07:56 Nasal Cannula 2.0 04/19/16 07:28 36.4 74 20 106/70 99 04/19/16 04:00 36.7 91 20 99/65 98 2.0 04/19/16 04:00 Nasal Cannula 2.0 I & O 24-Hour Column 04/19/16 07:59 Intake Total 1487 ml Output Total 1950 ml Balance -463 ml Last Recorded Weight Weight (Kilograms): 84.100 Physical Exam GENERAL: elderly male, AAA x 3, pleasant, not in any distress. NECK: Supple, no JVD. RESPIRATORY: Normal breathing efforts, no accessory muscle use, clear to auscultation bilaterally, no wheezes or rales. CARDIOVASCULAR: S1, S2 normal, rate rhythm regular. EXTREMITY: Trace B/L lower extremity edema, scrotal edema. NEURO: speech fluent. PSYCHIATRY: Normal mood and judgment Family History Patient reports no known family medical history. Social History Marital Status: single Housing Status: other (incarcerated at [facility]) Occupation: unemployed Laboratory Results Past 24 Hours 04/19/16 06:07 Test 04/18/16 10:04 04/18/16 11:41 04/18/16 16:11 04/18/16 20:14 Magnesium Level 2.1 mg/dl (1.8-2.4) Bedside Glucose 268 mg/dl (70-99) 263 mg/dl (70-99) 155 mg/dl (70-99) Test 04/19/16 06:01 04/19/16 06:07 04/19/16 07:20 Prothrombin Time 24.3 SECONDS (9.0-12.0) Prothromb Time International Ratio 2.2 (0.9-1.1) Activated Partial Thromboplast Time 46.0 SECONDS (21.0-31.0) Partial Thromboplastin Ratio 1.8 Anion Gap 11.0 mmol/L (3-11) Est Creatinine Clear Calc Drug Dose 33.9 ml/min Estimated GFR () 39.7 Estimated GFR (Non- 34.2 BUN/Creatinine Ratio 26.9 (10-20) Calcium Level 9.0 mg/dl (8.5-10.1) Magnesium Level 2.2 mg/dl (1.8-2.4) Bedside Glucose 115 mg/dl (70-99) Allergies Coded Allergies: No Known Allergies (Unverified , 04/01/16) Medications Current Inpatient Medications Medications (Trade) Dose Ordered Sig/Jenny Route Start Time Stop Time Status Last Admin Dose Admin Insulin Aspart (novoLOG ASPART) SLIDING SCALE G... ACHS SC 04/06/16 21:00 05/06/16 20:59 04/18/16 20:21 1 UNITS Acetaminophen (Tylenol Tab) 650 mg Q4H PRN PO 04/06/16 18:15 05/06/16 18:14 04/14/16 04:06 650 MG Ondansetron HCl (Zofran Inj) 4 mg Q6H PRN IV 04/06/16 18:15 05/06/16 18:14 04/07/16 11:16 4 MG Aspirin (Ecotrin Tab) 81 mg QAM PO 04/07/16 09:00 05/07/16 08:59 04/18/16 08:31 81 MG Pantoprazole Sodium (Protonix Tab) 40 mg QAM PO 04/07/16 09:00 05/07/16 08:59 04/18/16 08:31 40 MG Pravastatin Sodium (Pravachol Tab) 20 mg HS PO 04/06/16 21:00 05/06/16 20:59 04/18/16 20:18 20 MG Tamsulosin HCl (Flomax Cap) 0.4 mg QAM PO 04/07/16 09:00 05/07/16 08:59 04/18/16 08:29 0.4 MG Glucose (Glucose 40% Gel) 15-30 GRAMS 15 GRAMS... UD PRN PO 04/06/16 19:45 05/06/16 19:44 Glucose (Glucose Chew Tab) 4-8 Tablets 4 Tabl... UD PRN PO 04/06/16 19:45 05/06/16 19:44 04/07/16 00:15 4 TABS Dextrose (Dextrose 50% 50ML Syringe) 25-50ML OF 50% DW IV FOR... UD PRN IV 04/06/16 19:45 05/06/16 19:44 04/09/16 06:44 25 ML Glucagon (Glucagon Inj) 1 mg UD PRN SQ 04/06/16 19:45 05/06/16 19:44 Bisacodyl (Dulcolax Supp) 10 mg DAILY PRN IN 04/09/16 12:30 05/09/16 12:29 Bisacodyl (Dulcolax Tab) 5 mg DAILY PRN PO 04/09/16 12:30 05/09/16 12:29 Finasteride (Proscar Tab) 5 mg QAM PO 04/14/16 09:00 05/14/16 08:59 04/18/16 08:31 5 MG Oxycodone/ Acetaminophen (Percocet 5-325mg Tab) 1 tab Q4H PRN PO 04/13/16 16:00 04/27/16 15:59 04/14/16 08:26 1 TAB Warfarin Sodium (Coumadin Tab) 5 mg DAILY@16 PO 04/14/16 16:00 05/14/16 15:59 04/18/16 16:34 5 MG Carvedilol (Coreg Tab) 3.125 mg BID PO 04/14/16 21:00 05/14/16 20:59 04/18/16 20:18 3.125 MG Ferrous Sulfate (Feosol Tab) 325 mg QAM PO 04/15/16 09:00 05/15/16 08:59 04/18/16 08:31 325 MG Polyethylene (Miralax Powder Packet) 17 gm BID PO 04/15/16 21:00 05/15/16 20:59 04/18/16 20:19 17 GM Enteral Nutritional Formula (Boost Pudding) 1 cup BIDM PO 04/15/16 16:45 05/15/16 16:44 04/18/16 17:27 1 CUP Spironolactone (Aldactone Tab) 100 mg QAM PO 04/18/16 09:00 05/18/16 08:59 04/18/16 08:28 100 MG Glimepiride (Amaryl Tab) 1 mg QAM PO 04/19/16 09:00 05/19/16 08:59 Furosemide (Lasix Tab) 40 mg BID17 PO 04/19/16 09:00 05/19/16 08:59 Impression (1) ERA (acute kidney injury) (2) CKD (chronic kidney disease) (3) Hyponatremia (4) Hyperkalemia (5) Hypoglycemia (6) Acute on chronic combined systolic and diastolic CHF (congestive heart failure) (7) Chronic liver disease (8) Pulmonary hypertension Mr. Snell is a 71-year-old male w/ ASCVD, T2DM, COPD, atrial fibrillation with systolic and diastolic CHF who presents with hypoglycemia, hyperkalemia, hyponatremia and renal failure. Evaluation notable for cor pulmonale. Transthoracic echocardiogram documented elevated PASP of 35 - 42 mmHG as well as mitral and tricuspid valvular heart disease. CT scan is c/w cirrhosis. Ascitic fluid was transudative c/w portal hypertension. Renal US shows mild bilateral hydronephrosis with a dilated thickened bladder c/w [place]. Patient has significant genital edema. Recommendations ACUTE KIDNEY INJURY: -- Kidney function is improving Baseline creatinine has been 1.6, staying around 1.6-1.9 -- continue w/ Lasix 40 mg po BID and aldactone 100 mg po daily, aim for net negative 0.5-1L/d -- Ok to be DC with out pt lab monitoring in 1/2 weeks CHRONIC KIDNEY DISEASE: -- Baseline creatinine has been 1.6 EDEMA: -- Patient has cor pulmonale. Echocardiogram results reviewed. He has PASP ~ 40 w/ TR ANEMIA: -- Iron deficiency. Patient started on oral iron therapy by GI. Hb stable -- Awaiting FOBT results -- 2014 EGD & colonoscopy: antral ulcers CIRRHOSIS: -- Patient likely has cirrhosis on the basis of SCALES exacerbated by cor pulmonale/CHF.
== END 2016-04-19 12:50 | disposition home or self-care (01) | DRG 291 ==
LOC: ENRESERVDT → ENRESERVTM → EDBD 15:38 → C.EDA 15:42 → C.2T 18:24 → CANBEDREQ 04-09 16:02 → C.MED 04-09 17:12 → C.2E 04-10 12:54 → C.2T 04-14 18:36 → C.MED 04-16 14:36
PROVIDERS: ADMIT Hospitalist; ATTEND Hospitalist
DX: I13.0 Hypertensive heart and chronic kidney disease with heart failure and stage 1 through stage 4 chronic kidney disease, or unspecified chronic kidney disease (principal); I50.43 Acute on chronic combined systolic (congestive) and diastolic (congestive) heart failure; R18.8 Other ascites; E87.1 Hypo-osmolality and hyponatremia; J96.10 Chronic respiratory failure, unspecified whether with hypoxia or hypercapnia; N17.9 Acute kidney failure, unspecified; I48.92 Unspecified atrial flutter; I47.2 Ventricular tachycardia; E87.3 Alkalosis; K76.6 Portal hypertension; N39.0 Urinary tract infection, site not specified; N13.30 Unspecified hydronephrosis; K74.60 Unspecified cirrhosis of liver; N50.89 Other specified disorders of the male genital organs; J44.9 Chronic obstructive pulmonary disease, unspecified; Z99.81 Dependence on supplemental oxygen; Z95.2 Presence of prosthetic heart valve; E11.649 Type 2 diabetes mellitus with hypoglycemia without coma; I48.91 Unspecified atrial fibrillation; Z95.1 Presence of aortocoronary bypass graft; N32.0 Bladder-neck obstruction; Z95.810 Presence of automatic (implantable) cardiac defibrillator; D50.9 Iron deficiency anemia, unspecified; E83.42 Hypomagnesemia; I42.9 Cardiomyopathy, unspecified; I08.1 Rheumatic disorders of both mitral and tricuspid valves; E87.5 Hyperkalemia; E87.6 Hypokalemia; K59.00 Constipation, unspecified; K75.81 Nonalcoholic steatohepatitis (NASH); N18.9 Chronic kidney disease, unspecified; I27.81 Cor pulmonale (chronic); Z79.82 Long term (current) use of aspirin; E78.5 Hyperlipidemia, unspecified; Z79.01 Long term (current) use of anticoagulants; I25.10 Atherosclerotic heart disease of native coronary artery without angina pectoris

== ENCOUNTER → 2016-04-06 | Outpatient (CLI) | payer OTHER ==
[2016-04-06 11:54] LABS: BASO % 0.2 %; BASO ABS # 0.01 K/uL (0-0.2); EOS % 11.2 %; HEMATOCRIT 29.5 % (42-52); LYMPH ABS # 0.54 K/uL (1.2-3.4); MEAN CELL VOLUME 84.3 fL (80-100); MEAN CORPUSCULAR HEMOGLOBIN 30.9 pg (25-34); MEAN PLATELET VOLUME 11.7 fL (7.4-10.4); MONO % 5.5 %; NEUT % 72.1 %; PLATELET COUNT 116 K/uL (130-400); WHITE BLOOD COUNT 4.92 K/uL (4.8-10.8)
[2016-04-06 11:55] LABS: COMPLETE YES; MEAN CORPUSCULAR HGB CONC 36.6 g/dl (32-36)
[2016-04-06 12:24] LABS: ALB/GLOB RATIO 0.6 (0.9-2); ALKALINE PHOSPHATASE 118 U/L (45-117); ALT/SGPT 17 U/L (12-78); AST/SGOT 27 U/L (15-37); BLOOD UREA NITROGEN 31 mg/dl (7-18); BUN/CREATININE RATIO 19.3 (10-20); CALCIUM 9.1 mg/dl (8.5-10.1); CARBON DIOXIDE 27 mmol/L (21-32); CHLORIDE 104 mmol/L (98-107); GLUCOSE 36 mg/dl (70-99); POTASSIUM 4.6 mmol/L (3.5-5.1); SODIUM 139 mmol/L (136-145)
== END ==
LOC: C.LABSPEC 12:05
PROVIDERS: ATTEND Internal Medicine
DX: Z00.00 Encounter for general adult medical examination without abnormal findings (principal)